=== PATIENT | male | born 1945 | race Caucasian/White ===

== ENCOUNTER 2018-06-22 16:07 | Emergency (ER) | payer OTHER, SELFPAY ==
[2018-06-22 16:12] VITALS: BP 155/91; PULSE 81; RESP 16; TEMP 36; O2SAT 98; BMI 39.5
--- NOTE | 2018-06-22 16:24 | DI.RAD.S_ITS ---
PROCEDURE: XR KUB INDICATIONS: possible kidney stone. TECHNIQUE: One view of the abdomen acquired. COMPARISON: None. FINDINGS: Surgical changes and devices: None. Bowel: Bowel gas pattern is normal. Soft tissues: No suspicious abdominal calcifications. Visualized solid organ contours appear normal in size. Bones: No suspicious bony lesions. IMPRESSION: No trauma found. Moderately severe degenerative changes along the lumbosacral spine. A suspected urinary tract stone is not seen. CT KUB likely is warranted in this clinical circumstance. Dictated by: Crow Bajwa M.D. on 06/22/2018 at 16:40 Approved by: Crow Bajwa M.D. on 06/22/2018 at 16:40
[2018-06-22 16:31] LABS: Add Manual Diff / Slide Review NO; Basophils Percent Auto 1.5 % (0-2); Eosinophils Percent Auto 2.5 % (2-4); Hematocrit 44.4 % (41-53); Hemoglobin 15.2 g/dL (13.5-17.5); Lymphocytes Percent Auto 17.7 % (25-40); Mean Corpuscular HGB Conc 34.1 % (30-36); Mean Corpuscular Hemoglobin 31.6 PG (26-34); Mean Corpuscular Volume 92.8 fL (80-100); Neutrophils Absolute Auto 7900 /uL (3000-5900); Neutrophils Percent Auto 70.3 % (50-75); Platelet Count 243 X10^3/uL (150-400); Red Blood Cell Count 4.79 X10^6/uL (4.5-5.9); Red Cell Distribution Width 13.2 % (11.6-14.8); White Blood Cell Count 11.2 X10^3/uL (4.5-11.0)
--- NOTE | 2018-06-22 16:38 | ED.BACK ---
HPI - Back Pain/Injury <Hilda Shelton PA-C - Last Filed: 06/22/18 21:38> General Chief Complaint: Back Pain/Injury Stated Complaint: STATES PASSING KIDNEY STONE Time Seen by Provider: 06/22/18 16:24 Source: patient Mode of arrival: ambulatory Limitations: no limitations History of Present Illness HPI Narrative: This 72-year-old gentleman comes in today due to right flank pain which he believes is secondary to a kidney stone. He had 1 last year and this pain is similar. He states that initially he felt a pressure like he needed to defecate, but did not resolve with this, then began having pain in the right flank that has worsened over the last few hours. He states that he took left over dose of Flomax, ketorolac, and also had all of while and lemon juice which have helped somewhat at home. He denies any nausea or vomiting. He denies any hematuria or dysuria. He has not had fever, chills, or sweats. He states that pain is localized in the flank and denies abdominal pain. He denies any chest pain, dyspnea, extremity pain or other new complaints on systems review. Pain does not seem to have exacerbating or alleviating features aside from the medications. Related Data Previous Rx's Medication Instructions Recorded hydrocodone-acetaminophen [[place]] 2 tab PO Q6H PRN #12 tab 06/22/18 tamsulosin [Flomax] 0.4 mg PO DAILY #5 cap 06/22/18 Allergies Allergy/AdvReac Type Severity Reaction Status Date / Time No Known Drug Allergies Allergy Verified 06/22/18 17:22 Review of Systems <Hilda Shelton PA-C - Last Filed: 06/22/18 21:38> Review of Systems All systems reviewed & are unremarkable except as noted in HPI and below Exam <Hilda Shelton PA-C - Last Filed: 06/22/18 21:38> Narrative Exam Narrative: GENERAL APPEARANCE: Patient sitting comfortably, in no distress. HEENT: PERRL, EOMI, no scleral icterus NECK: Supple LUNGS: Clear to auscultation bilaterally. HEART: Rate and rhythm regular, normal S1 and S2, no S3 or S4. ABDOMEN: Soft, nontender, nondistended, bowel sounds present x 4 quadrants, no masses palpable, no hepatosplenomegaly. Localized right CVAT EXTREMITIES: No edema, no cyanosis or calf tenderness DERMATOLOGIC: No jaundice or exanthem NEUROLOGIC: Alert and oriented with normal speech and coordination Initial Vital Signs Initial Vital Signs: Vital Signs Temperature 96.8 F L 06/22/18 16:12 Pulse Rate 81 06/22/18 16:12 Respiratory Rate 16 06/22/18 16:12 Blood Pressure 155/91 H 06/22/18 16:12 Pulse Oximetry 98 06/22/18 16:12 <Filippo Casarez DO - Last Filed: 06/23/18 07:15> Initial Vital Signs Initial Vital Signs: Vital Signs Temperature 96.8 F L 06/22/18 16:12 Pulse Rate 81 06/22/18 16:12 Respiratory Rate 16 06/22/18 16:12 Blood Pressure 155/91 H 06/22/18 16:12 Pulse Oximetry 98 06/22/18 16:12 Course <Hilda Shelton PA-C - Last Filed: 06/22/18 21:38> Additional Information: Patient felt significantly improved after pain medications and was ambulating comfortably prior to discharge. Orders Ordered: Discontinued Medications Hydromorphone HCl (Dilaudid) 1 mg IV NOW ONE Stop: 06/22/18 16:49 Last Admin: 06/22/18 16:56 Dose: 1 mg Ketorolac Tromethamine (Toradol) 15 mg IV NOW ONE Stop: 06/22/18 16:49 Last Admin: 06/22/18 16:56 Dose: 15 mg Vital Signs - 8 hr 06/22/18 16:12 06/22/18 18:26 Temperature 96.8 F L Pulse Rate 81 78 Respiratory Rate 16 15 Blood Pressure 155/91 H Blood Pressure [Left Arm] 127/74 H Pulse Oximetry 98 98 <DO Jason Her Last Filed: 06/23/18 07:15> Orders Ordered: Discontinued Medications Hydromorphone HCl (Dilaudid) 1 mg IV NOW ONE Stop: 06/22/18 16:49 Last Admin: 06/22/18 16:56 Dose: 1 mg Ketorolac Tromethamine (Toradol) 15 mg IV NOW ONE Stop: 06/22/18 16:49 Last Admin: 06/22/18 16:56 Dose: 15 mg Vital Signs - 8 hr 06/22/18 16:12 06/22/18 18:26 Temperature 96.8 F L Pulse Rate 81 78 Respiratory Rate 16 15 Blood Pressure 155/91 H Blood Pressure [Left Arm] 127/74 H Pulse Oximetry 98 98 MDM - Back Pain/Injury <Hilda Shelton PA-C - Last Filed: 06/22/18 21:38> Lab Data Result diagrams: 06/22/18 16:20 06/22/18 16:20 Lab Results 06/22/18 06/22/18 06/22/18 Range/Units 16:20 16:20 18:16 WBC 11.2 H (4.5-11.0) X10^3/uL RBC 4.79 (4.5-5.9) X10^6/uL Hgb 15.2 (13.5-17.5) g/dL Hct 44.4 (41-53) % MCV 92.8 (80-100) fL MCH 31.6 (26-34) PG MCHC 34.1 (30-36) % RDW 13.2 (11.6-14.8) % Plt Count 243 (150-400) X10^3/uL Neut % (Auto) 70.3 (50-75) % Lymph % (Auto) 17.7 L (25-40) % Rock % (Auto) 8.0 (3-14) % Eos % (Auto) 2.5 (2-4) % Baso % (Auto) 1.5 (0-2) % Neut # (Auto) 7900 H (4345-1969) /uL Sodium 138 (137-145) mmol/L Potassium 4.7 (3.4-5.1) mmol/L Chloride 97 L (98-107) mmol/L Carbon Dioxide 24 (22-32) mmol/L BUN 27 H (9-20) mg/dL Creatinine 1.50 H (0.66-1.25) mg/dL Estimated GFR 45.9 L (>60) mL/min BUN/Creatinine Ratio 18.0 (6-22) Glucose 233 H (80-110) mg/dL Calcium 10.4 H (8.4-10.2) mg/dL Urine RBC 5-10/hpf H (0-5/HPF) Urine WBC 5-10/hpf H (0-5/HPF) Urine Bacteria None seen (None) Ur Culture Indicated? Specimen cultured Micro UA Comment Not Reportable Imaging Data US - abdomen: Radiologist's impression: View Report History Print [facility] [address] [place] [id number] Scan Report Signed Patient: Boy Pisano MR#: [id number] : 1945 Acct:[id number] Age/Sex: 72 / M Date of Service: 06/22/18 Loc: ED Accession Number: [id number] Procedure: CT kidney ureter bladder (KUB) Ordering Provider: Hilda Shelton P.A-C PROCEDURE: CT KIDNEY URETER BLADDER (KUB) INDICATIONS: r. flank pain, h/o stone TECHNIQUE: Noncontrast 5 mm thick sections acquired from the diaphragms to the symphysis. 5 mm thick coronal and sagittal reformats were then performed. For radiation dose reduction, the following was used: automated exposure control, adjustment of mA and/or kV according to patient size. COMPARISON: [facility], CT, ABDOMEN/PELVIS WITH CONTRAST, 07/09/2017, 23:59. FINDINGS: Image quality: Excellent. Lung bases: Aortic root and coronary artery calcifications are noted. Sternotomy wires are present. There is a large hiatal hernia. There is mild bibasilar atelectasis. Urinary system: There is a 1.4 cm left renal cyst in the mid left kidney. No left hydronephrosis. There are punctate nonobstructing nephroliths within the right kidney. There is mild right perinephric fat stranding. There is mild right hydroureteronephrosis with a 3 mm calculus in the distal right ureter and a 2 mm calculus in the right ureterovesicular junction. Bladder is unremarkable. Other solid organs: There is diffuse hepatic attenuation consistent with steatosis with focal fatty sparing of the liver surrounding the gallbladder fossa. Gallbladder is unremarkable. No intrahepatic or extrahepatic biliary ductal dilatation. Pancreas, spleen, and bilateral adrenal glands are unremarkable. Peritoneum and bowel: There is colonic diverticulosis without evidence of acute diverticulitis. Nodes and vessels: There is severe calcification of the abdominal aorta and branch vessels. No retroperitoneal lymphadenopathy. Abdominal wall: No ventral hernias. Pelvis: No free pelvic fluid. No inguinal hernias or adenopathy. Bones: Bones are mildly diffusely demineralized. There is severe multilevel degenerative changes of the lumbar spine with straightening of the normal lumbar lordosis, and retrolisthesis of L2 on L3 resulting in moderate spinal canal stenosis at this level. IMPRESSION: #1. Mild right hydronephrosis and ureteral dilatation secondary to a 3 mm calculus in the distal right ureter and a 2 mm calculus at the right ureterovesicular junction. #2. Large hiatal hernia. #3. Severe multilevel degenerative changes of the lumbar spine with retrolisthesis of L2 on L3 resulting in moderate spinal canal stenosis at that level. #4. Diffuse hepatic steatosis. Dictated by: Darian Madera M.D. on 06/22/2018 at 17:29 Approved by: Darian Madera M.D. on 06/22/2018 at 17:42 <Filippo Casarez DO - Last Filed: 06/23/18 07:15> Lab Data Lab Results 06/22/18 06/22/18 06/22/18 Range/Units 16:20 16:20 18:16 WBC 11.2 H (4.5-11.0) X10^3/uL RBC 4.79 (4.5-5.9) X10^6/uL Hgb 15.2 (13.5-17.5) g/dL Hct 44.4 (41-53) % MCV 92.8 (80-100) fL MCH 31.6 (26-34) PG MCHC 34.1 (30-36) % RDW 13.2 (11.6-14.8) % Plt Count 243 (150-400) X10^3/uL Neut % (Auto) 70.3 (50-75) % Lymph % (Auto) 17.7 L (25-40) % Rock % (Auto) 8.0 (3-14) % Eos % (Auto) 2.5 (2-4) % Baso % (Auto) 1.5 (0-2) % Neut # (Auto) 7900 H (2845-6432) /uL Sodium 138 (137-145) mmol/L Potassium 4.7 (3.4-5.1) mmol/L Chloride 97 L (98-107) mmol/L Carbon Dioxide 24 (22-32) mmol/L BUN 27 H (9-20) mg/dL Creatinine 1.50 H (0.66-1.25) mg/dL Estimated GFR 45.9 L (>60) mL/min BUN/Creatinine Ratio 18.0 (6-22) Glucose 233 H (80-110) mg/dL Calcium 10.4 H (8.4-10.2) mg/dL Urine RBC 5-10/hpf H (0-5/HPF) Urine WBC 5-10/hpf H (0-5/HPF) Urine Bacteria None seen (None) Ur Culture Indicated? Specimen cultured Micro UA Comment Not Reportable Discharge Plan Departure Patient Disposition: Home Clinical Impression: Kidney stone on right side Discharge Date/Time: 06/22/18 19:27 Interventions: ED Discharge Assessment Last Done: 06/22/18 19:26 Instructions: DI for Kidney Stones Activity Restrictions/Additional Instructions: Return as we talked about if you have acutely worsening symptoms. Otherwise, please take your tamsulosin once daily, use the prescription pain medicine as needed and drink plenty of fluids. Do not drive while taking the hydrocodone/acetaminophen as it could make you sleepy. I suspect these stones will pass in the next day or so. You should follow up with your PCP in the next few days for recheck Prescriptions: New hydrocodone-acetaminophen [[place]] 5-325 mg tablet 2 tab PO Q6H PRN (Reason: kidney stone) Qty: 12 RF: 0 tamsulosin [Flomax] 0.4 mg capsule 0.4 mg PO DAILY Qty: 5 RF: 0 Referrals: Keke Grewal MD [Primary Care Provider] - <Filippo Casarez DO - Last Filed: 06/23/18 07:15> Cosign ED Attending Campos Attestation: I was available for consultation during this patient's emergency department encounter
[2018-06-22 16:44] LABS: Blood Urea Nitrogen 27 mg/dL (9-20); Calcium 10.4 mg/dL (8.4-10.2); Carbon Dioxide 24 mmol/L (22-32); Chloride 97 mmol/L (98-107); Estimated Glomerular Filt Rate 45.9 mL/min (>60); Glucose 233 mg/dL (80-110); HEMOLYSIS 17 (0-50); Potassium 4.7 mmol/L (3.4-5.1); Sodium 138 mmol/L (137-145)
--- NOTE | 2018-06-22 16:55 | DI.CT.S_ITS ---
PROCEDURE: CT KIDNEY URETER BLADDER (KUB) INDICATIONS: r. flank pain, h/o stone TECHNIQUE: Noncontrast 5 mm thick sections acquired from the diaphragms to the symphysis. 5 mm thick coronal and sagittal reformats were then performed. For radiation dose reduction, the following was used: automated exposure control, adjustment of mA and/or kV according to patient size. COMPARISON: [facility], CT, ABDOMEN/PELVIS WITH CONTRAST, 07/09/2017, 23:59. FINDINGS: Image quality: Excellent. Lung bases: Aortic root and coronary artery calcifications are noted. Sternotomy wires are present. There is a large hiatal hernia. There is mild bibasilar atelectasis. Urinary system: There is a 1.4 cm left renal cyst in the mid left kidney. No left hydronephrosis. There are punctate nonobstructing nephroliths within the right kidney. There is mild right perinephric fat stranding. There is mild right hydroureteronephrosis with a 3 mm calculus in the distal right ureter and a 2 mm calculus in the right ureterovesicular junction. Bladder is unremarkable. Other solid organs: There is diffuse hepatic attenuation consistent with steatosis with focal fatty sparing of the liver surrounding the gallbladder fossa. Gallbladder is unremarkable. No intrahepatic or extrahepatic biliary ductal dilatation. Pancreas, spleen, and bilateral adrenal glands are unremarkable. Peritoneum and bowel: There is colonic diverticulosis without evidence of acute diverticulitis. Nodes and vessels: There is severe calcification of the abdominal aorta and branch vessels. No retroperitoneal lymphadenopathy. Abdominal wall: No ventral hernias. Pelvis: No free pelvic fluid. No inguinal hernias or adenopathy. Bones: Bones are mildly diffusely demineralized. There is severe multilevel degenerative changes of the lumbar spine with straightening of the normal lumbar lordosis, and retrolisthesis of L2 on L3 resulting in moderate spinal canal stenosis at this level. IMPRESSION: #1. Mild right hydronephrosis and ureteral dilatation secondary to a 3 mm calculus in the distal right ureter and a 2 mm calculus at the right ureterovesicular junction. #2. Large hiatal hernia. #3. Severe multilevel degenerative changes of the lumbar spine with retrolisthesis of L2 on L3 resulting in moderate spinal canal stenosis at that level. #4. Diffuse hepatic steatosis. Dictated by: Darian Madera M.D. on 06/22/2018 at 17:29 Approved by: Darian Madera M.D. on 06/22/2018 at 17:42
[2018-06-22] MEDS: HYDROMORPHONE 1 MG INJ IV (16:56)
[2018-06-22] MEDS: KETOROLAC 60 MG/2 ML VIAL 15 MG IV (16:56)
--- NOTE | 2018-06-22 17:10 | ED_ITS ---
HPI - Back Pain/Injury <Hilda Shelton PA-C - Last Filed: 06/22/18 21:38> General Chief Complaint: Back Pain/Injury Stated Complaint: STATES PASSING KIDNEY STONE Time Seen by Provider: 06/22/18 16:24 Source: patient Mode of arrival: ambulatory Limitations: no limitations History of Present Illness HPI Narrative: This 72-year-old gentleman comes in today due to right flank pain which he believes is secondary to a kidney stone. He had 1 last year and this pain is similar. He states that initially he felt a pressure like he needed to defecate, but did not resolve with this, then began having pain in the right flank that has worsened over the last few hours. He states that he took left over dose of Flomax, ketorolac, and also had all of while and lemon juice which have helped somewhat at home. He denies any nausea or vomiting. He denies any hematuria or dysuria. He has not had fever, chills, or sweats. He states that pain is localized in the flank and denies abdominal pain. He denies any chest pain, dyspnea, extremity pain or other new complaints on systems review. Pain does not seem to have exacerbating or alleviating features aside from the medications. Related Data Previous Rx's Medication Instructions Recorded hydrocodone-acetaminophen [Dolliver] 2 tab PO Q6H PRN #12 tab 06/22/18 tamsulosin [Flomax] 0.4 mg PO DAILY #5 cap 06/22/18 Allergies Allergy/AdvReac Type Severity Reaction Status Date / Time No Known Drug Allergies Allergy Verified 06/22/18 17:22 Review of Systems <Hilda Shelton PA-C - Last Filed: 06/22/18 21:38> Review of Systems All systems reviewed & are unremarkable except as noted in HPI and below Exam <Hilda Shelton PA-C - Last Filed: 06/22/18 21:38> Narrative Exam Narrative: GENERAL APPEARANCE: Patient sitting comfortably, in no distress. HEENT: PERRL, EOMI, no scleral icterus NECK: Supple LUNGS: Clear to auscultation bilaterally. HEART: Rate and rhythm regular, normal S1 and S2, no S3 or S4. ABDOMEN: Soft, nontender, nondistended, bowel sounds present x 4 quadrants, no masses palpable, no hepatosplenomegaly. Localized right CVAT EXTREMITIES: No edema, no cyanosis or calf tenderness DERMATOLOGIC: No jaundice or exanthem NEUROLOGIC: Alert and oriented with normal speech and coordination Initial Vital Signs Initial Vital Signs: Vital Signs Temperature 96.8 F L 06/22/18 16:12 Pulse Rate 81 06/22/18 16:12 Respiratory Rate 16 06/22/18 16:12 Blood Pressure 155/91 H 06/22/18 16:12 Pulse Oximetry 98 06/22/18 16:12 <Filippo Casarez DO - Last Filed: 06/23/18 07:15> Initial Vital Signs Initial Vital Signs: Vital Signs Temperature 96.8 F L 06/22/18 16:12 Pulse Rate 81 06/22/18 16:12 Respiratory Rate 16 06/22/18 16:12 Blood Pressure 155/91 H 06/22/18 16:12 Pulse Oximetry 98 06/22/18 16:12 Course <Hilda Shelton PA-C - Last Filed: 06/22/18 21:38> Additional Information: Patient felt significantly improved after pain medications and was ambulating comfortably prior to discharge. Orders Ordered: Discontinued Medications Hydromorphone HCl (Dilaudid) 1 mg IV NOW ONE Stop: 06/22/18 16:49 Last Admin: 06/22/18 16:56 Dose: 1 mg Ketorolac Tromethamine (Toradol) 15 mg IV NOW ONE Stop: 06/22/18 16:49 Last Admin: 06/22/18 16:56 Dose: 15 mg Vital Signs - 8 hr 06/22/18 16:12 06/22/18 18:26 Temperature 96.8 F L Pulse Rate 81 78 Respiratory Rate 16 15 Blood Pressure 155/91 H Blood Pressure [Left Arm] 127/74 H Pulse Oximetry 98 98 <DO Jason Her Last Filed: 06/23/18 07:15> Orders Ordered: Discontinued Medications Hydromorphone HCl (Dilaudid) 1 mg IV NOW ONE Stop: 06/22/18 16:49 Last Admin: 06/22/18 16:56 Dose: 1 mg Ketorolac Tromethamine (Toradol) 15 mg IV NOW ONE Stop: 06/22/18 16:49 Last Admin: 06/22/18 16:56 Dose: 15 mg Vital Signs - 8 hr 06/22/18 16:12 06/22/18 18:26 Temperature 96.8 F L Pulse Rate 81 78 Respiratory Rate 16 15 Blood Pressure 155/91 H Blood Pressure [Left Arm] 127/74 H Pulse Oximetry 98 98 MDM - Back Pain/Injury <Hilda Shelton PA-C - Last Filed: 06/22/18 21:38> Lab Data Result diagrams: 06/22/18 16:20 06/22/18 16:20 Lab Results 06/22/18 06/22/18 06/22/18 Range/Units 16:20 16:20 18:16 WBC 11.2 H (4.5-11.0) X10^3/uL RBC 4.79 (4.5-5.9) X10^6/uL Hgb 15.2 (13.5-17.5) g/dL Hct 44.4 (41-53) % MCV 92.8 (80-100) fL MCH 31.6 (26-34) PG MCHC 34.1 (30-36) % RDW 13.2 (11.6-14.8) % Plt Count 243 (150-400) X10^3/uL Neut % (Auto) 70.3 (50-75) % Lymph % (Auto) 17.7 L (25-40) % [place] % (Auto) 8.0 (3-14) % Eos % (Auto) 2.5 (2-4) % Baso % (Auto) 1.5 (0-2) % Neut # (Auto) 7900 H (3251-7740) /uL Sodium 138 (137-145) mmol/L Potassium 4.7 (3.4-5.1) mmol/L Chloride 97 L (98-107) mmol/L Carbon Dioxide 24 (22-32) mmol/L BUN 27 H (9-20) mg/dL Creatinine 1.50 H (0.66-1.25) mg/dL Estimated GFR 45.9 L (>60) mL/min BUN/Creatinine Ratio 18.0 (6-22) Glucose 233 H (80-110) mg/dL Calcium 10.4 H (8.4-10.2) mg/dL Urine RBC 5-10/hpf H (0-5/HPF) Urine WBC 5-10/hpf H (0-5/HPF) Urine Bacteria None seen (None) Ur Culture Indicated? Specimen cultured Micro UA Comment Not Reportable Imaging Data US - abdomen: Radiologist's impression: View Report History Print [facility] [address] [place] [id number] Scan Report Signed Patient: Boy Pisano MR#: [id number] : 1945 Acct:[id number] Age/Sex: 72 / M Date of Service: 06/22/18 Loc: ED Accession Number: [id number] Procedure: CT kidney ureter bladder (KUB) Ordering Provider: Hilda Shelton P.A-C PROCEDURE: CT KIDNEY URETER BLADDER (KUB) INDICATIONS: r. flank pain, h/o stone TECHNIQUE: Noncontrast 5 mm thick sections acquired from the diaphragms to the symphysis. 5 mm thick coronal and sagittal reformats were then performed. For radiation dose reduction, the following was used: automated exposure control, adjustment of mA and/or kV according to patient size. COMPARISON: [facility], CT, ABDOMEN/PELVIS WITH CONTRAST, 07/09/2017, 23: 59. FINDINGS: Image quality: Excellent. Lung bases: Aortic root and coronary artery calcifications are noted. Sternotomy wires are present. There is a large hiatal hernia. There is mild bibasilar atelectasis. Urinary system: There is a 1.4 cm left renal cyst in the mid left kidney. No left hydronephrosis. There are punctate nonobstructing nephroliths within the right kidney. There is mild right perinephric fat stranding. There is mild right hydroureteronephrosis with a 3 mm calculus in the distal right ureter and a 2 mm calculus in the right ureterovesicular junction. Bladder is unremarkable. Other solid organs: There is diffuse hepatic attenuation consistent with steatosis with focal fatty sparing of the liver surrounding the gallbladder fossa. Gallbladder is unremarkable. No intrahepatic or extrahepatic biliary ductal dilatation. Pancreas, spleen, and bilateral adrenal glands are unremarkable. Peritoneum and bowel: There is colonic diverticulosis without evidence of acute diverticulitis. Nodes and vessels: There is severe calcification of the abdominal aorta and branch vessels. No retroperitoneal lymphadenopathy. Abdominal wall: No ventral hernias. Pelvis: No free pelvic fluid. No inguinal hernias or adenopathy. Bones: Bones are mildly diffusely demineralized. There is severe multilevel degenerative changes of the lumbar spine with straightening of the normal lumbar lordosis, and retrolisthesis of L2 on L3 resulting in moderate spinal canal stenosis at this level. IMPRESSION: #1. Mild right hydronephrosis and ureteral dilatation secondary to a 3 mm calculus in the distal right ureter and a 2 mm calculus at the right ureterovesicular junction. #2. Large hiatal hernia. #3. Severe multilevel degenerative changes of the lumbar spine with retrolisthesis of L2 on L3 resulting in moderate spinal canal stenosis at that level. #4. Diffuse hepatic steatosis. Dictated by: Darian Madera M.D. on 06/22/2018 at 17:29 Approved by: Darian Madera M.D. on 06/22/2018 at 17:42 <Filippo Casarez DO - Last Filed: 06/23/18 07:15> Lab Data Lab Results 06/22/18 06/22/18 06/22/18 Range/Units 16:20 16:20 18:16 WBC 11.2 H (4.5-11.0) X10^3/uL RBC 4.79 (4.5-5.9) X10^6/uL Hgb 15.2 (13.5-17.5) g/dL Hct 44.4 (41-53) % MCV 92.8 (80-100) fL MCH 31.6 (26-34) PG MCHC 34.1 (30-36) % RDW 13.2 (11.6-14.8) % Plt Count 243 (150-400) X10^3/uL Neut % (Auto) 70.3 (50-75) % Lymph % (Auto) 17.7 L (25-40) % [place] % (Auto) 8.0 (3-14) % Eos % (Auto) 2.5 (2-4) % Baso % (Auto) 1.5 (0-2) % Neut # (Auto) 7900 H (5196-9969) /uL Sodium 138 (137-145) mmol/L Potassium 4.7 (3.4-5.1) mmol/L Chloride 97 L (98-107) mmol/L Carbon Dioxide 24 (22-32) mmol/L BUN 27 H (9-20) mg/dL Creatinine 1.50 H (0.66-1.25) mg/dL Estimated GFR 45.9 L (>60) mL/min BUN/Creatinine Ratio 18.0 (6-22) Glucose 233 H (80-110) mg/dL Calcium 10.4 H (8.4-10.2) mg/dL Urine RBC 5-10/hpf H (0-5/HPF) Urine WBC 5-10/hpf H (0-5/HPF) Urine Bacteria None seen (None) Ur Culture Indicated? Specimen cultured Micro UA Comment Not Reportable Discharge Plan Departure Patient Disposition: Home Clinical Impression: Kidney stone on right side Discharge Date/Time: 06/22/18 19:27 Interventions: ED Discharge Assessment Last Done: 06/22/18 19:26 Instructions: DI for Kidney Stones Activity Restrictions/Additional Instructions: Return as we talked about if you have acutely worsening symptoms. Otherwise, please take your tamsulosin once daily, use the prescription pain medicine as needed and drink plenty of fluids. Do not drive while taking the hydrocodone/ acetaminophen as it could make you sleepy. I suspect these stones will pass in the next day or so. You should follow up with your PCP in the next few days for recheck Prescriptions: New hydrocodone-acetaminophen [Dolliver] 5-325 mg tablet 2 tab PO Q6H PRN (Reason: kidney stone) Qty: 12 RF: 0 tamsulosin [Flomax] 0.4 mg capsule 0.4 mg PO DAILY Qty: 5 RF: 0 Referrals: Keke Grewal MD [Primary Care Provider] - <Filippo Casarez DO - Last Filed: 06/23/18 07:15> Cosign ED Attending Campos Attestation: I was available for consultation during this patient's emergency department encounter
[2018-06-22 18:26] VITALS: BP 127/74; PULSE 78; RESP 15; O2SAT 98
[2018-06-22 18:48] LABS: Bacteria Urine None Seen; Culture Indicated Urine Specimen Cultured; RBC Urine 5-10/HPF (0-5/HPF); WBC Urine 5-10/HPF (0-5/HPF)
--- NOTE | 2018-06-26 14:57 | PC.NURSE ---
spoke with pt today and he reports feeling better, afebrile as of 06/25/18, cook removed today and a ureter stent was placed while at [facility]. reported the medication pt rec'd and dr eckert stated no further action required, also [facility] sup reports they too ran a urine culture with no growth.
== END 2018-06-22 19:27 | disposition home or self-care (01) ==
PROVIDERS: Emergency Provider Internal Medicine; Family Provider Family Medicine; PCP Family Medicine
DX: N20.0 Calculus of kidney (principal)
CPT/HCPCS: 36591; 74018; 74176; 80048; 81003; 81015; 85025; 87077; 87086; 96374; 96375; 99282; 99284; J1170; J1885

== ENCOUNTER 2018-11-17 10:18 | Day surgery (SDC) | payer OTHER, SELFPAY ==
[2018-11-17 10:34] VITALS: BP 139/88; PULSE 78; RESP 16; TEMP 36.3; O2SAT 95; BMI 38.2
[2018-11-17] MEDS: SODIUM CHLORIDE 0.9% 1,000 ML 42 ML IV (11:05)
--- NOTE | 2018-11-17 12:11 | PM.HP.1 ---
History of Present Illness Date Patient Seen: 11/17/18 Time Patient Seen: 12:11 Chief complaint: colonoscopy [id number] Narrative: History of adenomatous colon polyps Patient History Medical History Diabetes mellitus (Acute) Hypercholesterolemia (Acute) Hypertension (Acute) CAD (coronary artery disease) (Chronic) History of non-insulin dependent diabetes mellitus (Chronic) Coronary artery disease involving coronary bypass graft of [place] heart (Resolved) Family & Social History Social History: household members spouse Tobacco & Substance use: Smoking Status Never smoker alcohol intake frequency other Substance Use Type does not use Meds Home Medications Medication Instructions Recorded Confirmed Type metformin 500 mg PO TID 11/17/18 11/17/18 History metoprolol succinate 25 mg PO DAILY 11/17/18 11/17/18 History omeprazole 20 mg PO DAILY 11/17/18 11/17/18 History simvastatin 40 mg PO QPM 11/17/18 11/17/18 History tramadol 50 mg PO QID PRN 11/17/18 11/17/18 History travoprost 1 % EYE-BOTH DAILY 11/17/18 11/17/18 History Allergies Allergy/AdvReac Type Severity Reaction Status Date / Time No Known Drug Allergies Allergy Verified 11/17/18 10:52 Exam Vital Signs (past 8 hours): - 11/17/18 10:34 Temperature 97.4 F L Pulse Rate 78 Respiratory Rate 16 Blood Pressure 139/88 Pulse Oximetry 95 Oxygen Delivery Method Room Air Narrative Exam Narrative: Oropharynx free of lesions Chest clear to auscultation percussion Cardiac exam reveals no S3 or murmur Assessment & Plan Plan: Assessment/Plan Narrative: History of adenomatous colon polyps. Need for follow-up colonoscopy. Risks, benefits, alternatives have been explained.
--- NOTE | 2018-11-17 12:16 | P.HP_ITS ---
History of Present Illness Date Patient Seen: 11/17/18 Time Patient Seen: 12:11 Chief complaint: colonoscopy [id number] Narrative: History of adenomatous colon polyps Patient History Medical History Diabetes mellitus (Acute) Hypercholesterolemia (Acute) Hypertension (Acute) CAD (coronary artery disease) (Chronic) History of non-insulin dependent diabetes mellitus (Chronic) Coronary artery disease involving coronary bypass graft of [place] heart ( Resolved) Family & Social History Social History: household members spouse Tobacco & Substance use: Smoking Status Never smoker alcohol intake frequency other Substance Use Type does not use Meds Home Medications Medication Instructions Recorded Confirmed Type metformin 500 mg PO TID 11/17/18 11/17/18 History metoprolol succinate 25 mg PO DAILY 11/17/18 11/17/18 History omeprazole 20 mg PO DAILY 11/17/18 11/17/18 History simvastatin 40 mg PO QPM 11/17/18 11/17/18 History tramadol 50 mg PO QID PRN 11/17/18 11/17/18 History travoprost 1 % EYE-BOTH DAILY 11/17/18 11/17/18 History Allergies Allergy/AdvReac Type Severity Reaction Status Date / Time No Known Drug Allergies Allergy Verified 11/17/18 10:52 Exam Vital Signs (past 8 hours): - 11/17/18 10:34 Temperature 97.4 F L Pulse Rate 78 Respiratory Rate 16 Blood Pressure 139/88 Pulse Oximetry 95 Oxygen Delivery Method Room Air Narrative Exam Narrative: Oropharynx free of lesions Chest clear to auscultation percussion Cardiac exam reveals no S3 or murmur Assessment & Plan Plan: Assessment/Plan Narrative: History of adenomatous colon polyps. Need for follow-up colonoscopy. Risks, benefits, alternatives have been explained.
--- NOTE | 2018-11-17 12:16 | PM.OP.ENDO ---
Operative Date/Time/Diagnoses Date of procedure: 11/17/18 Time of procedure: 12:16 Pre-op diagnosis: See indication and findings Procedure & Clinicians Study performed: Colonoscopy Same procedure as scheduled: Yes Indications: History of adenomatous colon polyps Surgeon: More Chatterjee Procedure Notes Procedure in detail: After informed consent was obtained the patient was placed in left lateral decubitus position. The video colonoscope was introduced the rectum slowly advanced to the cecum. On slow withdrawal mucosa was carefully examined. The scope was removed. The patient tolerated the procedure well. Blood loss none Complications none Sedation Total sedation time 25 min Versed 6 mg fentanyl 100 mcg IV titration Findings 1. Significantly tortuous and floppy colon particularly through the sigmoid and left colon. 2. Rare diverticula seen 3. Otherwise negative colonoscopy to cecum Patient will need follow-up colonoscopy in 5 years Cc: Dr. Keke Grewal
[2018-11-17] MEDS: fentaNYL 250 MCG/5 ML INJ IV (12:37)
[2018-11-17] MEDS: MIDAZOLAM 5 MG/5 ML VIAL IV (12:37)
[2018-11-17 12:45] VITALS: BP 115/83; PULSE 83; RESP 19; TEMP 36.1; O2SAT 92
[2018-11-17 12:50] VITALS: BP 128/90; PULSE 80; RESP 22; O2SAT 93
[2018-11-17 12:55] VITALS: BP 130/78; PULSE 82; RESP 15; TEMP 36.4; O2SAT 94
[2018-11-17 13:02] VITALS: BP 127/81; PULSE 80; RESP 16; TEMP 36.3; O2SAT 92
== END 2018-11-17 13:14 | disposition home or self-care (01) ==
PROVIDERS: Family Provider Family Medicine; PCP Family Medicine; Visit Provider Internal Medicine Gastroenterology
PROC: 0DJD8ZZ Inspection of Lower Intestinal Tract, Via Natural or Artificial Opening Endoscopic (ICD-10-PCS; CPT 45378; principal; 2018-11-17 12:30)
DX: Z86.010 Personal history of colon polyps (principal); K57.30 Diverticulosis of large intestine without perforation or abscess without bleeding; E11.9 Type 2 diabetes mellitus without complications; E78.00 Pure hypercholesterolemia, unspecified; I10 Essential (primary) hypertension; I25.10 Atherosclerotic heart disease of native coronary artery without angina pectoris; Z95.1 Presence of aortocoronary bypass graft; Z79.84 Long term (current) use of oral hypoglycemic drugs
CPT/HCPCS: G0105; J2250; J3010

== ENCOUNTER → 2018-12-21 13:38 | Outpatient (CLI) | payer OTHER, SELFPAY ==
--- NOTE | 2018-12-21 14:55 | PM.TREADMILL ---
Cardiac Stress Test Report Referral & Results Date Patient Seen: 12/21/18 Requesting provider: Fidel Perez Indication: Chest pain/dyspnea/known coronary disease Rest ECG: Unremarkable Procedure Note: Today following both written and verbal informed consent the patient was exercised according to a standard Vance protocol patient went for a total of 4 min 6 sec achieving a maximum heart rate of 145 maximum systolic blood pressure of 190. This is approximately 7.0 METS. Exercise was terminated at this point because of dyspnea and patient unable to continue, as well as heart rate target was met. Patient was also given Cardiolite through a previously started Hep-Lock IV by the nuclear equipment test engineer approximately 1 minute prior to the cessation of exercise. No ST changes Rare PVC Functional aerobic impairment rated 30% on the sedentary scale Impression: No ECG evidence of ischemia Limited exercise capacity Perfusion imaging will be reported separately Please note: Actual ECG tracings can be found in the PACS system.
--- NOTE | 2018-12-22 16:45 | DI.NM.S_ITS ---
DATE OF SERVICE: 12/21/2018 PROCEDURE PERFORMED: Exercise treadmill stress and rest myocardial perfusion imaging with gating to assess ejection fraction and regional wall motion. REFERRING PROVIDER: Fidel Perez MD INDICATIONS: The patient is a 73-year-old obese male with exertional dyspnea and chest tightness with a history of CABG. EXERCISE TREADMILL TESTING: The patient was able to exercise for a total of 4 minutes 6 seconds on a standard Vance protocol suggesting moderate-severely reduced exercise capacity with an ARRON of +40%. He had a normal heart rate and blood pressure response to exercise achieving a maximum heart rate of 145 bpm (99% of predicted maximum). No chest discomfort was described. His resting ECG shows some mild nonspecific ST-segment abnormalities in the inferolateral leads which become accentuated with stress with 1-[address] depression predominantly in the inferior leads, concerning for ischemia but nonspecific given the baseline abnormality. There were no arrhythmias. At 3 minutes of exercise, at heart rate of 132 bpm, 25.4 mCi of technetium-99 Myoview was injected and the patient was imaged 20 minutes later using a gated SPECT acquisition protocol. The patient returned the following day and was reinjected with an additional 26.7 mCi of technetium-99 Myoview and was imaged 30 minutes later, again using a gated SPECT acquisition protocol. FINDINGS: 1. Raw Data: There is fair myocardial tracer uptake. There is obvious diaphragmatic attenuation noted. Right ventricular uptake appears to be more prominent than typical and could indicate a right ventricular stress condition. The lung/heart ratio is normal at 0.25 with a normal TID ratio of 0.82. 2. Quantitative Gated SPECT: Post stress ejection fraction is estimated at 69% without any focal wall motion abnormality and specifically, the mid anterior wall and the proximal inferior wall have normal contractility. The resting ejection fraction is estimated at 59%, although appears quite similar to the post stress images. Resting end-diastolic volume borderline elevated at 142 mL. 3. Myocardial Perfusion Imaging: Post stress supine images show a fairly normal perfusion pattern with the exception of mildly reduced tracer activity in the [id number] inferior wall in a pattern that would be consistent with diaphragmatic attenuation, supported by its near-complete resolution on the prone images. In addition, there is a very subtle decrease in tracer activity in the mid-anterior wall in a pattern that would be consistent with chest wall attenuation that improves although not completely resolved on the prone images. The resting images show a similar perfusion pattern to the post stress supine images without any areas of improvement. CONCLUSIONS: 1. Probable normal myocardial perfusion study. 2. Mild fixed proximal inferior wall perfusion defect that resolves on prone imaging, most likely due to diaphragmatic attenuation artifact. In addition, there is also a very subtle, fixed anterior wall defect that persists slightly on prone images but likely reflects chest wall attenuation, although a previous nontransmural infarction cannot be entirely excluded. There is no evidence for significant myocardial ischemia. 3. Normal left ventricular systolic function without any regional wall motion abnormalities. Right ventricular free wall tracer uptake is somewhat increased, which can be a sign of a right ventricular stress condition. Left ventricular volumes are mildly increased. 4. Moderate-severely reduced exercise capacity without angina. There are significant ST-segment abnormalities with stress, potentially concerning for ischemia, but with reduced specificity because of mild baseline abnormalities and likely false-positive given the relatively normal perfusion images but clinical correlation is recommended. Boy Pisano - LEATHA/asna/ab doc#: [id number]/job#: [id number] dd: 12/22/2018 13:04:00 dt: 12/22/2018 16:02:00 DICTATING MD/COPIES TO: Vic Hagen MD; Fidel Perez MD; Keke Grewal M.D. COPIES JUAN MANUEL: DANIEL SPENCER; SYLVIE
== END ==
PROVIDERS: Family Provider Family Medicine; PCP Family Medicine; Visit Provider Internal Medicine Cardiovascular Disease
DX: R06.09 Other forms of dyspnea (principal); R07.89 Other chest pain; I25.10 Atherosclerotic heart disease of native coronary artery without angina pectoris; Z95.1 Presence of aortocoronary bypass graft
CPT/HCPCS: 78452; 93016; 93017; 93018; A9502

== ENCOUNTER → 2018-12-22 09:27 | Outpatient (CLI) | payer OTHER, SELFPAY ==
--- NOTE | 2018-12-22 | DI.ECHO.S_ITS ---
[facility] +---------+ [facility] +---------+ : : [address] : : : [place], [place] : : : : [id number] : : : : Phone: [phone] Echocardiogram Report + + :Name: MIRNA LONG Study Date: 12/22/2018 Height: 68 in : :[facility] Weight: 266 lb : : Gender: Male BSA: 2.3 m2 : :: 1945 Age: 73 yrs BP: 150/90 mmHg: :Reason For Study: CAD, NAIK : : Performed By: Maria G Harry : :Referring: JEFFERY MONTILLA : + + Interpretation Summary The study quality was technically difficult and limited due to poor acoustic windows. The left ventricle is grossly normal size. The ejection fraction is estimated to be 60-65%. Pulmonary artery pressures cannot be estimated because of the lack of a measurable TR jet velocity. There is no prior echocardiogram noted for this patient. Procedure: A two-dimensional transthoracic echocardiogram with color flow and Doppler was performed. The study quality was technically difficult and limited due to poor acoustic windows. There is no prior echocardiogram noted for this patient. A contrast injection of Definity was performed to improve assessment of LV function. The heart rate ranged between 90-100 bpm during the study. Left Ventricle: The left ventricle is grossly normal size. There is no thrombus. The ejection fraction is estimated to be 60-65%. Regional wall motion abnormalities cannot be excluded due to limited visualization. Diastolic function could not be accurately assessed due to unobtainable data. Right Ventricle: The right ventricle is normal size. The right ventricular systolic function is normal. Atria: The left atrial size is normal. Right atrium is small. There is no Doppler evidence for an interatrial shunt. Mitral Valve: The mitral valve leaflets appear mildly thickened, but open well. There is trace mitral regurgitation. Aortic Valve: A small echodensity is noted on the ventricular side of the aortic valve which could be Lambl's excressences versus artifact. The aortic valve is mildly calcified. The aortic valve opens well. There is no aortic valve stenosis. There is trace aortic regurgitation. Tricuspid Valve: The tricuspid valve is normal in structure and function. There is a trace or physiologic amount of tricuspid regurgitation. Pulmonary artery pressures cannot be estimated because of the lack of a measurable TR jet velocity. Pulmonic Valve: The pulmonic valve is not well visualized. Great Vessels: The aortic root is borderline dilated. The ascending aorta is mildly enlarged. The aortic arch could not be visualized. The pulmonary is not well visualized. The inferior vena cava was not visualized. Pericardium/ Pleura There is no pericardial effusion. There is no pleural effusion. MMode/2D Measurements & Calculations LVOT diam: 2.7 cm LA A2 area: 25.5 cm2 Ao root diam: 4.1 cm LA A4 area: 23.4 cm2 asc Aorta Diam: 3.6 cm LA length (vol): 6.8 cm LA vol: 74.3 ml LA vol index: 32.2 ml/m2 RA long axis: 5.2 cm RVD1 (basal): 2.4 cm RA area: 11.5 cm2 RA vol: 21.8 ml RA : 9.4 ml/m2 Doppler Measurements & Calculations Ao V2 max: 103.8 cm/sec LVOT Max Kg: 83.8 cm/sec Ao V2 mean: 74.2 cm/sec LV V1 max P.8 mmHg Ao max P.3 mmHg LV V1 VTI: 15.0 cm Ao mean P.3 mmHg REG(I,D): 5.1 cm2 Ao V2 VTI: 16.7 cm REG(V,D): 4.6 cm2 sev ratio: 0.89 REG indexed to BSA (cm^2/m^2): 2.2 MV A max kg: 123.7 cm/sec MV P1/2t max kg: 124.4 cm/sec Med Peak E' Kg: 8.8 cm/sec MVA(P1/2t): 6.1 cm2 Lat Peak E' Kg: 8.0 cm/sec MV P1/2t: 35.9 msec SV(LVOT): 84.5 ml Electronically signed by: Tristan Dickey M.D. on Reading Physician:12/22/2018 06:49 PM
== END ==
PROVIDERS: PCP Family Medicine; Visit Provider Internal Medicine Cardiovascular Disease
DX: I25.10 Atherosclerotic heart disease of native coronary artery without angina pectoris (principal); R06.09 Other forms of dyspnea
CPT/HCPCS: C8929; Q9957

== ENCOUNTER → 2020-07-17 08:38 | Outpatient (CLI) | payer OTHER, SELFPAY ==
--- NOTE | 2020-07-17 | DI.CT.S_ITS ---
PROCEDURE: CT CHEST WO CON INDICATIONS: Solitary pulmonary nodule TECHNIQUE: Noncontrast 5 mm thick sections acquired from the pulmonary apices to the posterior costophrenic angles. 1 mm lung window, 5 mm thick coronal and sagittal and 7 mm axial MIP reformats were then acquired. For radiation dose reduction, the following was used: automated exposure control, adjustment of mA and/or kV according to patient size. COMPARISON: Outside Film, CT, CT KUB, 06/23/2018, 19:45. FINDINGS: Image quality: Excellent. Numerous bilateral subcentimeter calcified granulomas are seen. Nonspecific 4 mm pulmonary nodule seen in the left upper lobe on image 67/3. Additional 2-3 mm left upper lobe pulmonary nodule on image 73/3 No acute consolidation. Scattered scarring/atelectasis. No pleural effusions or pneumothorax. Central and peripheral airways are patent and normal in caliber. Mediastinum: Heart size is normal. Coronary artery calcifications are present. No pericardial effusion. No mediastinal adenopathy by size criteria. Thoracic aorta and central pulmonary arteries are normal in size. Esophagus is normal in caliber. No hiatal hernia. Bones and chest wall: No suspicious bony lesions. No vertebral body compression fractures. No axillary or supraclavicular adenopathy by size criteria. Thyroid gland negative . Moderate to large hiatal hernia. IMPRESSION: Few sub 5 mm pulmonary nodules (in the left upper lobe) which warrant continued follow-up with CT chest in 1 year. Background scattered calcified granulomas. Coronary artery disease Moderate to large hiatal hernia as before. Dictated by: Carlin Ellis M.D. on 07/17/2020 at 9:15 Approved by: Carlin Ellis M.D. on 07/17/2020 at 9:23
== END ==
PROVIDERS: PCP Family Medicine; Referring Provider Family Medicine; Visit Provider Internal Medicine
DX: R91.8 Other nonspecific abnormal finding of lung field (principal); I25.10 Atherosclerotic heart disease of native coronary artery without angina pectoris; K44.9 Diaphragmatic hernia without obstruction or gangrene
CPT/HCPCS: 71250

== ENCOUNTER 2020-07-18 08:36 | Emergency (ER) | payer OTHER, SELFPAY ==
[2020-07-18] VITALS (11 sets, daily range): BP systolic 129–168; BP diastolic 61–86; PULSE 68–94; RESP 11–22; TEMP 37; O2SAT 91–99; BMI 37.9
[2020-07-18 09:11] LABS: Add Manual Diff / Slide Review NO; Basophils Absolute Auto 100 /uL (0-100); Basophils Percent Auto 1.4 % (0-2); Eosinophils Absolute Auto 300 /uL (0-450); Eosinophils Percent Auto 3.7 % (2-4); Hematocrit 41.3 % (41-53); Hemoglobin 14.1 g/dL (13.5-17.5); Lymphocytes Absolute Auto 1800 /uL (1100-4500); Lymphocytes Percent Auto 25.2 % (25-40); Mean Corpuscular HGB Conc 34.2 % (30-36); Mean Corpuscular Hemoglobin 32.6 PG (26-34); Mean Corpuscular Volume 95.3 fL (80-100); Monocytes Absolute Auto 500 /uL (0-900); Monocytes Percent Auto 7.2 % (3-14); Neutrophils Absolute Auto 4600 /uL (1500-7000); Neutrophils Percent Auto 62.5 % (50-75); Platelet Count 218 X10^3/uL (150-400); Red Blood Cell Count 4.33 X10^6/uL (4.5-5.9); Red Cell Distribution Width 13.3 % (11.6-14.8); White Blood Cell Count 7.3 X10^3/uL (4.5-11.0)
[2020-07-18 09:12] LABS: INR 1.2 (0.9-1.3); Prothrombin Time 13.3 SECONDS (10.1-12.7)
[2020-07-18 09:15] LABS: PTT Partial Thromboplastin Tim 32 SECONDS (26.4-36.2)
[2020-07-18 09:17] LABS: Alanine Aminotransferase 40 IU/L (<50); Albumin 4.6 g/dL (3.5-5.0); Albumin Globulin Ratio 1.4 (1.0-2.8); Alkaline Phosphatase 79 U/L (38-126); Aspartate Aminotransferase 43 IU/L (17-59); BUN Creatinine Ratio 16.7 (6-22); Bilirubin Total 0.8 mg/dL (0.2-1.3); Blood Urea Nitrogen 18 mg/dL (9-20); Calcium 10.3 mg/dL (8.4-10.2); Carbon Dioxide 22 mmol/L (22-32); Chloride 103 mmol/L (98-107); Estimated Glomerular Filt Rate > 60.0 mL/min (>60); Globulin 3.3 g/dL (1.7-4.1); Glucose 180 mg/dL (80-110); HEMOLYSIS < 15 (0-50); Lipase 381 U/L (23-300); Potassium 4.5 mmol/L (3.4-5.1); Sodium 138 mmol/L (137-145); Total Protein 7.9 g/dL (6.3-8.2)
--- NOTE | 2020-07-18 09:21 | ED_ITS ---
HPI - Abdominal Pain General Chief Complaint: Abdominal Pain Stated Complaint: Kidney stone left side x3 days ago Time Seen by Provider: 07/18/20 09:12 Source: patient Mode of arrival: Family Vehicle Limitations: no limitations History of Present Illness HPI narrative: 74-year-old gentleman with a history of coronary artery disease post CABG, diabetes, hypertension, hyperlipidemia and prior episodes of nephrolithiasis presents with 3 days of left flank pain. Thought initially it was simply a pulled muscle but when he woke this morning it was increasingly painful in felt similar to prior kidney stones. Does not note gross hematuria, no fevers no other abdominal pain states that he has been voiding and stooling normally otherwise. Related Data Home Medications Medication Instructions Recorded Confirmed metformin 500 mg PO TID 11/17/18 11/17/18 metoprolol succinate 25 mg PO DAILY 11/17/18 11/17/18 omeprazole 20 mg PO DAILY 11/17/18 11/17/18 simvastatin 40 mg PO QPM 11/17/18 11/17/18 tramadol 50 mg PO QID PRN 11/17/18 11/17/18 travoprost 1 % EYE-BOTH DAILY 11/17/18 11/17/18 Allergies Allergy/AdvReac Type Severity Reaction Status Date / Time No Known Drug Allergies Allergy Verified 07/18/20 09:10 Review of Systems Review of Systems Narrative: Pertinent positive and negative findings as per HPI Remainder of review of systems is otherwise unremarkable for Constitutional: Fevers, chills, weakness ENT: No sore throat, neck pain, ear pain CV: Chest pain, palpitations, dyspnea on exertion Respiratory: Cough, wheeze, dyspnea GI: Nausea, vomiting, diarrhea, change in bowel habits, black or bloody stools : Dysuria, hematuria, flank pain MS: Muscle weakness, numbness, joint swelling or warmth Skin: Rashes, nonhealing lesions Neuro: Syncope, dizziness, tingling Patient History Medical History (Updated 07/18/20 @ 11:36 by Raya Smith MD) CAD (coronary artery disease) (Chronic) Coronary artery disease involving coronary bypass graft of [place] heart (Resolved) Diabetes mellitus (Acute) History of non-insulin dependent diabetes mellitus (Chronic) Hypercholesterolemia (Acute) Hypertension (Acute) Kidney stone (Acute) Social History household members: spouse Smoking Status: Never smoker Smoking Status: Never smoker alcohol intake frequency: 0-2 drinks per day Substance Use Type: does not use Exam Initial Vital Signs Initial Vital Signs: Vital Signs Pulse Rate 83 07/18/20 08:53 Pulse Oximetry 96 07/18/20 08:53 Course Orders Ordered: ED Orders 07/18/20 08:55 Complete Blood Count AUTO DIFF Stat Comprehensive Metabolic Panel Stat Lipase Stat Partial Thromboplastin Time Stat Prothrombin Time INR Stat 07/18/20 09:03 EKG-12 Lead Stat 07/18/20 10:35 CT kidney ureter bladder (KUB) Stat Discontinued Medications Sodium Chloride (Normal Saline 0.9%) 1,000 mls @ 1,000 mls/hr IV BOLUS ONE Stop: 07/18/20 10:29 Last Admin: 07/18/20 09:48 Dose: 1,000 mls/hr Documented by: SANDRA Ketorolac Tromethamine (Toradol) 15 mg IV NOW ONE Stop: 07/18/20 09:31 Last Admin: 07/18/20 09:47 Dose: 15 mg Documented by: SANDRA Vital Signs Vital signs: Vital Signs - 8 hr 07/18/20 08:53 07/18/20 09:00 07/18/20 09:04 Temperature 98.6 F Pulse Rate 83 85 68 Respiratory Rate 22 16 Blood Pressure 136/68 136/68 Pulse Oximetry 96 96 99 07/18/20 09:30 07/18/20 10:00 07/18/20 10:01 Temperature Pulse Rate 94 H 90 Respiratory Rate 22 14 Blood Pressure 129/66 168/72 H Pulse Oximetry 96 96 07/18/20 10:30 07/18/20 10:31 07/18/20 10:54 Temperature Pulse Rate 93 H 94 H 84 Respiratory Rate 12 13 Blood Pressure 133/61 146/86 H Pulse Oximetry 91 91 95 07/18/20 11:00 07/18/20 11:30 Temperature Pulse Rate 89 85 Respiratory Rate 12 11 L Blood Pressure 149/85 H 139/72 Pulse Oximetry 95 96 MDM - Abdominal Pain Medical Records Attestation: I reviewed the patient's medical records. Lab Data Attestation: I reviewed the patient's lab results. Result diagrams: 07/18/20 08:55 07/18/20 08:55 Labs: Lab Results 07/18/20 07/18/20 07/18/20 Range/Units 08:55 08:55 08:55 WBC 7.3 (4.5-11.0) X10^3/uL RBC 4.33 L (4.5-5.9) X10^6/uL Hgb 14.1 (13.5-17.5) g/dL Hct 41.3 (41-53) % MCV 95.3 (80-100) fL MCH 32.6 (26-34) PG MCHC 34.2 (30-36) % RDW 13.3 (11.6-14.8) % Plt Count 218 (150-400) X10^3/uL Neut % (Auto) 62.5 (50-75) % Lymph % (Auto) 25.2 (25-40) % [place] % (Auto) 7.2 (3-14) % Eos % (Auto) 3.7 (2-4) % Baso % (Auto) 1.4 (0-2) % Neut # (Auto) 4600 (3889-5652) /uL Lymph # (Auto) 1800 (1096-6942) /uL [place] # (Auto) 500 (0-900) /uL Eos # (Auto) 300 (0-450) /uL Baso # (Auto) 100 (0-100) /uL PT 13.3 H (10.1-12.7) SECONDS INR 1.2 (0.9-1.3) APTT 32 (26.4-36.2) SECONDS Sodium 138 (137-145) mmol/L Potassium 4.5 (3.4-5.1) mmol/L Chloride 103 (98-107) mmol/L Carbon Dioxide 22 (22-32) mmol/L BUN 18 (9-20) mg/dL Creatinine 1.08 (0.66-1.25) mg/dL Estimated GFR > 60.0 (>60) mL/min BUN/Creatinine Ratio 16.7 (6-22) Glucose 180 H (80-110) mg/dL Calcium 10.3 H (8.4-10.2) mg/dL Total Bilirubin 0.8 (0.2-1.3) mg/dL AST 43 (17-59) IU/L ALT 40 (<50) IU/L Alkaline Phosphatase 79 (38-126) U/L Total Protein 7.9 (6.3-8.2) g/dL Albumin 4.6 (3.5-5.0) g/dL Globulin 3.3 (1.7-4.1) g/dL Albumin/Globulin Ratio 1.4 (1.0-2.8) Lipase 381 H (23-300) U/L Imaging Data CT scan - abdomen/pelvis: Radiologist's Impression: IMPRESSION: 1. Negative for acute pulmonary emboli. 2. No acute cardiopulmonary abnormalities identified to explain patient's symptoms. 3. Incompletely imaged and characterized 3.9 cm partially exophytic right renal cyst with internal septations demonstrating scattered septal and peripheral calcificati ons. 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 Recommend further evaluation with outpatient contrast-enhanced CT or MRI (renal mass protocol). Dictated by: Sreedhar Morales M.D. on 07/18/2020 at 8:58 ECG Data Attestation: I personally reviewed and interpreted this ECG as follows: Interpretation: Sinus rhythm at a rate of 78 Normal interval, normal axis Occasional PAC No acute ischemic changes MDM Narrative Medical decision making narrative: Three days of increasing left back/flank pain with a prior history of kidney stones. CT KUB does indicate nonobstructing right kidney stones and no residual hydronephrosis to suggest a recently passed stone. Incidental finding on the CT scan with disc space disease at L2-3 level does lead to slight suspicion that his back pain is related to actual spinal disease rather than kidney stones. No evidence of diverticulitis, intra-abdominal masses or retroperitoneal findings. Patient is safe for home discharge at this time Discharge Plan Departure Patient Disposition: Home Clinical Impression: Musculoskeletal back pain Instructions: DI for Low Back Pain Activity Restrictions/Additional Instructions: Thank you for coming in today Your lab work does not suggest any acute infection. Your CT scan does not show any new kidney stones or recently passed kidney stones (you have some stones in the right kidney that are not causing any problems currently). There is no in dication for diverticulitis or other abdominal findings. The CT scan does suggest that the disc between the L2 and L3 vertebra is thinning and this may be contributing to the pain that you are having. Please treat this pain in your back as your typical back pain. Using 400 mg of ibuprofen (2 [id number] pills) and 1 Tylenol every 6 hours can be very helpful in controlling pain. Please follow-up with your primary care physician If you develop new or worsening symptoms please feel free to return and I am happy to re-evaluate Prescriptions: No Action travoprost 0.004 % Drops 1 % EYE-BOTH DAILY RF: 0 tramadol 50 mg Tablet 50 mg PO QID PRN (Reason: neuropathy) RF: 0 simvastatin 40 mg Tablet 40 mg PO QPM RF: 0 omeprazole 20 mg Capsule,Delayed Release(Dr/Ec) 20 mg PO DAILY RF: 0 metoprolol succinate 25 mg Tablet Extended Release 24 Hr 25 mg PO DAILY RF: 0 metformin 500 mg Tablet,Er Viky.Retention 24 Hr 500 mg PO TID RF: 0 Referrals: Keke Grewal MD [Primary Care Provider] -
[2020-07-18] MEDS: KETOROLAC 60 MG/2 ML VIAL 15 MG IV (09:47)
[2020-07-18] MEDS: SODIUM CHLORIDE 0.9% 1,000 ML 1000 ML IV (09:48)
--- NOTE | 2020-07-18 10:35 | DI.CT.S_ITS ---
PROCEDURE: CT KIDNEY URETER BLADDER (KUB) INDICATIONS: left flank pain, history of kidney stones TECHNIQUE: Noncontrast 5 mm thick sections acquired from the diaphragms to the symphysis. 5 mm thick coronal and sagittal reformats were then performed. For radiation dose reduction, the following was used: automated exposure control, adjustment of mA and/or kV according to patient size. COMPARISON: Outside Film, CT, CT KUB, 06/23/2018, 19:45. [facility], CT, CT CHEST WO CON, 07/17/2020, 8:49. [facility], CT, CT KIDNEY URETER BLADDER (KUB), 06/22/2018, 16:54. FINDINGS: Image quality: Excellent. Lung bases: Lung bases are clear. Heart size is normal. Sternotomy wires are seen. No large hiatal hernia is seen, which contains the majority of the patient's stomach. Urinary system: Both kidneys are normal in size. Nonobstructing right-sided kidney stones are seen, that measure up to 2 mm. No definite nonobstructing stones can be seen on the right side. No hydronephrosis or perinephric fat stranding. There is a water density cyst seen at the inferior pole of the left kidney laterally that measures 3.7 cm. Both ureters appear non-dilated throughout their expected courses. No ureteral stones are seen. Bladder wall thickness is normal; no calcified bladder stones. Other solid organs: Liver is normal in size. Diffuse fatty liver infiltration is noted. Gallbladder wall is not thickened. Pancreas is normal in contours. Spleen is normal in size. No adrenal nodules. Peritoneum and bowel: Unenhanced bowel loops demonstrate normal wall thickness and caliber. No free fluid or air. Colonic diverticulosis is seen, without findings of active diverticulitis. Apparent prior appendectomy changes are seen. Nodes and vessels: No retroperitoneal or mesenteric adenopathy by size criteria. Aorta and inferior vena cava are normal in caliber. Atherosclerotic calcification is noted. Abdominal wall: No ventral hernias. Pelvis: No free pelvic fluid. No inguinal hernias or adenopathy. Bones: No suspicious bony lesions. No vertebral body compression fractures. Degenerative changes are seen throughout. At the L2-L3 level, there is severe disc space narrowing, with mild retrolisthesis seen at this level. IMPRESSION: No ureteral stones or findings of obstructive uropathy can be seen. Nonobstructing right-sided kidney stones are seen. Incidental note is made of: Large hiatal hernia Sternotomy Fatty liver infiltration Diverticulosis, without active diverticulitis Apparent prior appendectomy Bony degenerative changes, worst at L2-L3 Dictated by: Nikhil Cr M.D. on 07/18/2020 at 10:06 Approved by: Nikhil Cr M.D. on 07/18/2020 at 10:11
== END 2020-07-18 11:56 | disposition home or self-care (01) ==
PROVIDERS: Emergency Provider Emergency Medicine; PCP Family Medicine
DX: M54.9 Dorsalgia, unspecified (principal); I25.10 Atherosclerotic heart disease of native coronary artery without angina pectoris; E11.9 Type 2 diabetes mellitus without complications; I10 Essential (primary) hypertension; E78.5 Hyperlipidemia, unspecified
CPT/HCPCS: 36415; 74176; 80053; 81003; 83690; 85025; 85610; 85730; 93005; 93010; 96361; 96374; 99284; J1885

== ENCOUNTER 2022-03-29 13:07 | Emergency (ER) | payer OTHER, SELFPAY ==
[2022-03-29 13:27] VITALS: BP 120/71; PULSE 98; RESP 18; TEMP 36; O2SAT 96; BMI 37.3
[2022-03-29 14:52] LABS: Add Manual Diff / Slide Review NO; Basophils Absolute Auto 100 /uL (0-100); Basophils Percent Auto 1.1 % (0-2); Eosinophils Absolute Auto 300 /uL (0-450); Eosinophils Percent Auto 4.3 % (2-4); Hematocrit 39.6 % (41-53); Hemoglobin 13.4 g/dL (13.5-17.5); Lymphocytes Absolute Auto 2100 /uL (1100-4500); Mean Corpuscular HGB Conc 33.8 % (30-36); Mean Corpuscular Hemoglobin 31.8 PG (26-34); Mean Corpuscular Volume 94.2 fL (80-100); Monocytes Absolute Auto 700 /uL (0-900); Neutrophils Absolute Auto 4100 /uL (1500-7000); Neutrophils Percent Auto 55.6 % (50-75); Platelet Count 213 X10^3/uL (150-400); Red Cell Distribution Width 13.9 % (11.6-14.8); White Blood Cell Count 7.4 X10^3/uL (4.5-11.0)
[2022-03-29 14:57] LABS: Alanine Aminotransferase 64 IU/L (<50); Albumin 4.3 g/dL (3.5-5.0); Albumin Globulin Ratio 1.2 (1.0-2.8); Alkaline Phosphatase 115 U/L (38-126); Aspartate Aminotransferase 77 IU/L (17-59); BUN Creatinine Ratio 23.6 (6-22); Bilirubin Total 0.3 mg/dL (0.2-1.3); Blood Urea Nitrogen 30 mg/dL (9-20); Calcium 9.7 mg/dL (8.4-10.2); Carbon Dioxide 22 mmol/L (22-32); Chloride 105 mmol/L (98-107); Estimated Glomerular Filt Rate 58 mL/min (>60); Globulin 3.5 g/dL (1.7-4.1); Glucose 209 mg/dL (80-110); HEMOLYSIS < 15 (0-50); Potassium 4.9 mmol/L (3.4-5.1); Sodium 138 mmol/L (137-145); Total Protein 7.8 g/dL (6.3-8.2)
[2022-03-29 15:50] LABS: Bacteria Urine Moderate (10-30); RBC Urine 0-1/HPF (0-5/HPF); WBC Urine 10-30/HPF (0-5/HPF)
[2022-03-29 15:51] LABS: Culture Indicated Urine Specimen Cultured
[2022-03-29 16:20] VITALS: BP 124/72; PULSE 89; RESP 20; TEMP 36.8; O2SAT 99
--- NOTE | 2022-03-29 17:33 | ED.SKABFB ---
HPI - Skin/Abscess/Foreign Bdy <Madie Mayorga PA-C - Last Filed: 03/29/22 17:48> General Chief complaint: Skin/Abscess/Foreign Body Stated complaint: Left Big Toe Infection, HX Diabetes Time Seen by Provider: 03/29/22 15:10 Source: patient Mode of arrival: Ambulatory Limitations: no limitations History of Present Illness HPI narrative: Patient is a 76-year-old male presenting with pain and redness on his left big toe for the last 3 days. He states he experiences pain when walking and describes it as a 3/10. He states that it has not impaired his ability to ambulate. He also reports that the redness has started to spread up his foot. He denies any recent trauma to his foot and has no previous history of foot infections. He has type 2 diabetes and peripheral neuropathy. He denies any fever, headache, dizziness, nausea or vomiting, burning with urination or hematuria. Related Data Home Medications Medication Instructions Recorded Confirmed metformin 500 mg 24 hr 500 mg PO TID 11/17/18 11/17/18 tablet,extended release metoprolol succinate 25 mg 25 mg PO DAILY 11/17/18 11/17/18 tablet,extended release 24 hr omeprazole 20 mg capsule,delayed 20 mg PO DAILY 11/17/18 11/17/18 release simvastatin 40 mg tablet 40 mg PO QPM 11/17/18 11/17/18 tramadol 50 mg tablet 50 mg PO QID PRN 11/17/18 11/17/18 travoprost 0.004 % eye drops 1 % EYE-BOTH DAILY 11/17/18 11/17/18 Previous Rx's Medication Instructions Recorded doxycycline hyclate 100 mg capsule 100 mg PO BID 10 Days #20 cap 03/29/22 Allergies Allergy/AdvReac Type Severity Reaction Status Date / Time No Known Drug Allergies Allergy Verified 07/18/20 09:10 Review of Systems <Madie Mayorga PA-C - Last Filed: 03/29/22 17:48> Review of Systems Narrative: GENERAL: Denies fatigue, fever, or chills HEENT: Denies ear pain, vision changes, sore throat, or difficulty swallowing RESPIRATORY: Denies shortness of breath, cough, or wheezing CARDIOVASCULAR: Denies chest pain, pressure, palpitations, or edema GASTROINTESTINAL: Denies, nausea, vomiting, changes in bowel movements, or abdominal pain : Denies dysuria, frequency, hematuria, or flank pain MUSCULOSKELETAL: Denies weakness, arthralgias, or myalgias SKIN: See HPI. NEUROLOGIC: Denies weakness, dizziness, headache, numbness, tingling or confusion PSYCHIATRIC: No concerning psychosocial issues. Patient History <Madie Mayorga PA-C - Last Filed: 03/29/22 17:48> Medical History CAD (coronary artery disease) Coronary artery disease involving coronary bypass graft of [place] heart Diabetes mellitus History of non-insulin dependent diabetes mellitus Hypercholesterolemia Hypertension Kidney stone Social History household members: spouse Smoking Status: Never smoker Smoking Status: Never smoker alcohol intake frequency: 0-2 drinks per day Substance Use Type: does not use Exam <Madie Mayorga PA-C - Last Filed: 03/29/22 17:48> Narrative Exam Narrative: GENERAL: 76 year old patient appears stated age. Well-developed patient, in mild distress. HEAD: Atraumatic. Normocephalic. EYES: Pupils equal round and reactive. Extraocular motions intact. No scleral icterus. No injection or drainage. ENT: Nose without bleeding, purulent drainage. Throat without erythema, tonsillar hypertrophy or exudate. Airway patent. NECK: Trachea midline. Non tender CARDIOVASCULAR: Regular rate and rhythm without murmurs, gallops, or rubs. RESPIRATORY: Clear to auscultation. Breath sounds equal bilaterally. No wheezes, rales, or rhonchi. GASTROINTESTINAL: Abdomen soft, non-tender, nondistended. EXTREMITIES: No edema or joint tenderness. BACK: Nontender without deformity or crepitance. No flank tenderness. NEURO: AOx3. SKIN: Left big toe is erythematous, good ROM, able to flex and extend, normal sensation intact, no swelling, obvious abrasions, or signs of abscess noted. Left big toe is not tender to palpation. Bilateral thickened toenails noted consistent with chronic fungal infection. Initial Vital Signs Initial Vital Signs: Vital Signs Temperature 96.8 F L 03/29/22 13:27 Pulse Rate 98 H 03/29/22 13:27 Respiratory Rate 18 03/29/22 13:27 Blood Pressure 120/71 03/29/22 13:27 Pulse Oximetry 96 03/29/22 13:27 <July White DO - Last Filed: 04/02/22 07:36> Initial Vital Signs Initial Vital Signs: Vital Signs Temperature 96.8 F L 03/29/22 13:27 Pulse Rate 98 H 03/29/22 13:27 Respiratory Rate 18 03/29/22 13:27 Blood Pressure 120/71 03/29/22 13:27 Pulse Oximetry 96 03/29/22 13:27 Course <Madie Mayorga PA-C - Last Filed: 03/29/22 17:48> Orders Ordered: ED Orders 03/29/22 14:26 Complete Blood Count AUTO DIFF Stat Comprehensive Metabolic Panel Stat 03/29/22 14:55 Urine Culture Stat Urine Microscopic Stat Vital Signs Vital signs: Vital Signs - 8 hr 03/29/22 13:27 03/29/22 16:20 Temperature 96.8 F L 98.2 F Pulse Rate 98 H 89 Respiratory Rate 18 20 Blood Pressure 120/71 124/72 Pulse Oximetry 96 99 <July White DO - Last Filed: 04/02/22 07:36> Orders Ordered: ED Orders 03/29/22 14:26 Complete Blood Count AUTO DIFF Stat Comprehensive Metabolic Panel Stat 03/29/22 14:55 Urine Culture Stat Urine Microscopic Stat Vital Signs Vital signs: Vital Signs - 8 hr 03/29/22 13:27 03/29/22 16:20 Temperature 96.8 F L 98.2 F Pulse Rate 98 H 89 Respiratory Rate 18 20 Blood Pressure 120/71 124/72 Pulse Oximetry 96 99 MDM - Skin/Abscess/Foreign Bdy <Madie Mayorga PA-C - Last Filed: 03/29/22 17:48> Lab Data Result diagrams: 03/29/22 14:26 03/29/22 14:26 Labs: Lab Results 03/29/22 03/29/22 03/29/22 Range/Units 14:26 14:26 14:55 WBC 7.4 (4.5-11.0) X10^3/uL RBC 4.20 L (4.5-5.9) X10^6/uL Hgb 13.4 L (13.5-17.5) g/dL Hct 39.6 L (41-53) % MCV 94.2 (80-100) fL MCH 31.8 (26-34) PG MCHC 33.8 (30-36) % RDW 13.9 (11.6-14.8) % Plt Count 213 (150-400) X10^3/uL Neut % (Auto) 55.6 (50-75) % Lymph % (Auto) 29.0 (25-40) % [place] % (Auto) 10.0 (3-14) % Eos % (Auto) 4.3 H (2-4) % Baso % (Auto) 1.1 (0-2) % Neut # (Auto) 4100 (2781-9366) /uL Lymph # (Auto) 2100 (6836-4467) /uL [place] # (Auto) 700 (0-900) /uL Eos # (Auto) 300 (0-450) /uL Baso # (Auto) 100 (0-100) /uL Sodium 138 (137-145) mmol/L Potassium 4.9 (3.4-5.1) mmol/L Chloride 105 (98-107) mmol/L Carbon Dioxide 22 (22-32) mmol/L BUN 30 H (9-20) mg/dL Creatinine 1.27 H (0.66-1.25) mg/dL Estimated GFR 58 L (>60) mL/min BUN/Creatinine Ratio 23.6 H (6-22) Glucose 209 H (80-110) mg/dL Calcium 9.7 (8.4-10.2) mg/dL Total Bilirubin 0.3 (0.2-1.3) mg/dL AST 77 H (17-59) IU/L ALT 64 H (<50) IU/L Alkaline Phosphatase 115 (38-126) U/L Total Protein 7.8 (6.3-8.2) g/dL Albumin 4.3 (3.5-5.0) g/dL Globulin 3.5 (1.7-4.1) g/dL Albumin/Globulin Ratio 1.2 (1.0-2.8) Urine RBC 0-1/hpf (0-5/HPF) Urine WBC 10-30/hpf H (0-5/HPF) Urine Bacteria Moderate (10-30) H (None) Ur Culture Indicated? Specimen cultured Urine Dip Bedside Urine Glucose 1000 mg/dl Bedside Urine Bilirubin - Negative Bedside Urine Ketone - Negative Urine Specific [place] 1.020 Bedside Urine Occult Blood - Negative Bedside Urine pH 6.0 Bedside Urine Protein - Negative Bedside Urine Urobilinogen - Negative Bedside Urine Nitrite + Positive Bedside Urine Leukocytes - Negative Esterase MDM Narrative Medical decision making narrative: Patient is a 76-year-old man presenting with left big toe redness for the past 3 days. He has a history of type 2 diabetes, peripheral neuropathy, as well as new onset kidney impairment which is being monitored by his PCP and she has been adjusting his medications accordingly. Upon physical exam, left great toe is erythematous. He has good range of motion, and is not tender to palpation. There are no obvious signs of abrasion or abscess noted. Based on the above, patient seems to be experiencing cellulitis and was given a prescription for doxycycline. He was instructed to follow up with his PCP for further management. I also instructed him to return to the ER if the cellulitis continues to spread, his pain increases, his ROM decreases, he develops a fever, or any other concerning symptoms. Findings and discharge diagnosis discussed with patient/family followed by verbalization of understanding Return precautions discussed with patient/family whom verbalize understanding. <July White, DO - Last Filed: 04/02/22 07:36> Lab Data Labs: Lab Results 03/29/22 03/29/22 03/29/22 Range/Units 14:26 14:26 14:55 WBC 7.4 (4.5-11.0) X10^3/uL RBC 4.20 L (4.5-5.9) X10^6/uL Hgb 13.4 L (13.5-17.5) g/dL Hct 39.6 L (41-53) % MCV 94.2 (80-100) fL MCH 31.8 (26-34) PG MCHC 33.8 (30-36) % RDW 13.9 (11.6-14.8) % Plt Count 213 (150-400) X10^3/uL Neut % (Auto) 55.6 (50-75) % Lymph % (Auto) 29.0 (25-40) % [place] % (Auto) 10.0 (3-14) % Eos % (Auto) 4.3 H (2-4) % Baso % (Auto) 1.1 (0-2) % Neut # (Auto) 4100 (1690-5127) /uL Lymph # (Auto) 2100 (8373-7315) /uL [place] # (Auto) 700 (0-900) /uL Eos # (Auto) 300 (0-450) /uL Baso # (Auto) 100 (0-100) /uL Sodium 138 (137-145) mmol/L Potassium 4.9 (3.4-5.1) mmol/L Chloride 105 (98-107) mmol/L Carbon Dioxide 22 (22-32) mmol/L BUN 30 H (9-20) mg/dL Creatinine 1.27 H (0.66-1.25) mg/dL Estimated GFR 58 L (>60) mL/min BUN/Creatinine Ratio 23.6 H (6-22) Glucose 209 H (80-110) mg/dL Calcium 9.7 (8.4-10.2) mg/dL Total Bilirubin 0.3 (0.2-1.3) mg/dL AST 77 H (17-59) IU/L ALT 64 H (<50) IU/L Alkaline Phosphatase 115 (38-126) U/L Total Protein 7.8 (6.3-8.2) g/dL Albumin 4.3 (3.5-5.0) g/dL Globulin 3.5 (1.7-4.1) g/dL Albumin/Globulin Ratio 1.2 (1.0-2.8) Urine RBC 0-1/hpf (0-5/HPF) Urine WBC 10-30/hpf H (0-5/HPF) Urine Bacteria Moderate (10-30) H (None) Ur Culture Indicated? Specimen cultured Urine Dip Bedside Urine Glucose 1000 mg/dl Bedside Urine Bilirubin - Negative Bedside Urine Ketone - Negative Urine Specific [place] 1.020 Bedside Urine Occult Blood - Negative Bedside Urine pH 6.0 Bedside Urine Protein - Negative Bedside Urine Urobilinogen - Negative Bedside Urine Nitrite + Positive Bedside Urine Leukocytes - Negative Esterase Discharge Plan Departure Patient Disposition: Home Clinical Impression: Cellulitis Qualifiers: Site of cellulitis of extremity: toe Laterality: left Instructions: DI for Cellulitis -- Adult Activity Restrictions/Additional Instructions: *You have been diagnosed with cellulitis of your left big toe. You were given an antibiotic prescription today, please take this as directed. Please follow-up with your primary care provider for further evaluation and management. If your pain continues to worsen, your skin redness continues to spread, you develop a fever, or any other concerning symptoms please return back to the ER. *What to do: *Please continue to take your regular medications as directed. [X] New medication prescriptions sent to your pharmacy: [[facility]] [ ] New medication written as a paper prescription [ ] No new medications given *Please follow up with your primary care provider in 2-3 days, call for an appointment. Let them know you were seen in the Emergency Department and that we ask that you be seen in follow up. We will electronically transmit a record of today's note if your PCP is in our system *If you do not have a primary care provider please contact the [facility] at [phone] and they can help get you set up with a doctor in the community. *Return to Emergency Department if you should have any new, worsening or concerning symptoms, such as [fever greater than 101 F, shaking chills, worsening pain, persistent vomiting or other bothersome symptoms] Prescriptions: New doxycycline hyclate 100 mg capsule 100 mg PO BID 10 Days Qty: 20 0RF No Action travoprost 0.004 % Drops 1 % EYE-BOTH DAILY 0RF tramadol 50 mg Tablet 50 mg PO QID PRN (Reason: neuropathy) 0RF simvastatin 40 mg Tablet 40 mg PO QPM 0RF omeprazole 20 mg Capsule,Delayed Release(Dr/Ec) 20 mg PO DAILY 0RF metoprolol succinate 25 mg Tablet Extended Release 24 Hr 25 mg PO DAILY 0RF metformin 500 mg Tablet,Er Viky.Retention 24 Hr 500 mg PO TID 0RF Referrals: Teodora Gordon PA-C [Primary Care Provider] - <July White DO - Last Filed: 04/02/22 07:36> Cosign ED Attending Atiyaature Attestation: I was immediately available in the department for consultation. Documentation has been reviewed.
== END 2022-03-29 16:20 | disposition home or self-care (01) ==
PROVIDERS: Emergency Medicine; Emergency Provider Physician Assistant; PCP Physician Assistant Medical
DX: L03.032 Cellulitis of left toe (principal)
CPT/HCPCS: 36415; 80053; 81003; 81015; 85025; 87077; 87086; 87186; 99283; 99284

== ENCOUNTER 2022-09-30 16:47 | Inpatient (IN) | payer OTHER, SELFPAY ==
[2022-09-30] VITALS (31 sets, daily range): BP systolic 95–125; BP diastolic 53–69; PULSE 92–113; RESP 15–40; TEMP 37.4–37.6; O2SAT 88–95; BMI 33.0
--- NOTE | 2022-09-30 17:29 | DI.RAD.S_ITS ---
PROCEDURE: XR CHEST 1V INDICATIONS: Short of breath TECHNIQUE: One view of the chest was acquired. COMPARISON: Outside Film, CT, CT CHEST WITHOUT CONTRAST, 08/05/2022, 11:40. FINDINGS: Surgical changes and devices: Post CABG changes are seen. Lungs and pleura: An incomplete inspiratory result is noted, causing a crowded appearance to the lung markings. No focal infiltrates are seen. No pneumothorax or significant pleural effusions are seen. Mild, streaky opacities are seen at the lung bases. Mediastinum: Mediastinal contours appear normal. Heart size is normal. A large hiatal hernia is seen. Atherosclerotic calcification of the aortic arch is noted. Bones and chest wall: No suspicious bony lesions. Age-appropriate bony degenerative changes are seen. Overlying soft tissues appear unremarkable. IMPRESSION: Low lung volumes, with likely atelectasis at the lung bases. Large hiatal hernia again seen. Postoperative and degenerative changes are seen. Dictated by: Nikhil Cr M.D. on 09/30/2022 at 17:23 Approved by: Nikhil Cr M.D. on 09/30/2022 at 17:24
[2022-09-30 17:40] LABS: Add Manual Diff / Slide Review NO; Basophils Absolute Auto 0 /uL (0-100); Basophils Percent Auto 0.5 % (0-2); Eosinophils Absolute Auto 0 /uL (0-450); Eosinophils Percent Auto 0.1 % (2-4); Hematocrit 43.9 % (41-53); Hemoglobin 15.1 g/dL (13.5-17.5); Lymphocytes Absolute Auto 600 /uL (1100-4500); Lymphocytes Percent Auto 9.6 % (25-40); Mean Corpuscular HGB Conc 34.3 % (30-36); Mean Corpuscular Hemoglobin 31.5 PG (26-34); Mean Corpuscular Volume 91.7 fL (80-100); Monocytes Absolute Auto 500 /uL (0-900); Monocytes Percent Auto 9.1 % (3-14); Neutrophils Absolute Auto 4800 /uL (1500-7000); Neutrophils Percent Auto 80.7 % (50-75); Platelet Count 238 X10^3/uL (150-400); Red Blood Cell Count 4.79 X10^6/uL (4.5-5.9); Red Cell Distribution Width 12.9 % (11.6-14.8); White Blood Cell Count 5.9 X10^3/uL (4.5-11.0)
[2022-09-30 17:41] LABS: Alanine Aminotransferase 49 IU/L (<50); Albumin 4.1 g/dL (3.5-5.0); Albumin Globulin Ratio 1.1 (1.0-2.8); Alkaline Phosphatase 108 U/L (38-126); Aspartate Aminotransferase 80 IU/L (17-59); BUN Creatinine Ratio 21.9 (6-22); Bilirubin Total 0.4 mg/dL (0.2-1.3); Blood Urea Nitrogen 28 mg/dL (9-20); Calcium 9.5 mg/dL (8.4-10.2); Carbon Dioxide 19 mmol/L (22-32); Chloride 98 mmol/L (98-107); Creatine Kinase 200 U/L (55-170); Estimated Glomerular Filt Rate 57 mL/min (>60); Globulin 3.6 g/dL (1.7-4.1); Glucose 119 mg/dL (80-110); HEMOLYSIS < 15 (0-50); Lipase 156 U/L (23-300); Magnesium 2.1 mg/dL (1.6-2.3); Potassium 4.8 mmol/L (3.4-5.1); Sodium 137 mmol/L (137-145); Total Protein 7.7 g/dL (6.3-8.2)
[2022-09-30 17:53] LABS: NT-proBNP (BNP-Adult 18+) 165 pg/mL (<450); Troponin I < 0.012 ng/mL (0.01-0.034)
[2022-09-30 17:56] LABS: CKMB % Relative Index 1.6 % (1.5-5.0); Creatine Kinase MB 3.26 ng/mL (<2.37)
[2022-09-30 17:58] LABS: Procalcitonin 0.24 ng/mL (<0.5)
--- NOTE | 2022-09-30 18:11 | ED.SOB ---
HPI - SOB/Dyspnea General Chief Complaint: Shortness of Breath/Dyspnea Stated Complaint: Hypoxic/Tachy Time Seen by Provider: 09/30/22 17:03 Source: patient Limitations: no limitations Related Data Home Medications Medication Instructions Recorded Confirmed metformin 500 mg 24 hr 500 mg PO TID 11/17/18 11/17/18 tablet,extended release metoprolol succinate 25 mg 25 mg PO DAILY 11/17/18 11/17/18 tablet,extended release 24 hr omeprazole 20 mg capsule,delayed 20 mg PO DAILY 11/17/18 11/17/18 release simvastatin 40 mg tablet 40 mg PO QPM 11/17/18 11/17/18 tramadol 50 mg tablet 50 mg PO QID PRN neuropathy 11/17/18 11/17/18 travoprost 0.004 % eye drops 1 % EYE-BOTH DAILY 11/17/18 11/17/18 Allergies Allergy/AdvReac Type Severity Reaction Status Date / Time No Known Drug Allergies Allergy Verified 07/18/20 09:10 Patient History Medical History CAD (coronary artery disease) Coronary artery disease involving coronary bypass graft of [place] heart Diabetes mellitus History of non-insulin dependent diabetes mellitus Hypercholesterolemia Hypertension Kidney stone Social History household members: spouse Smoking Status: Never smoker Smoking Status: Never smoker alcohol intake frequency: 0-2 drinks per day Substance Use Type: does not use Exam Initial Vital Signs Initial Vital Signs: Vital Signs Temperature 99.7 F H 09/30/22 16:50 Pulse Rate 104 H 09/30/22 16:50 Respiratory Rate 22 09/30/22 16:50 Blood Pressure 112/62 09/30/22 16:50 Pulse Oximetry 93 09/30/22 16:50 Oxygen Delivery Method 09/30/22 16:50 Course Orders Ordered: ED Orders 09/30/22 17:05 Complete Blood Count AUTO DIFF Stat Comprehensive Metabolic Panel Stat Lipase Stat Magnesium Stat NT-proBNP (BNP-Adult 18+) Stat Procalcitonin Stat Troponin & CK Cardiac Panel Stat 09/30/22 17:29 XR chest 1V Stat EKG-12 Lead Stat 09/30/22 18:08 D Dimer Stat Vital Signs Vital signs: Vital Signs - 8 hr 09/30/22 16:50 09/30/22 16:56 09/30/22 16:57 Temperature 99.7 F H Pulse Rate 104 H 109 H Respiratory Rate 22 20 Blood Pressure 112/62 113/62 Pulse Oximetry 93 93 Oxygen Delivery Method Room Air 09/30/22 16:57 09/30/22 17:00 09/30/22 17:00 Temperature Pulse Rate 105 H 104 H Respiratory Rate 20 19 Blood Pressure 112/62 Pulse Oximetry 94 93 Oxygen Delivery Method 09/30/22 17:25 09/30/22 17:25 Temperature Pulse Rate 103 H Respiratory Rate 23 Blood Pressure 115/63 Pulse Oximetry 92 Oxygen Delivery Method MDM - SOB/Dyspnea Lab Data Result diagrams: 09/30/22 17:05 09/30/22 17:05 Labs: Lab Results 09/30/22 09/30/22 09/30/22 Range/Units 17:05 17:05 17:05 WBC 5.9 (4.5-11.0) X10^3/uL RBC 4.79 (4.5-5.9) X10^6/uL Hgb 15.1 (13.5-17.5) g/dL Hct 43.9 (41-53) % MCV 91.7 (80-100) fL MCH 31.5 (26-34) PG MCHC 34.3 (30-36) % RDW 12.9 (11.6-14.8) % Plt Count 238 (150-400) X10^3/uL Neut % (Auto) 80.7 H (50-75) % Lymph % (Auto) 9.6 L (25-40) % [place] % (Auto) 9.1 (3-14) % Eos % (Auto) 0.1 L (2-4) % Baso % (Auto) 0.5 (0-2) % Neut # (Auto) 4800 (1286-9677) /uL Lymph # (Auto) 600 L (0504-3332) /uL [place] # (Auto) 500 (0-900) /uL Eos # (Auto) 0 (0-450) /uL Baso # (Auto) 0 (0-100) /uL Sodium 137 (137-145) mmol/L Potassium 4.8 (3.4-5.1) mmol/L Chloride 98 (98-107) mmol/L Carbon Dioxide 19 L (22-32) mmol/L BUN 28 H (9-20) mg/dL Creatinine 1.28 H (0.66-1.25) mg/dL Estimated GFR 57 L (>60) mL/min BUN/Creatinine Ratio 21.9 (6-22) Glucose 119 H (80-110) mg/dL Calcium 9.5 (8.4-10.2) mg/dL Magnesium 2.1 (1.6-2.3) mg/dL Total Bilirubin 0.4 (0.2-1.3) mg/dL AST 80 H (17-59) IU/L ALT 49 (<50) IU/L Alkaline Phosphatase 108 (38-126) U/L Total Creatine Kinase 200 H (55-170) U/L CK-MB (CK-2) 3.26 H (<2.37) ng/mL CK-MB (CK-2) Rel Index 1.6 (1.5-5.0) % Troponin I < 0.012 (0.01-0.034) ng/mL NT-Pro-B Natriuret Pep 165 (<450) pg/mL Total Protein 7.7 (6.3-8.2) g/dL Albumin 4.1 (3.5-5.0) g/dL Globulin 3.6 (1.7-4.1) g/dL Albumin/Globulin Ratio 1.1 (1.0-2.8) Lipase 156 (23-300) U/L Procalcitonin 0.24 (<0.5) ng/mL Discharge Plan Departure Prescriptions: No Action travoprost 0.004 % Drops 1 % EYE-BOTH DAILY tramadol 50 mg Tablet 50 mg PO QID PRN (Reason: neuropathy) simvastatin 40 mg Tablet 40 mg PO QPM omeprazole 20 mg Capsule,Delayed Release(Dr/Ec) 20 mg PO DAILY metoprolol succinate 25 mg Tablet Extended Release 24 Hr 25 mg PO DAILY metformin 500 mg Tablet,Er Viky.Retention 24 Hr 500 mg PO TID Referrals: Teodora Gordon PA-C [Primary Care Provider] -
--- NOTE | 2022-09-30 18:20 | ED_ITS ---
HPI - SOB/Dyspnea General Chief Complaint: Shortness of Breath/Dyspnea Stated Complaint: Hypoxic/Tachy Time Seen by Provider: 09/30/22 17:03 Source: patient Limitations: no limitations History of Present Illness HPI Narrative: 77-year-old male nonsmoker with history of diabetes, hypertension and hyperlipidemia presents by EMS for evaluation of shortness of breath and fatigue. He states he has been feeling under the weather for about 1 week and has become progressively ill. He is had a dry and hacking cough and has become significantly short of breath with minimal exertion. He is had a mild headache in the occasional sore throat. He is nauseated and has a poor appetite but denies any vomiting, abdominal pain or diarrhea. He has no urinary complaints such as dysuria, frequency or urgency. He had initially presented to an urgent care and was found to have oxygen saturation in the mid to upper 80s and a positive COVID swab. He was sent here by EMS for evaluation and stabilization of his condition. He denies recent travel, known cancer or history of blood clot Related Data Home Medications Medication Instructions Recorded Confirmed metformin 500 mg 24 hr 500 mg PO TID 11/17/18 11/17/18 tablet,extended release metoprolol succinate 25 mg 25 mg PO DAILY 11/17/18 11/17/18 tablet,extended release 24 hr omeprazole 20 mg capsule,delayed 20 mg PO DAILY 11/17/18 11/17/18 release simvastatin 40 mg tablet 40 mg PO QPM 11/17/18 11/17/18 tramadol 50 mg tablet 50 mg PO QID PRN neuropathy 11/17/18 11/17/18 travoprost 0.004 % eye drops 1 % EYE-BOTH DAILY 11/17/18 11/17/18 Allergies Allergy/AdvReac Type Severity Reaction Status Date / Time No Known Drug Allergies Allergy Verified 07/18/20 09:10 Review of Systems Review of Systems Narrative: GENERAL: See HPI HEENT: See HPI RESPIRATORY: See HPI CARDIOVASCULAR: Denies chest pain, palpitations, orthopnea, edema, GASTROINTESTINAL: See HPI : Denies dysuria, frequency, incontinence, hematuria, urinary retention. MUSCULOSKELETAL: denies weakness, joint pain, or bony pain SKIN: Denies rash, skin lesions, or other NEUROLOGIC: Denies weakness, headache, numbness, change in speech, confusion, seizures, incoordination. PSYCHIATRIC: No concerning psychosocial issues. 12 point review of systems is negative except for those stated above Patient History Medical History CAD (coronary artery disease) Coronary artery disease involving coronary bypass graft of [place] heart Diabetes mellitus History of non-insulin dependent diabetes mellitus Hypercholesterolemia Hypertension Kidney stone Social History household members: spouse Smoking Status: Never smoker Smoking Status: Never smoker alcohol intake frequency: 0-2 drinks per day Substance Use Type: does not use Exam Narrative Exam Narrative: GENERAL: [77] year old patient appears stated age. Well-developed patient, in mild distress. Ill-appearing, no significant work of breath, holding emesis bag HEAD: Atraumatic. Normocephalic. EYES: Pupils equal round and reactive. Extraocular motions intact. No scleral icterus. No injection or drainage. ENT: Dry mucous membranes Nose without bleeding, purulent drainage. Throat without erythema, tonsillar hypertrophy or exudate. Airway patent. NECK: Trachea midline. Non tender CARDIOVASCULAR: Regular rate and rhythm without murmurs, gallops, or rubs. RESPIRATORY: Faint crackles bilateral bases, no significant work of breathing, patient oxygen drops to the 80s on room air GASTROINTESTINAL: Abdomen soft, non-tender, nondistended. EXTREMITIES: No edema or joint tenderness. BACK: Nontender without deformity or crepitance. No flank tenderness. NEURO: AOx3. SKIN: Poor skin turgor No rash or erythema of visible areas Initial Vital Signs Initial Vital Signs: Vital Signs Temperature 99.7 F H 09/30/22 16:50 Pulse Rate 104 H 09/30/22 16:50 Respiratory Rate 22 09/30/22 16:50 Blood Pressure 112/62 09/30/22 16:50 Pulse Oximetry 93 09/30/22 16:50 Oxygen Delivery Method 09/30/22 16:50 Course Orders Ordered: ED Orders 09/30/22 17:05 Complete Blood Count AUTO DIFF Stat Comprehensive Metabolic Panel Stat D Dimer Stat Lipase Stat Magnesium Stat NT-proBNP (BNP-Adult 18+) Stat Procalcitonin Stat Troponin & CK Cardiac Panel Stat 09/30/22 17:29 XR chest 1V Stat EKG-12 Lead Stat 09/30/22 18:47 CT angio chest PE protocol Stat 09/30/22 19:01 Urinalysis and Microscopic Stat Urine Culture Stat 09/30/22 20:07 Blood Culture Stat Lactate (Lactic Acid) Stat 09/30/22 20:13 Respiratory Panel (Film Array) Stat Sodium Chloride (Normal Saline 0.9%) 1,000 mls @ 1,000 mls/hr IV BOLUS ONE Stop: 09/30/22 21:02 Sodium Chloride (Normal Saline 0.9%) 2,121 mls @ 707 mls/hr 30 ml/kg infuse over 3 hr (2121 ml) IV NOW ONE Stop: 09/30/22 23:02 Remdesivir 200 mg/ Sodium (Chloride) 250 mls @ 250 mls/hr IV NOW ONE Stop: 09/30/22 21:02 Discontinued Medications Dexamethasone (Dexamethasone 10 Mg/Ml Vial) 6 mg IV NOW ONE Stop: 09/30/22 20:04 Ceftriaxone Sodium 2,000 mg/ (Sodium Chloride) 100 mls @ 200 mls/hr IV NOW ONE Stop: 09/30/22 20:04 Azithromycin 500 mg/ Dextrose 250 mls @ 250 mls/hr IV NOW ONE Stop: 09/30/22 20:04 Vital Signs Vital signs: Vital Signs - 8 hr 09/30/22 16:50 09/30/22 16:56 09/30/22 16:57 Temperature 99.7 F H Pulse Rate 104 H 109 H Respiratory Rate 22 20 Blood Pressure 112/62 113/62 Pulse Oximetry 93 93 Oxygen Delivery Method Room Air Oxygen Flow Rate 09/30/22 16:57 09/30/22 17:00 09/30/22 17:00 Temperature Pulse Rate 105 H 104 H Respiratory Rate 20 19 Blood Pressure 112/62 Pulse Oximetry 94 93 Oxygen Delivery Method Oxygen Flow Rate 09/30/22 17:25 09/30/22 17:25 09/30/22 17:30 Temperature Pulse Rate 103 H Respiratory Rate 23 Blood Pressure 115/63 125/69 Pulse Oximetry 92 Oxygen Delivery Method Oxygen Flow Rate 09/30/22 17:30 09/30/22 17:45 09/30/22 18:00 Temperature Pulse Rate 98 H 98 H 100 H Respiratory Rate 20 18 31 H Blood Pressure Pulse Oximetry 88 L Oxygen Delivery Method Room Air Oxygen Flow Rate 09/30/22 18:01 09/30/22 18:01 09/30/22 18:15 Temperature Pulse Rate 105 H 98 H Respiratory Rate 30 H 19 Blood Pressure 108/65 Pulse Oximetry 91 90 L Oxygen Delivery Method Room Air Room Air Oxygen Flow Rate 09/30/22 18:28 09/30/22 18:28 09/30/22 18:30 Temperature Pulse Rate 104 H Respiratory Rate 25 H Blood Pressure 95/66 98/53 L Pulse Oximetry 92 Oxygen Delivery Method Nasal Cannula Oxygen Flow Rate 2 09/30/22 18:30 09/30/22 18:45 09/30/22 18:45 Temperature Pulse Rate 103 H 97 H Respiratory Rate 19 Blood Pressure 108/58 L Pulse Oximetry 94 92 Oxygen Delivery Method Nasal Cannula Nasal Cannula Oxygen Flow Rate 2 2 09/30/22 19:00 09/30/22 19:01 09/30/22 19:01 Temperature Pulse Rate 106 H 113 H Respiratory Rate Blood Pressure 101/66 Pulse Oximetry 94 92 Oxygen Delivery Method Nasal Cannula Nasal Cannula Oxygen Flow Rate 2 2 MDM - SOB/Dyspnea Lab Data Result diagrams: 09/30/22 17:05 09/30/22 17:05 Labs: Lab Results 09/30/22 09/30/22 09/30/22 Range/Units 17:05 17:05 17:05 WBC 5.9 (4.5-11.0) X10^3/uL RBC 4.79 (4.5-5.9) X10^6/uL Hgb 15.1 (13.5-17.5) g/dL Hct 43.9 (41-53) % MCV 91.7 (80-100) fL MCH 31.5 (26-34) PG MCHC 34.3 (30-36) % RDW 12.9 (11.6-14.8) % Plt Count 238 (150-400) X10^3/uL Neut % (Auto) 80.7 H (50-75) % Lymph % (Auto) 9.6 L (25-40) % [facility] % (Auto) 9.1 (3-14) % Eos % (Auto) 0.1 L (2-4) % Baso % (Auto) 0.5 (0-2) % Neut # (Auto) 4800 (1280-4981) /uL Lymph # (Auto) 600 L (1819-1857) /uL [facility] # (Auto) 500 (0-900) /uL Eos # (Auto) 0 (0-450) /uL Baso # (Auto) 0 (0-100) /uL D-Dimer (<500) ng/ml Sodium 137 (137-145) mmol/L Potassium 4.8 (3.4-5.1) mmol/L Chloride 98 (98-107) mmol/L Carbon Dioxide 19 L (22-32) mmol/L BUN 28 H (9-20) mg/dL Creatinine 1.28 H (0.66-1.25) mg/dL Estimated GFR 57 L (>60) mL/min BUN/Creatinine Ratio 21.9 (6-22) Glucose 119 H (80-110) mg/dL Calcium 9.5 (8.4-10.2) mg/dL Magnesium 2.1 (1.6-2.3) mg/dL Total Bilirubin 0.4 (0.2-1.3) mg/dL AST 80 H (17-59) IU/L ALT 49 (<50) IU/L Alkaline Phosphatase 108 (38-126) U/L Total Creatine Kinase 200 H (55-170) U/L CK-MB (CK-2) 3.26 H (<2.37) ng/mL CK-MB (CK-2) Rel Index 1.6 (1.5-5.0) % Troponin I < 0.012 (0.01-0.034) ng/mL NT-Pro-B Natriuret Pep 165 (<450) pg/mL Total Protein 7.7 (6.3-8.2) g/dL Albumin 4.1 (3.5-5.0) g/dL Globulin 3.6 (1.7-4.1) g/dL Albumin/Globulin Ratio 1.1 (1.0-2.8) Lipase 156 (23-300) U/L Procalcitonin 0.24 (<0.5) ng/mL Urine Color Urine Appearance Urine pH (4.5-8.0) Ur Specific Hanna (1.000-1.035) Urine Protein (Negative) Urine Glucose (UA) (Negative) g/dL Urine Ketones (NEGATIVE) Urine Occult Blood (Negative) Urine Nitrate (Negative) Urine Bilirubin (NEGATIVE) Urine Urobilinogen (0.2) E.U./dL Ur Leukocyte Esterase (NEGATIVE) Urine RBC (0-5/HPF) Urine WBC (0-5/HPF) Urine Bacteria (None) Ur Culture Indicated? 09/30/22 09/30/22 Range/Units 17:05 19:01 WBC (4.5-11.0) X10^3/uL RBC (4.5-5.9) X10^6/uL Hgb (13.5-17.5) g/dL Hct (41-53) % MCV (80-100) fL MCH (26-34) PG MCHC (30-36) % RDW (11.6-14.8) % Plt Count (150-400) X10^3/uL Neut % (Auto) (50-75) % Lymph % (Auto) (25-40) % [facility] % (Auto) (3-14) % Eos % (Auto) (2-4) % Baso % (Auto) (0-2) % Neut # (Auto) (3895-9963) /uL Lymph # (Auto) (1723-5981) /uL [facility] [place] # (Auto) (0-900) /uL Eos # (Auto) (0-450) /uL Baso # (Auto) (0-100) /uL D-Dimer 1398 H (<500) ng/ml Sodium (137-145) mmol/L Potassium (3.4-5.1) mmol/L Chloride (98-107) mmol/L Carbon Dioxide (22-32) mmol/L BUN (9-20) mg/dL Creatinine (0.66-1.25) mg/dL Estimated GFR (>60) mL/min BUN/Creatinine Ratio (6-22) Glucose (80-110) mg/dL Calcium (8.4-10.2) mg/dL Magnesium (1.6-2.3) mg/dL Total Bilirubin (0.2-1.3) mg/dL AST (17-59) IU/L ALT (<50) IU/L Alkaline Phosphatase (38-126) U/L Total Creatine Kinase (55-170) U/L CK-MB (CK-2) (<2.37) ng/mL CK-MB (CK-2) Rel Index (1.5-5.0) % Troponin I (0.01-0.034) ng/mL NT-Pro-B Natriuret Pep (<450) pg/mL Total Protein (6.3-8.2) g/dL Albumin (3.5-5.0) g/dL Globulin (1.7-4.1) g/dL Albumin/Globulin Ratio (1.0-2.8) Lipase (23-300) U/L Procalcitonin (<0.5) ng/mL Urine Color Yellow Urine Appearance Clear Urine pH 5.0 (4.5-8.0) Ur Specific [place] 1.020 (1.000-1.035) Urine Protein 1+ H (Negative) Urine Glucose (UA) 3+ H (Negative) g/dL Urine Ketones 1+ H (NEGATIVE) Urine Occult Blood 3+ H (Negative) Urine Nitrate Positive H (Negative) Urine Bilirubin Negative (NEGATIVE) Urine Urobilinogen 0.2 (0.2) E.U./dL Ur Leukocyte Esterase Negative (NEGATIVE) Urine RBC 30-100/hpf H (0-5/HPF) Urine WBC 5-10/hpf H (0-5/HPF) Urine Bacteria Moderate (10-30) H (None) Ur Culture Indicated? Specimen cultured Urine Dip Bedside Urine Glucose 1000 mg/dl Bedside Urine Bilirubin - Negative Bedside Urine Ketone ++ 40 Urine Specific Hanna 1.025 Bedside Urine Occult Blood +++ Bedside Urine pH 6.0 Bedside Urine Protein + 30 Bedside Urine Urobilinogen - Negative Bedside Urine Nitrite + Positive Bedside Urine Leukocytes - Negative Esterase Imaging Data Chest x-ray: Radiologist's Impression: Close Chest X-Ray (Signed) Nikhil Cr - 09/30/22 Launch?[place] [address] XRay Report Signed Patient: Boy Pisano MR#: [id number] : 1945 Acct:[id number] Age/Sex: 77 / M Date of Service: 09/30/22 Loc: ED Accession Number: [id number] ?? Procedure: XR chest 1V Ordering Provider: Filippo Casarez D.O. PROCEDURE:? XR CHEST 1V ? INDICATIONS:? Short of breath ? TECHNIQUE:? One view of the chest was acquired.? ? COMPARISON:? Outside Film, CT, CT CHEST WITHOUT CONTRAST, 08/05/2022, 11:40. ? FINDINGS:? ? Surgical changes and devices:? Post CABG changes are seen.? ? Lungs and pleura:? An incomplete inspiratory result is noted, causing a crowded appearance to the lung markings.? No focal infiltrates are seen.? No pneumothorax or significant pleural effusions are seen. ? Mild, streaky opacities are seen at the lung bases.? ? Mediastinum:? Mediastinal contours appear normal.? Heart size is normal.? A large hiatal hernia is seen. Atherosclerotic calcification of the aortic arch is noted.? ? Bones and chest wall:? No suspicious bony lesions.? Age-appropriate bony degenerative changes are seen.? Overlying soft tissues appear unremarkable.? ? ? IMPRESSION:? Low lung volumes, with likely atelectasis at the lung bases. ? Large hiatal hernia again seen. ? Postoperative and degenerative changes are seen.? ? ? Dictated by: Nikhil Cr M.D. on 09/30/2022 at 17:23 ? ? Approved by: Nikhil Cr M.D. on 09/30/2022 at 17:24 ? CT scan - chest: Radiologist's Impression: Close Chest CTA (Signed) Marleny Clinton - 09/30/22 Chest X-Ray (Signed) Nikhil Cr - 09/30/22 Launch?[place] [address] CT Scan Report Signed Patient: Boy Pisano MR#: [id number] : 1945 Acct:[id number] Age/Sex: 77 / M Date of Service: 09/30/22 Loc: ED Accession Number: [id number] ?? Procedure: CT angio chest PE protocol Ordering Provider: Manolo Dickey D.O. PROCEDURE:? CT ANGIO CHEST PE PROTOCOL ? INDICATIONS:? SOB, hemoptysis, tachycardia, critical Dimer ? TECHNIQUE:? After the administration of intravenous contrast, 2 mm thick sections acquired from the pulmonary apices to the posterior costophrenic angles.? 3-dimensional maximum intensity projection (MIP) coronal and sagittal reformats were then acquired through the thorax.? For radiation dose reduction, the following was used:? automated exposure control, adjustment of mA and/or kV according to patient size.? ? COMPARISON:? Outside Film, CT, CT CHEST WITHOUT CONTRAST, 08/05/2022, 11:40. ? FINDINGS:? Image quality:? Excellent.? ? Pulmonary arteries:? Pulmonary arteries are normal in size, and demonstrate no intraluminal filling defects to suggest central pulmonary embolism.? ? Lungs and pleura:? Bilateral patchy and confluent areas opacity, some appearing ground-glass have developed since prior exam. ? Mediastinum:? Heart size is normal, without pericardial effusion.? No mediastinal or hilar adenopathy.? Thoracic aorta is normal in caliber and enhancement.? Esophagus is normal in caliber, with large hiatal hernia.? ? Bones and chest wall:? No suspicious bony lesions.? Ribs and thoracic spine appear intact throughout.? Thyroid gland is unremarkable.? No axillary or supraclavicular adenopathy.? ? Abdomen:? Visualized upper abdominal solid organs appear normal in the early arterial phase of enhancement.? ? IMPRESSION:? ? No pulmonary embolism. ? Bilateral pulmonary opacities most suggestive of pneumonia.? Recommend interval follow-up to document resolution. ? Prominent hiatal hernia. ? ? Dictated by: Marleny Clinton M.D. on 09/30/2022 at 19:41 ? ? Approved by: Marleny Clinton M.D. on 09/30/2022 at 19:44 ? MDM Narrative Medical decision making narrative: 77-year-old male with history of diabetes, coronary artery disease presents with a week of increasing shortness of breath, fatigue and subjective fever. He presented initially to outside clinic and was found to be COVID positive and hypoxemic, he was placed on 2 L oxygen and sent here by EMS for evaluation. Differential diagnosis in addition to COVID includes flu a, bacterial pneumonia, CHF, pulmonary embolism. Much of the lab evaluation is reassuring, D-dimer is critically elevated and therefore CT angiogram ordered to rule out pulmonary embolism. Chest x-ray without significant findings, CT angiogram shows no PE but does suggest bibasilar infiltrate, fluids ordered at 30 cc/kilogram of ideal body weight given his BMI greater than 30, antibiotics including Rocephin and azithromycin to cover possible bacterial pneumonia, Decadron and remdesivir ordered to cover hypoxemic admitted COVID patient. Discussed with hospitalist who sure the opinion that patient is appropriate for hospitalization, will see patient at the bedside, request full respiratory panel and is in agreement with other therapies, no need for ABG currently Patient requires hospitalization for ongoing stabilization and treatment Discharge Plan Departure Patient Disposition: Admitted As Inpatient Prescriptions: No Action travoprost 0.004 % Drops 1 % EYE-BOTH DAILY tramadol 50 mg Tablet 50 mg PO QID PRN (Reason: neuropathy) simvastatin 40 mg Tablet 40 mg PO QPM omeprazole 20 mg Capsule,Delayed Release(Dr/Ec) 20 mg PO DAILY metoprolol succinate 25 mg Tablet Extended Release 24 Hr 25 mg PO DAILY metformin 500 mg Tablet,Er Viky.Retention 24 Hr 500 mg PO TID Referrals: Teodora Gordon PA-C [Primary Care Provider] - Admit Date/Time: 09/30/22 20:18
[2022-09-30 18:30] LABS: D Dimer 1398 ng/ml (<500)
--- NOTE | 2022-09-30 18:47 | DI.CT.S_ITS ---
PROCEDURE: CT ANGIO CHEST PE PROTOCOL INDICATIONS: SOB, hemoptysis, tachycardia, critical Dimer TECHNIQUE: After the administration of intravenous contrast, 2 mm thick sections acquired from the pulmonary apices to the posterior costophrenic angles. 3-dimensional maximum intensity projection (MIP) coronal and sagittal reformats were then acquired through the thorax. For radiation dose reduction, the following was used: automated exposure control, adjustment of mA and/or kV according to patient size. COMPARISON: Outside Film, CT, CT CHEST WITHOUT CONTRAST, 08/05/2022, 11:40. FINDINGS: Image quality: Excellent. Pulmonary arteries: Pulmonary arteries are normal in size, and demonstrate no intraluminal filling defects to suggest central pulmonary embolism. Lungs and pleura: Bilateral patchy and confluent areas opacity, some appearing ground-glass have developed since prior exam. Mediastinum: Heart size is normal, without pericardial effusion. No mediastinal or hilar adenopathy. Thoracic aorta is normal in caliber and enhancement. Esophagus is normal in caliber, with large hiatal hernia. Bones and chest wall: No suspicious bony lesions. Ribs and thoracic spine appear intact throughout. Thyroid gland is unremarkable. No axillary or supraclavicular adenopathy. Abdomen: Visualized upper abdominal solid organs appear normal in the early arterial phase of enhancement. IMPRESSION: No pulmonary embolism. Bilateral pulmonary opacities most suggestive of pneumonia. Recommend interval follow-up to document resolution. Prominent hiatal hernia. Dictated by: Marleny Clinton M.D. on 09/30/2022 at 19:41 Approved by: Marleny Clinton M.D. on 09/30/2022 at 19:44
[2022-09-30 19:20] LABS: Appearance Urine UA CLEAR; Bilirubin Urine UA NEGATIVE (NEGATIVE); Color Urine UA YELLOW; Glucose Urine UA 3+ g/dL (Negative); Ketones Urine UA 1+ (NEGATIVE); Leukocyte Esterase Urine UA NEGATIVE (NEGATIVE); Nitrite Urine UA POSITIVE (Negative); Occult Blood Urine UA 3+ (Negative); Protein Urine UA 1+ (Negative); Urobilinogen Urine UA 0.2 E.U./dL (0.2)
[2022-09-30 19:48] LABS: Bacteria Urine Moderate (10-30); Culture Indicated Urine Specimen Cultured; RBC Urine 30-100/HPF (0-5/HPF); WBC Urine 5-10/HPF (0-5/HPF)
[2022-09-30] MEDS: AZITHROMYCIN 500 MG in DEXTROSE 5% IN WATER 250 ML 250 MG IV (20:19)
[2022-09-30] MEDS: DEXAMETHASONE 10 MG/ML VIAL 6 MG IV (20:30)
[2022-09-30] MEDS: cefTRIAXone 2,000 MG in SODIUM CHLORIDE 0.9% 100 ML 200 MG IV (20:30)
[2022-09-30 20:33] LABS: Lactate (Lactic Acid) 1.3 mmol/L (0.7-2.1)
--- NOTE | 2022-09-30 21:38 | P.HP_ITS ---
History of Present Illness History of Present Illness Date Patient Seen: 09/30/22 Date of Onset of Symptoms: 09/18/22 Chief complaint: Hypoxic/Tachy Narrative: 77-year-old male nonsmoker with history of diabetes, hypertension and hyperlipidemia presents by EMS for evaluation of shortness of breath and fatigue.? He states he has been feeling under the weather for about 1 week and has become progressively ill.? He is had a dry and hacking cough and has become significantly short of breath with minimal exertion.? He is had a mild headache in the occasional sore throat.? He is nauseated and has a poor appetite but denies any vomiting, abdominal pain or diarrhea.? He has no urinary complaints such as dysuria, frequency or urgency.? He had initially presented to an urgent care and was found to have oxygen saturation in the mid to upper 80s and a positive COVID swab.? He was sent here by EMS for evaluation and stabilization of his condition.? He denies recent travel, known cancer or history of blood clot. In our ER he found to be hypoxic and tachypneic, COVID positive. His is also sick with COVID positive. He confirms that he is not vaccinated. He did not receive flu shot. Patient was getting short of breath with sentences and unable to complete his sentences. Using accessory muscles during our conversation. He is able to confirm most of the details mentioned. I called his and confirmed code status and updated her overall prognosis. Patient says that he might be having some fevers or chills but did not measure his temperature at home. Patient History Medical History CAD (coronary artery disease) Coronary artery disease involving coronary bypass graft of [place] heart Diabetes mellitus History of non-insulin dependent diabetes mellitus Hypercholesterolemia Hypertension Kidney stone Family & Social History Social History: household members spouse Safety & Behavioral: Feels Safe in Current Yes Environment Been Physically Hurt or No Threatened By a Person Tobacco & Substance use: Smoking Status Never smoker alcohol intake frequency 0-2 drinks per day Substance Use Type does not use Comment: Family history is noncontributory. Patient lives with his , she is the primary caregiver and primary photoresist contact printer. Meds Home Medications and Allergies Home Medications Medication Instructions Recorded Confirmed Type metformin 500 mg 24 hr 500 mg PO TID 11/17/18 11/17/18 History tablet,extended release metoprolol succinate 25 mg 25 mg PO DAILY 11/17/18 11/17/18 History tablet,extended release 24 hr omeprazole 20 mg capsule,delayed 20 mg PO DAILY 11/17/18 11/17/18 History release simvastatin 40 mg tablet 40 mg PO QPM 11/17/18 11/17/18 History tramadol 50 mg tablet 50 mg PO QID PRN neuropathy 11/17/18 11/17/18 History travoprost 0.004 % eye drops 1 % EYE-BOTH DAILY 11/17/18 11/17/18 History Allergies Allergy/AdvReac Type Severity Reaction Status Date / Time No Known Drug Allergies Allergy Verified 07/18/20 09:10 Review of Systems Review of Systems Narrative: All other systems reviewed, negative other than as mentioned above in history. Exam Vital Signs (past 8 hours): - 09/30/22 16:50 09/30/22 16:56 09/30/22 16:57 Temperature 99.7 F H Pulse Rate 104 H 109 H Respiratory Rate 22 20 Blood Pressure 112/62 113/62 Pulse Oximetry 93 93 Oxygen Delivery Method Room Air Oxygen Flow Rate 09/30/22 16:57 09/30/22 17:00 09/30/22 17:00 Temperature Pulse Rate 105 H 104 H Respiratory Rate 20 19 Blood Pressure 112/62 Pulse Oximetry 94 93 Oxygen Delivery Method Oxygen Flow Rate 09/30/22 17:25 09/30/22 17:25 09/30/22 17:30 Temperature Pulse Rate 103 H Respiratory Rate 23 Blood Pressure 115/63 125/69 Pulse Oximetry 92 Oxygen Delivery Method Oxygen Flow Rate 09/30/22 17:30 09/30/22 17:45 09/30/22 18:00 Temperature Pulse Rate 98 H 98 H 100 H Respiratory Rate 20 18 31 H Blood Pressure Pulse Oximetry 88 L Oxygen Delivery Method Room Air Oxygen Flow Rate 09/30/22 18:01 09/30/22 18:01 09/30/22 18:15 Temperature Pulse Rate 105 H 98 H Respiratory Rate 30 H 19 Blood Pressure 108/65 Pulse Oximetry 91 90 L Oxygen Delivery Method Room Air Room Air Oxygen Flow Rate 09/30/22 18:28 09/30/22 18:28 09/30/22 18:30 Temperature Pulse Rate 104 H Respiratory Rate 25 H Blood Pressure 95/66 98/53 L Pulse Oximetry 92 Oxygen Delivery Method Nasal Cannula Oxygen Flow Rate 2 09/30/22 18:30 09/30/22 18:45 09/30/22 18:45 Temperature Pulse Rate 103 H 97 H Respiratory Rate 19 Blood Pressure 108/58 L Pulse Oximetry 94 92 Oxygen Delivery Method Nasal Cannula Nasal Cannula Oxygen Flow Rate 2 2 09/30/22 19:00 09/30/22 19:01 09/30/22 19:01 Temperature Pulse Rate 106 H 113 H Respiratory Rate Blood Pressure 101/66 Pulse Oximetry 94 92 Oxygen Delivery Method Nasal Cannula Nasal Cannula Oxygen Flow Rate 2 2 Oxygen Delivery Method Nasal Cannula Oxygen Flow Rate 2 Const General: cooperative, acute distress, disheveled and ill appearing [facility] Head: normocephalic and atraumatic Nose: septum abnormal Eyes Other: WNL Neck Other: WNL Chest Other: Decreased air entry both bases, significant crackles at bases, rhonchi on both lung brunner left greater than right Resp Effort & Inspection: abnormal respiratory pattern, cough, respiratory distress and tachypneic Cardio Heart Sounds: S1 normal and S2 normal Other: Mild tachycardia noted. GI Other: Obese, within normal limits Skin Other: Decrease capillary refill, cold extremities Neuro Other: Nonfocal exam Extrem Other: Trace pedal edema positive. Psych Other: Mood normal, judgment normal. Objective Labs Result Diagrams: 09/30/22 17:05 09/30/22 17:05 Labs: Laboratory Results - last 24 hr 09/30/22 09/30/22 09/30/22 17:05 17:05 17:05 WBC 5.9 RBC 4.79 Hgb 15.1 Hct 43.9 MCV 91.7 MCH 31.5 MCHC 34.3 RDW 12.9 Plt Count 238 Neut % (Auto) 80.7 H Lymph % (Auto) 9.6 L [place] % (Auto) 9.1 Eos % (Auto) 0.1 L Baso % (Auto) 0.5 Neut # (Auto) 4800 Lymph # (Auto) 600 L [place] # (Auto) 500 Eos # (Auto) 0 Baso # (Auto) 0 D-Dimer Sodium 137 Potassium 4.8 Chloride 98 Carbon Dioxide 19 L BUN 28 H Creatinine 1.28 H Estimated GFR 57 L BUN/Creatinine Ratio 21.9 Glucose 119 H Lactate Calcium 9.5 Magnesium 2.1 Total Bilirubin 0.4 AST 80 H ALT 49 Alkaline Phosphatase 108 Total Creatine Kinase 200 H CK-MB (CK-2) 3.26 H CK-MB (CK-2) Rel Index 1.6 Troponin I < 0.012 NT-Pro-B Natriuret Pep 165 Total Protein 7.7 Albumin 4.1 Globulin 3.6 Albumin/Globulin Ratio 1.1 Lipase 156 Procalcitonin 0.24 Urine Color Urine Appearance Urine pH Ur Specific [place] Urine Protein Urine Glucose (UA) Urine Ketones Urine Occult Blood Urine Nitrate Urine Bilirubin Urine Urobilinogen Ur Leukocyte Esterase Urine RBC Urine WBC Urine Bacteria Ur Culture Indicated? 09/30/22 09/30/22 09/30/22 17:05 17:05 19:01 WBC RBC Hgb Hct MCV MCH MCHC RDW Plt Count Neut % (Auto) Lymph % (Auto) [place] % (Auto) Eos % (Auto) Baso % (Auto) Neut # (Auto) Lymph # (Auto) [place] # (Auto) Eos # (Auto) Baso # (Auto) D-Dimer 1398 H Sodium Potassium Chloride Carbon Dioxide BUN Creatinine Estimated GFR BUN/Creatinine Ratio Glucose Lactate 1.3 Calcium Magnesium Total Bilirubin AST ALT Alkaline Phosphatase Total Creatine Kinase CK-MB (CK-2) CK-MB (CK-2) Rel Index Troponin I NT-Pro-B Natriuret Pep Total Protein Albumin Globulin Albumin/Globulin Ratio Lipase Procalcitonin Urine Color Yellow Urine Appearance Clear Urine pH 5.0 Ur Specific [place] 1.020 Urine Protein 1+ H Urine Glucose (UA) 3+ H Urine Ketones 1+ H Urine Occult Blood 3+ H Urine Nitrate Positive H Urine Bilirubin Negative Urine Urobilinogen 0.2 Ur Leukocyte Esterase Negative Urine RBC 30-100/hpf H Urine WBC 5-10/hpf H Urine Bacteria Moderate (10-30) H Ur Culture Indicated? Specimen cultured Assessment & Plan Assessment and plan (1) Acute and chronic respiratory failure with hypoxia: Status: Acute (2) Pneumonia due to COVID-19 virus: Status: Acute Assessment & Plan narrative: Acute hypoxic respiratory failure secondary to COVID pneumonia and superimposed by bacterial pneumonia -remdesivir, high-flow nasal cannula, dexamethasone, Rocephin, Zithromax, treated as a combination of COVID and bacterial pneumonia. CPAP at night as he uses at home. ABG if patient breathing status is not improving. High-risk of deterioration. Severe Sepsis (TOBI) secondary to bilateral bacterial pneumonia at the time of presentation -IV fluids, continue renal function monitoring -acute kidney injury secondary to sepsis, continue monitor I's and O's History of coronary artery disease, history of CABG -appropriate control of blood pressures, close monitoring [id number] type 2 diabetes mellitus -ADA diet, sliding scale insulin DVT and GI prophylaxis reviewed. Overall prognosis is poor. High chance of deterioration. Care plan extensively discussed with the patient and on phone. Answered all questions. Time Spent With Patient Critical Care time: I spent a total of [] minutes of critical care time on this patient's care today; this time is exclusive of procedural time.
[2022-10-01] VITALS (17 sets, daily range): BP systolic 98–132; BP diastolic 58–76; PULSE 78–92; RESP 17–42; TEMP 36.1–36.8; O2SAT 90–95
[2022-10-01] MEDS: SODIUM CHLORIDE 0.9% 1,000 ML 125 ML IV (00:12)
--- NOTE | 2022-10-01 00:13 | PC.NURSE ---
Addendum entered by Anne-Marie Cisneros R.N. 10/01/22 06:15: Patient sleeping off and on, O2 sat stable on cpap with o2 bled in. dry cough at present time Original Note: Received patient from ED on stretcher in mild distress. Patient able to stand with assistance and pivot to ICU bed. RT at bedside to place patient on CPAP. Patient normally sleeps on CPAP with full mask. 2 IV's in placed but capped. No complaints at present time. Orders clarified with physician and 3 liter fluid bolus discontinued. Loading dose of remdesivir started.
[2022-10-01] MEDS: REMDESIVIR 200 MG in SODIUM CHLORIDE 0.9% 210 ML 250 MG IV (00:30)
[2022-10-01 04:56] LABS: Add Manual Diff / Slide Review NO; Basophils Absolute Auto 0 /uL (0-100); Basophils Percent Auto 0.4 % (0-2); Eosinophils Absolute Auto 0 /uL (0-450); Hematocrit 38.8 % (41-53); Hemoglobin 13.3 g/dL (13.5-17.5); Lymphocytes Absolute Auto 500 /uL (1100-4500); Lymphocytes Percent Auto 11.1 % (25-40); Mean Corpuscular HGB Conc 34.1 % (30-36); Mean Corpuscular Hemoglobin 31.1 PG (26-34); Mean Corpuscular Volume 91.1 fL (80-100); Monocytes Absolute Auto 300 /uL (0-900); Monocytes Percent Auto 5.9 % (3-14); Neutrophils Absolute Auto 3900 /uL (1500-7000); Neutrophils Percent Auto 82.6 % (50-75); Platelet Count 218 X10^3/uL (150-400); Red Blood Cell Count 4.26 X10^6/uL (4.5-5.9); White Blood Cell Count 4.7 X10^3/uL (4.5-11.0)
[2022-10-01 05:02] LABS: Alanine Aminotransferase 43 IU/L (<50); Albumin 3.5 g/dL (3.5-5.0); Alkaline Phosphatase 87 U/L (38-126); Aspartate Aminotransferase 68 IU/L (17-59); BUN Creatinine Ratio 20.9 (6-22); Bilirubin Total 0.3 mg/dL (0.2-1.3); Blood Urea Nitrogen 23 mg/dL (9-20); Calcium 8.5 mg/dL (8.4-10.2); Carbon Dioxide 17 mmol/L (22-32); Chloride 103 mmol/L (98-107); Estimated Glomerular Filt Rate > 60 mL/min (>60); Globulin 3.5 g/dL (1.7-4.1); Glucose 156 mg/dL (80-110); HEMOLYSIS < 15 (0-50); Potassium 4.2 mmol/L (3.4-5.1); Sodium 136 mmol/L (137-145)
[2022-10-01] MEDS: PANTOPRAZOLE DR 20 MG TABLET PO (06:03)
[2022-10-01] MEDS: ENOXAPARIN 40 MG/0.4 ML SYRINGE SUBCUT (08:17)
[2022-10-01] MEDS: ACETAMINOPHEN 325 MG TABLET 650 MG PO (08:17)
[2022-10-01] MEDS: DEXAMETHASONE 10 MG/ML VIAL 6 MG IV (08:17)
--- NOTE | 2022-10-01 09:46 | PT.IIE ---
Current Diagnoses Pneumonia due to coronavirus disease 2019 (09/30/22) Acute and chronic respiratory failure with hypoxia (09/30/22) COVID-19 (09/30/22) Medical History (Last Reviewed 09/30/22 @ 21:41 by Shawn Morrison MD) CAD (coronary artery disease) Coronary artery disease involving coronary bypass graft of [place] heart Diabetes mellitus History of non-insulin dependent diabetes mellitus Hypercholesterolemia Hypertension Kidney stone Physical Therapy Inpatient Evaluation/Re-Eval M1 PT/OT-IP Prior Functional Status Start: 10/01/22 11:21 Freq: NEEDED Status: Active Protocol: Document 10/01/22 09:46 AB (Rec: 10/01/22 11:39 AB [id number]) Medical Review Prior Functional Status Medical History Reviewed Yes Communication able to make needs known Mobility and Gait pt stated that he is independent with all mobiltiies and ambulation without AD Social History Household Members spouse Living Arrangements House Number of Floors (Floors) One Floor Number of Stairs To Enter/Railing? 5 steps toe tner with R rail ascending Home Environment High Toilet,Walk in Shower, Built-In Shower Seat Home Equipment Straight Cane M2 PT-IP Current Condition Start: 10/01/22 11:21 Freq: NEEDED Status: Active Protocol: Document 10/01/22 09:46 AB (Rec: 10/01/22 11:39 AB [id number]) Physical Therapy Current Condition Current Condition Evaluation Date 10/01/22 Treatment Diagnosis Covid; difficulty in walking Onset Date 09/30/22 M3 PT-IP Subjective Start: 10/01/22 11:21 Freq: NEEDED Status: Active Protocol: Document 10/01/22 09:46 AB (Rec: 10/01/22 11:39 AB [id number]) Subjective Physical Therapy Visit Type Type Initial Evaluation Visit Start Time 09:46 Visit Stop Time 10:27 Total Visit Minutes 41 Number of BAKER HELPER Visits 0 Physical Therapy Visit Comments Patient Comments agreeable to do PT M4 PT-IP Mobility and Gait Start: 10/01/22 11:21 Freq: NEEDED Status: Active Protocol: Document 10/01/22 09:46 AB (Rec: 10/01/22 11:39 AB [id number]) PT-Bed Mobility Assessment Supine to Sit Supine to Sit Standby Assistance PT-Transfer Assessment Sit to and From Stand Sit to and from Stand Contact Guard Assistance,1 Person Assistance,Use of Upper Extremities Equipment Transfer Assistive Device Gait Belt,Front Wheeled Walker Orthotic/Prosthetic Devices or Brace: No Transfers Transfer Destination Chair Transfer Technique ambulated Transfer Ability Level of Assist Contact Guard Assistance,1 Person Assistance,Use of Upper Extremities Comments Mobility Comments O2 sat with O2 on 95%. completed supine to sit SBA. able to sit on EOB SBA. (+) SOB but O2 sat: 97%. completed sit to stand CGA and ambulated in room ~ 20 ft using FWW. Assessed ambulation without AD CGA ~ 15 ft but with increase unsteadiness ataxic gait. pt agreed to use FWW at this time . pt requested to rest and agreed to stay seated on chair . positioned on the chair. call light and table placed within reach. Gait Assessment Gait Gait Assistance Required: Contact Guard Assist Distance (Feet) 20 Able to Maintain Weight Bearing Status Yes During Gait Assistive Devices Assistive Device None,Gait Belt,Front Wheeled Walker Orthotic/Prosthetic Devices or Brace: No Gait Deviations General Gait Pattern Decreased Stride Length, Decreased Feet Clearance,Step- to Gait Factors Limiting Gait Function Factors Limiting Gait Function Decreased Activity Tolerance, Decreased Strength,Poor Balance,Poor Safety Awareness, Respiratory Distress PT-Balance Assessment Sitting Balance and Reactions Static Sitting Balance Ability Good Dynamic Sitting Balance Ability Good Standing Balance and Reactions Static Standing Balance Ability Fair Dynamic Standing Balance Ability Fair Device Used FWW M5 PT-IP Objective Assessments Start: 10/01/22 11:21 Freq: NEEDED Status: Active Protocol: Document 10/01/22 09:46 AB (Rec: 10/01/22 11:39 AB [id number]) Orientation Orientation/Cognition Level of Alertness Alert Orientation Name Safety Awareness Decreased Safety Awareness Memory Description No Deficits Noted Gross Range of Motion Lower Extremity ROM Assessment Within Functional Limits Strength Lower Extremity Strength Hip 4-/5 Knee 4-/5 Sensation Assessment Sensation Gross Sensation WNL Muscle Tone Muscle Tone WNL Yes M6 PT-IP Treatment Start: 10/01/22 11:21 Freq: NEEDED Status: Active Protocol: Document 10/01/22 09:46 AB (Rec: 10/01/22 11:39 AB [email or web address]) Physical Therapy Treatment Education Education Provided Safety M7 PT-IP Assessment and Plan Start: 10/01/22 11:21 Freq: NEEDED Status: Active Protocol: Document 10/01/22 09:46 AB (Rec: 10/01/22 11:39 AB [email or web address]) PT Summary Assessment and Plan Potential Rehabilitation Potential Good Status of Condition at Evaluation Evolving Summary Impairments Pain,ROM,Strength,Balance, Coordination,Sensation,Tone, Cognition,Bed Mobility, Transfers,Gait,Activity Tolerance Assessment Summary Pt requiring CGA with mobiity using FWW and presents with decrease activity tolerance with (+) SOB during mobility. pt plans to go home and spouse will be able to assist pt. will continue to assess progress. Goals Bed Mobility Goal Independent Transfer Goal Independent,Front Wheeled Walker Gait Goal Independent,Front Wheel Walker Gait Distance 200 Other Goals improve ambulation without AD/ SPC 250 ft SBA up/down 5 steps R rail ascending SBA Days to Meet Goals 10 Frequency of Treatment Frequency Of Treatment Once a Day Treatment Plan Physical Therapy Treatment Plan Bed Mobility Training,Transfer Training,Gait Training, Therapeutic Exercise,Balance Retraining,Discharge Planning, Hot or Cold Pack,Neuromuscular Re-ed,Coordination Retraining Precautions Other Precautions Covid Recommendations To Nursing Amount of Assist Needed 1 Person Assist Discharge Recommendations PT Discharge Recommendations Home with Assistance Equipment Needed for Home Before FWW if not safe with SPC/ Discharge without AD Transportation Needs at Discharge Private Vehicle
[2022-10-01] MEDS: INSULIN LISPRO 100 UNIT/ML 3ML VIAL SUBCUT ×3 (12:21→21:21)
--- NOTE | 2022-10-01 12:55 | CM.DANOTE ---
DCP: Case received, EMR reviewed. Was unable to meet with patient in his room secondary to his having COVID. Attempted to call patient with no answer. Was able to complete DCP assessment based upon P.T. notes, and information in EMR. Patient is a 77year old male who admitted yesterday evening to the care of the hospitalist team. PCP: Dr. Teodora Gordon. Payer: confirmed: [facility] Ad[facility]. Patient came to the hospital via ambulance secondary to having shortness of breath and fatigue. Notes indicate that patient had been to an outside clinic, and was found to be COVID positive and hypoxemic, and was placed on 2 liters of oxygen. Patient was sent by EMS secondary to hypoxia. Patient holds diagnosis of bilateral COVID pneumonia. Was unable to meet with patient, and attempted to call room with no answer. It is noted that patient resides in [place] with spouse, Divine. Patient has worked with P.T. Notes indicate that patient has SPC for home use, but is now recommended a FWW. Recommendations are home with assist, FWW if needed. P: DCP to continue to follow. Patient should be able to go home when deemed medically stable. Valery Torres RN/Manager Research Development Discharge Planning/Care Management CM Discharge Assessment Start: 10/01/22 12:53 Freq: Status: Active Protocol: Document 10/01/22 12:53 (Rec: 10/01/22 12:54 [id number]) Discharge Planning Assessment Assigned Councilman Valery Torres RN/Manager Research Development Advance Directives? No History Provided By Patient,Medical Record Prior Living Arrangements House Household Members spouse Type of transporation used prior to Drives own vehicle admit Independent with ADL's Yes Is patient alert and oriented? Yes Caregiver for Another No Barriers to Discharge No Discharge Plan Home Transportation Arrangement Spouse Referrals Initiated None needed Whiteboard Updated in Patient Room with No name and ext. # of Councilman Comment Patient has COVID, did not enter room. Review Status In Process Next Review Type Continued Stay Review
--- NOTE | 2022-10-01 15:38 | PM.PN.1 ---
Subjective Subjective Date Patient Seen: 10/01/22 Time Patient Seen: 08:00 Interval history: Today he still does not feel very good. He continues with a cough and feels short of breath. He feels very fatigued. Exam Vital Signs (past 8 hours): - 10/01/22 08:00 10/01/22 10:05 10/01/22 12:00 Temperature 98.3 F Pulse Rate 91 H Respiratory Rate 20 Blood Pressure 132/68 Pulse Oximetry 94 95 Oxygen Delivery Method Nasal Cannula Nasal Cannula Oxygen Flow Rate 2 2 10/01/22 14:00 Temperature Pulse Rate Respiratory Rate Blood Pressure Pulse Oximetry 92 Oxygen Delivery Method Nasal Cannula Oxygen Flow Rate 2 Fraction of Inspired Oxygen 94 Oxygen Delivery Method Nasal Cannula Oxygen Flow Rate 2 Narrative Exam Narrative: GEN: ill appearing, fatigued CV: regular rate and rhythm, no murmurs PULM: coarse breath sounds bilaterally ABD: soft, nontender, nondistended, no organomegaly EXT: warm and well perfused, no edema Objective Labs Result Diagrams: 10/01/22 04:27 10/01/22 04:27 Labs: Laboratory Results - last 24 hr 09/30/22 09/30/22 09/30/22 17:05 17:05 17:05 WBC 5.9 RBC 4.79 Hgb 15.1 Hct 43.9 MCV 91.7 MCH 31.5 MCHC 34.3 RDW 12.9 Plt Count 238 Neut % (Auto) 80.7 H Lymph % (Auto) 9.6 L [place] % (Auto) 9.1 Eos % (Auto) 0.1 L Baso % (Auto) 0.5 Neut # (Auto) 4800 Lymph # (Auto) 600 L [place] # (Auto) 500 Eos # (Auto) 0 Baso # (Auto) 0 D-Dimer Sodium 137 Potassium 4.8 Chloride 98 Carbon Dioxide 19 L BUN 28 H Creatinine 1.28 H Estimated GFR 57 L BUN/Creatinine Ratio 21.9 Glucose 119 H Lactate Calcium 9.5 Magnesium 2.1 Total Bilirubin 0.4 AST 80 H ALT 49 Alkaline Phosphatase 108 Total Creatine Kinase 200 H CK-MB (CK-2) 3.26 H CK-MB (CK-2) Rel Index 1.6 Troponin I < 0.012 NT-Pro-B Natriuret Pep 165 Total Protein 7.7 Albumin 4.1 Globulin 3.6 Albumin/Globulin Ratio 1.1 Lipase 156 Procalcitonin 0.24 Urine Color Urine Appearance Urine pH Ur Specific [place] Urine Protein Urine Glucose (UA) Urine Ketones Urine Occult Blood Urine Nitrate Urine Bilirubin Urine Urobilinogen Ur Leukocyte Esterase Urine RBC Urine WBC Urine Bacteria Ur Culture Indicated? 09/30/22 09/30/22 09/30/22 17:05 17:05 19:01 WBC RBC Hgb Hct MCV MCH MCHC RDW Plt Count Neut % (Auto) Lymph % (Auto) [place] % (Auto) Eos % (Auto) Baso % (Auto) Neut # (Auto) Lymph # (Auto) [place] # (Auto) Eos # (Auto) Baso # (Auto) D-Dimer 1398 H Sodium Potassium Chloride Carbon Dioxide BUN Creatinine Estimated GFR BUN/Creatinine Ratio Glucose Lactate 1.3 Calcium Magnesium Total Bilirubin AST ALT Alkaline Phosphatase Total Creatine Kinase CK-MB (CK-2) CK-MB (CK-2) Rel Index Troponin I NT-Pro-B Natriuret Pep Total Protein Albumin Globulin Albumin/Globulin Ratio Lipase Procalcitonin Urine Color Yellow Urine Appearance Clear Urine pH 5.0 Ur Specific [place] 1.020 Urine Protein 1+ H Urine Glucose (UA) 3+ H Urine Ketones 1+ H Urine Occult Blood 3+ H Urine Nitrate Positive H Urine Bilirubin Negative Urine Urobilinogen 0.2 Ur Leukocyte Esterase Negative Urine RBC 30-100/hpf H Urine WBC 5-10/hpf H Urine Bacteria Moderate (10-30) H Ur Culture Indicated? Specimen cultured 10/01/22 10/01/22 04:27 04:27 WBC 4.7 RBC 4.26 L Hgb 13.3 L Hct 38.8 L MCV 91.1 MCH 31.1 MCHC 34.1 RDW 13.0 Plt Count 218 Neut % (Auto) 82.6 H Lymph % (Auto) 11.1 L [place] % (Auto) 5.9 Eos % (Auto) 0.0 L Baso % (Auto) 0.4 Neut # (Auto) 3900 Lymph # (Auto) 500 L [place] # (Auto) 300 Eos # (Auto) 0 Baso # (Auto) 0 D-Dimer Sodium 136 L Potassium 4.2 Chloride 103 Carbon Dioxide 17 L BUN 23 H Creatinine 1.10 Estimated GFR > 60 BUN/Creatinine Ratio 20.9 Glucose 156 H Lactate Calcium 8.5 Magnesium Total Bilirubin 0.3 AST 68 H ALT 43 Alkaline Phosphatase 87 Total Creatine Kinase CK-MB (CK-2) CK-MB (CK-2) Rel Index Troponin I NT-Pro-B Natriuret Pep Total Protein 7.0 Albumin 3.5 Globulin 3.5 Albumin/Globulin Ratio 1.0 Lipase Procalcitonin Urine Color Urine Appearance Urine pH Ur Specific [place] Urine Protein Urine Glucose (UA) Urine Ketones Urine Occult Blood Urine Nitrate Urine Bilirubin Urine Urobilinogen Ur Leukocyte Esterase Urine RBC Urine WBC Urine Bacteria Ur Culture Indicated? [facility] Medical History CAD (coronary artery disease) Coronary artery disease involving coronary bypass graft of [place] heart Diabetes mellitus History of non-insulin dependent diabetes mellitus Hypercholesterolemia Hypertension Kidney stone Social History household members: spouse Smoking Status: Never smoker Assessment & Plan Assessment & Plan narrative: 1. Acute hypoxemic respiratory failure seconary to COVID pneumonia and likely bacterial pneumonia -patient requiring oxygen on admission, wean a sable -COVID positive on admission -chest imaging notable for opacifications more concerning for superimposed bacterial pneumonia -continue remdesivir, dexamethasone -continue ceftriaxone and azithromycin -follow up cultures -sepsis ruled out 2. UTI -UA positive -urine culture with gram negative rods -continue ceftriaxone as above -follow up final cultures 3. Type 2 Diabetes -hold oral medications -insulin sliding scale 4. CAD s/p CABG -continue home aspirin, statin, blood pressure medications Time Spent With Patient Critical Care time: I spent a total of [] minutes of critical care time on this patient's care today; this time is exclusive of procedural time.
[2022-10-01] MEDS: guaiFENesin ER 600 MG TAB PO (16:53)
[2022-10-01] MEDS: cefTRIAXone 2,000 MG in SODIUM CHLORIDE 0.9% 100 ML 200 MG IV (17:55)
[2022-10-01] MEDS: AZITHROMYCIN 500 MG in DEXTROSE 5% IN WATER 250 ML 250 MG IV (18:38)
[2022-10-01] MEDS: REMDESIVIR 100 MG in SODIUM CHLORIDE 0.9% 230 ML 250 MG IV (20:58)
[2022-10-01] MEDS: ATORVASTATIN 20 MG TABLET PO (20:59)
[2022-10-02] VITALS (12 sets, daily range): BP systolic 90–122; BP diastolic 57–81; PULSE 80–97; RESP 18–19; TEMP 36.2–36.8; O2SAT 90–94
--- NOTE | 2022-10-02 03:16 | PC.NURSE ---
0300- Patient requests to have CPap taken off as he is finding it difficult to sleep with it on. Patient placed on 3L nasal cannula. Will monitor.
[2022-10-02 04:46] LABS: Hematocrit 41.4 % (41-53); Mean Corpuscular HGB Conc 33.8 % (30-36); Mean Corpuscular Hemoglobin 30.8 PG (26-34); Mean Corpuscular Volume 91.2 fL (80-100); Platelet Count 258 X10^3/uL (150-400); Red Blood Cell Count 4.54 X10^6/uL (4.5-5.9); Red Cell Distribution Width 12.9 % (11.6-14.8); White Blood Cell Count 6.1 X10^3/uL (4.5-11.0)
[2022-10-02 05:00] LABS: Blood Urea Nitrogen 30 mg/dL (9-20); Calcium 9.2 mg/dL (8.4-10.2); Carbon Dioxide 22 mmol/L (22-32); Chloride 107 mmol/L (98-107); Estimated Glomerular Filt Rate > 60 mL/min (>60); Glucose 157 mg/dL (80-110); HEMOLYSIS < 15 (0-50); Potassium 4.5 mmol/L (3.4-5.1); Sodium 141 mmol/L (137-145)
[2022-10-02] MEDS: PANTOPRAZOLE DR 20 MG TABLET PO (06:17)
[2022-10-02] MEDS: ASPIRIN 325 MG TABLET PO (08:11)
[2022-10-02] MEDS: DEXAMETHASONE 10 MG/ML VIAL 6 MG IV (08:13)
[2022-10-02] MEDS: INSULIN LISPRO 100 UNIT/ML 3ML VIAL SUBCUT ×4 (08:22→21:31)
[2022-10-02] MEDS: lisinopriL 10 MG TABLET PO (08:35)
[2022-10-02] MEDS: METOPROLOL ER 25 MG TABLET PO (08:35)
--- NOTE | 2022-10-02 11:30 | PT.IPTN ---
Current Diagnoses Pneumonia due to coronavirus disease 2019 (09/30/22) Acute and chronic respiratory failure with hypoxia (09/30/22) COVID-19 (09/30/22) Physical Therapy Treatment Note M2 PT-IP Current Condition Start: 10/01/22 11:21 Freq: NEEDED Status: Active Protocol: Document 10/01/22 09:46 AB (Rec: 10/01/22 11:39 AB [id number]) Physical Therapy Current Condition Current Condition Evaluation Date 10/01/22 Treatment Diagnosis Covid; difficulty in walking Onset Date 09/30/22 M3 PT-IP Subjective Start: 10/01/22 11:21 Freq: NEEDED Status: Active Protocol: Document 10/02/22 11:30 AB (Rec: 10/02/22 13:24 AB [email or web address]) Subjective Physical Therapy Visit Type Type Treatment Note Visit Start Time 11:30 Visit Stop Time 12:05 Total Visit Minutes 35 Number of LUBE ATTENDANT Visits 0 Physical Therapy Visit Comments Patient Comments agreeable to do PT M4 PT-IP Mobility and Gait Start: 10/01/22 11:21 Freq: NEEDED Status: Active Protocol: Document 10/02/22 11:30 AB (Rec: 10/02/22 13:24 AB [email or web address]) PT-Bed Mobility Assessment Supine to Sit Supine to Sit Moderate Assistance,1 Person Assistance,Head of Bed Elevated PT-Transfer Assessment Sit to and From Stand Sit to and from Stand Contact Guard Assistance,1 Person Assistance,Use of Upper Extremities Equipment Transfer Assistive Device None,Gait Belt,Straight Cane Orthotic/Prosthetic Devices or Brace: No Transfers Transfer Destination Chair Transfer Technique ambulated Transfer Ability Level of Assist Contact Guard Assistance,1 Person Assistance,Use of Upper Extremities Comments Mobility Comments O2 sat with O2 on 94%. pt completed supine to sit mod A and cues with HOB elevated. pt sat on EOB SBA and O2 sat 94%. Assessed O2 sat without O2 on. O2 sat at RA 94%. pt without c/o SOB. completed sit to stand CGA and ambulated in room without AD CGA ~ 10 ft. continues to have an unsteady gait without AD. O2 sat: 87% but increases to 92% in <5 sec. educated pt on use of SPC. completed ambulation in room using SPC ~ 100 ft. O2 sat checked:90%. cued pt for deep breathing in between activities. pt ambulated again using SPC CGA ~ 50 ft with increase usteadiness towards end of ambulation with c/o feeling tired. instructed to sit back on the chair. O2 sat: 90-92% at RA. positioned pt on the chair. O2 sat inconsistent: 89-94%. O2 put back on. call light and table placed within reach. Gait Assessment Gait Gait Assistance Required: Standby Assistance,1 Person Assist Distance (Feet) 100 Able to Maintain Weight Bearing Status Yes During Gait Assistive Devices Assistive Device Gait Belt,Straight Cane Orthotic/Prosthetic Devices or Brace: No Gait Deviations General Gait Pattern Decreased Stride Length, Decreased Feet Clearance Factors Limiting Gait Function Factors Limiting Gait Function Decreased Activity Tolerance, Decreased Strength,Limited Range of Motion,Poor Balance, Respiratory Distress M5 PT-IP Objective Assessments Start: 10/01/22 11:21 Freq: NEEDED Status: Active Protocol: Document 10/01/22 09:46 AB (Rec: 10/01/22 [email or web address] Orientation Orientation/Cognition Level of Alertness Alert Orientation Name Safety Awareness Decreased Safety Awareness Memory Description No Deficits Noted Gross Range of Motion Lower Extremity ROM Assessment Within Functional Limits Strength Lower Extremity Strength Hip 4-/5 Knee 4-/5 Sensation Assessment Sensation Gross Sensation WNL Muscle Tone Muscle Tone WNL Yes M6 PT-IP Treatment Start: 10/01/22 11:21 Freq: NEEDED Status: Active Protocol: Document 10/02/22 11:30 AB (Rec: 10/02/22 13:24 AB [email or web address]) Physical Therapy Treatment Education Education Provided Safety M7 PT-IP Assessment and Plan Start: 10/01/22 11:21 Freq: NEEDED Status: Active Protocol: Document 10/02/22 11:30 AB (Rec: 10/02/22 13:[email or web address] PT Summary Assessment and Plan Potential Rehabilitation Potential Fair Summary Impairments ROM,Strength,Balance, Coordination,Sensation,Bed Mobility,Transfers,Gait, Activity Tolerance Progress Towards Goals Slow Progress due to Medical Issues,Slow Progress due to Activity Tolerance Assessment Summary Pt improving slowly with mobility but continues to have decrease activity tolerance affecting mobility level and requiring CGA with ambulation using SPC. will continue to assess progress. pt needs to complete stair climbing training prior to d/c. Goals Bed Mobility Goal Independent Transfer Goal Independent,Front Wheeled Walker Gait Goal Independent,Front Wheel Walker Gait Distance 200 Other Goals improve ambulation without AD/ SPC 250 ft SBA up/down 5 steps R rail ascending SBA Days to Meet Goals 10 Frequency of Treatment Frequency Of Treatment Once a Day Treatment Plan Physical Therapy Treatment Plan Bed Mobility Training,Transfer Training,Gait Training, Therapeutic Exercise,Balance Retraining,Discharge Planning, Hot or Cold Pack,Neuromuscular Re-ed,Coordination Retraining Precautions Other Precautions Covid Recommendations To Nursing Amount of Assist Needed 1 Person Assist Discharge Recommendations PT Discharge Recommendations Home with Assistance Transportation Needs at Discharge Private Vehicle
--- NOTE | 2022-10-02 11:34 | DIET.CONS ---
Dietary Consultation Note Admission Date: 09/30/2022 20:18 Assessment: 77y M admitted with acute respiratory failure secondary to covid pna and bacterial pna referred to nutrition for reported weight loss secondary to not eating. Pt reports poor appetite secondary to SOB for the past week. Pt was too lethargic to prepare himself anything and was in bed. Since admission, pt with 75-100% PO intake of all meal trays. Pt states easier to eat because he doesn't have to prepare or clean up after meals. Pt doing well with regular carb consistent meal trays, no need for nutrition interventions at this time. Ht: 175.26 cm Wt: 102.5 kg BMI: 33.0 UBW: 115kg Last BM: () MNA: 11 Steven Score: 20 Diet: 09/30/22 Breakfast Carbohydrate Consistent Diet Diet Modifications: Carbohydrate level: Large (4 CHO) Bedtime snack: Yes Nutrition Percent Meal Consumed 100% 10/02/22 10:17 Percent Meal Consumed 75% 10/01/22 18:00 Percent Meal Consumed 100% 10/01/22 10:14 Labs: RBC 4.54 X10^6/uL (4.5-5.9) 10/02/22 04:20 Hgb 14.0 g/dL (13.5-17.5) 10/02/22 04:20 Hct 41.4 % (41-53) 10/02/22 04:20 Creatinine 1.00 mg/dL (0.66-1.25) 10/02/22 04:20 Lactate 1.3 mmol/L (0.7-2.1) 09/30/22 17:05 NT-Pro-B Natriuret Pep 165 pg/mL (<450) 09/30/22 17:05 Electronically Signed by: Denia Carvalho 10/02/22 11:34 Clinical Dietitian [place] [address] [place] [address]
--- NOTE | 2022-10-02 14:44 | PM.PN.1 ---
Subjective Subjective Date Patient Seen: 10/02/22 Interval history: Today he is beginning to feel a bit better and stronger, remains on supplemental oxygen. Exam Vital Signs (past 8 hours): - 10/02/22 08:35 10/02/22 08:35 10/02/22 07:00 Temperature Pulse Rate 91 H 91 H Respiratory Rate Blood Pressure 122/81 122/81 Pulse Oximetry Oxygen Delivery Method Nasal Cannula Oxygen Flow Rate 10/02/22 09:05 10/02/22 09:00 10/02/22 13:00 Temperature Pulse Rate 96 H Respiratory Rate Blood Pressure 120/75 Pulse Oximetry 92 91 Oxygen Delivery Method Nasal Cannula Room Air Oxygen Flow Rate 3 10/02/22 12:00 Temperature 97.5 F L Pulse Rate 83 Respiratory Rate 19 Blood Pressure 110/69 Pulse Oximetry 93 Oxygen Delivery Method Oxygen Flow Rate 3 Fraction of Inspired Oxygen 94 Oxygen Delivery Method Room Air Oxygen Flow Rate 3 Narrative Exam Narrative: GEN: ill appearing, fatigued CV: regular rate and rhythm, no murmurs PULM: coarse breath sounds bilaterally ABD: soft, nontender, nondistended, no organomegaly EXT: warm and well perfused, no edema Objective Labs Result Diagrams: 10/02/22 04:20 10/02/22 04:20 Labs: Laboratory Results - last 24 hr 10/02/22 10/02/22 04:20 04:20 WBC 6.1 RBC 4.54 Hgb 14.0 Hct 41.4 MCV 91.2 MCH 30.8 MCHC 33.8 RDW 12.9 Plt Count 258 Sodium 141 Potassium 4.5 Chloride 107 Carbon Dioxide 22 BUN 30 H Creatinine 1.00 Estimated GFR > 60 BUN/Creatinine Ratio 30.0 H Glucose 157 H Calcium 9.2 PFSH Medical History CAD (coronary artery disease) Coronary artery disease involving coronary bypass graft of [place] heart Diabetes mellitus History of non-insulin dependent diabetes mellitus Hypercholesterolemia Hypertension Kidney stone Social History household members: spouse Smoking Status: Never smoker Assessment & Plan Assessment & Plan narrative: 1. Acute hypoxemic respiratory failure seconary to COVID pneumonia and likely bacterial pneumonia -patient requiring oxygen on admission, wean a sable -COVID positive on admission -chest imaging notable for opacifications more concerning for superimposed bacterial pneumonia -continue remdesivir, dexamethasone -continue ceftriaxone and azithromycin -follow up cultures -sepsis ruled out 2. UTI -UA positive -urine culture with gram negative rods -continue ceftriaxone as above -follow up final cultures 3. Type 2 Diabetes -hold oral medications -insulin sliding scale 4. CAD s/p CABG -continue home aspirin, statin, blood pressure medications Time Spent With Patient Critical Care time: I spent a total of [] minutes of critical care time on this patient's care today; this time is exclusive of procedural time.
[2022-10-02] MEDS: cefTRIAXone 2,000 MG in SODIUM CHLORIDE 0.9% 100 ML 200 MG IV (17:18)
[2022-10-02] MEDS: AZITHROMYCIN 500 MG in DEXTROSE 5% IN WATER 250 ML 250 MG IV (18:21)
[2022-10-02] MEDS: REMDESIVIR 100 MG in SODIUM CHLORIDE 0.9% 230 ML 250 MG IV (21:28)
[2022-10-02] MEDS: ACETAMINOPHEN 325 MG TABLET 650 MG PO (21:29)
[2022-10-02] MEDS: ATORVASTATIN 20 MG TABLET PO (21:30)
[2022-10-02] MEDS: TRAMADOL 50 MG TABLET PO (21:30)
[2022-10-02] MEDS: MELATONIN 3 MG TABLET 9 MG PO (21:30)
[2022-10-03] VITALS (19 sets, daily range): BP systolic 84–125; BP diastolic 40–72; PULSE 75–106; RESP 18–20; TEMP 36–37.1; O2SAT 89–94
[2022-10-03] MEDS: PANTOPRAZOLE DR 20 MG TABLET PO (05:10)
[2022-10-03] MEDS: guaiFENesin ER 600 MG TAB PO ×2 (05:10→17:25)
--- NOTE | 2022-10-03 08:12 | PT.IPTN ---
Current Diagnoses Pneumonia due to coronavirus disease 2019 (09/30/22) Acute and chronic respiratory failure with hypoxia (09/30/22) COVID-19 (09/30/22) Physical Therapy Treatment Note M2 PT-IP Current Condition Start: 10/01/22 11:21 Freq: NEEDED Status: Active Protocol: Document 10/03/22 07:40 SP (Rec: 10/03/22 09:49 SP [id number]) Physical Therapy Current Condition Current Condition Evaluation Date 10/01/22 Treatment Diagnosis Covid; difficulty in walking Onset Date 09/30/22 M3 PT-IP Subjective Start: 10/01/22 11:21 Freq: NEEDED Status: Active Protocol: Document 10/03/22 07:40 SP (Rec: 10/03/22 09:49 SP [id number]) Subjective Physical Therapy Visit Type Type Treatment Note Visit Start Time 07:40 Visit Stop Time 08:12 Total Visit Minutes 32 Notes CLINTON Dougherty assisted with CG- 5%A during gait/step mgt for stability support for safetys while under direct supervision and guidence to FILLER WIPER Dorothy throughout tx. SaO2 RA with mobility 87-91%, seated rest 79-90% RA, improved 92% on 2L. Notified nursing continue to monitor, verbalized confirmation. Number of FILLER WIPER Visits 1 Physical Therapy Visit Comments Patient Comments Pt agreeable and coordinated with nursing to participate with PT at 740. Patient Goals return home with to assist him, agreeable to HHPT for improve stability back to PLOF no AD/SPC. Therapy Pain Assessment Pain Present Pain Present Denied Pain M4 PT-IP Mobility and Gait Start: 10/01/22 11:21 Freq: NEEDED Status: Active Protocol: Document 10/03/22 07:40 SP (Rec: 10/03/22 09:49 SP [id number]) PT-Bed Mobility Assessment Supine to Sit Supine to Sit Standby Assistance Sit to Supine Sit to Supine Independent Scooting Scooting to Edge of Bed Independent PT-Transfer Assessment Sit to and From Stand Sit to and from Stand Standby Assistance,Contact Guard Assistance,Use of Upper Extremities Equipment Transfer Assistive Device None,Gait Belt,Straight Cane Orthotic/Prosthetic Devices or Brace: No Transfers Transfer Destination Bed,Chair Transfer Technique ambulated Transfer Ability Level of Assist Contact Guard Assistance,1 Person Assistance,Use of Upper Extremities Comments Mobility Comments Pt O2 stats RA 87-90% on RA with mobility, noted 79-91% on RA seated resting in chair end tx, 92% 1-2L at times seated resting, cues for proper breath with mobility. Pt was up with nursing walking with SPC RUE when arrived, noted pt contacting wall for extra support LUE, SPTA provided gait belt for safety support. Pt stable no support standing wash hands sink CGA no sway/LOB, gait SPC in room little trunk sways but no LOB, states not used to using SPC for gait across room back 30 ft and feels wobbly, cues as needed for breath and SaO2 safety support. Pt completed 5 step mgt at sink R rail/ SPC on L CGA (step forward, back down) stable, unable to ascend /descend without BUE support. Pt completed bed mobility HOB flat sit>supine I, sup>sit cued no use rails not have at home) sBA for safety trunk near EOB, able do self. FILLER WIPER/ SPTA discussed recommending use of FWW for safety support, energy conservation/proper breath cues/seated rest for recovery with verbalized inagreement and thinks can get [facility] and will make call to see if can acquire, agreeable to HHPT for safety progress strength/mobility back to PLOF no AD. can assist SBA/CGA needs at this time. Will check back later and see if need dispensed FWW or can borrow, notified nursing/care mgt as well for support. Gait Assessment Gait Gait Assistance Required: Standby Assistance,Contact Guard Assist Distance (Feet) 40 Able to Maintain Weight Bearing Status Yes During Gait Assistive Devices Assistive Device Gait Belt,Straight Cane Orthotic/Prosthetic Devices or Brace: No Gait Deviations General Gait Pattern Antalgic,Decreased Stride Length,Decreased Feet Clearance Factors Limiting Gait Function Factors Limiting Gait Function Decreased Activity Tolerance, Decreased Strength,Limited Range of Motion,Poor Balance, Respiratory Distress Comments Gait Comments I feel wobbly walking around . Stair Climbing Assessment Evaluation Level of Assist On Stairs Contact Guard Assistance Devices Stair Climbing Assistive Devices Straight Cane,Right Railing Technique/Endurance Stair Climbing Direction Ascend and Descend Stair Climbing Technique Step to Step Number of Steps Climbed 5 Stair Climbing Set # Repetitions (reps) 1 Comments Stair Climbing Comments Complete ascend/descend 5 steps in room using rail on R at sink and provided SPC on L due to pt unable to ascend without LUE support/wanted use sink initially due to unstable, improved CGA w/ SPC R HR to assimulate enter home, more stable. PT-Balance Assessment Sitting Balance and Reactions Static Sitting Balance Ability Normal Dynamic Sitting Balance Ability Good Standing Balance and Reactions Static Standing Balance Ability Fair Dynamic Standing Balance Ability Fair Device Used SPC, Good FWW M5 PT-IP Objective Assessments Start: 10/01/22 11:21 Freq: NEEDED Status: Active Protocol: Document 10/01/22 09:46 AB (Rec: 10/01/22 11:39 AB [id number]) Orientation Orientation/Cognition Level of Alertness Alert Orientation Name Safety Awareness Decreased Safety Awareness Memory Description No Deficits Noted Gross Range of Motion Lower Extremity ROM Assessment Within Functional Limits Strength Lower Extremity Strength Hip 4-/5 Knee 4-/5 Sensation Assessment Sensation Gross Sensation WNL Muscle Tone Muscle Tone WNL Yes M6 PT-IP Treatment Start: 10/01/22 11:21 Freq: NEEDED Status: Active Protocol: Document 10/03/22 07:40 SP (Rec: 10/03/22 09:49 SP [id number]) Physical Therapy Treatment Education Education Provided Safety Other Treatments Other Treatment Performed Education proper breath for 90s SaO2. M7 PT-IP Assessment and Plan Start: 10/01/22 11:21 Freq: NEEDED Status: Active Protocol: Document 10/03/22 07:40 SP (Rec: 10/03/22 09:49 SP [id number]) PT Summary Assessment and Plan Potential Rehabilitation Potential Good Status of Condition at Evaluation Evolving Summary Impairments ROM,Strength,Balance,Bed Mobility,Transfers,Gait, Activity Tolerance Progress Towards Goals Progressing Toward Goals,Slow Progress due to Activity Tolerance Assessment Summary Pt cGA during mobility with SPC and demonstrates contact wall support for safe stability, decrease activity tolerance, rerspiratory distress on RA with cues breath, use BUE support affecting mobility level sways but no LOB and requiring CGA with ambulation using SPC I feel wobbly with SPC not used to using, recommending use of FWW for self energy conservation, pt in agreement, REcommending HHPT and able to return home with assist w/ use FWW borrowed vs dispense pre DC. Goals Bed Mobility Goal Independent Transfer Goal Independent,Front Wheeled Walker Gait Goal Independent,Front Wheel Walker Gait Distance 200 Other Goals improve ambulation without AD/ SPC 250 ft SBA up/down 5 steps R rail ascending SBA Days to Meet Goals 10 Frequency of Treatment Frequency Of Treatment Once a Day Treatment Plan Physical Therapy Treatment Plan Bed Mobility Training,Transfer Training,Gait Training, Therapeutic Exercise,Balance Retraining,Discharge Planning, Hot or Cold Pack,Neuromuscular Re-ed,Coordination Retraining Other Recommendations and Next Treatment Check SaO2 rest/mobility, bed Focus mob sup>sit, transfers/gait LRAD. gait longer distance, balance activities Precautions Other Precautions Covid Recommendations To Nursing Amount of Assist Needed Standby Assistance,1 Person Assist Discharge Recommendations PT Discharge Recommendations Home with Assistance,Home with 24/7 Assist Available,Home Health Equipment Needed for Home Before FWW if unable to borrow from Discharge neighbor/friend, will call and ask if can borrow, if not agreeable to dispense. Transportation Needs at Discharge Private Vehicle
[2022-10-03] MEDS: INSULIN LISPRO 100 UNIT/ML 3ML VIAL SUBCUT ×4 (08:21→21:33)
[2022-10-03] MEDS: DEXAMETHASONE 10 MG/ML VIAL 6 MG IV (08:59)
[2022-10-03] MEDS: ENOXAPARIN 40 MG/0.4 ML SYRINGE SUBCUT (08:59)
[2022-10-03] MEDS: ASPIRIN 325 MG TABLET PO (08:59)
[2022-10-03] MEDS: cefTRIAXone 2,000 MG in SODIUM CHLORIDE 0.9% 100 ML 200 MG IV (17:23)
--- NOTE | 2022-10-03 18:03 | P.PN_ITS ---
Subjective Subjective Date Patient Seen: 10/03/22 Interval history: Today he is beginning to feel a bit better and stronger, remains on supplemental oxygen occasionally and gets dyspnic with exertion. He did desaturate to mid 80s on room air today again with ambulation. Exam Vital Signs (past 8 hours): - 10/03/22 13:00 10/03/22 12:00 10/03/22 17:00 Temperature 98.3 F Pulse Rate 90 Respiratory Rate 20 Blood Pressure 89/52 L Pulse Oximetry 92 92 93 Oxygen Delivery Method Room Air Nasal Cannula Oxygen Flow Rate 2 2 2 10/03/22 16:30 Temperature 98.0 F Pulse Rate 77 Respiratory Rate 20 Blood Pressure 115/72 Pulse Oximetry 93 Oxygen Delivery Method Oxygen Flow Rate 2 Fraction of Inspired Oxygen 94 Oxygen Delivery Method Nasal Cannula Oxygen Flow Rate 2 Narrative Exam Narrative: GEN: ill appearing, fatigued CV: regular rate and rhythm, no murmurs PULM: coarse breath sounds bilaterally ABD: soft, nontender, nondistended, no organomegaly EXT: warm and well perfused, no edema Objective Labs Result Diagrams: 10/02/22 04:20 10/02/22 04:20 [facility] Medical History CAD (coronary artery disease) Coronary artery disease involving coronary bypass graft of [place] heart Diabetes mellitus History of non-insulin dependent diabetes mellitus Hypercholesterolemia Hypertension Kidney stone Social History household members: spouse Smoking Status: Never smoker Assessment & Plan Assessment & Plan narrative: 1. Acute hypoxemic respiratory failure seconary to COVID pneumonia and likely bacterial pneumonia -patient requiring oxygen on admission, wean as able now down to O2 with exertion only primarily. -COVID positive on admission -chest imaging notable for opacifications more concerning for superimposed bacterial pneumonia -continue remdesivir, dexamethasone -continue ceftriaxone and azithromycin for presumed bacterial pneumonia, azithro to stop after 3 days and ceftriaxone to continue for 7 days total given UTI as well. -follow up cultures -sepsis ruled out 2. UTI -UA positive -urine culture with E coli sensative to ceftriaxone. -continue ceftriaxone as above but for 7 days total given complicated UTI. -follow up final cultures 3. Type 2 Diabetes -hold oral medications -insulin sliding scale 4. CAD s/p CABG -continue home aspirin, statin, blood pressure medications Code: Full Dispo: anticipate discharge home in the next 1-2 days once off supplemental oxygen. COVID-19 COVID-19 status: Positive Time Spent With Patient Critical Care time: I spent a total of [] minutes of critical care time on this patient's care today; this time is exclusive of procedural time.
[2022-10-03] MEDS: REMDESIVIR 100 MG in SODIUM CHLORIDE 0.9% 230 ML 250 MG IV (21:27)
[2022-10-03] MEDS: MELATONIN 3 MG TABLET 9 MG PO (21:27)
[2022-10-03] MEDS: ATORVASTATIN 20 MG TABLET PO (21:27)
[2022-10-03] MEDS: TRAMADOL 50 MG TABLET PO (21:40)
[2022-10-04] VITALS (9 sets, daily range): BP systolic 95–188; BP diastolic 56–87; PULSE 69–91; RESP 17–18; TEMP 36.4–36.6; O2SAT 89–95
--- NOTE | 2022-10-04 03:13 | PC.NURSE ---
Patient refusing to wear cpap from hospital. Wearing O2 nasal cannula instead. O2 sats stable at present time.
[2022-10-04] MEDS: PANTOPRAZOLE DR 20 MG TABLET PO (05:31)
[2022-10-04] MEDS: INSULIN LISPRO 100 UNIT/ML 3ML VIAL SUBCUT ×2 (08:13→12:12)
[2022-10-04] MEDS: METOPROLOL ER 25 MG TABLET PO (08:17)
[2022-10-04] MEDS: ASPIRIN 325 MG TABLET PO (08:18)
[2022-10-04] MEDS: lisinopriL 10 MG TABLET PO (08:18)
[2022-10-04] MEDS: ENOXAPARIN 40 MG/0.4 ML SYRINGE SUBCUT (08:18)
[2022-10-04] MEDS: DEXAMETHASONE 10 MG/ML VIAL 6 MG IV (08:18)
--- NOTE | 2022-10-04 09:06 | P.DS_ITS ---
History of Present Illness History of Present Illness Date Patient Seen: 10/04/22 Time Patient Seen: 09:07 Chief complaint: Hypoxic/Tachy Narrative: Per admitting provider, 77-year-old male nonsmoker with history of diabetes, hypertension and hyperl ipidemia presents by EMS for evaluation of shortness of breath and fatigue.? He states he has been feeling under the weather for about 1 week and has become progressively ill.? He is had a dry and hacking cough and has become significantly short of breath with minimal exertion.? He is had a mild headache in the occasional sore throat.? He is nauseated and has a poor appetite but denies any vomiting, abdominal pain or diarrhea.? He has no urinary complaints such as dysuria, frequency or urgency.? He had initially presented to an urgent care and was found to have oxygen saturation in the mid to upper 80s and a positive COVID swab.? He was sent here by EMS for evaluation and stabilization of his condition.? He denies recent travel, known cancer or history of blood clot. In our ER he found to be hypoxic and tachypneic, COVID positive. His is also sick with COVID positive. He confirms that he is not vaccinated. He did not receive flu shot. Patient was getting short of breath with sentences and unable to complete his sentences. Using accessory muscles during our conversation. He is able to confirm most of the details mentioned. I called his and confirmed code status and updated her overall prognosis. Patient says that he might be having some fevers or chills but did not measure his temperature at home. Discharge Providers Provider Date of admission: 09/30/22 20:18 Discharge Date: 10/04/22 Primary care physician: Teodora Gordon PA-C Consults: 10/01/22 07:52 Consult to Physical Therapy Evaluate & Treat Comment: Physician Instructions: Evaluate and Treat 10/01/22 09:00 Consult to Dietitian, Adult Routine Comment: Reason For Exam: weight loss, due to not eating Discharge provider: Garrick Bedoya DO Summary Hospital Course Discharge Diagnosis: 1. Acute hypoxemic respiratory failure seconary to COVID pneumonia and likely bacterial pneumonia 2. acute cystitis without hematuria 3. Type 2 Diabetes 4. CAD s/p CABG Hospital Course: This is a 77 year old with PMH of DM2 and CAD admitted with acute hypoxic respiratory failure secondary to COVID and presumed superimposed bacterial pneumonia. He was started on ceftriaxone and azithromycin in addition to remdesevir and dexamethasone. He was also found to have a UTI on admission. Urine cultures grew E. coli sensative to cephalosporins but resistant to other antibiotic therapies. He completed course for pneumonia while in the hospital but will continue home cefdinir for a few days at home to complete therapy for his complicated UTI. He was discharged home once he was no longer requiring supplemental oxygen after a couple of days of therapy. No changes are recommended to his usual home medications at the time of discharge. Time Spent with Patient Time spent: Greater than 30 minutes Exam Vital Signs (past 8 hours): - 10/04/22 05:00 10/04/22 06:00 10/04/22 07:00 Temperature 97.8 F Pulse Rate 69 Respiratory Rate 18 Blood Pressure 110/64 Pulse Oximetry 89 L 90 L Oxygen Delivery Method Nasal Cannula Nasal Cannula Oxygen Flow Rate 2 2 10/04/22 08:07 10/04/22 08:10 10/04/22 08:17 Temperature 97.6 F Pulse Rate 86 91 H Respiratory Rate 18 Blood Pressure 116/71 115/76 Pulse Oximetry 95 95 Oxygen Delivery Method Nasal Cannula Oxygen Flow Rate 2 2 10/04/22 08:18 Temperature Pulse Rate 91 H Respiratory Rate Blood Pressure 115/76 Pulse Oximetry Oxygen Delivery Method Oxygen Flow Rate Fraction of Inspired Oxygen 28 SaO2/FiO2 Ratio 332 Oxygen Delivery Method Nasal Cannula Oxygen Flow Rate 2 Narrative Exam Narrative: GEN: WDWN no acute distress. CV: regular rate and rhythm, no murmurs PULM: CTA b/l no wheezing rhonchi or rales. ABD: soft, nontender, nondistended, no organomegaly EXT: warm and well perfused, no edema Objective Labs Result Diagrams: 10/02/22 04:20 10/02/22 04:20 [facility] Medical History CAD (coronary artery disease) Coronary artery disease involving coronary bypass graft of morongo heart Diabetes mellitus History of non-insulin dependent diabetes mellitus Hypercholesterolemia Hypertension Kidney stone Social History household members: spouse Smoking Status: Never smoker Discharge Plan Discharge Plan Patient Disposition: Home Provider Discharge Comment: You were admitted to the hospital with COVID 19 and respiratory failure. You improved with treatments and no longer require supplemental oxygen. Please follow up with your primary care provider in the next few weeks to review hospitalization. For a UTI that was found, please complete antibiotic therapy at home with prescribed antibiotic. Discharge orders & Medications Prescriptions: New cefdinir 300 mg capsule 300 mg PO BID 3 Days Qty: 6 0RF Continued travoprost 0.004 % Drops 1 drp EYE-BOTH DAILY tramadol 50 mg Tablet 50 mg PO QID PRN (Reason: neuropathy) simvastatin 40 mg Tablet 40 mg PO QPM omeprazole 20 mg Capsule,Delayed Release(Dr/Ec) 20 mg PO DAILY metoprolol succinate 25 mg Tablet Extended Release 24 Hr 25 mg PO DAILY acetaminophen 325 mg Tablet 650 mg PO BEDTIME bisacodyl 5 mg Tablet,Delayed Release (Dr/Ec) 5 mg PO Q OTHER DAY magnesium 200 mg Tablet 200 mg PO DAILY Lactobacillus acidophilus 100 mg (1 billion cell) Capsule 100 mg PO DAILY exenatide microspheres 2 mg/0.65 mL Pen Injector 2 mg SUBCUT QWEEK multivitamin Tablet 1 tab PO DAILY ascorbic acid (vitamin C) [Vitamin C] 1,000 mg Tablet 1,000 mg PO DAILY cetirizine 10 mg Tablet 10 mg PO DAILY aspirin 325 mg Tablet 325 mg PO DAILY lisinopril 10 mg Tablet 10 mg PO DAILY vitamin B complex [B Complex-Vitamin B12] Tablet 1 tab PO DAILY allopurinol 300 mg Tablet 150 mg PO DAILY testosterone cypionate 200 mg/mL Oil 150 mg IM Q4W ibuprofen 600 mg Tablet 600 mg PO TID [id number] C-Mn 500-400 mg Capsule 1 cap PO DAILY coenzyme Q10 300 mg Capsule 300 mg PO DAILY tadalafil 5 mg Tablet 5 mg PO DAILY omega-3 fatty acids-fish oil 340-1,000 mg Capsule 1 cap PO DAILY alpha lipoic acid 100 mg Capsule 100 mg PO DAILY cholecalciferol (vitamin D3) [Vitamin D3] 125 mcg (5,000 unit) Tablet 500 mcg PO QWEEK flaxseed oil-omega 3,6,9 1,300 mg-845 mg -117 mg-117 mg Capsule 1 cap PO DAILY Jardiance 25 mg Tablet 25 mg PO DAILY Ozempic 1 mg/dose (4 mg/3 mL) Pen Injector 1 mg SUBCUT QWEEK Follow up/Referrals: Young,Teodora, PA-C [Primary Care Provider] - Diet/Activity/Treatments Diet: Diet as Tolerated Activity: As tolerated Discharge Data Primary Care Provider: Teodora Gordon
--- NOTE | 2022-10-04 12:24 | CM.DPC ---
DCP Cont: Per , pt is medically stable for discharge today. DCP was approached by RN and it was verbalized that pt cannot find a ride and requesting an ambulance transport. DCP contacted pt and asked if there were any other family members who could pick him up and she states, No. he has tried to call all morning for a ride. DCP verbalized the expense of an ambulance transport and pt states, That is fine we have no other choice. DCP contacted ambulance and transport set up for 1500 today. RN aware. aware. Pt aware. Doreen Marie RN/KANDY
[2022-10-04 13:28] LABS: COVID19 -Nasal RAPID POSITIVE (Negative)
--- NOTE | 2022-10-04 16:14 | PT-IP ANOTE ---
Pt DC before PT able to see him.
== END 2022-10-04 16:00 | disposition home or self-care (01) | DRG 177 ==
LOC: ED 18:07 → AC 20:21 → ICU 22:03
PROVIDERS: Emergency Medicine; Internal Medicine; Admitting Provider Family Medicine; Emergency Provider Emergency Medicine; PCP Physician Assistant Medical; Referring Provider Emergency Medicine; Visit Provider Family Medicine
DX: U07.1 COVID-19 (principal); J12.82 Pneumonia due to coronavirus disease 2019; J15.9 Unspecified bacterial pneumonia; J96.01 Acute respiratory failure with hypoxia; N30.00 Acute cystitis without hematuria; I25.10 Atherosclerotic heart disease of native coronary artery without angina pectoris; B96.20 Unspecified Escherichia coli [E. coli] as the cause of diseases classified elsewhere; E11.40 Type 2 diabetes mellitus with diabetic neuropathy, unspecified; E78.00 Pure hypercholesterolemia, unspecified; I10 Essential (primary) hypertension; Z79.85 Long-term (current) use of injectable non-insulin antidiabetic drugs; Z95.1 Presence of aortocoronary bypass graft; Z79.84 Long term (current) use of oral hypoglycemic drugs
CPT/HCPCS: 36415; 71045; 71275; 80048; 80053; 81001; 81003; 82550; 82553; 82962; 83605; 83690; 83735; 83880; 84145; 84484; 85025; 85027; 85379; 87040; 87077; 87086; 87186; 87635; 94760; 96365; 96366; 96368; 96375; 97116; 97162; 97530; 99284; C9803; J0696; J1100; J1650; J1815; Q9967

== ENCOUNTER 2022-10-12 20:42 | Inpatient (IN) | payer OTHER, SELFPAY ==
[2022-09-30 20:36] VITALS: BMI 33.0
[2022-10-12] VITALS (7 sets, daily range): BP systolic 129; BP diastolic 72; PULSE 83–100; RESP 24–38; TEMP 36.1; O2SAT 90–93; BMI 30.4
--- NOTE | 2022-10-12 20:47 | DI.RAD.S_ITS ---
PROCEDURE: XR CHEST 1V INDICATIONS: Shortness of breath, known COVID TECHNIQUE: One view of the chest was acquired. COMPARISON: [facility], CR, XR CHEST 1V, 09/30/2022, 18:00. FINDINGS: Surgical changes and devices: Median sternotomy changes. Lungs and pleura: Lungs are clear. No pleural effusions or pneumothorax. Mediastinum: Mediastinal contours appear normal. Heart size is normal. Bones and chest wall: No suspicious bony lesions. Overlying soft tissues appear unremarkable. IMPRESSION: Patchy interstitial and airspace opacities are nonspecific of but are consistent with the provided history COVID-19 pneumonia. Dictated by: Karlo Simon M.D. on 10/12/2022 at 21:35 Approved by: Karlo Simon M.D. on 10/12/2022 at 21:36
[2022-10-12 21:17] LABS: Add Manual Diff / Slide Review NO; Basophils Absolute Auto 200 /uL (0-100); Basophils Percent Auto 2.1 % (0-2); Eosinophils Absolute Auto 100 /uL (0-450); Eosinophils Percent Auto 0.9 % (2-4); Hematocrit 42.3 % (41-53); Hemoglobin 14.2 g/dL (13.5-17.5); Lymphocytes Absolute Auto 1500 /uL (1100-4500); Lymphocytes Percent Auto 15.6 % (25-40); Mean Corpuscular HGB Conc 33.6 % (30-36); Mean Corpuscular Hemoglobin 30.8 PG (26-34); Mean Corpuscular Volume 91.6 fL (80-100); Monocytes Absolute Auto 1000 /uL (0-900); Monocytes Percent Auto 10.7 % (3-14); Neutrophils Absolute Auto 6800 /uL (1500-7000); Neutrophils Percent Auto 70.7 % (50-75); Platelet Count 298 X10^3/uL (150-400); Red Blood Cell Count 4.62 X10^6/uL (4.5-5.9); Red Cell Distribution Width 12.9 % (11.6-14.8); White Blood Cell Count 9.7 X10^3/uL (4.5-11.0)
[2022-10-12 21:21] LABS: INR 1.3 (0.9-1.3); Prothrombin Time 14.7 SECONDS (10.1-12.7)
[2022-10-12 21:24] LABS: PTT Partial Thromboplastin Tim 30 SECONDS (26-36)
[2022-10-12 21:28] LABS: D Dimer 13782 ng/ml (<500); Lactate (Lactic Acid) 1.7 mmol/L (0.7-2.1)
[2022-10-12 21:32] LABS: Alanine Aminotransferase 138 IU/L (<50); Albumin 3.4 g/dL (3.5-5.0); Albumin Globulin Ratio 0.7 (1.0-2.8); Alkaline Phosphatase 338 U/L (38-126); Aspartate Aminotransferase 142 IU/L (17-59); Bilirubin Total 0.5 mg/dL (0.2-1.3); Blood Urea Nitrogen 31 mg/dL (9-20); C-Reactive Protein Quant 8.6 mg/dL (<1.0); Calcium 9.6 mg/dL (8.4-10.2); Carbon Dioxide 24 mmol/L (22-32); Chloride 103 mmol/L (98-107); Creatine Kinase 39 U/L (55-170); Estimated Glomerular Filt Rate 60 mL/min (>60); Globulin 4.7 g/dL (1.7-4.1); Glucose 236 mg/dL (80-110); HEMOLYSIS < 15 (0-50); Magnesium 1.8 mg/dL (1.6-2.3); Potassium 3.9 mmol/L (3.4-5.1); Sodium 138 mmol/L (137-145); Total Protein 8.1 g/dL (6.3-8.2)
[2022-10-12 21:41] LABS: NT-proBNP (BNP-Adult 18+) 295 pg/mL (<450); Troponin I < 0.012 ng/mL (0.01-0.034)
[2022-10-12 21:47] LABS: Procalcitonin 0.15 ng/mL (<0.5)
--- NOTE | 2022-10-12 21:57 | DI.CT.S_ITS ---
PROCEDURE: CT ANGIO CHEST PE PROTOCOL INDICATIONS: SOB TECHNIQUE: After the administration of intravenous contrast, 2 mm thick sections acquired from the pulmonary apices to the posterior costophrenic angles. 3-dimensional maximum intensity projection (MIP) coronal and sagittal reformats were then acquired through the thorax. For radiation dose reduction, the following was used: automated exposure control, adjustment of mA and/or kV according to patient size. COMPARISON: [facility], CT, CT ANGIO CHEST PE PROTOCOL, 09/30/2022, 19:06. FINDINGS: Image quality: There is streak artifact from patient's injected contrast limiting evaluation. Pulmonary arteries: Pulmonary arteries demonstrate filling defects within segmental and subsegmental pulmonary arteries within the right lower and middle lobes consistent with pulmonary embolism. No pulmonary arterial enlargement or definite leftward deviation of the interventricular septum to suggest right heart strain. Lower Neck: No lymphadenopathy by size criteria. Thyroid: Visualized thyroid demonstrates no discrete nodules. Axillae: No lymphadenopathy by size criteria. Chest Wall: Unremarkable. Bones: Visualized osseous structures demonstrate no suspicious lesions. Lungs and Airways: There are confluent peripheral areas of consolidation bilaterally in all lobes which appear increased in distribution and density compared to the prior study. There is associated mild bronchiectasis peripherally. A small amount of a hearing mucus is demonstrated within the right mainstem bronchus. Pleura: No pneumothorax or pleural effusions. Heart: Heart size is normal. No pericardial effusion. There are postsurgical changes consistent with prior CABG. Thoracic Vessels: The thoracic aorta is normal in size. Mediastinum and Mattie: No lymphadenopathy by size criteria. Esophagus: No wall thickening. There is a large hiatal hernia. Abdomen: Visualized upper abdominal solid organs appear normal in the early arterial phase of enhancement. IMPRESSION: 1. Pulmonary embolism demonstrated within the right lower and middle lobe as described. No definite evidence of right heart strain. A message was left for Dr. Dickey in the emergency room on 10/12/2022 at 11:22 p.m.. 2. Peripheral areas of consolidation demonstrated within all lobes with associated mild bronchiectasis. The findings appear increased compared to the prior study and again likely represent pneumonia. Dictated by: Darien Young M.D. on 10/12/2022 at 23:20 Approved by: Darien Young M.D. on 10/12/2022 at 23:28
--- NOTE | 2022-10-12 21:57 | ED.SOB ---
HPI - SOB/Dyspnea General Chief Complaint: Shortness of Breath/Dyspnea Stated Complaint: SOB Time Seen by Provider: 10/12/22 20:45 Source: patient and EMS Mode of arrival: EMS Limitations: no limitations History of Present Illness HPI Narrative: 77-year-old male nonsmoker with recent hospitalization for COVID presents by EMS with a chief complaint of increasing shortness of breath over the course of the day. He has been home for a few days and never really felt all that great. He has become increasingly weak and states he just can not catch his breath. It is unclear if he becomes more short of breath with exertion because he has not done much of anything since he has been home. He denies any fever or chills. Denies runny nose or sore throat. He denies chest pain and has had no nausea or vomiting. He denies any obvious swelling in his lower extremities. EMS arrived to find his pulse ox in the mid 80s with labored breathing, he was placed on 4 L by nasal cannula and improved to the mid 90s but still had increased work of breathing Related Data Home Medications Medication Instructions Recorded Confirmed metoprolol succinate 25 mg 25 mg PO DAILY 11/17/18 10/13/22 tablet,extended release 24 hr omeprazole 20 mg capsule,delayed 20 mg PO DAILY 11/17/18 10/13/22 release simvastatin 40 mg tablet 40 mg PO QPM 11/17/18 10/13/22 tramadol 50 mg tablet 50 mg PO QID PRN neuropathy 11/17/18 10/13/22 travoprost 0.004 % eye drops 1 drp EYE-BOTH DAILY 11/17/18 10/13/22 Lactobacillus acidophilus 100 mg 100 mg PO DAILY 10/01/22 10/13/22 (1 billion cell) capsule acetaminophen 325 mg tablet 650 mg PO BEDTIME 10/01/22 10/13/22 alpha lipoic acid 100 mg capsule 100 mg PO DAILY 10/01/22 10/13/22 ascorbic acid (vitamin C) 1,000 mg 1,000 mg PO DAILY 10/01/22 10/13/22 tablet (Vitamin C) aspirin 325 mg tablet 325 mg PO DAILY 10/01/22 10/13/22 bisacodyl 5 mg tablet,delayed 5 mg PO Q OTHER DAY 10/01/22 10/13/22 release cetirizine 10 mg tablet 10 mg PO DAILY 10/01/22 10/13/22 cholecalciferol (vitamin D3) 125 500 mcg PO QWEEK 10/01/22 10/13/22 mcg (5,000 unit) tablet (Vitamin D3) coenzyme Q10 300 mg capsule 300 mg PO DAILY 10/01/22 10/13/22 empagliflozin 25 mg tablet 25 mg PO DAILY 10/01/22 10/13/22 (Jardiance) exenatide microspheres 2 mg/0.65 2 mg SUBCUT QWEEK 10/01/22 10/13/22 mL subcutaneous pen injector flaxseed oil 1,300 mg-omega 3,6,9 1 cap PO DAILY 10/01/22 10/13/22 845 mg-117 mg-117 mg capsule qnvbwtglhtx-wgpkkxgyi-bcl C-Mn 500 1 cap PO DAILY 10/01/22 10/13/22 mg-400 mg capsule ibuprofen 600 mg tablet 600 mg PO TID 10/01/22 10/13/22 lisinopril 10 mg tablet 10 mg PO DAILY 10/01/22 10/13/22 magnesium 200 mg tablet 200 mg PO DAILY 10/01/22 10/13/22 multivitamin 1 tab PO DAILY 10/01/22 10/13/22 omega-3 fatty acids-fish oil 340 1 cap PO DAILY 10/01/22 10/13/22 mg-1,000 mg capsule semaglutide 1 mg/dose (4 mg/3 mL) 1 mg SUBCUT QWEEK 10/01/22 10/13/22 subcutaneous pen injector (Ozempic) tadalafil 5 mg tablet 5 mg PO DAILY 10/01/22 10/13/22 testosterone cypionate 200 mg/mL 150 mg IM Q4W 10/01/22 10/13/22 intramuscular oil vitamin B complex (B 1 tab PO DAILY 10/01/22 10/13/22 Complex-Vitamin B12 tablet) Allergies Allergy/AdvReac Type Severity Reaction Status Date / Time No Known Drug Allergies Allergy Verified 07/18/20 09:10 Review of Systems Review of Systems Narrative: GENERAL: See HPI HEENT: Denies sinus pain, ear pain, sore throat, difficulty swallowing, dizziness. RESPIRATORY: See HPI CARDIOVASCULAR: See HPI GASTROINTESTINAL: Denies nausea, vomiting, abdominal pain, diarrhea, constipation, melena. : Denies dysuria, frequency, incontinence, hematuria, urinary retention. MUSCULOSKELETAL: denies weakness, joint pain, or bony pain SKIN: Denies rash, skin lesions, or other NEUROLOGIC: Denies weakness, headache, numbness, change in speech, confusion, seizures, incoordination. PSYCHIATRIC: No concerning psychosocial issues. 12 point review of systems is negative except for those stated above Patient History Medical History CAD (coronary artery disease) Coronary artery disease involving coronary bypass graft of [place] heart Diabetes mellitus History of non-insulin dependent diabetes mellitus Hypercholesterolemia Hypertension Kidney stone Social History household members: spouse Smoking Status: Never smoker Smoking Status: Never smoker alcohol intake frequency: 0-2 drinks per day Substance Use Type: does not use Exam Narrative Exam Narrative: GENERAL: [77] year old patient appears stated age. Well-developed patient, frail elderly patient in guarded condition with increased work of breathing, nasal cannula in place HEAD: Atraumatic. Normocephalic. EYES: Pupils equal round and reactive. Extraocular motions intact. No scleral icterus. No injection or drainage. ENT: Nose without bleeding, purulent drainage. Throat without erythema, tonsillar hypertrophy or exudate. Airway patent. NECK: Trachea midline. Non tender CARDIOVASCULAR: Regular rate and rhythm without murmurs, gallops, or rubs. RESPIRATORY: Increased work of breathing, accessory muscles, conversational dyspnea, no obvious rales or rhonchi GASTROINTESTINAL: Abdomen soft, non-tender, nondistended. EXTREMITIES: No edema or joint tenderness. BACK: Nontender without deformity or crepitance. No flank tenderness. NEURO: AOx3. SKIN: No rash or erythema of visible areas Initial Vital Signs Initial Vital Signs: Vital Signs Pulse Rate 100 H 10/12/22 21:01 Respiratory Rate 24 10/12/22 21:01 Pulse Oximetry 93 10/12/22 21:01 Course Orders Ordered: ED Orders 10/13/22 00:36 EC echo doppler complete Urgent 10/13/22 00:48 Covid-19 + FLU A/B + RSV - PCR Stat 10/14/22 05:00 Basic Metabolic Panel Routine Complete Blood Count AUTO DIFF Routine Acetaminophen (Acetaminophen 325 Mg Tablet) 650 mg PO Q6H PRN PRN Reason: Fever/Mild Pain (1-3) Apixaban (Apixaban 5 Mg Tablet) 10 mg PO BID [facility] Stop: 10/20/22 08:59 Dextrose (Dextrose 50 % In Water 25 Gm/50 Ml Syringe) 25 gm IV PRN PRN PRN Reason: Hypoglycemia Levofloxacin (Levaquin) 750 mg in 150 mls @ 100 mls/hr IV Q24H [facility] Last Infusion: 10/13/22 04:03 Dose: 0 mls/hr Documented By: Admin: 10/13/22 02:20 Dose: 100 mls/hr Documented By: AARON Insulin Human Lispro (Insulin Lispro 100 Unit/Ml 3ml Vial) 0 unit SUBCUT ACHS [facility]; Protocol Metoprolol Succinate (Metoprolol Er 25 Mg Tablet) 25 mg PO DAILY [facility] Ondansetron HCl (Ondansetron 4 Mg/2 Ml Inj) 4 mg IV Q8HR PRN PRN Reason: Nausea And Vomiting Tramadol HCl (Tramadol 50 Mg Tablet) 50 mg PO QID PRN PRN Reason: Pain, Moderate (4-6) Discontinued Medications Aspirin (Aspirin 325 Mg Tablet) 325 mg PO DAILY [facility] Enoxaparin Sodium (Enoxaparin 40 Mg/0.4 Ml Syringe) 95 mg 1 mg/kg (95 mg) SUBCUT NOW ONE Stop: 10/12/22 23:29 Last Admin: 10/13/22 00:41 Dose: 95 mg Documented By: MICHELLE Enoxaparin Sodium (Enoxaparin 100 Mg/Ml Syringe) 95 mg SUBCUT BID [facility] Vital Signs Vital signs: Vital Signs - 8 hr 10/12/22 23:30 10/13/22 00:00 10/13/22 00:30 Pulse Rate 90 91 H 100 H Respiratory Rate 26 H 37 H 30 H Pulse Oximetry 92 90 L 92 MDM - SOB/Dyspnea Lab Data Result diagrams: 10/12/22 21:00 10/12/22 21:00 Labs: Lab Results 10/12/22 10/12/22 10/12/22 Range/Units 21:00 21:00 21:00 WBC 9.7 (4.5-11.0) X10^3/uL RBC 4.62 (4.5-5.9) X10^6/uL Hgb 14.2 (13.5-17.5) g/dL Hct 42.3 (41-53) % MCV 91.6 (80-100) fL MCH 30.8 (26-34) PG MCHC 33.6 (30-36) % RDW 12.9 (11.6-14.8) % Plt Count 298 (150-400) X10^3/uL Neut % (Auto) 70.7 (50-75) % Lymph % (Auto) 15.6 L (25-40) % [place] % (Auto) 10.7 (3-14) % Eos % (Auto) 0.9 L (2-4) % Baso % (Auto) 2.1 H (0-2) % Neut # (Auto) 6800 (8483-7211) /uL Lymph # (Auto) 1500 (1147-0245) /uL [place] # (Auto) 1000 H (0-900) /uL Eos # (Auto) 100 (0-450) /uL Baso # (Auto) 200 H (0-100) /uL PT 14.7 H (10.1-12.7) SECONDS INR 1.3 (0.9-1.3) APTT 30 (26-36) SECONDS D-Dimer 72418 H (<500) ng/ml VBG pH (7.33-7.43) VBG pCO2 (45-50) mmHg VBG pO2 (35-45) mmHg VBG HCO3 (23-28) mmol/L VBG Total CO2 (24-29) mmol/L VBG O2 Saturation (70-75) % VBG Base Excess (0-4) mmol/L Sodium (137-145) mmol/L Potassium (3.4-5.1) mmol/L Chloride (98-107) mmol/L Carbon Dioxide (22-32) mmol/L BUN (9-20) mg/dL Creatinine (0.66-1.25) mg/dL Estimated GFR (>60) mL/min BUN/Creatinine Ratio (6-22) Glucose (80-110) mg/dL Lactate (0.7-2.1) mmol/L Calcium (8.4-10.2) mg/dL Magnesium (1.6-2.3) mg/dL Total Bilirubin (0.2-1.3) mg/dL AST (17-59) IU/L ALT (<50) IU/L Alkaline Phosphatase (38-126) U/L Total Creatine Kinase (55-170) U/L CK-MB (CK-2) CK-MB (CK-2) Rel Index Troponin I (0.01-0.034) ng/mL C-Reactive Protein (<1.0) mg/dL NT-Pro-B Natriuret Pep (<450) pg/mL Total Protein (6.3-8.2) g/dL Albumin (3.5-5.0) g/dL Globulin (1.7-4.1) g/dL Albumin/Globulin Ratio (1.0-2.8) Procalcitonin 0.15 (<0.5) ng/mL 10/12/22 10/12/22 10/12/22 Range/Units 21:00 21:00 23:24 WBC (4.5-11.0) X10^3/uL RBC (4.5-5.9) X10^6/uL Hgb (13.5-17.5) g/dL Hct (41-53) % MCV (80-100) fL MCH (26-34) PG MCHC (30-36) % RDW (11.6-14.8) % Plt Count (150-400) X10^3/uL Neut % (Auto) (50-75) % Lymph % (Auto) (25-40) % [place] % (Auto) (3-14) % Eos % (Auto) (2-4) % Baso % (Auto) (0-2) % Neut # (Auto) (2199-0159) /uL Lymph # (Auto) (9111-0726) /uL [place] # (Auto) (0-900) /uL Eos # (Auto) (0-450) /uL Baso # (Auto) (0-100) /uL PT (10.1-12.7) SECONDS INR (0.9-1.3) APTT (26-36) SECONDS D-Dimer (<500) ng/ml VBG pH 7.45 H (7.33-7.43) VBG pCO2 33.3 L (45-50) mmHg VBG pO2 32 L (35-45) mmHg VBG HCO3 23 (23-28) mmol/L VBG Total CO2 24 (24-29) mmol/L VBG O2 Saturation 65 L (70-75) % VBG Base Excess -1.0 L (0-4) mmol/L Sodium 138 (137-145) mmol/L Potassium 3.9 (3.4-5.1) mmol/L Chloride 103 (98-107) mmol/L Carbon Dioxide 24 (22-32) mmol/L BUN 31 H (9-20) mg/dL Creatinine 1.24 (0.66-1.25) mg/dL Estimated GFR 60 (>60) mL/min BUN/Creatinine Ratio 25.0 H (6-22) Glucose 236 H (80-110) mg/dL Lactate 1.7 (0.7-2.1) mmol/L Calcium 9.6 (8.4-10.2) mg/dL Magnesium 1.8 (1.6-2.3) mg/dL Total Bilirubin 0.5 (0.2-1.3) mg/dL AST 142 H (17-59) IU/L ALT 138 H (<50) IU/L Alkaline Phosphatase 338 H (38-126) U/L Total Creatine Kinase 39 L (55-170) U/L CK-MB (CK-2) TNP CK-MB (CK-2) Rel Index TNP Troponin I < 0.012 (0.01-0.034) ng/mL C-Reactive Protein 8.6 H (<1.0) mg/dL NT-Pro-B Natriuret Pep 295 (<450) pg/mL Total Protein 8.1 (6.3-8.2) g/dL Albumin 3.4 L (3.5-5.0) g/dL Globulin 4.7 H (1.7-4.1) g/dL Albumin/Globulin Ratio 0.7 L (1.0-2.8) Procalcitonin (<0.5) ng/mL Imaging Data CT scan - chest: Radiologist's Impression: Boy Pisano??77??M??1945 ? Allergy/Adv: No Known Drug Allergies Close Chest CTA (Signed) Darien Young - 10/12/22 Chest X-Ray (Signed) Karlo Simon - 10/12/22 Telemetry Strips 09/30/22 Chest CTA (Signed) Marleny Clinton - 09/30/22 Chest X-Ray (Signed) Doris Cre - 09/30/22 Abdomen/Pelvis CT (Signed) BrooklynNikhil - 07/18/[address] (Signed) Carlin Ellis - 07/17/20 Radiology Report (Cancelled) Vic Hagen - 12/22/18 Echocardiogram Ultrasound (Cancelled) 12/22/18 Myocardial Perfusion Scan Nuc Med (Signed) Vic Hagen - 12/21/18 Myocardial Perfusion Scan Nuc Med (Cancelled) 12/21/18 Telemetry Strips 11/17/18 Abdomen/Pelvis CT (Signed) SantyDarian - 06/22/18 KUB X-Ray (Signed) GarettCrow - 06/22/18 Launch?[place] [address] CT Scan Report Signed Patient: Boy Pisano MR#: [id number] : 1945 Acct:[id number] Age/Sex: 77 / M Date of Service: 10/12/22 Loc: Accession Number: [id number] ?? Procedure: CT angio chest PE protocol Ordering Provider: Manolo Dickey D.O. PROCEDURE:? CT ANGIO CHEST PE PROTOCOL ? INDICATIONS:? SOB ? TECHNIQUE:? After the administration of intravenous contrast, 2 mm thick sections acquired from the pulmonary apices to the posterior costophrenic angles.? 3-dimensional maximum intensity projection (MIP) coronal and sagittal reformats were then acquired through the thorax.? For radiation dose reduction, the following was used:? automated exposure control, adjustment of mA and/or kV according to patient size.? ? COMPARISON:? [facility], CT, CT ANGIO CHEST PE PROTOCOL, 09/30/2022, 19:06. ? FINDINGS:? Image quality:? There is streak artifact from patient's injected contrast limiting evaluation.? ? Pulmonary arteries:? Pulmonary arteries demonstrate filling defects within segmental and subsegmental pulmonary arteries within the right lower and middle lobes consistent with pulmonary embolism.? No pulmonary arterial enlargement or definite leftward deviation of the interventricular septum to suggest right heart strain. ? Lower Neck: No lymphadenopathy by size criteria. Thyroid:? Visualized thyroid demonstrates no discrete nodules. Axillae: No lymphadenopathy by size criteria. Chest Wall:? Unremarkable.? Bones: Visualized osseous structures demonstrate no suspicious lesions. ? Lungs and Airways:? There are confluent peripheral areas of consolidation bilaterally in all lobes which appear increased in distribution and density compared to the prior study. ?There is associated mild bronchiectasis peripherally.? A small amount of a hearing mucus is demonstrated within the right mainstem bronchus. Pleura: No pneumothorax or pleural effusions.? ? Heart: Heart size is normal.? No pericardial effusion.? There are postsurgical changes consistent with prior CABG. Thoracic Vessels: The thoracic aorta is normal in size.? Mediastinum and Mattie: No lymphadenopathy by size criteria. Esophagus: No wall thickening.? There is a large hiatal hernia. ? Abdomen:? Visualized upper abdominal solid organs appear normal in the early arterial phase of enhancement.? ? ? IMPRESSION:? ? 1. Pulmonary embolism demonstrated within the right lower and middle lobe as described.? No definite evidence of right heart strain.? A message was left for Dr. Dickey in the emergency room on 10/12/2022 at 11:22 p.m.. ? 2. Peripheral areas of consolidation demonstrated within all lobes with associated mild bronchiectasis.? The findings appear increased compared to the prior study and again likely represent pneumonia.? ? ? Dictated by: Darien Young M.D. on 10/12/2022 at 23:20 ? ? Approved by: Darien Young M.D. on 10/12/2022 at 23:28 ? Discharge Plan Departure Patient Disposition: Admitted As Inpatient Clinical Impression: Acute and chronic respiratory failure with hypoxia, Pulmonary embolism, COVID-19 Admit Date/Time: 10/13/22 00:44 Admit Provider: Mitchell Manley
[2022-10-13] VITALS (14 sets, daily range): BP systolic 91–119; BP diastolic 57–91; PULSE 68–101; RESP 17–101; TEMP 35.9–36.4; O2SAT 18–94; BMI 30.4
[2022-10-13] MEDS: ENOXAPARIN 40 MG/0.4 ML SYRINGE 95 MG SUBCUT (00:41)
[2022-10-13 00:53] LABS: pH VBG 7.45 (7.33-7.43)
[2022-10-13 00:54] LABS: HCO3 VBG 23 mmol/L (23-28); PCO2 VBG 33.3 mmHg (45-50); PO2 VBG 32 mmHg (35-45); Total CO2 VBG 24 mmol/L (24-29)
[2022-10-13 00:55] LABS: Oxygen Saturation VBG 65 % (70-75)
--- NOTE | 2022-10-13 01:20 | P.HP_ITS ---
History of Present Illness History of Present Illness Date Patient Seen: 10/13/22 Time Patient Seen: 00:15 Chief complaint: SOB Patient History Medical History CAD (coronary artery disease) Coronary artery disease involving coronary bypass graft of [place] heart Diabetes mellitus History of non-insulin dependent diabetes mellitus Hypercholesterolemia Hypertension Kidney stone Comment: Mr. Pisano is a 77M with PMH DM,HTN, HL, CAD who presents to the hospital with shortness of breath. He was recently admitted to the hospital with shortness of breath and respiratory failure and found to have COVID pneumonia, UTI, and possible superimposed bacterial pneumonia. He was treated initially with IV antibiotics and then switched to cefdinir on discharge. He was also no remdesivir and dexamethasone which were stopped on discharge. He had a CTA at that time negative for PE. He stated he was feeling better at the time of discharge but ultimately quickly started feeling short of breath. He was not having chest pain. He was not particularly having much of a cough. No fevers/chills. EMS noted patient was satting in the 80s on room air In the ED workup was done, he was noted to be tachycardic, tachypneic, and sats in the low 90s on supplemental oxygen. Labs notable for WBC 9.7, creatinine 1.24. D-dimer 61472. Procal 0.15. Lactate 1.7. /ALT 142./138, alk phos 338. Trop negative, RESEARCH PHLEBOTOMIST 295. Chest xray showed patchy interstitial airspace opacities. CTA showed a PE in the right lower and middle lobe with no evidence of right heart strain. Lungs showed mild bronchiectasis. Family history: denies any blood clots in family Family & Social History Social History: household members spouse Safety & Behavioral: Feels Safe in Current Yes Environment Been Physically Hurt or No Threatened By a Person Tobacco & Substance use: Smoking Status Never smoker alcohol intake frequency 0-2 drinks per day Substance Use Type does not use Meds Home Medications and Allergies Home Medications Medication Instructions Recorded Confirmed Type metoprolol succinate 25 mg 25 mg PO DAILY 11/17/18 10/01/22 History tablet,extended release 24 hr omeprazole 20 mg capsule,delayed 20 mg PO DAILY 11/17/18 10/01/22 History release simvastatin 40 mg tablet 40 mg PO QPM 11/17/18 10/01/22 History tramadol 50 mg tablet 50 mg PO QID PRN neuropathy 11/17/18 10/01/22 History travoprost 0.004 % eye drops 1 drp EYE-BOTH DAILY 11/17/18 10/01/22 History Lactobacillus acidophilus 100 mg 100 mg PO DAILY 10/01/22 10/01/22 History (1 billion cell) capsule acetaminophen 325 mg tablet 650 mg PO BEDTIME 10/01/22 10/01/22 History allopurinol 300 mg tablet 150 mg PO DAILY 10/01/22 10/01/22 History alpha lipoic acid 100 mg capsule 100 mg PO DAILY 10/01/22 10/01/22 History ascorbic acid (vitamin C) 1,000 mg 1,000 mg PO DAILY 10/01/22 10/01/22 History tablet (Vitamin C) aspirin 325 mg tablet 325 mg PO DAILY 10/01/22 10/01/22 History bisacodyl 5 mg tablet,delayed 5 mg PO Q OTHER DAY 10/01/22 10/01/22 History release cetirizine 10 mg tablet 10 mg PO DAILY 10/01/22 10/01/22 History cholecalciferol (vitamin D3) 125 500 mcg PO QWEEK 10/01/22 10/01/22 History mcg (5,000 unit) tablet (Vitamin D3) coenzyme Q10 300 mg capsule 300 mg PO DAILY 10/01/22 10/01/22 History empagliflozin 25 mg tablet 25 mg PO DAILY 10/01/22 10/01/22 History (Jardiance) exenatide microspheres 2 mg/0.65 2 mg SUBCUT QWEEK 10/01/22 10/01/22 History mL subcutaneous pen injector flaxseed oil 1,300 mg-omega 3,6,9 1 cap PO DAILY 10/01/22 10/01/22 History 845 mg-117 mg-117 mg capsule morokqgdbva-idaiblkwe-mjx C-Mn 500 1 cap PO DAILY 10/01/22 10/01/22 History mg-400 mg capsule ibuprofen 600 mg tablet 600 mg PO TID 10/01/22 10/01/22 History lisinopril 10 mg tablet 10 mg PO DAILY 10/01/22 10/01/22 History magnesium 200 mg tablet 200 mg PO DAILY 10/01/22 10/01/22 History multivitamin 1 tab PO DAILY 10/01/22 10/01/22 History omega-3 fatty acids-fish oil 340 1 cap PO DAILY 10/01/22 10/01/22 History mg-1,000 mg capsule semaglutide 1 mg/dose (4 mg/3 mL) 1 mg SUBCUT QWEEK 10/01/22 10/01/22 History subcutaneous pen injector (Ozempic) tadalafil 5 mg tablet 5 mg PO DAILY 10/01/22 10/01/22 History testosterone cypionate 200 mg/mL 150 mg IM Q4W 10/01/22 10/01/22 History intramuscular oil vitamin B complex (B 1 tab PO DAILY 10/01/22 10/01/22 History Complex-Vitamin B12 tablet) Allergies Allergy/AdvReac Type Severity Reaction Status Date / Time No Known Drug Allergies Allergy Verified 07/18/20 09:10 Review of Systems Review of Systems Narrative: 14 systems reviewed and negative aside from what is noted in HPI Exam Vital Signs (past 8 hours): - 10/12/22 21:05 Temperature 97 F L Pulse Rate 100 H Respiratory Rate 28 H Blood Pressure 129/72 Pulse Oximetry 91 Oxygen Delivery Method Room Air Oxygen Delivery Method Room Air Narrative Exam Narrative: GEN: chronically ill appearing, in respiratory distress HEENT: moist mucous membranes, PERRL NECK: trachea midline, no JVD PULM: decreased breath sounds bilaterally CV: tachycardic, no murmurs ABD: soft, nontender, nondistended, no organomegaly EXT: warm and well perfused with no edema NEURO: awake, alert, oriented, no focal deficits Objective Labs Result Diagrams: 10/12/22 21:00 10/12/22 21:00 Labs: Laboratory Results - last 24 hr 10/12/22 10/12/22 10/12/22 21:00 21:00 21:00 WBC 9.7 RBC 4.62 Hgb 14.2 Hct 42.3 MCV 91.6 MCH 30.8 MCHC 33.6 RDW 12.9 Plt Count 298 Neut % (Auto) 70.7 Lymph % (Auto) 15.6 L [place] % (Auto) 10.7 Eos % (Auto) 0.9 L Baso % (Auto) 2.1 H Neut # (Auto) 6800 Lymph # (Auto) 1500 [place] # (Auto) 1000 H Eos # (Auto) 100 Baso # (Auto) 200 H PT 14.7 H INR 1.3 APTT 30 D-Dimer 60040 H VBG pH VBG pCO2 VBG pO2 VBG HCO3 VBG Total CO2 VBG O2 Saturation VBG Base Excess Sodium Potassium Chloride Carbon Dioxide BUN Creatinine Estimated GFR BUN/Creatinine Ratio Glucose Lactate Calcium Magnesium Total Bilirubin AST ALT Alkaline Phosphatase Total Creatine Kinase CK-MB (CK-2) CK-MB (CK-2) Rel Index Troponin I C-Reactive Protein NT-Pro-B Natriuret Pep Total Protein Albumin Globulin Albumin/Globulin Ratio Procalcitonin 0.15 10/12/22 10/12/22 10/12/22 21:00 21:00 23:24 WBC RBC Hgb Hct MCV MCH MCHC RDW Plt Count Neut % (Auto) Lymph % (Auto) [place] % (Auto) Eos % (Auto) Baso % (Auto) Neut # (Auto) Lymph # (Auto) [place] # (Auto) Eos # (Auto) Baso # (Auto) PT INR APTT D-Dimer VBG pH 7.45 H VBG pCO2 33.3 L VBG pO2 32 L VBG HCO3 23 VBG Total CO2 24 VBG O2 Saturation 65 L VBG Base Excess -1.0 L Sodium 138 Potassium 3.9 Chloride 103 Carbon Dioxide 24 BUN 31 H Creatinine 1.24 Estimated GFR 60 BUN/Creatinine Ratio 25.0 H Glucose 236 H Lactate 1.7 Calcium 9.6 Magnesium 1.8 Total Bilirubin 0.5 AST 142 H ALT 138 H Alkaline Phosphatase 338 H Total Creatine Kinase 39 L CK-MB (CK-2) TNP CK-MB (CK-2) Rel Index TNP Troponin I < 0.012 C-Reactive Protein 8.6 H NT-Pro-B Natriuret Pep 295 Total Protein 8.1 Albumin 3.4 L Globulin 4.7 H Albumin/Globulin Ratio 0.7 L Procalcitonin Assessment & Plan Assessment & Plan narrative: 1. Acute hypoxemic respiraoty failure secondary to PEs -patient noted to have hypoxemia on presentation -CTA noted to have pulmonary embolism, possible etiology from COVID -trop negative, BNP normal, no evidence of heart strain on CTA, and normal blood pressure -ordered for lovenox 1mg/kg BID -he was recently here and treated for COVID and bacterial pneumonia -on admit CT also noted bronchiectasis -because of this will continue with levaquin -check pcr for flu, rsv, and covid 2. Type 2 Diabetes -hold oral medications -insulin sliding scale 3. CAD s/p CABG -continue home aspirin, statin, blood pressure medications 4. Transaminitis -suspect etiology is from respiratory disease -trend LFTs daily and if worsening will order imaging and hepatitis serologies CODE: Full Proxy: Divine Pisano, I have utilized all available resources to reconcile the patient's home medications. Time Spent With Patient Critical Care time: I spent a total of [] minutes of critical care time on this patient's care today; this time is exclusive of procedural time.
[2022-10-13 01:30] LABS: PCO2 ABG 25.6 mmHg (35-45); pH ABG 7.54 (7.35-7.45)
[2022-10-13 01:31] LABS: HCO3 ABG 22 mmol/L (22-26); Oxygen Saturation ABG 97 % (95-100); PO2 ABG 81 mmHg (80-100); TCO2 ABG 22 mmol/L (21-31)
[2022-10-13 01:32] LABS: Fractionated Inspired Oxygen 4
[2022-10-13 01:36] LABS: Influenza A - CEPHEID Flu A NEGATIVE (NEGATIVE); Influenza B - CEPHEID Flu B NEGATIVE (NEGATIVE); Respiratory Syncytial Virus Negative (Negative)
[2022-10-13 01:38] LABS: COVID-19 CEPHEID 4-PLEX PCR POSITIVE (Negative)
[2022-10-13] MEDS: levoFLOXacin 750 MG/150 ML PIGGYBACK 100 MG IV (02:20)
--- NOTE | 2022-10-13 03:50 | PC.NURSE ---
Pt. arrived to the floor at 0140, admitted for PE's. Pt. is a&o x4, no c/o pain, is fatigued and short of breath. Sats on 4L NC in the low 90's with crackles on bilateral mid down to the bases. Oriented to rm, call light use, bed control and instructed to never get OOB without any assistance to avoid fall. Pt. agreed and understood. Bed alarm activated as well.
[2022-10-13 06:08] LABS: Alanine Aminotransferase 130 IU/L (<50); Albumin 3.4 g/dL (3.5-5.0); Albumin Globulin Ratio 0.8 (1.0-2.8); Alkaline Phosphatase 296 U/L (38-126); Aspartate Aminotransferase 95 IU/L (17-59); Bilirubin Total 0.7 mg/dL (0.2-1.3); Bilirubin Unconjugated 0.5 mg/dL (0.0-1.1); Globulin 4.2 g/dL (1.7-4.1); HEMOLYSIS 21 (0-50); Total Protein 7.6 g/dL (6.3-8.2)
--- NOTE | 2022-10-13 06:33 | DI.ECHO.S_ITS ---
Interpretation Summary Technically difficult study. Grossly normal left ventricle size.with ejection fraction 65-70%. The right ventricle grossly appears normal in size with probable normal systolic function. The aortic valve is mildly calcified. Mild mitral annular calcification. The mitral valve mean gradient is 4.0 mmHg. Pulmonary artery pressures cannot be estimated because of the lack of a measurable TR jet velocity. Procedure: A two-dimensional transthoracic echocardiogram with color flow and Doppler was performed. The study quality was technically difficult. Comparison is made with the echocardiogram of 12/22/2018. A contrast injection of Definity was performed to improve assessment of LV function. The heart rate ranged between 88-105 bpm during the study. Left Ventricle: The left ventricle is grossly normal size. The ejection fraction is estimated to be 65-70%. There are no obvious focal wall motion abnormalities noted but poor endocardial definition reduces the sensitivity for the detection of such. Right Ventricle: The right ventricle grossly appears normal in size with probable normal systolic function. Atria: The left atrial size is normal. Right atrial size is normal. There is no Doppler evidence for an interatrial shunt. Mitral Valve: The mitral valve leaflets are mildly calcified. There is mild mitral annular calcification. The mitral valve mean gradient is 4.0 mmHg. There is trace mitral regurgitation. Aortic Valve: The aortic valve is trileaflet. The aortic valve is mildly calcified. There is no aortic valve stenosis. No aortic regurgitation is present. Tricuspid Valve: The tricuspid valve is normal in structure and function. No tricuspid regurgitation. Pulmonary artery pressures cannot be estimated because of the lack of a measurable TR jet velocity. Pulmonic Valve: The pulmonic valve is not well visualized. Great Vessels: The aortic root is borderline dilated. The ascending aorta could not be visualized. The IVC is of normal diameter and collapses greater than 50% with a sniff. This suggests a low right atrial pressure of 3 mm Hg. Pericardium/ Pleura There is no pericardial effusion. There is no pleural effusion. MMode/2D Measurements & Calculations LVOT diam: 2.3 cm LA A2 area: 24.5 cm2 Ao root diam: 4.0 cm LA A4 area: 12.9 cm2 Ao Arch Diam (Prox Trans): 2.7 cm LA length (vol): 5.0 cm LA vol: 53.7 ml LA vol index: 25.7 ml/m2 RA long axis: 5.4 cm RVD1 (basal): 2.6 cm RA area: 10.8 cm2 TAPSE: 1.4 cm RA vol: 18.1 ml RA : 8.6 ml/m2 IVC diam: 1.2 cm Doppler Measurements & Calculations Ao V2 max: 125.4 cm/sec LVOT Max Kg: 90.3 cm/sec Ao V2 mean: 91.5 cm/sec LV V1 max P.3 mmHg Ao max P.3 mmHg LV V1 VTI: 15.4 cm Ao mean P.6 mmHg REG(I,D): 3.1 cm2 Ao V2 VTI: 21.1 cm REG(V,D): 3.1 cm2 sev ratio: 0.73 REG indexed to BSA (cm^2/m^2): 1.5 MV E max kg: 93.0 cm/sec MV V2 mean: 92.3 cm/sec MV A max kg: 149.0 cm/sec MV mean P.0 mmHg MV E/A: 0.62 MV V2 VTI: 35.8 cm Med Peak E' Kg: 3.8 cm/sec E/E' med: 24.6 Lat Peak E' Kg: 7.0 cm/sec E/E' lat: 13.3 E/e' average: 19.0 MV dec time: 0.20 sec MVA(VTI): 1.8 cm2 SV(LVOT): 65.6 ml Electronically signed by: Leighton Martinez on Reading Physician:10/13/2022 11:01 AM
[2022-10-13] MEDS: INSULIN LISPRO 100 UNIT/ML 3ML VIAL SUBCUT ×4 (08:19→21:39)
[2022-10-13] MEDS: APIXABAN 5 MG TABLET 10 MG PO ×2 (08:19→21:39)
--- NOTE | 2022-10-13 08:35 | PC.NURSE ---
Assess- Patient is alert and oriented x4, his blood sugar is 224. 2u of insulin given and patient tolerated this well. He wears a cpap at night with oxygen of 2L. Lung sounds with course and fine crackles to his lower lobes. Patient has some congestion, he is able to help with repositioning. He is eating his breakfast now.
--- NOTE | 2022-10-13 12:53 | CM.DANOTE ---
DCP: Case received, EMR reviewed. Did not meet with patient, since he is COVID positive, and attempted to call room, but no answer. Was able to complete DCP assessment based upon EMR information, as well as information from nurse, Ling. Patient is a 77 year old male who admitted early this morning to the care of the hospitalist team. PCP: Dr. Kaushik Gordon. Payer: confirmed: [facility] Advantage. Patient came to the hospital via ambulance secondary to patient having increased shortness of breath over the course of the day. Notes indicate that patient was recently hospitalized with COVID. Patient had become increasingly weak, and could not catch his breath. Patient was diagnosed with acute hypoxemic respiratory failure secondary to pulmonary embolism. Was not able to meet with patient secondary to isolation, and attempted to contact by phone with no answer. Nurse, Ling, indicates that patient is alert and oriented, has been mobile at baseline, currently one assist. He resides in [place] with spouse, Divine. P: DCP to continue to follow closely for any needs. Patient should be able to go home when deemed medically stable. Valery Torres RN/Supervisor Travel Trailer Discharge Planning/Care Management CM Discharge Assessment Start: 10/13/22 12:51 Freq: Status: Active Protocol: Document 10/13/22 12:51 (Rec: 10/13/22 12:52 [id number]) Discharge Planning Assessment Assigned Peeler Operator Valery Torres RN/Supervisor Travel Trailer Advance Directives? No Advance Directives on File No History Provided By Patient,Medical Record Prior Living Arrangements House Household Members spouse Type of transporation used prior to Drives own vehicle admit Independent with ADL's Yes Is patient alert and oriented? Yes Caregiver for Another No Barriers to Discharge No Discharge Plan Home Transportation Arrangement Spouse Referrals Initiated None needed Whiteboard Updated in Patient Room with No name and ext. # of Peeler Operator Comment Patient is COVID positive, did not enter room. Review Status In Process Next Review Type Continued Stay Review
[2022-10-13] MEDS: TRAMADOL 50 MG TABLET PO (21:39)
[2022-10-13] MEDS: ACETAMINOPHEN 325 MG TABLET 650 MG PO (21:39)
[2022-10-14] MEDS: levoFLOXacin 750 MG/150 ML PIGGYBACK 100 MG IV (02:44)
[2022-10-14 03:35] VITALS: BP 98/60; PULSE 89; RESP 18; TEMP 36.6; O2SAT 93
[2022-10-14 06:06] LABS: Add Manual Diff / Slide Review NO; Basophils Absolute Auto 0 /uL (0-100); Basophils Percent Auto 0.3 % (0-2); Eosinophils Absolute Auto 100 /uL (0-450); Eosinophils Percent Auto 1.7 % (2-4); Hematocrit 38.9 % (41-53); Hemoglobin 13.7 g/dL (13.5-17.5); Lymphocytes Absolute Auto 1100 /uL (1100-4500); Lymphocytes Percent Auto 14.1 % (25-40); Mean Corpuscular HGB Conc 35.2 % (30-36); Mean Corpuscular Hemoglobin 31.3 PG (26-34); Monocytes Absolute Auto 800 /uL (0-900); Monocytes Percent Auto 10.2 % (3-14); Neutrophils Absolute Auto 5600 /uL (1500-7000); Neutrophils Percent Auto 73.7 % (50-75); Platelet Count 266 X10^3/uL (150-400); Red Blood Cell Count 4.38 X10^6/uL (4.5-5.9); Red Cell Distribution Width 13.2 % (11.6-14.8); White Blood Cell Count 7.7 X10^3/uL (4.5-11.0)
[2022-10-14 06:20] LABS: BUN Creatinine Ratio 18.1 (6-22); Blood Urea Nitrogen 19 mg/dL (9-20); Calcium 9.3 mg/dL (8.4-10.2); Carbon Dioxide 21 mmol/L (22-32); Chloride 103 mmol/L (98-107); Estimated Glomerular Filt Rate > 60 mL/min (>60); Glucose 214 mg/dL (80-110); HEMOLYSIS < 15 (0-50); Potassium 3.7 mmol/L (3.4-5.1); Sodium 134 mmol/L (137-145)
[2022-10-14 08:00] VITALS: BP 106/78; PULSE 86; RESP 18; TEMP 36.8; O2SAT 91
[2022-10-14] MEDS: APIXABAN 5 MG TABLET 10 MG PO ×2 (08:00→21:37)
[2022-10-14] MEDS: INSULIN LISPRO 100 UNIT/ML 3ML VIAL SUBCUT ×4 (08:03→21:48)
--- NOTE | 2022-10-14 08:59 | P.PN_ITS ---
Subjective Subjective Date Patient Seen: 10/14/22 Interval history: Patient still very winded and fatigued. Remains on 3L NC. Will likely be a slow recovery given recent COVID and now PE's. Exam Vital Signs (past 8 hours): - 10/14/22 03:35 10/14/22 08:00 Temperature 97.9 F 98.2 F Pulse Rate 89 86 Respiratory Rate 18 18 Blood Pressure 98/60 106/78 Pulse Oximetry 93 91 Oxygen Flow Rate 4 3 Fraction of Inspired Oxygen 21 SaO2/FiO2 Ratio 438 Oxygen Delivery Method Nasal Cannula Oxygen Flow Rate 3 Narrative Exam Narrative: GEN: chronically ill appearing, appears fatigued with labored breaths HEENT: moist mucous membranes, PERRL NECK: trachea midline, no JVD PULM: decreased breath sounds bilaterally, bibasilar rales present CV: normal rate and rhythm, no murmurs ABD: soft, nontender, nondistended, no organomegaly EXT: warm and well perfused with no edema NEURO: awake, alert, oriented, no focal deficits Objective Labs Result Diagrams: 10/14/22 05:37 10/14/22 05:37 Labs: Laboratory Results - last 24 hr 10/14/22 10/14/22 05:37 05:37 WBC 7.7 RBC 4.38 L Hgb 13.7 Hct 38.9 L MCV 89.0 MCH 31.3 MCHC 35.2 RDW 13.2 Plt Count 266 Neut % (Auto) 73.7 Lymph % (Auto) 14.1 L [place] % (Auto) 10.2 Eos % (Auto) 1.7 L Baso % (Auto) 0.3 Neut # (Auto) 5600 Lymph # (Auto) 1100 [place] # (Auto) 800 Eos # (Auto) 100 Baso # (Auto) 0 Sodium 134 L Potassium 3.7 Chloride 103 Carbon Dioxide 21 L BUN 19 Creatinine 1.05 Estimated GFR > 60 BUN/Creatinine Ratio 18.1 Glucose 214 H Calcium 9.3 PFSH Medical History CAD (coronary artery disease) Coronary artery disease involving coronary bypass graft of [place] heart Diabetes mellitus History of non-insulin dependent diabetes mellitus Hypercholesterolemia Hypertension Kidney stone Social History household members: spouse Smoking Status: Never smoker Assessment & Plan Assessment & Plan narrative: 1. Acute hypoxemic respiraoty failure secondary to PEs and recent COVID pneumonia -patient noted to have hypoxemia on presentation, up on 3L NC -CTA noted to have pulmonary embolism, possible etiology from COVID -trop negative, BNP normal, no evidence of heart strain on CTA, and normal blood pressure -ordered for lovenox 1mg/kg BID -he was recently here and treated for COVID and bacterial pneumonia -on admit CT also noted bronchiectasis -because of this will continue with levaquin x5 days -given dose IV lasix 20 for crackles on lung exam 2. Type 2 Diabetes -hold oral medications -insulin sliding scale -start lantus 15u nightly for persistently elevated BG -A1c 8.5%, paper goods machine set up operator consulted 3. CAD s/p CABG -continue home aspirin, statin, blood pressure medications 4. Transaminitis -suspect etiology is from respiratory disease -trend LFTs daily and if worsening will order imaging and hepatitis serologies CODE: Full Proxy: Divine Pisano, I have utilized all available resources to reconcile the patient's home medications. Dispo: 2-3 more days to wean O2 and improve labored breathing. Time Spent With Patient Critical Care time: I spent a total of [] minutes of critical care time on this patient's care today; this time is exclusive of procedural time. Quality VTE Deep Vein Thrombosis/Pulmonary Embolism Present on Admission: Yes
[2022-10-14 09:54] VITALS: O2SAT 92
[2022-10-14 11:58] LABS: Hemoglobin A1C% w Est Avg Glu 8.5 % (4.0-6.0)
[2022-10-14 12:00] VITALS: BP 108/86; PULSE 86; RESP 16; TEMP 35.9; O2SAT 92
[2022-10-14] MEDS: FUROSEMIDE 20 MG/2 ML VIAL IV (12:44)
[2022-10-14] MEDS: SENNOSIDES 8.6 MG TABLET PO ×2 (12:45→21:37)
[2022-10-14] MEDS: PANTOPRAZOLE DR 40 MG TABLET PO (12:45)
[2022-10-14] MEDS: polyethylene glycoL 3350 17 GM POWD.PACK PO (12:45)
--- NOTE | 2022-10-14 15:10 | PT.IIE ---
Current Diagnoses Other pulmonary embolism without acute cor pulmonale (10/13/22) Medical History (Last Reviewed 10/13/22 @ 06:42 by Manolo Dickey DO) CAD (coronary artery disease) Coronary artery disease involving coronary bypass graft of [place] heart Diabetes mellitus History of non-insulin dependent diabetes mellitus Hypercholesterolemia Hypertension Kidney stone Physical Therapy Inpatient Evaluation/Re-Eval M1 PT/OT-IP Prior Functional Status Start: 10/14/22 17:04 Freq: NEEDED Status: Active Protocol: Document 10/14/22 15:10 AB (Rec: 10/14/22 17: AB [email or web address]) Medical Review Prior Functional Status Mobility and Gait pt was just hospitalized 09/30 to 10/04 for Covid and d/c home. prior to first admission, pt stated that he is independent with all mobilities and ambulation without AD; when he went home 10/04, he has been using a SPC Social History Household Members spouse Living Arrangements House Number of Floors (Floors) One Floor Number of Stairs To Enter/Railing? 5 steps R rail ascending Home Environment High Toilet,Walk in Shower, Built-In Shower Seat Home Equipment Straight Cane M2 PT-IP Current Condition Start: 10/14/22 17:04 Freq: NEEDED Status: Active Protocol: Document 10/14/22 15:10 AB (Rec: 10/14/22 17: AB [email or web address]) Physical Therapy Current Condition Current Condition Evaluation Date 10/14/22 Treatment Diagnosis PE; Covid; generalized weakness Onset Date 10/13/22 M3 PT-IP Subjective Start: 10/14/22 17:04 Freq: NEEDED Status: Active Protocol: Document 10/14/22 15:10 AB (Rec: 10/14/22 17: AB [email or web address]) Subjective Physical Therapy Visit Type Type Initial Evaluation Visit Start Time 15:10 Visit Stop Time 15:47 Total Visit Minutes 37 Number of CAR DISTRIBUTOR Visits 0 Physical Therapy Visit Comments Patient Comments agreeable to do PT M4 PT-IP Mobility and Gait Start: 10/14/22 17:04 Freq: NEEDED Status: Active Protocol: Document 10/14/22 15:10 AB (Rec: 10/14/22 17: AB [email or web address]) PT-Bed Mobility Assessment Supine to Sit Supine to Sit Maximum Assistance,Head of Bed Elevated Sit to Supine Sit to Supine Standby Assistance PT-Transfer Assessment Sit to and From Stand Sit to and from Stand Minimal Assistance,1 Person Assistance,Use of Upper Extremities Equipment Transfer Assistive Device Gait Belt,Front Wheeled Walker Orthotic/Prosthetic Devices or Brace: No Comments Mobility Comments completed supine to sit max A and cues. able to sit on EOB CGA. (+) SOB but unable to obtain O2 sat. completed sit to stand min A and ambulated in room using FWW ~35ft CGA to min A. slow paced gait with decrease LE elevation. pt requested to go back to bed. completed sit to supine SBA. positioned in bed. call light and table placed within reach. O2 sat at end of tx session: 91% with 2L/min O2 Gait Assessment Gait Gait Assistance Required: Contact Guard Assist,Minimum Assistance Distance (Feet) 35 Able to Maintain Weight Bearing Status Yes During Gait Assistive Devices Assistive Device Gait Belt,Front Wheeled Walker Orthotic/Prosthetic Devices or Brace: No Gait Deviations General Gait Pattern Decreased Stride Length, Decreased Feet Clearance,Step- to Gait Factors Limiting Gait Function Factors Limiting Gait Function Decreased Activity Tolerance, Decreased Strength,Poor Balance,Poor Safety Awareness, Respiratory Distress PT-Balance Assessment Sitting Balance and Reactions Static Sitting Balance Ability Good Dynamic Sitting Balance Ability Fair Standing Balance and Reactions Static Standing Balance Ability Fair Dynamic Standing Balance Ability Fair Device Used FWW M5 PT-IP Objective Assessments Start: 10/14/22 17:04 Freq: NEEDED Status: Active Protocol: Document 10/14/22 15:10 AB (Rec: 10/14/22 17:22 AB [id number]) Orientation Orientation/Cognition Level of Alertness Alert Orientation Name Safety Awareness Decreased Safety Awareness Gross Range of Motion Lower Extremity ROM Assessment Within Functional Limits Strength Lower Extremity Strength Hip 3+/5 Knee 3+/5 Muscle Tone Muscle Tone WNL Yes M6 PT-IP Treatment Start: 10/14/22 17:04 Freq: NEEDED Status: Active Protocol: Document 10/14/22 15:10 AB (Rec: 10/14/22 17:22 AB [email or web address]) Physical Therapy Treatment Education Education Provided Safety M7 PT-IP Assessment and Plan Start: 10/14/22 17:04 Freq: NEEDED Status: Active Protocol: Document 10/14/22 15:10 AB (Rec: 10/14/22 17:22 AB [email or web address]) PT Summary Assessment and Plan Potential Rehabilitation Potential Fair Status of Condition at Evaluation Evolving Summary Impairments Pain,ROM,Strength,Balance, Coordination,Sensation,Tone, Cognition,Bed Mobility, Transfers,Gait,Activity Tolerance Assessment Summary Pt with recent hospitalization last 09/30 thru 10/04 for Covid and now admitted again to the hospital with PE and Covid. pt requiring max A for supine to sit and min A with mobility using FWW and presents with decrease activity tolerance with (+) SOB. pt stated that spouse is also fighting against Covid and will not be able to assist him. Pt needs to be more independent than current level and will require SNF at this time. will continue to assess progress. Goals Bed Mobility Goal Independent Transfer Goal Independent,Front Wheeled Walker Gait Goal Independent,Front Wheel Walker Gait Distance 100 Other Goals improve transfers and ambulation using SPC/without AD ~ 150 ft up/down 5 steps R rail mod I Days to Meet Goals 10 Frequency of Treatment Frequency Of Treatment Once a Day Treatment Plan Physical Therapy Treatment Plan Bed Mobility Training,Transfer Training,Gait Training, Therapeutic Exercise,Balance Retraining,Discharge Planning, Neuromuscular Re-ed, Coordination Retraining Precautions Other Precautions Covid precautions Recommendations To Nursing Amount of Assist Needed 1 Person Assist Discharge Recommendations PT Discharge Recommendations SNF Rehab Equipment Needed for Home Before FWW Discharge Transportation Needs at Discharge Wheelchair/Cabulance
[2022-10-14 17:00] VITALS: BP 118/76; PULSE 104; RESP 20; TEMP 35.9; O2SAT 92
[2022-10-14 20:00] VITALS: BP 101/66; PULSE 101; RESP 18; TEMP 36.3; O2SAT 93
[2022-10-14] MEDS: MELATONIN 3 MG TABLET 6 MG PO (21:37)
[2022-10-14] MEDS: TRAMADOL 50 MG TABLET PO (21:37)
[2022-10-14] MEDS: INSULIN GLARGINE 100 UNIT/ML 3ML PEN 15 UNIT SUBCUT (21:42)
[2022-10-15] VITALS (8 sets, daily range): BP systolic 90–105; BP diastolic 60–67; PULSE 82–94; RESP 16–20; TEMP 36–36.8; O2SAT 92–95
[2022-10-15] MEDS: PANTOPRAZOLE DR 40 MG TABLET PO (06:25)
--- NOTE | 2022-10-15 09:22 | P.PN_ITS ---
Subjective Subjective Date Patient Seen: 10/15/22 Interval history: Feeling better today. Sletp alot better with the tramadol and melatonin last night. Still on 2-3L NC. Exam Vital Signs (past 8 hours): - 10/15/22 02:00 10/15/22 04:00 10/15/22 08:00 Temperature 97.0 F L 96.8 F L Pulse Rate 82 86 Respiratory Rate 16 19 Blood Pressure 101/67 96/60 Pulse Oximetry 93 92 94 Oxygen Delivery Method Nasal Cannula Oxygen Flow Rate 2 2 4 Fraction of Inspired Oxygen 21 SaO2/FiO2 Ratio 438 Oxygen Delivery Method Nasal Cannula Oxygen Flow Rate 4 Narrative Exam Narrative: GEN: chronically ill appearing but looks better today HEENT: moist mucous membranes, PERRL NECK: trachea midline, no JVD PULM: decreased breath sounds bilaterally, bibasilar rales improved CV: normal rate and rhythm, no murmurs ABD: soft, nontender, nondistended, no organomegaly EXT: warm and well perfused with no edema NEURO: awake, alert, oriented, no focal deficits Objective Labs Result Diagrams: 10/15/22 09:40 10/15/22 09:40 Labs: Laboratory Results - last 24 hr 10/14/22 05:37 Hemoglobin A1c 8.5 H PFS Medical History CAD (coronary artery disease) Coronary artery disease involving coronary bypass graft of [place] heart Diabetes mellitus History of non-insulin dependent diabetes mellitus Hypercholesterolemia Hypertension Kidney stone Social History household members: spouse Smoking Status: Never smoker Assessment & Plan Assessment & Plan narrative: 1. Acute hypoxemic respiraoty failure secondary to PEs and recent COVID p [place] -patient noted to have hypoxemia on presentation, up on 3L NC -CTA noted to have pulmonary embolism, possible etiology from COVID -trop negative, BNP normal, no evidence of heart strain on CTA, and normal blood pressure -ordered for lovenox 1mg/kg BID -he was recently here and treated for COVID and bacterial pneumonia -on admit CT also noted bronchiectasis -because of this will continue with levaquin x5 days -given dose of IV lasix 20 for crackles on lung exam -wean O2 as able 2. Type 2 Diabetes -hold oral medications -insulin sliding scale -start lantus 15u nightly for persistently elevated BG -A1c 8.5%, director of philanthropy consulted 3. CAD s/p CABG -continue home aspirin, statin, blood pressure medications 4. Transaminitis -suspect etiology is from respiratory disease -trend LFTs daily and if worsening will order imaging and hepatitis serologies CODE: Full Proxy: Divine Pisano, I have utilized all available resources to reconcile the patient's home medications. Dispo: 1-2 more days to wean O2 requirement. May need home oxygen. Time Spent With Patient Critical Care time: I spent a total of [] minutes of critical care time on this patient's care today; this time is exclusive of procedural time. Quality VTE Deep Vein Thrombosis/Pulmonary Embolism Present on Admission: Yes
[2022-10-15 09:58] LABS: Add Manual Diff / Slide Review NO; Basophils Absolute Auto 100 /uL (0-100); Basophils Percent Auto 1.1 % (0-2); Eosinophils Absolute Auto 100 /uL (0-450); Eosinophils Percent Auto 1.1 % (2-4); Hemoglobin 15.1 g/dL (13.5-17.5); Lymphocytes Absolute Auto 1500 /uL (1100-4500); Lymphocytes Percent Auto 16.5 % (25-40); Mean Corpuscular HGB Conc 35.1 % (30-36); Mean Corpuscular Hemoglobin 31.7 PG (26-34); Mean Corpuscular Volume 90.4 fL (80-100); Monocytes Absolute Auto 800 /uL (0-900); Monocytes Percent Auto 8.9 % (3-14); Neutrophils Absolute Auto 6800 /uL (1500-7000); Neutrophils Percent Auto 72.4 % (50-75); Platelet Count 337 X10^3/uL (150-400); Red Blood Cell Count 4.76 X10^6/uL (4.5-5.9); Red Cell Distribution Width 12.8 % (11.6-14.8); White Blood Cell Count 9.4 X10^3/uL (4.5-11.0)
[2022-10-15 10:07] LABS: Alanine Aminotransferase 81 IU/L (<50); Albumin 3.8 g/dL (3.5-5.0); Albumin Globulin Ratio 0.8 (1.0-2.8); Alkaline Phosphatase 268 U/L (38-126); Aspartate Aminotransferase 44 IU/L (17-59); BUN Creatinine Ratio 14.7 (6-22); Bilirubin Total 0.8 mg/dL (0.2-1.3); Blood Urea Nitrogen 19 mg/dL (9-20); Carbon Dioxide 24 mmol/L (22-32); Chloride 98 mmol/L (98-107); Estimated Glomerular Filt Rate 57 mL/min (>60); Glucose 221 mg/dL (80-110); HEMOLYSIS < 15 (0-50); Sodium 136 mmol/L (137-145); Total Protein 8.8 g/dL (6.3-8.2)
[2022-10-15] MEDS: ACETAMINOPHEN 325 MG TABLET 650 MG PO ×2 (10:40→20:59)
[2022-10-15] MEDS: APIXABAN 5 MG TABLET 10 MG PO ×2 (10:40→21:00)
[2022-10-15] MEDS: levoFLOXacin 250 MG TABLET 750 MG PO (10:40)
[2022-10-15] MEDS: SENNOSIDES 8.6 MG TABLET PO ×2 (10:41→20:59)
[2022-10-15] MEDS: SODIUM CHLORIDE 0.9% 1,000 ML 100 ML IV (10:52)
[2022-10-15] MEDS: INSULIN LISPRO 100 UNIT/ML 3ML VIAL SUBCUT ×4 (10:57→21:01)
--- NOTE | 2022-10-15 16:23 | PT.IPTN ---
Current Diagnoses Other pulmonary embolism without acute cor pulmonale (10/13/22) Physical Therapy Treatment Note M2 PT-IP Current Condition Start: 10/14/22 17:04 Freq: NEEDED Status: Active Protocol: Document 10/14/22 15:10 AB (Rec: 10/14/22 17:22 AB [id number]) Physical Therapy Current Condition Current Condition Evaluation Date 10/14/22 Treatment Diagnosis PE; Covid; generalized weakness Onset Date 10/13/22 M3 PT-IP Subjective Start: 10/14/22 17:04 Freq: NEEDED Status: Active Protocol: Document 10/15/22 16:08 LJ (Rec: 10/15/22 16:23 LJ [id number]) Subjective Physical Therapy Visit Type Type Treatment Note Visit Start Time 15:48 Visit Stop Time 16:03 Total Visit Minutes 15 Number of ICING COATER Visits 1 Physical Therapy Visit Comments Patient Comments agreeable to do PT M4 PT-IP Mobility and Gait Start: 10/14/22 17:04 Freq: NEEDED Status: Active Protocol: Document 10/15/22 16:08 LJ (Rec: 10/15/22 16:23 [id number]) PT-Bed Mobility Assessment Supine to Sit Supine to Sit Minimal Assistance,1 Person Assistance,Head of Bed Elevated Sit to Supine Sit to Supine Standby Assistance PT-Transfer Assessment Sit to and From Stand Sit to and from Stand Standby Assistance,1 Person Assistance,Use of Upper Extremities Equipment Transfer Assistive Device Gait Belt,Front Wheeled Walker Orthotic/Prosthetic Devices or Brace: No Transfers Transfer Destination Bed Transfer Ability Level of Assist Standby Assistance,1 Person Assistance,Use of Upper Extremities Comments Mobility Comments Pt completed supine>sit U[place]. Steady when sitting on side of bed using UEs for lateral support. Sit>stand SBA. Pt ambulated in room around bed x2 with assist for O2 and IV. Pt returned to bed stand>sit reaching back and lowering himself slowly. Able to get his LEs into bed and do a bridge movement to shift left to center himself in the bed properly. Pt did not experience any SOB dring mobility. Able to carry on conversation while ambulating. Gait Assessment Gait Gait Assistance Required: Standby Assistance,Minimum Assistance,1 Person Assist Distance (Feet) 50 Able to Maintain Weight Bearing Status Yes During Gait Assistive Devices Assistive Device Gait Belt,Front Wheeled Walker Orthotic/Prosthetic Devices or Brace: No Gait Deviations General Gait Pattern Decreased Stride Length, Decreased Feet Clearance,Step- to Gait Factors Limiting Gait Function Factors Limiting Gait Function Decreased Activity Tolerance, Decreased Strength,Poor Balance,Poor Safety Awareness Comments Gait Comments Pt able to ambulate in room around the bed x2 no LOB or SOB. Assistance needed for IV pole and O2 line. He moves slowly but able to safely navigate around room. M5 PT-IP Objective Assessments Start: 10/14/22 17:04 Freq: NEEDED Status: Active Protocol: Document 10/14/22 15:10 AB (Rec: 10/14/22 17:22 AB [id number]) Orientation Orientation/Cognition Level of Alertness Alert Orientation Name Safety Awareness Decreased Safety Awareness Gross Range of Motion Lower Extremity ROM Assessment Within Functional Limits Strength Lower Extremity Strength Hip 3+/5 Knee 3+/5 Muscle Tone Muscle Tone WNL Yes M6 PT-IP Treatment Start: 10/14/22 17:04 Freq: NEEDED Status: Active Protocol: Document 10/15/22 16:08 (Rec: 10/15/22 16:23 [id number]) Physical Therapy Treatment Exercises Exercises Ankle Pumps,Gluteal Sets,Heel Slides Education Education Provided Safety M7 PT-IP Assessment and Plan Start: 10/14/22 17:04 Freq: NEEDED Status: Active Protocol: Document 10/15/22 16:08 (Rec: 10/15/22 16:23 [id number]) PT Summary Assessment and Plan Potential Rehabilitation Potential Fair Status of Condition at Evaluation Evolving Summary Impairments Pain,ROM,Strength,Balance, Coordination,Sensation,Tone, Cognition,Bed Mobility, Transfers,Gait,Activity Tolerance Assessment Summary Pt improving with mobility and gait tolerance. Much less assist needed but still challenged with activity tolerance. He will require SNF to improve strength and endurance to be able to return home safely with . Goals Bed Mobility Goal Independent Transfer Goal Independent,Front Wheeled Walker Gait Goal Independent,Front Wheel Walker Gait Distance 100 Other Goals improve transfers and ambulation using SPC/without AD ~ 150 ft up/down 5 steps R rail mod I Days to Meet Goals 10 Frequency of Treatment Frequency Of Treatment Once a Day Treatment Plan Physical Therapy Treatment Plan Bed Mobility Training,Transfer Training,Gait Training, Therapeutic Exercise,Balance Retraining,Discharge Planning, Neuromuscular Re-ed, Coordination Retraining Other Recommendations and Next Treatment Check SaO2 rest/mobility, bed Focus mob sup>sit, transfers/gait LRAD. gait longer distance, balance activities Precautions Other Precautions Covid precautions Recommendations To Nursing Amount of Assist Needed 1 Person Assist Discharge Recommendations PT Discharge Recommendations SNF Rehab Equipment Needed for Home Before FWW Discharge Transportation Needs at Discharge Wheelchair/Cabulance [id number]
[2022-10-15] MEDS: TRAMADOL 50 MG TABLET PO (20:59)
[2022-10-15] MEDS: MELATONIN 3 MG TABLET 6 MG PO (21:00)
[2022-10-16] VITALS (11 sets, daily range): BP systolic 92–150; BP diastolic 49–130; PULSE 86–105; RESP 16–20; TEMP 36.2–37.1; O2SAT 92–97
[2022-10-16] MEDS: PANTOPRAZOLE DR 40 MG TABLET PO (07:05)
[2022-10-16] MEDS: INSULIN LISPRO 100 UNIT/ML 3ML VIAL SUBCUT ×4 (09:59→20:46)
[2022-10-16] MEDS: ACETAMINOPHEN 325 MG TABLET 650 MG PO ×2 (10:02→18:02)
[2022-10-16] MEDS: APIXABAN 5 MG TABLET 10 MG PO ×2 (10:03→20:35)
[2022-10-16] MEDS: levoFLOXacin 250 MG TABLET 750 MG PO (10:03)
[2022-10-16 11:03] LABS: BUN Creatinine Ratio 12.8 (6-22); Blood Urea Nitrogen 16 mg/dL (9-20); Calcium 9.1 mg/dL (8.4-10.2); Carbon Dioxide 20 mmol/L (22-32); Chloride 100 mmol/L (98-107); Estimated Glomerular Filt Rate 59 mL/min (>60); Glucose 265 mg/dL (80-110); HEMOLYSIS < 15 (0-50); Potassium 3.7 mmol/L (3.4-5.1); Sodium 136 mmol/L (137-145)
--- NOTE | 2022-10-16 11:50 | PT.IPTN ---
Current Diagnoses Other pulmonary embolism without acute cor pulmonale (10/13/22) Physical Therapy Treatment Note M2 PT-IP Current Condition Start: 10/14/22 17:04 Freq: NEEDED Status: Active Protocol: Document 10/16/22 11:20 SP (Rec: 10/16/22 15:19 SP [id number]) Physical Therapy Current Condition Current Condition Evaluation Date 10/14/22 Treatment Diagnosis PE; Covid; generalized weakness Onset Date 10/13/22 M3 PT-IP Subjective Start: 10/14/22 17:04 Freq: NEEDED Status: Active Protocol: Document 10/16/22 11:20 SP (Rec: 10/16/22 15:19 SP [id number]) Subjective Physical Therapy Visit Type Type Treatment Note Visit Start Time 11:20 Visit Stop Time 11:50 Total Visit Minutes 30 Notes Vitals takend during tx: supine: BP 89/62 HR 71 SaO2 81 % on RA, noted nasal canula off edge bed caught under side rail and pt unable to access. supine: 92% on 2L. Seated EOB: BP 103/67 SaO2 93% on 2L Number of LINUX ADMIN ENGINEER Visits 2 Physical Therapy Visit Comments Patient Comments Pt agreeable to working with therapy but stated having L foot pain and doesn't feel can stand. Pt stated concerned and he notified nursing/ hospitalist are aware, awaiting further assessment. Pt stated also concerned is at home with their pet also COVID but is getting around better than he is. Patient Goals Return home if able. Therapy Pain Assessment Location Left Ankle Intensity 0 Scale Used alot, not able give pain scale rating Description Acute,With Movement Pain Behaviors Facial Grimacing,Guarding, Moaning,Restlessness,Wincing Pain Management Techniques Distraction,Elevation, Modification of Treatment,Re- positioning M4 PT-IP Mobility and Gait Start: 10/14/22 17:04 Freq: NEEDED Status: Active Protocol: Document 10/16/22 11:20 SP (Rec: 10/16/22 15:19 SP [id number]) PT-Bed Mobility Assessment Supine to Sit Supine to Sit Moderate Assistance,Maximum Assistance,1 Person Assistance ,Head of Bed Elevated,Bedrails Sit to Supine Sit to Supine Contact Guard Assistance, Bedrails Scooting Scooting to Edge of Bed Contact Guard Assistance PT-Transfer Assessment Sit to and From Stand Sit to and from Stand Maximum Assistance,1 Person Assistance,Use of Upper Extremities Equipment Transfer Assistive Device Gait Belt,Front Wheeled Walker Orthotic/Prosthetic Devices or Brace: No Transfers Transfer Destination Bed Transfer Technique Lateral Scoot Transfer Ability Level of Assist Maximum Assistance,1 Person Assistance,Use of Upper Extremities Comments Mobility Comments Pt noted decreased SaO2 on RA when arrived, just complete blowing nose and NC fell under bed tangled with bed rail, assist pt with accessing NC on 2L improved O2 81%>92% on 2L. Elevated supine>sit EOB Max A x1, CGA scoot to EOB. Sit> stand Max A w/ FWW demonstrates TTWB on LLE unable due to pain WB onto L ankle, able lateral scoot and little hop on RLE w/ FWW self mgt FWW with therapist contact FWW for safety up side of R EOB Mod/Max Ax1, stand>sit Min A with cues reaching back. Sit>supine CGA and cues for centering in bed RLE and BUE on bed rails. Provided requested pillow support under LLE for comfort L ankle pain. LINUX ADMIN ENGINEER noted swelling in med/ lateral L ankle. Pt had call light and all needs in reach and bed alarmed before left. LINUX ADMIN ENGINEER discussed pt response to standing and L ankle pain with Dr Shaffer when went in to assess. Gait Assessment Gait Gait Assistance Required: Maximum Assistance,1 Person Assist Distance (Feet) 3 Able to Maintain Weight Bearing Status Yes During Gait Assistive Devices Assistive Device Gait Belt,Front Wheeled Walker Orthotic/Prosthetic Devices or Brace: No Gait Deviations General Gait Pattern Antalgic,Decreased Stride Length,Decreased Feet Clearance,Step-to Gait Factors Limiting Gait Function Factors Limiting Gait Function Decreased Activity Tolerance, Decreased Strength,Pain,Poor Balance,Respiratory Distress Comments Gait Comments Unable to increase WB LLE due to L ankle pain, increased physical support required. PT-Balance Assessment Sitting Balance and Reactions Static Sitting Balance Ability Good Dynamic Sitting Balance Ability Fair Standing Balance and Reactions Static Standing Balance Ability Poor Dynamic Standing Balance Ability Poor Device Used FWW M5 PT-IP Objective Assessments Start: 10/14/22 17:04 Freq: NEEDED Status: Active Protocol: Document 10/14/22 15:10 AB (Rec: 10/14/22 17:22 AB [id number]) Orientation Orientation/Cognition Level of Alertness Alert Orientation Name Safety Awareness Decreased Safety Awareness Gross Range of Motion Lower Extremity ROM Assessment Within Functional Limits Strength Lower Extremity Strength Hip 3+/5 Knee 3+/5 Muscle Tone Muscle Tone WNL Yes M6 PT-IP Treatment Start: 10/14/22 17:04 Freq: NEEDED Status: Active Protocol: Document 10/16/22 11:20 SP (Rec: 10/16/22 15:19 SP [id number]) Physical Therapy Treatment Education Education Provided Safety M7 PT-IP Assessment and Plan Start: 10/14/22 17:04 Freq: NEEDED Status: Active Protocol: Document 10/16/22 11:20 SP (Rec: 10/16/22 15:19 SP [id number]) PT Summary Assessment and Plan Potential Rehabilitation Potential Fair Status of Condition at Evaluation Evolving Summary Impairments Pain,ROM,Strength,Balance, Coordination,Sensation,Tone, Cognition,Bed Mobility, Transfers,Gait,Activity Tolerance Progress Towards Goals Slow Progress due to Pain,Slow Progress due to Medical Issues,Slow Progress due to Activity Tolerance Assessment Summary Pt required increase assist due to L ankle pain and inabilitiy to WB, Mod/Max A x1 for bed and Max A x1 into standing w/ FWW. Will continue to assessprogress. Recommending SNF to improved strength/mobility. Goals Bed Mobility Goal Independent Transfer Goal Independent,Front Wheeled Walker Gait Goal Independent,Front Wheel Walker Gait Distance 100 Other Goals improve transfers and ambulation using SPC/without AD ~ 150 ft up/down 5 steps R rail mod I Days to Meet Goals 10 Frequency of Treatment Frequency Of Treatment Once a Day Treatment Plan Physical Therapy Treatment Plan Bed Mobility Training,Transfer Training,Gait Training, Therapeutic Exercise,Balance Retraining,Discharge Planning, Neuromuscular Re-ed, Coordination Retraining Other Recommendations and Next Treatment check O2, bed mob, transfers, Focus gait if able WB on L ankle w/ FWW, chair follow. 5 stair mgt if able. Precautions Other Precautions Covid precautions Recommendations To Nursing Amount of Assist Needed 1 Person Assist Discharge Recommendations PT Discharge Recommendations SNF Rehab Equipment Needed for Home Before FWW Discharge Transportation Needs at Discharge Private Vehicle,Wheelchair/ Cabulance
[2022-10-16] MEDS: COLCHICINE 0.6 MG TABLET 1.2 MG PO (12:37)
--- NOTE | 2022-10-16 13:05 | CM.DPC ---
Addendum entered by Doreen Marie R.N. 10/16/22 15:34: Per Amber @ [facility], pt can be accepted to the facility if the following med changes can be agreed upon. Pt on Ozempic and exenatide and Amber requesting if pt to d/c with these that bring those to the facility. Pt on tadalafil and this would need to be d/c'ed upon discharge as they cannot supply this medication. DCP spoke to pt , Divine, and she confirms she would be able to bring the SUBQ pens to [facility]. Pt also states that the tadalafil is a non issue and if it needs to be d/c'ed at this time in order to get to [facility] that is fine. DCP spoke with hospitalist and pt could be ready for discharge tomorrow. DCP spoke with Amber and updated on all above information. Amber and this DCP to discuss in the AM for further coordination. Doreen Marie RN/KANDY Original Note: DCP Cont: Per PT, pt needing SNF. DC contacted [facility] and was provided with insurance auth. Auth#[id number]. [facility] contacted and April looking into case. April to provide DCP with update. DARCY Logan/KANDY
--- NOTE | 2022-10-16 13:16 | DIET.CONS2 ---
Dietary Inpatient Consultation Note Admission Date: 10/13/2022 00:44 RD attempted phone consult with patient, pt not answering phone. RD attempted to call pts PCP LAURO Gordon, unable to leave message. Pt with two admissions over 1mo for covid PNA requiring steroid use leading to hyperglycemia. Pt with evidence of hyperglycemia and elevated A1c (8.5) prior to current health condition indicating necessity for medication management beyond current metformin. Pt would benefit from referral to diabetes education. If pt has not d/c'd by Thursday, DM Educator will contact pt for more thorough consultation. Continue consistent carb diet and insulin therapy to maintain BG range of 140-180. Diet: 10/13/22 Breakfast Carbohydrate Consistent Diet Diet Modifications: Carbohydrate level: Medium (3 CHO) Heart Healthy Diet Diet Modifications: Nutrition Percent Meal Consumed 75% 10/16/22 10:00 Percent Meal Consumed 100% 10/15/22 18:00 Percent Meal Consumed 100% 10/15/22 14:00 Percent Meal Consumed 100% 10/15/22 10:00 Percent Meal Consumed 50% 10/14/22 18:38 Electronically Signed by: Denia Carvalho 10/16/22 13:16 Clinical Dietitian [address] [address]
[2022-10-16] MEDS: COLCHICINE 0.6 MG TABLET PO (13:23)
--- NOTE | 2022-10-16 14:55 | PM.PN.1 ---
Subjective Subjective Date Patient Seen: 10/16/22 Interval history: Having new left ankle pain. Feels so painful the sheets cannot touch it. He notes he has a history of gout and hasn't had a flare in several years. Exam Vital Signs (past 8 hours): - 10/16/22 08:00 10/16/22 11:00 10/16/22 10:20 Temperature 97.9 F Pulse Rate 86 Respiratory Rate 19 Blood Pressure 150/130 H 92/55 L Pulse Oximetry 96 95 Oxygen Delivery Method Nasal Cannula Oxygen Flow Rate 2 2 10/16/22 10:20 10/16/22 14:00 Temperature Pulse Rate 88 Respiratory Rate 20 Blood Pressure 103/64 Pulse Oximetry 97 Oxygen Delivery Method Nasal Cannula Oxygen Flow Rate 2 Fraction of Inspired Oxygen 21 SaO2/FiO2 Ratio 438 Oxygen Delivery Method Nasal Cannula Oxygen Flow Rate 2 Narrative Exam Narrative: GEN: in mild distress from ankle pain HEENT: moist mucous membranes, PERRL NECK: trachea midline, no JVD PULM: decreased breath sounds bilaterally, bibasilar rales improved CV: normal rate and rhythm, no murmurs ABD: soft, nontender, nondistended, no organomegaly EXT: left ankle swollen, no erythema, severe pain with movement of ankle or palpation of heel NEURO: awake, alert, oriented, no focal deficits Objective Labs Result Diagrams: 10/15/22 09:40 10/16/22 10:15 Labs: Laboratory Results - last 24 hr 10/16/22 10:15 Sodium 136 L Potassium 3.7 Chloride 100 Carbon Dioxide 20 L BUN 16 Creatinine 1.25 Estimated GFR 59 L BUN/Creatinine Ratio 12.8 Glucose 265 H Calcium 9.1 PFSH Medical History CAD (coronary artery disease) Coronary artery disease involving coronary bypass graft of [place] heart Diabetes mellitus History of non-insulin dependent diabetes mellitus Hypercholesterolemia Hypertension Kidney stone Social History household members: spouse Smoking Status: Never smoker Assessment & Plan Assessment & Plan narrative: 1. Acute hypoxemic respiraoty failure secondary to PEs and recent COVID pneumonia -patient noted to have hypoxemia on presentation, up on 3L NC -CTA noted to have pulmonary embolism, possible etiology from COVID -trop negative, BNP normal, no evidence of heart strain on CTA, and normal blood pressure -eliquis 10mg BID x7 days then 5mg BID daily -he was recently here and treated for COVID and bacterial pneumonia -on admit CT also noted bronchiectasis -because of this will continue with levaquin x5 days -given dose of IV lasix 20 for crackles on lung exam -wean O2 as able, currently 2-3L 2. Type 2 Diabetes -hold oral medications -insulin sliding scale -start lantus 15u nightly for persistently elevated BG -A1c 8.5%, director internal control consulted 3. CAD s/p CABG -continue home aspirin, statin, blood pressure medications 4. Transaminitis -suspect etiology is from respiratory disease -trend LFTs daily and if worsening will order imaging and hepatitis serologies 5. Acute gouty attack of left ankle -patient with acute onset ankle pain, no trauma -most likely gout given swelling and pain with pt history of gout -start colchicine given prednisone would raise BG and cannot use NSAIDs with eliquis CODE: Full Proxy: Divine Pisano, I have utilized all available resources to reconcile the patient's home medications. Dispo: SNF on 10/17. Time Spent With Patient Critical Care time: I spent a total of [] minutes of critical care time on this patient's care today; this time is exclusive of procedural time. Quality VTE Deep Vein Thrombosis/Pulmonary Embolism Present on Admission: Yes
[2022-10-16] MEDS: ATORVASTATIN 20 MG TABLET PO (20:35)
[2022-10-16] MEDS: MELATONIN 3 MG TABLET 6 MG PO (20:35)
[2022-10-16] MEDS: TRAMADOL 50 MG TABLET PO (20:36)
[2022-10-16] MEDS: INSULIN GLARGINE 100 UNIT/ML 3ML PEN 15 UNIT SUBCUT (20:43)
[2022-10-17] VITALS (11 sets, daily range): BP systolic 86–98; BP diastolic 54–63; PULSE 59–100; RESP 14–21; TEMP 36.2–36.9; O2SAT 93–98
[2022-10-17 08:03] LABS: Blood Urea Nitrogen 13 mg/dL (9-20); Calcium 8.4 mg/dL (8.4-10.2); Carbon Dioxide 21 mmol/L (22-32); Chloride 104 mmol/L (98-107); Estimated Glomerular Filt Rate > 60 mL/min (>60); Glucose 176 mg/dL (80-110); HEMOLYSIS < 15 (0-50); Potassium 3.4 mmol/L (3.4-5.1); Sodium 134 mmol/L (137-145)
--- NOTE | 2022-10-17 08:12 | PT.IPTN ---
Current Diagnoses Other pulmonary embolism without acute cor pulmonale (10/13/22) Physical Therapy Treatment Note M2 PT-IP Current Condition Start: 10/14/22 17:04 Freq: NEEDED Status: Active Protocol: Document 10/17/22 07:47 SP (Rec: 10/17/22 14:30 SP [id number]) Physical Therapy Current Condition Current Condition Evaluation Date 10/14/22 Treatment Diagnosis PE; Covid; generalized weakness Onset Date 10/13/22 M3 PT-IP Subjective Start: 10/14/22 17:04 Freq: NEEDED Status: Active Protocol: Document 10/17/22 07:47 SP (Rec: 10/17/22 14:30 SP [id number]) Subjective Physical Therapy Visit Type Type Treatment Note Visit Start Time 07:47 Visit Stop Time 08:12 Total Visit Minutes 25 Notes Vitals taken during tx: supine: BP 89/55 HR 65 SaO2 91 % on RA seated EOB: 84/57 HR 101 SaO2 90% on RA post mobility seated in chair: 88/58 HR 100 SaO2 84% on RA, cue breath 30 sec 88% on RA, provided 1L supplimental O2 improved to 93%. Ed pt leaving him on 1L for safety, verbalized understanding. Number of SILVER RECOVERY OPERATOR Visits 3 Physical Therapy Visit Comments Patient Comments Pt was agreeable to working with therapy, planned evening before for early am awareness. Patient Goals Agreeable to SNF to improved strength and mobility enough to return home with spouse for SBA/I, due to spouse also having COVID but mobiltiy and no AD, can help slightly. Knows needs be strong enough to manage 5 stairs 5 HR, SBA. Therapy Pain Assessment Location Left Ankle Intensity 3 Scale Used L ankle and R elbow WB today Description Aching,Throbbing Pain Behaviors Facial Grimacing Pain Management Techniques Distraction,Modification of Treatment,Re-positioning M4 PT-IP Mobility and Gait Start: 10/14/22 17:04 Freq: NEEDED Status: Active Protocol: Document 10/17/22 07:47 SP (Rec: 10/17/22 14:30 SP [id number]) PT-Bed Mobility Assessment Supine to Sit Supine to Sit Standby Assistance,Bedrails Scooting Scooting to Edge of Bed Standby Assistance PT-Transfer Assessment Sit to and From Stand Sit to and from Stand Contact Guard Assistance, Minimal Assistance,1 Person Assistance,Use of Upper Extremities Equipment Transfer Assistive Device Gait Belt,Front Wheeled Walker Orthotic/Prosthetic Devices or Brace: No Transfers Transfer Destination Chair Transfer Technique pt ambulated with FWW Transfer Ability Level of Assist Contact Guard Assistance, Minimal Assistance,1 Person Assistance,Use of Upper Extremities Comments Mobility Comments SILVER RECOVERY OPERATOR instructed BLE ankle pumps , heel slides pre mob warm up awareness L ankle pain 3 reps. Elevated supine> sit, scoot to EOB sBA with heavy UE support on bed. Sit>stand CG/ Min A little trunk sway improved L ankle WB/Moderat BUE WB on FWW, pt reported little unsteady band R elbow starting to hurt some thinks maybe gout in R elbow now as well. Pt able to progress gait w/ FWW forward to room bench then across room to closet and back to chair approx 35 ft, states not feeling strong little trunk sways but no LOB CG/ MIn A. Safety cues for fully back step w/ FWW and reach back slow descent BUE > 1 UE, tends hand onto FWW and tips little backward. Pt had call light and all needs in reach tray front before left, on supplimental O2 1L safe 93% recovery from 84% on RA gait in room. Pts' BP improving 80s /50-60s closer to his baseline BP states is 90s/60s. Nonsymptomatic throughout tx during mobility. Gait Assessment Gait Gait Assistance Required: Contact Guard Assist,Minimum Assistance,1 Person Assist Distance (Feet) 35 Able to Maintain Weight Bearing Status Yes During Gait Assistive Devices Assistive Device Gait Belt,Front Wheeled Walker Orthotic/Prosthetic Devices or Brace: No Gait Deviations General Gait Pattern Antalgic,Decreased Stride Length,Decreased Feet Clearance,Lateral Trunk Lean Factors Limiting Gait Function Factors Limiting Gait Function Decreased Activity Tolerance, Decreased Strength,Pain,Poor Balance,Poor Safety Awareness, Respiratory Distress Comments Gait Comments improved L ankle WB, reports R elbow pain now (thinks maybe gout as well) wB UE onto FWW. Cues breath and foot clearance during gait for safety O2 saturation. Stair Climbing Assessment Comments Stair Climbing Comments Has 5 stairs R HR to complete when able for safe DC home, unable at this time. PT-Balance Assessment Sitting Balance and Reactions Static Sitting Balance Ability Good Dynamic Sitting Balance Ability Good Standing Balance and Reactions Static Standing Balance Ability Fair Dynamic Standing Balance Ability Fair Device Used FWW M5 PT-IP Objective Assessments Start: 10/14/22 17:04 Freq: NEEDED Status: Active Protocol: Document 10/14/22 15:10 AB (Rec: 10/14/22 17:22 AB [id number]) Orientation Orientation/Cognition Level of Alertness Alert Orientation Name Safety Awareness Decreased Safety Awareness Gross Range of Motion Lower Extremity ROM Assessment Within Functional Limits Strength Lower Extremity Strength Hip 3+/5 Knee 3+/5 Muscle Tone Muscle Tone WNL Yes M6 PT-IP Treatment Start: 10/14/22 17:04 Freq: NEEDED Status: Active Protocol: Document 10/17/22 07:47 SP (Rec: 10/17/22 14:30 SP [id number]) Physical Therapy Treatment Exercises Exercises Ankle Pumps,Heel Slides Education Education Provided Safety Other Treatments Other Treatment Performed Instruction breath for improvement in SaO2 saturation , provided supplimental O2 1L end tx post mobiltiy due to breath not enough to recover, 84>88%, improved 93% on 1L. M7 PT-IP Assessment and Plan Start: 10/14/22 17:04 Freq: NEEDED Status: Active Protocol: Document 10/17/22 07:47 SP (Rec: 10/17/22 14:30 SP [id number]) PT Summary Assessment and Plan Potential Rehabilitation Potential Fair Status of Condition at Evaluation Evolving Summary Impairments Pain,ROM,Strength,Balance, Coordination,Sensation,Tone, Cognition,Bed Mobility, Transfers,Gait,Activity Tolerance Progress Towards Goals Progressing Toward Goals,Slow Progress due to Pain,Slow Progress due to Medical Issues ,Slow Progress due to Activity Tolerance Assessment Summary Pt improved bed mobility SBA, able increase WB onto L ankle w/ FWW transfers/gait in room CG/ Min A x1. Reports thinks getting gout in R elbow as well due to starting to feel pain during WB on fWW gait but doable to move around. Pt will require SNF for strength due to also has COVID and not able to juan pt. Goals Bed Mobility Goal Independent Transfer Goal Independent,Front Wheeled Walker Gait Goal Independent,Front Wheel Walker Gait Distance 100 Other Goals improve transfers and ambulation using SPC/without AD ~ 150 ft up/down 5 steps R rail mod I Days to Meet Goals 10 Frequency of Treatment Frequency Of Treatment Once a Day Treatment Plan Physical Therapy Treatment Plan Bed Mobility Training,Transfer Training,Gait Training, Therapeutic Exercise,Balance Retraining,Discharge Planning, Neuromuscular Re-ed, Coordination Retraining Other Recommendations and Next Treatment Assess how gout pain doing. Focus Check O2 with mobility w/ FWW further distance, cues breath, STS. 5 stair R HR when able. Precautions Other Precautions Covid precautions Recommendations To Nursing Amount of Assist Needed 1 Person Assist Discharge Recommendations PT Discharge Recommendations SNF Rehab Equipment Needed for Home Before FWW Discharge Transportation Needs at Discharge Private Vehicle,Wheelchair/ Cabulance
[2022-10-17] MEDS: polyethylene glycoL 3350 17 GM POWD.PACK PO (09:31)
[2022-10-17] MEDS: SENNOSIDES 8.6 MG TABLET PO (09:32)
[2022-10-17] MEDS: APIXABAN 5 MG TABLET 10 MG PO ×2 (09:32→21:14)
[2022-10-17] MEDS: PANTOPRAZOLE DR 40 MG TABLET PO (09:32)
[2022-10-17] MEDS: levoFLOXacin 250 MG TABLET 750 MG PO (09:33)
[2022-10-17] MEDS: COLCHICINE 0.6 MG TABLET PO ×2 (09:34→21:14)
[2022-10-17] MEDS: INSULIN LISPRO 100 UNIT/ML 3ML VIAL SUBCUT ×4 (10:05→21:17)
[2022-10-17] MEDS: SODIUM CHLORIDE 0.9% 500 ML 1000 ML IV (10:14)
--- NOTE | 2022-10-17 10:54 | CM.DPC ---
DCP Cont: Pt was discussed in rounds and it was determined that the patient will not discharge today due to pt hypotension. This DCP left April @ [facility] a message relaying this information. DCP to continue to follow. Doreen Marie RN/DCP
[2022-10-17] MEDS: POTASSIUM CHLORIDE 20 MEQ TAB 40 MEQ PO (12:46)
--- NOTE | 2022-10-17 16:44 | P.PN_ITS ---
Subjective Subjective Interval history: 69-year-old gentleman with coronary artery disease status post CABG, diabetes mellitus type 2, hyperlipidemia, hypertension who was admitted with acute hypoxic respiratory failure secondary to pulmonary emboli in the setting of recent COVID infection and superimposed bacterial infection. Patient was previously admitted September 30 through October 04 with COVID 19 infection and bacterial pneumonia. He discharged on oral antibiotics. Patient reports each day he feels a bit stronger. He has been having difficulty with hypotension today. Blood pressures were down in the 80s earlier today. He did receive a IV fluid bolus with improvement with his blood pressures up to the mid 90s. He states over the last month he has been having some low blood pressures. Exam Vital Signs (past 8 hours): - 10/17/22 09:45 10/17/22 09:48 10/17/22 10:11 Temperature 97.4 F L Pulse Rate 98 H 90 Respiratory Rate Blood Pressure 86/54 L 86/54 L Pulse Oximetry 93 94 Oxygen Delivery Method Nasal Cannula Oxygen Flow Rate 2 2 10/17/22 10:30 10/17/22 11:33 10/17/22 09:30 Temperature 98.4 F 97.2 F L Pulse Rate 95 H 87 Respiratory Rate 20 18 Blood Pressure 95/63 90/56 L Pulse Oximetry 95 95 Oxygen Delivery Method Nasal Cannula Oxygen Flow Rate 2 2 10/17/22 10:00 Temperature Pulse Rate Respiratory Rate Blood Pressure Pulse Oximetry 98 Oxygen Delivery Method Nasal Cannula Oxygen Flow Rate 2 Fraction of Inspired Oxygen 94 SaO2/FiO2 Ratio 438 Oxygen Delivery Method Nasal Cannula Oxygen Flow Rate 2 Narrative Exam Narrative: GEN: Very pleasant elderly male, Alert and oriented x 3, NAD HEENT:NC, Face symmetric CHEST: Respiratory excursions symmetric, bibasilar crackles, otherwise CTAB CV: RRR, no M/R/G ABD: Soft, obese, NT/ND, BT present in all 4 quadrants, body habitus limits exam EXTR: warm, well perfused, no C/C/E SKIN: warm and dry, no rash NEURO: Alert and oriented x 3, nonfocal Objective Labs Result Diagrams: 10/15/22 09:40 10/17/22 06:06 Labs: Laboratory Results - last 24 hr 10/17/22 06:06 Sodium 134 L Potassium 3.4 Chloride 104 Carbon Dioxide 21 L BUN 13 Creatinine 1.08 Estimated GFR > 60 BUN/Creatinine Ratio 12.0 Glucose 176 H Calcium 8.4 COUNT INCLUDES THE [facility] Medical History CAD (coronary artery disease) Coronary artery disease involving coronary bypass graft of [place] heart Diabetes mellitus History of non-insulin dependent diabetes mellitus Hypercholesterolemia Hypertension Kidney stone Social History household members: spouse Smoking Status: Never smoker Assessment & Plan Assessment & Plan narrative: 1. Acute hypoxic respiratory failure Etiology as recent COVID infection, pneumonia, and now pulmonary emboli. He is stable on 2 liters/minute. 2. Right lower lobe and right middle lobe pulmonary emboli Continue apixaban 10 mg b.i.d. for a total of 7 days followed by 5 mg b.i.d.. 3. Hypotension Will decrease his metoprolol from 25 mg daily to 12.5 mg daily. He did show improvement after fluid bolus. His oral intake has been somewhat decreased. I have also encouraged him to increase his oral intake. 4. Diabetes mellitus type 2 Uncontrolled with hyperglycemia. Will increase Lantus from 15 units to 20 units daily. Remains on sliding scale. Remains on a controlled carb diet. 5. Coronary artery disease status post CABG Continue usual outpatient medications. No anginal symptoms. 6. Transaminitis Likely secondary to respiratory viral infection. On most recent labs AST was normalized from a peak of 142 down to 44. ALT was down to 81 from a peak of 1 38. Alk-phos was down to 268 from 338. No further lab testing planned at this time. 7. Acute gout, left ankle Improved today. He does have some tenderness on exam but no erythema. There is ongoing swelling noted. Continues on colchicine. He does have some right elbow pain today but no evidence of swelling or effusion. Code status Full Prophylaxis On apixaban Disposition He was due to transfer to retirement today. However given his hypotension, this was deferred. It is hoped taken discharge tomorrow. Time Spent With Patient Critical Care time: I spent a total of [] minutes of critical care time on this patient's care today; this time is exclusive of procedural time. Quality VTE Deep Vein Thrombosis/Pulmonary Embolism Present on Admission: Yes
--- NOTE | 2022-10-17 17:58 | PC.NURSE ---
Per nurse office workforce planner, pt does not need a COVID swab. Canceling order for COVID swab.
--- NOTE | 2022-10-17 19:30 | DIET.CONS ---
Dietary Consultation Note Admission Date: 10/13/2022 00:44 Assessment: 77 y/o M admitted with acute respiratory failure secondary to pulmonary emoboli in setting of covid+. Recent HgA1c of 8.5%. States he has been trying to manage his BG the last 6-7 weeks with a low carb diet and diabetes supplements from a [place] doctor. Seems this program is very expensive but he feels working. Reports home SMBG for FBG was 115-145mg/dl and HS readings <150mg/dl. Discussed increasing glargine while admitted with hospitalist in rounds this morning given consistent hyperglycemia since admission. Endorses 30# loss over the last month, 15# of which he feels is unintentional. Endorses weight of 230# 1 month ago, which is pretty consistent with EMR weights. Recent weight of 205.5# indicating 10.6% loss over one month (severe). If half of this weight loss was intentional, this is a 5.4% loss over one month (severe). Reports one meal per day for the last 15-18 days (2 turkey sausages and vegetables-carrots, celery, broccoli). When admitted PO seems improved at 75-100%. Given adequate PO over admissions since 10/01, may qualify for moderate malnutrition. Boy has h/o diabetes education at [facility] and would like to receive DM ed there. Will coordinate with his PCP (Teodora RESTREPO) and [facility] DSME program for referral. Ht: 175.26 cm Wt: 93.44 kg BMI: 30.4 Last BM: 10/19/22 (10/17/22 14:50) MNA: 10 Steven Score: 19 Diet: 10/13/22 Breakfast Carbohydrate Consistent Diet Diet Modifications: Carbohydrate level: Medium (3 CHO) Heart Healthy Diet Diet Modifications: Nutrition Percent Meal Consumed 75% 10/17/22 18:00 Percent Meal Consumed 100% 10/17/22 14:09 Percent Meal Consumed 100% 10/16/22 13:30 Percent Meal Consumed 75% 10/16/22 10:00 Labs: RBC 4.76 X10^6/uL (4.5-5.9) 10/15/22 09:40 Hgb 15.1 g/dL (13.5-17.5) 10/15/22 09:40 Hct 43.0 % (41-53) 10/15/22 09:40 Creatinine 1.08 mg/dL (0.66-1.25) 10/17/22 06:06 Hemoglobin A1c 8.5 % (4.0-6.0) H 10/14/22 05:37 Lactate 1.7 mmol/L (0.7-2.1) 10/12/22 21:00 NT-Pro-B Natriuret Pep 295 pg/mL (<450) 10/12/22 21:00 Nutrition Diagnosis: Acute moderate protein calorie malnutrition r/t recent illness impacting PO aeb severe weight loss of >5% in one month and reported PO <50% REE Interventions: ONS daily EER: 2100-2300kcal per day per BMI Monitoring/Evaluations: PO, ONS tolerance, Rec DSME OP Electronically Signed by: Keyana Salguero 10/17/22 19:30 Clinical Dietitian [address] [id number]
[2022-10-17] MEDS: TRAMADOL 50 MG TABLET PO (21:13)
[2022-10-17] MEDS: ATORVASTATIN 20 MG TABLET PO (21:14)
[2022-10-17] MEDS: MELATONIN 3 MG TABLET 6 MG PO (21:14)
[2022-10-17] MEDS: INSULIN GLARGINE 100 UNIT/ML 3ML PEN 20 UNIT SUBCUT (21:16)
[2022-10-18] VITALS: BP 95/59; PULSE 103; RESP 19; TEMP 37.1; O2SAT 92
[2022-10-18 04:00] VITALS: O2SAT 94
[2022-10-18 05:53] LABS: Add Manual Diff / Slide Review NO; Basophils Absolute Auto 100 /uL (0-100); Basophils Percent Auto 1.2 % (0-2); Eosinophils Absolute Auto 200 /uL (0-450); Eosinophils Percent Auto 3.9 % (2-4); Hemoglobin 12.1 g/dL (13.5-17.5); Lymphocytes Absolute Auto 1300 /uL (1100-4500); Lymphocytes Percent Auto 25.5 % (25-40); Mean Corpuscular HGB Conc 34.7 % (30-36); Mean Corpuscular Hemoglobin 31.2 PG (26-34); Monocytes Absolute Auto 600 /uL (0-900); Monocytes Percent Auto 11.7 % (3-14); Neutrophils Absolute Auto 3000 /uL (1500-7000); Neutrophils Percent Auto 57.7 % (50-75); Platelet Count 257 X10^3/uL (150-400); Red Blood Cell Count 3.89 X10^6/uL (4.5-5.9); Red Cell Distribution Width 13.5 % (11.6-14.8); White Blood Cell Count 5.3 X10^3/uL (4.5-11.0)
[2022-10-18 05:59] LABS: BUN Creatinine Ratio 11.5 (6-22); Blood Urea Nitrogen 12 mg/dL (9-20); Calcium 8.4 mg/dL (8.4-10.2); Carbon Dioxide 20 mmol/L (22-32); Chloride 105 mmol/L (98-107); Estimated Glomerular Filt Rate > 60 mL/min (>60); Glucose 193 mg/dL (80-110); HEMOLYSIS < 15 (0-50); Potassium 3.7 mmol/L (3.4-5.1); Sodium 134 mmol/L (137-145)
[2022-10-18] MEDS: PANTOPRAZOLE DR 40 MG TABLET PO (06:12)
--- NOTE | 2022-10-18 08:06 | P.DS_ITS ---
History of Present Illness History of Present Illness Date Patient Seen: 10/18/22 Chief complaint: SOB Narrative: 77-year-old male nonsmoker with history of diabetes, hypertension and hyper lipidemia presents by EMS for evaluation of shortness of breath and fatigue.? He states he has been feeling under the weather for about 1 week and has become progressively ill.? He is had a dry and hacking cough and has become significantly short of breath with minimal exertion.? He is had a mild headache in the occasional sore throat.? He is nauseated and has a poor appetite but denies any vomiting, abdominal pain or diarrhea.? He has no urinary complaints such as dysuria, frequency or urgency.? He had initially presented to an urgent care and was found to have oxygen saturation in the mid to upper 80s and a positive COVID swab.? He was sent here by EMS for evaluation and stabilization of his condition.? He denies recent travel, known cancer or history of blood clot.? In our ER he found to be hypoxic and tachypneic, COVID positive.? His is also sick with COVID positive.? He confirms that he is not vaccinated.? He did not receive flu shot.? Patient was getting short of breath with? sentences and unable to complete his sentences.? Using accessory muscles during our conversation.? He is able to confirm most of the details mentioned.? I called his and confirmed code status and updated her overall prognosis.? Patient says that he might be having some fevers or chills but did not measure his temperature at home. Discharge Providers Provider Date of admission: 10/13/22 00:44 Discharge Date: 10/18/22 Primary care physician: Teodora Gordon PA-C Consults: 10/14/22 11:30 Consult to Physical Therapy Evaluate & Treat Comment: Physician Instructions: Evaluate and Treat 10/14/22 12:15 Consult to Dietitian, Adult Routine Comment: Reason For Exam: A1c 8.5% Discharge provider: Teddy Zamora MD Summary Hospital Course Hospital Course: 1. Acute hypoxic respiratory failure Etiology is the recent COVID infection, pneumonia, and now pulmonary emboli.? He is stable on NC 2 liters/minute. 2. Right lower lobe and right middle lobe pulmonary emboli Continue apixaban 10 mg b.i.d. for a total of 10 days followed by 5 mg b.i.d.. 3. Hypotension Decreased metoprolol from 25 mg daily to 12.5 mg daily.? He did show improvement after fluid bolus.? 4. Diabetes mellitus type 2 Uncontrolled with hyperglycemia.? Resume home Diabetes medicine doses at discharge. 5. Coronary artery disease status post CABG Continue usual outpatient medications.? No anginal symptoms. 6. Transaminitis Likely secondary to respiratory viral infection.? On most recent labs AST was normalized from a peak of 142 down to 44.? ALT was down to 81 from a peak of 138.? Alk-phos was down to 268 from 338.? 7. Acute gout, left ankle Resolved with Colchicine Code status Full Prophylaxis On apixaban Disposition He will transfer to residential today.? Status at Discharge Cognitive/behavioral status at discharge: oriented Functional status at discharge: uses cane/walker Overall status at discharge: patient is progressing back to baseline Time Spent with Patient Time spent: Greater than 30 minutes Exam Vital Signs (past 8 hours): - 10/18/22 04:00 Pulse Oximetry 94 Oxygen Delivery Method CPAP Oxygen Flow Rate 4 Fraction of Inspired Oxygen 28 SaO2/FiO2 Ratio 335 Oxygen Delivery Method CPAP Oxygen Flow Rate 4 Narrative Exam Narrative: Alert and oriented x3. No apparent distress. His voice is weak and he appears weak He is quite talkative solicitous/friendly Bilateral basilar fine crackles are present. Heart is regular rate and rhythm without murmur Extremities have no ankle edema Objective Labs Result Diagrams: 10/18/22 04:49 10/18/22 04:49 Labs: Laboratory Results - last 24 hr 10/17/22 10/18/22 10/18/22 06:06 04:49 04:49 WBC 5.3 RBC 3.89 L Hgb 12.1 L Hct 35.0 L MCV 90.0 MCH 31.2 MCHC 34.7 RDW 13.5 Plt Count 257 Neut % (Auto) 57.7 Lymph % (Auto) 25.5 Dickenson % (Auto) 11.7 Eos % (Auto) 3.9 Baso % (Auto) 1.2 Neut # (Auto) 3000 Lymph # (Auto) 1300 Dickenson # (Auto) 600 Eos # (Auto) 200 Baso # (Auto) 100 Sodium 134 L 134 L Potassium 3.4 3.7 Chloride 104 105 Carbon Dioxide 21 L 20 L BUN 13 12 Creatinine 1.08 1.04 Estimated GFR > 60 > 60 BUN/Creatinine Ratio 12.0 11.5 Glucose 176 H 193 H Calcium 8.4 8.4 PFSH Medical History CAD (coronary artery disease) Coronary artery disease involving coronary bypass graft of [place] heart Diabetes mellitus History of non-insulin dependent diabetes mellitus Hypercholesterolemia Hypertension Kidney stone Social History household members: spouse Smoking Status: Never smoker Discharge Plan Discharge Plan Patient Disposition: SNF Transfer to: [facility] Under care of provider: 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 Discharge orders & Medications Prescriptions: New Eliquis 5 mg Tablet 10 mg PO BID Qty: 60 0RF tramadol 50 mg Tablet 50 mg PO QID PRN (Reason: Pain, Moderate (4-6)) Qty: 60 0RF Continued travoprost 0.004 % Drops 1 drp EYE-BOTH DAILY simvastatin 40 mg Tablet 40 mg PO QPM omeprazole 20 mg Capsule,Delayed Release(Dr/Ec) 20 mg PO DAILY metoprolol succinate 25 mg Tablet Extended Release 24 Hr 25 mg PO DAILY acetaminophen 325 mg Tablet 650 mg PO BEDTIME bisacodyl 5 mg Tablet,Delayed Release (Dr/Ec) 5 mg PO Q OTHER DAY magnesium 200 mg Tablet 200 mg PO DAILY Lactobacillus acidophilus 100 mg (1 billion cell) Capsule 100 mg PO DAILY Label Comments: Has not taken in a while, does not remember the last time he took it exenatide microspheres 2 mg/0.65 mL Pen Injector 2 mg SUBCUT QWEEK multivitamin Tablet 1 tab PO DAILY ascorbic acid (vitamin C) [Vitamin C] 1,000 mg Tablet 1,000 mg PO DAILY cetirizine 10 mg Tablet 10 mg PO DAILY aspirin 325 mg Tablet 325 mg PO DAILY lisinopril 10 mg Tablet 10 mg PO DAILY vitamin B complex [B Complex-Vitamin B12] Tablet 1 tab PO DAILY ibuprofen 600 mg Tablet 600 mg PO TID [id number] C-Mn 500-400 mg Capsule 1 cap PO DAILY coenzyme Q10 300 mg Capsule 300 mg PO DAILY tadalafil 5 mg Tablet 5 mg PO DAILY omega-3 fatty acids-fish oil 340-1,000 mg Capsule 1 cap PO DAILY alpha lipoic acid 100 mg Capsule 100 mg PO DAILY Label Comments: Has not taken in a while, does not remember the last time he took it cholecalciferol (vitamin D3) [Vitamin D3] 125 mcg (5,000 unit) Tablet 500 mcg PO QWEEK flaxseed oil-omega 3,6,9 1,300 mg-845 mg -117 mg-117 mg Capsule 1 cap PO DAILY Jardiance 25 mg Tablet 25 mg PO DAILY Ozempic 1 mg/dose (4 mg/3 mL) Pen Injector 1 mg SUBCUT QWEEK Discontinued tramadol 50 mg Tablet 50 mg PO QID PRN (Reason: neuropathy) testosterone cypionate 200 mg/mL Oil 150 mg IM Q4W Follow up/Referrals: Teodora Gordon PA-C [Primary Care Provider] - Diet/Activity/Treatments Diet: Carb-consistent/Diabetic Liquid consistency: Normal/Thin Food texture: Regular [facility] Rehab type: Physical therapy, Occupational therapy and Speech therapy Discharge Data Primary Care Provider: Teodora Gordon VTE Deep Vein Thrombosis/Pulmonary Embolism Present on Admission: Yes
[2022-10-18] MEDS: SENNOSIDES 8.6 MG TABLET PO (08:34)
[2022-10-18] MEDS: METOPROLOL ER 25 MG TABLET 12.5 MG PO (08:34)
[2022-10-18] MEDS: APIXABAN 5 MG TABLET 10 MG PO (08:34)
[2022-10-18] MEDS: INSULIN LISPRO 100 UNIT/ML 3ML VIAL SUBCUT ×2 (08:36→12:13)
[2022-10-18] MEDS: COLCHICINE 0.6 MG TABLET PO (08:38)
[2022-10-18 09:01] VITALS: BP 98/61; PULSE 98; RESP 17; TEMP 36.8; O2SAT 95
--- NOTE | 2022-10-18 09:02 | CM.DPC ---
Addendum entered by Valery Torres R.N. 10/18/22 12:25: Patient has discharge orders for [facility]. Confirmed pick out hand time of 1515. Faxed over signed med sheets, prescriptions, DC Summary, and PASSR. Gave nurse, Brady, report number, and white board was updated at main nurses station. Confirmed that patient has not been vaccinated for COVID, gave update to April. Copy of IMM will be sent with patient. Original Note: DCP Cont: Patient could discharge today. Called [facility], did speak to Sandi Hernández. Confirmed that auth is still good, as is for 48 hours. If patient did not go today, would need updated P.T. notes. Spoke to Amber at [facility], confirmed acceptance for today. head up operator after 1500, called her back to confirm. Completed PASSR, patient will need to go with his medication pens. P: Patient can go to [facility] today, will confirm times, do not yet have discharge order. Valery Torres RN/Process Controls Technician
[2022-10-18 09:04] VITALS: BP 98/61; PULSE 98
[2022-10-18 10:00] VITALS: O2SAT 95
== END 2022-10-18 15:30 | DRG 175 ==
LOC: ED 22:02 → AC 10-13 00:45
PROVIDERS: Family Medicine; Student in an Organized Health Care Education/Training Program; Admitting Provider Internal Medicine; Emergency Provider Emergency Medicine; PCP Physician Assistant Medical; Referring Provider Emergency Medicine; Visit Provider Internal Medicine
DX: I26.99 Other pulmonary embolism without acute cor pulmonale (principal); J96.01 Acute respiratory failure with hypoxia; U07.1 COVID-19; I25.10 Atherosclerotic heart disease of native coronary artery without angina pectoris; M10.072 Idiopathic gout, left ankle and foot; U09.9 Post COVID-19 condition, unspecified; I95.9 Hypotension, unspecified; E11.65 Type 2 diabetes mellitus with hyperglycemia; E78.5 Hyperlipidemia, unspecified; I10 Essential (primary) hypertension; Z79.85 Long-term (current) use of injectable non-insulin antidiabetic drugs; Z79.84 Long term (current) use of oral hypoglycemic drugs; Z95.1 Presence of aortocoronary bypass graft
CPT/HCPCS: 0241U; 36415; 36600; 71045; 71275; 80048; 80053; 80076; 82550; 82805; 82962; 83036; 83605; 83735; 83880; 84145; 84484; 85025; 85379; 85610; 85730; 86140; 87040; 93005; 94760; 94762; 96372; 97116; 97163; 97530; 99284; 99285; C8929; J1650; J1815; J1940; J1956; Q9957; Q9967

== ENCOUNTER 2023-01-07 14:21 | Emergency (ER) | payer OTHER, SELFPAY ==
[2022-10-13 01:48] VITALS: BMI 30.4
[2023-01-07 14:42] VITALS: BP 146/100; PULSE 98; RESP 15; TEMP 35.7; O2SAT 96; BMI 33.2
[2023-01-07 15:03] LABS: Add Manual Diff / Slide Review NO; Basophils Absolute Auto 0 /uL (0-100); Basophils Percent Auto 0.3 % (0-2); Eosinophils Absolute Auto 200 /uL (0-450); Eosinophils Percent Auto 2.9 % (2-4); Hematocrit 37.9 % (41-53); Hemoglobin 12.9 g/dL (13.5-17.5); Lymphocytes Absolute Auto 2000 /uL (1100-4500); Lymphocytes Percent Auto 24.8 % (25-40); Mean Corpuscular HGB Conc 34.1 % (30-36); Mean Corpuscular Hemoglobin 30.5 PG (26-34); Mean Corpuscular Volume 89.2 fL (80-100); Monocytes Absolute Auto 700 /uL (0-900); Monocytes Percent Auto 8.7 % (3-14); Neutrophils Absolute Auto 5100 /uL (1500-7000); Neutrophils Percent Auto 63.3 % (50-75); Platelet Count 243 X10^3/uL (150-400); Red Blood Cell Count 4.25 X10^6/uL (4.5-5.9); Red Cell Distribution Width 13.4 % (11.6-14.8); White Blood Cell Count 8.1 X10^3/uL (4.5-11.0)
[2023-01-07 15:10] LABS: HEMOLYSIS < 15 (0-50)
[2023-01-07 15:15] LABS: Alanine Aminotransferase 22 IU/L (<50); Albumin 4.2 g/dL (3.5-5.0); Albumin Globulin Ratio 1.1 (1.0-2.8); Alkaline Phosphatase 114 U/L (38-126); Aspartate Aminotransferase 24 IU/L (17-59); BUN Creatinine Ratio 28.6 (6-22); Bilirubin Total 0.3 mg/dL (0.2-1.3); Blood Urea Nitrogen 22 mg/dL (9-20); Calcium 9.3 mg/dL (8.4-10.2); Carbon Dioxide 25 mmol/L (22-32); Chloride 99 mmol/L (98-107); Estimated Glomerular Filt Rate > 60 mL/min (>60); Globulin 3.8 g/dL (1.7-4.1); Glucose 343 mg/dL (80-110); Sodium 134 mmol/L (137-145)
[2023-01-07 15:44] LABS: Ketones (Beta-Hydroxybutyrate) 0.49 mmol/L (<0.27)
[2023-01-07 15:51] VITALS: BP 113/63; RESP 17; O2SAT 94
--- NOTE | 2023-01-07 15:51 | ED.GENADULT ---
HPI - General Adult General Chief complaint: Diabetic Problem Stated complaint: sent by high blood sugars Time Seen by Provider: 01/07/23 15:51 Source: patient Mode of arrival: Ambulatory Limitations: no limitations History of Present Illness HPI narrative: This is a 77-year-old male with history of blood clots following COVID on Pradaxa, BPH, bfa-vtmpwnl-szvykqtaw diabetes. Patient states that since he was discharged in October with COVID he has had elevated blood sugars typically 300 range occasionally 400s he had 1 500 in the last week he was in the 450s this morning. 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 He has been on this for about 6-8 months. He is on Pradaxa and Flomax as his only other medications he has not been on insulin. Patient denies any other new symptoms no headaches, no fevers or chills, no chest pain or new shortness of breath, no nausea no vomiting, he was having urinary issues which improved after 2 weeks of antibiotics for prostatitis, has been continuing Flomax see Neurology and having improvement in his urination. He denies rash or skin changes. No diarrhea, constipation or other issues. No new swelling in extremities. Patient was supposed to meet with the diabetic coordinator today to do education but they told him to come here was his sugars have been high. Patient does note his diet has not been good since his discharge in October, he had been on a strict diet and had an A1c in the 6.7 range with glucoses typically in the 150 range. Patient is reluctant to be on Lantus or insulin his prior was on it and had difficulties with her diabetes. He follows with LAURO gordon as his primary care. He denies tobacco, occasional alcohol, no illicit. Related Data Home Medications Medication Instructions Recorded Confirmed metoprolol succinate 25 mg 25 mg PO DAILY 11/17/18 10/13/22 tablet,extended release 24 hr omeprazole 20 mg capsule,delayed 20 mg PO DAILY 11/17/18 10/13/22 release simvastatin 40 mg tablet 40 mg PO QPM 11/17/18 10/13/22 travoprost 0.004 % eye drops 1 drp EYE-BOTH DAILY 11/17/18 10/13/22 Lactobacillus acidophilus 100 mg 100 mg PO DAILY 10/01/22 10/13/22 (1 billion cell) capsule acetaminophen 325 mg tablet 650 mg PO BEDTIME 10/01/22 10/13/22 alpha lipoic acid 100 mg capsule 100 mg PO DAILY 10/01/22 10/13/22 ascorbic acid (vitamin C) 1,000 mg 1,000 mg PO DAILY 10/01/22 10/13/22 tablet (Vitamin C) aspirin 325 mg tablet 325 mg PO DAILY 10/01/22 10/13/22 bisacodyl 5 mg tablet,delayed 5 mg PO Q OTHER DAY 10/01/22 10/13/22 release cetirizine 10 mg tablet 10 mg PO DAILY 10/01/22 10/13/22 cholecalciferol (vitamin D3) 125 500 mcg PO QWEEK 10/01/22 10/13/22 mcg (5,000 unit) tablet (Vitamin D3) coenzyme Q10 300 mg capsule 300 mg PO DAILY 10/01/22 10/13/22 empagliflozin 25 mg tablet 25 mg PO DAILY 10/01/22 10/13/22 (Jardiance) exenatide microspheres 2 mg/0.65 2 mg SUBCUT QWEEK 10/01/22 10/13/22 mL subcutaneous pen injector flaxseed oil 1,300 mg-omega 3,6,9 1 cap PO DAILY 10/01/22 10/13/22 845 mg-117 mg-117 mg capsule pvwdhuirfid-oyoyiphky-cmr C-Mn 500 1 cap PO DAILY 10/01/22 10/13/22 mg-400 mg capsule ibuprofen 600 mg tablet 600 mg PO TID 10/01/22 10/13/22 lisinopril 10 mg tablet 10 mg PO DAILY 10/01/22 10/13/22 magnesium 200 mg tablet 200 mg PO DAILY 10/01/22 10/13/22 multivitamin 1 tab PO DAILY 10/01/22 10/13/22 omega-3 fatty acids-fish oil 340 1 cap PO DAILY 10/01/22 10/13/22 mg-1,000 mg capsule semaglutide 1 mg/dose (4 mg/3 mL) 1 mg SUBCUT QWEEK 10/01/22 10/13/22 subcutaneous pen injector (Ozempic) tadalafil 5 mg tablet 5 mg PO DAILY 10/01/22 10/13/22 vitamin B complex (B 1 tab PO DAILY 10/01/22 10/13/22 Complex-Vitamin B12 tablet) Previous Rx's Medication Instructions Recorded apixaban 5 mg tablet (Eliquis) 10 mg PO BID #60 tabs 10/18/22 tramadol 50 mg tablet 50 mg PO QID PRN Pain, Moderate 10/18/22 (4-6) #60 tabs Allergies Allergy/AdvReac Type Severity Reaction Status Date / Time No Known Drug Allergies Allergy Verified 01/07/23 14:42 Review of Systems Review of Systems ROS Unobtainable: All systems reviewed & are unremarkable except as noted in HPI and below Patient History Medical History CAD (coronary artery disease) Coronary artery disease involving coronary bypass graft of [place] heart Diabetes mellitus History of non-insulin dependent diabetes mellitus Hypercholesterolemia Hypertension Kidney stone Social History household members: spouse Smoking Status: Never smoker Smoking Status: Never smoker alcohol intake frequency: holidays/special occasions only Substance Use Type: does not use Exam Narrative Exam Narrative: GENERAL: Alert and oriented x three, obese male in mild distress. HEENT: Head normocephalic, atraumatic, EOMI, pupils reactive, face symmetric, moist mucous membranes NECK: Supple, full range of motion CARDIOVASCULAR: Regular rate and rhythm without murmurs, rubs or gallops. RESPIRATORY: Breath sounds equal bilaterally, no wheezes rales or rhonchi. ABDOMEN: Soft, nontender. Normoactive bowel sounds all 4 quadrants. No guarding or rebound, rigidity, no mass : No CVA tenderness EXTREMITIES: Normal range of motion, no clubbing or edema. Neurovascularly intact NEUROLOGICAL: Cranial nerves II through XII grossly intact. Moving all extremities SKIN: Warm, dry, no petechiae, no rashes or lesions. Initial Vital Signs Initial Vital Signs: Vital Signs Temperature 96.3 F L 01/07/23 14:42 Pulse Rate 98 H 01/07/23 14:42 Respiratory Rate 15 01/07/23 14:42 Blood Pressure 146/100 H 01/07/23 14:42 Pulse Oximetry 96 01/07/23 14:42 Oxygen Delivery Method Room Air 01/07/23 14:42 Course Orders Ordered: ED Orders 01/07/23 14:54 Complete Blood Count AUTO DIFF Stat Comprehensive Metabolic Panel Stat Ketones (Beta-Hydroxybutyrate) Stat 01/07/23 14:55 Venous Blood Gas Stat 01/07/23 15:58 Urine Culture Stat Urine Microscopic Stat Discontinued Medications Sodium Chloride (Normal Saline 0.9%) 1,000 mls @ 1,000 mls/hr IV BOLUS ONE Stop: 01/07/23 16:53 Last Infusion: 01/07/23 17:00 Dose: 0 mls/hr Documented By: Infusion: 01/07/23 17:00 Dose: 0 mls/hr Documented By: Admin: 01/07/23 16:28 Dose: 1,000 mls/hr Documented By: MARIANELA Vital Signs Vital signs: Vital Signs - 8 hr 01/07/23 14:42 01/07/23 15:51 01/07/23 16:58 Temperature 96.3 F L Pulse Rate 98 H 86 Respiratory Rate 15 17 16 Blood Pressure 146/100 H 113/63 136/69 Pulse Oximetry 96 94 98 Oxygen Delivery Method Room Air Room Air Room Air Medical Decision Making Lab Data 01/07/23 14:54 01/07/23 14:54 Labs: Lab Results 01/07/23 01/07/23 01/07/23 Range/Units 14:54 14:54 14:55 WBC 8.1 (4.5-11.0) X10^3/uL RBC 4.25 L (4.5-5.9) X10^6/uL Hgb 12.9 L (13.5-17.5) g/dL Hct 37.9 L (41-53) % MCV 89.2 (80-100) fL MCH 30.5 (26-34) PG MCHC 34.1 (30-36) % RDW 13.4 (11.6-14.8) % Plt Count 243 (150-400) X10^3/uL Neut % (Auto) 63.3 (50-75) % Lymph % (Auto) 24.8 L (25-40) % [place] % (Auto) 8.7 (3-14) % Eos % (Auto) 2.9 (2-4) % Baso % (Auto) 0.3 (0-2) % Neut # (Auto) 5100 (7583-1859) /uL Lymph # (Auto) 2000 (3137-9133) /uL [place] # (Auto) 700 (0-900) /uL Eos # (Auto) 200 (0-450) /uL Baso # (Auto) 0 (0-100) /uL VBG pH 7.43 (7.33-7.43) VBG pCO2 34.7 L (45-50) mmHg VBG pO2 60 H (35-45) mmHg VBG HCO3 23 L (24-28) mmol/L VBG Total CO2 24 (24-29) mmol/L VBG O2 Saturation 92 H (70-75) % VBG Base Excess -1.0 L (0-4) mmol/L FiO2 21 Sodium 134 L (137-145) mmol/L Potassium 4.0 (3.4-5.1) mmol/L Chloride 99 (98-107) mmol/L Carbon Dioxide 25 (22-32) mmol/L BUN 22 H (9-20) mg/dL Creatinine 0.77 (0.66-1.25) mg/dL Estimated GFR > 60 (>60) mL/min BUN/Creatinine Ratio 28.6 H (6-22) Glucose 343 H (80-110) mg/dL Calcium 9.3 (8.4-10.2) mg/dL Total Bilirubin 0.3 (0.2-1.3) mg/dL AST 24 (17-59) IU/L ALT 22 (<50) IU/L Alkaline Phosphatase 114 (38-126) U/L Total Protein 8.0 (6.3-8.2) g/dL Albumin 4.2 (3.5-5.0) g/dL Globulin 3.8 (1.7-4.1) g/dL Albumin/Globulin Ratio 1.1 (1.0-2.8) Urine RBC (0-5/HPF) Urine WBC (0-5/HPF) Ur Squamous Epith Cells (0-5/HPF) Urine Bacteria (None) Ur Culture Indicated? Ketones 0.49 H (<0.27) mmol/L 01/07/23 Range/Units 15:58 WBC (4.5-11.0) X10^3/uL RBC (4.5-5.9) X10^6/uL Hgb (13.5-17.5) g/dL Hct (41-53) % MCV (80-100) fL MCH (26-34) PG MCHC (30-36) % RDW (11.6-14.8) % Plt Count (150-400) X10^3/uL Neut % (Auto) (50-75) % Lymph % (Auto) (25-40) % [place] % (Auto) (3-14) % Eos % (Auto) (2-4) % Baso % (Auto) (0-2) % Neut # (Auto) (2599-4593) /uL Lymph # (Auto) (3437-3192) /uL [place] # (Auto) (0-900) /uL Eos # (Auto) (0-450) /uL Baso # (Auto) (0-100) /uL VBG pH (7.33-7.43) VBG pCO2 (45-50) mmHg VBG pO2 (35-45) mmHg VBG HCO3 (24-28) mmol/L VBG Total CO2 (24-29) mmol/L VBG O2 Saturation (70-75) % VBG Base Excess (0-4) mmol/L FiO2 Sodium (137-145) mmol/L Potassium (3.4-5.1) mmol/L Chloride (98-107) mmol/L Carbon Dioxide (22-32) mmol/L BUN (9-20) mg/dL Creatinine (0.66-1.25) mg/dL Estimated GFR (>60) mL/min BUN/Creatinine Ratio (6-22) Glucose (80-110) mg/dL Calcium (8.4-10.2) mg/dL Total Bilirubin (0.2-1.3) mg/dL AST (17-59) IU/L ALT (<50) IU/L Alkaline Phosphatase (38-126) U/L Total Protein (6.3-8.2) g/dL Albumin (3.5-5.0) g/dL Globulin (1.7-4.1) g/dL Albumin/Globulin Ratio (1.0-2.8) Urine RBC None seen (0-5/HPF) Urine WBC 5-10/hpf H (0-5/HPF) Ur Squamous Epith Cells None seen (0-5/HPF) Urine Bacteria None seen (None) Ur Culture Indicated? Specimen cultured Ketones (<0.27) mmol/L Point of Care Testing Glucose POC 303 Urine Dip Bedside Urine Glucose 1000 mg/dl Bedside Urine Bilirubin - Negative Bedside Urine Ketone +/- 5 Urine Specific [place] 1.015 Bedside Urine Occult Blood - Negative Bedside Urine pH 6.0 Bedside Urine Protein - Negative Bedside Urine Urobilinogen - Negative Bedside Urine Nitrite - Negative Bedside Urine Leukocytes - Negative Esterase Point of care testing: Point of Care Testing Glucose POC 303 Urine Dip Bedside Urine Glucose 1000 mg/dl Bedside Urine Bilirubin - Negative Bedside Urine Ketone +/- 5 Urine Specific [place] 1.015 Bedside Urine Occult Blood - Negative Bedside Urine pH 6.0 Bedside Urine Protein - Negative Bedside Urine Urobilinogen - Negative Bedside Urine Nitrite - Negative Bedside Urine Leukocytes - Negative Esterase MDM Narrative Medical decision making narrative: This is a 77-year-old male with known diabetes who has been off his metformin for 4 months, off his Jardiance for a week he is still taking his Ozempic and has had persistent hyperglycemia for 4 months since he was discharged from the hospital. Patient states that he has not been following his usual diet that does tend to alter his glucose he has been elevated in the 3-400 range for about 4 months and came today because he was told to come because his sugar made it to 500 once last week and is in the 400 range home today. Patient notes that he was just not feeling well after he had COVID was having difficulty following his diet, and then had his recent changes to his medications. He is otherwise asymptomatic discussed with patient he has hyperglycemia some ketosis but anion gap is 10 blood glucose is 343 here at 3:39 a.m. with point of care check, VBG does not show any acidosis. Does not have any electrolyte abnormalities. He does not have any changes making me suspicious that he has not infection or other cause of his hyperglycemia. He discussed that he would like to get back to his diet he was better controlled with an A1c of 6 range at that time but was on his Ozempic, Jardiance and metformin. Patient and I discussed can potentially restart his metformin this is renal functions improved, hold off on restarting his Jardiance with follow up with his primary care to see if this is improving his numbers. We discussed starting insulin but he is reluctant. I did reach out to his primary care provider LAURO Gordon to discuss next step and plan of care. Patient is felt stable for discharge she has chronic diabetes that needs better control but does not require hospitalization today. I spoke with patient's PA Evan is happy to see the patient agrees with current plan she has not appointment set up in 2 weeks they will reach out to adjust medications by phone and then follow-up. Discharge Plan Departure Patient Disposition: Home Clinical Impression: Hyperglycemia Activity Restrictions/Additional Instructions: Follow-up with your physician to have your A1c rechecked, review your glucose levels over the next week to offer restarting your medication and your prior diet. They will likely need to recheck your creatinine if you are restarting your metformin. You may need additional medication changes and/or insulin as you used to be on 2 oral medications pleasure Ozempic in the past. Restart your metformin. Please return for new or worsening changes, lightheadedness or passing out, new chest pain or shortness of breath, nausea, vomiting, new swelling in her extremities, difficulty with urination, urinating large amounts regularly. Prescriptions: No Action travoprost 0.004 % Drops 1 drp EYE-BOTH DAILY simvastatin 40 mg Tablet 40 mg PO QPM omeprazole 20 mg Capsule,Delayed Release(Dr/Ec) 20 mg PO DAILY metoprolol succinate 25 mg Tablet Extended Release 24 Hr 25 mg PO DAILY acetaminophen 325 mg Tablet 650 mg PO BEDTIME bisacodyl 5 mg Tablet,Delayed Release (Dr/Ec) 5 mg PO Q OTHER DAY magnesium 200 mg Tablet 200 mg PO DAILY Lactobacillus acidophilus 100 mg (1 billion cell) Capsule 100 mg PO DAILY Patient Comments: Has not taken in a while, does not remember the last time he took it exenatide microspheres 2 mg/0.65 mL Pen Injector 2 mg SUBCUT QWEEK multivitamin Tablet 1 tab PO DAILY ascorbic acid (vitamin C) [Vitamin C] 1,000 mg Tablet 1,000 mg PO DAILY cetirizine 10 mg Tablet 10 mg PO DAILY aspirin 325 mg Tablet 325 mg PO DAILY lisinopril 10 mg Tablet 10 mg PO DAILY vitamin B complex [B Complex-Vitamin B12] Tablet 1 tab PO DAILY ibuprofen 600 mg Tablet 600 mg PO TID kbhkenigwvw-tcjhbqwry-zes C-Mn 500-400 mg Capsule 1 cap PO DAILY coenzyme Q10 300 mg Capsule 300 mg PO DAILY tadalafil 5 mg Tablet 5 mg PO DAILY omega-3 fatty acids-fish oil 340-1,000 mg Capsule 1 cap PO DAILY alpha lipoic acid 100 mg Capsule 100 mg PO DAILY Patient Comments: Has not taken in a while, does not remember the last time he took it cholecalciferol (vitamin D3) [Vitamin D3] 125 mcg (5,000 unit) Tablet 500 mcg PO QWEEK flaxseed oil-omega 3,6,9 1,300 mg-845 mg -117 mg-117 mg Capsule 1 cap PO DAILY Jardiance 25 mg Tablet 25 mg PO DAILY Ozempic 1 mg/dose (4 mg/3 mL) Pen Injector 1 mg SUBCUT QWEEK Eliquis 5 mg Tablet 10 mg PO BID Qty: 60 0RF tramadol 50 mg Tablet 50 mg PO QID PRN (Reason: Pain, Moderate (4-6)) Qty: 60 0RF Referrals: Teodora Gordon PA-C [Primary Care Provider] - Stand Alone Forms: Patient Portal/API
[2023-01-07 16:16] LABS: RBC Urine None Seen (0-5/HPF)
[2023-01-07 16:17] LABS: Bacteria Urine None Seen; Culture Indicated Urine Specimen Cultured; Squamous Epithelial Cell Urine None Seen (0-5/HPF); WBC Urine 5-10/HPF (0-5/HPF)
[2023-01-07] MEDS: SODIUM CHLORIDE 0.9% 1,000 ML 1000 ML IV (16:28)
[2023-01-07 16:57] LABS: PCO2 VBG 34.7 mmHg (45-50); PO2 VBG 60 mmHg (35-45); pH VBG 7.43 (7.33-7.43)
[2023-01-07 16:58] VITALS: BP 136/69; PULSE 86; RESP 16; O2SAT 98
[2023-01-07 16:58] LABS: Fractionated Inspired Oxygen 21; HCO3 VBG 23 mmol/L (24-28); Oxygen Saturation VBG 92 % (70-75); Total CO2 VBG 24 mmol/L (24-29)
== END 2023-01-07 17:26 | disposition home or self-care (01) ==
PROVIDERS: Emergency Provider Emergency Medicine; Family Provider Physician Assistant Medical; PCP Physician Assistant Medical
DX: E11.65 Type 2 diabetes mellitus with hyperglycemia (principal); Z79.899 Other long term (current) drug therapy
CPT/HCPCS: 36415; 80053; 81003; 81015; 82009; 82805; 82962; 85025; 87077; 87086; 87147; 87186; 99284

== ENCOUNTER 2023-01-12 12:26 | Emergency (ER) | payer OTHER, SELFPAY ==
[2022-10-13 01:48] VITALS: BMI 30.4
[2023-01-12] VITALS (10 sets, daily range): BP systolic 107–149; BP diastolic 65–77; PULSE 92–106; RESP 10–26; TEMP 36.9; O2SAT 90–96; BMI 33.2
--- NOTE | 2023-01-12 12:40 | DI.RAD.S_ITS ---
PROCEDURE: XR CHEST 1V INDICATIONS: Shortness of breath TECHNIQUE: One view of the chest was acquired. COMPARISON: [facility], CR, XR CHEST 1V, 10/12/2022, 20:45. [facility], CR, XR CHEST 1V, 09/30/2022, 18:00. FINDINGS: Surgical changes and devices: Sternotomy. Lungs and pleura: Patchy, right middle lung zone opacity. Mediastinum: Large hiatal hernia. Calcified hilar nodes. Bones and chest wall: No suspicious bony lesions. Overlying soft tissues appear unremarkable. IMPRESSION: Trace, patchy right middle lung zone opacity could represent atelectasis, focal scar or infection. Dictated by: Boy Rock M.D. on 01/12/2023 at 13:01 Approved by: Boy Rock M.D. on 01/12/2023 at 13:02
[2023-01-12 13:01] LABS: Add Manual Diff / Slide Review NO; Basophils Absolute Auto 100 /uL (0-100); Eosinophils Absolute Auto 100 /uL (0-450); Eosinophils Percent Auto 1.3 % (2-4); Hemoglobin 13.1 g/dL (13.5-17.5); Lymphocytes Absolute Auto 2000 /uL (1100-4500); Lymphocytes Percent Auto 20.2 % (25-40); Mean Corpuscular HGB Conc 34.6 % (30-36); Mean Corpuscular Hemoglobin 30.5 PG (26-34); Mean Corpuscular Volume 88.3 fL (80-100); Monocytes Absolute Auto 1000 /uL (0-900); Monocytes Percent Auto 9.4 % (3-14); Neutrophils Absolute Auto 6900 /uL (1500-7000); Neutrophils Percent Auto 68.1 % (50-75); Platelet Count 287 X10^3/uL (150-400); Red Cell Distribution Width 13.4 % (11.6-14.8); White Blood Cell Count 10.1 X10^3/uL (4.5-11.0)
[2023-01-12 13:20] LABS: COVID19 -Nasal RAPID Negative (Negative)
[2023-01-12 13:22] LABS: INR 1.4 (0.9-1.3); Prothrombin Time 16.6 SECONDS (10.1-12.7)
[2023-01-12 13:39] LABS: Alanine Aminotransferase 18 IU/L (<50); Albumin 4.2 g/dL (3.5-5.0); Albumin Globulin Ratio 1.1 (1.0-2.8); Alkaline Phosphatase 106 U/L (38-126); Aspartate Aminotransferase 23 IU/L (17-59); Bilirubin Total 0.6 mg/dL (0.2-1.3); Blood Urea Nitrogen 25 mg/dL (9-20); Calcium 9.9 mg/dL (8.4-10.2); Carbon Dioxide 19 mmol/L (22-32); Chloride 100 mmol/L (98-107); Estimated Glomerular Filt Rate > 60 mL/min (>60); Glucose 229 mg/dL (80-110); HEMOLYSIS < 15 (0-50); Sodium 135 mmol/L (137-145); Total Protein 8.2 g/dL (6.3-8.2)
--- NOTE | 2023-01-12 13:39 | DI.CT.S_ITS ---
PROCEDURE: CT ANGIO CHEST PE PROTOCOL INDICATIONS: known PE with worsening SOB TECHNIQUE: After the administration of intravenous contrast, 2 mm thick sections acquired from the pulmonary apices to the posterior costophrenic angles. 3-dimensional maximum intensity projection (MIP) coronal and sagittal reformats were then acquired through the thorax. For radiation dose reduction, the following was used: automated exposure control, adjustment of mA and/or kV according to patient size. COMPARISON: [facility], CT, CT CHEST WITHOUT CONTRAST, 08/05/2022, 11:40. [facility], CR, XR CHEST 1V, 01/12/2023, 12:37. [facility], CR, XR CHEST 1V, 10/12/2022, 20:45. [facility], CT, CT ANGIO CHEST PE PROTOCOL, 09/30/2022, 19:06. [facility], CT, CT ANGIO CHEST PE PROTOCOL, 10/12/2022, 22:03. FINDINGS: Image quality: Excellent. Pulmonary arteries: Pulmonary arteries are normal in size, and demonstrate no intraluminal filling defects to suggest central pulmonary embolism. Intraluminal filling defects in the right main, right lower lobe and right middle lobe pulmonary arteries seen on the last pulmonary angiogram are not longer present. Lungs and pleura: There is a triangular shaped subpleural density in the post right upper compatible with pulmonary infarct. There are patchy airspace opacity in the left upper lobe and both lower lobes. Subpleural septal thickening. Bronchiectasis are present in lower lobes bilaterally. 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 No pleural effusions or pneumothorax. Central and peripheral airways are patent. Mediastinum: Heart size is normal, without pericardial effusion. CABG. Prominent coronary artery calcification consistent with atherosclerosis. There are borderline sized mediastinal or hilar lymph nodes measuring up to 1.3 cm in short axis. Thoracic aorta is normal in caliber and enhancement. Esophagus is normal in caliber. There is a large hiatal hernia. Bones and chest wall: Sternotomy. No suspicious bony lesions. Ribs and thoracic spine appear intact throughout. Thyroid gland is unremarkable. No axillary or supraclavicular adenopathy. Abdomen: Visualized upper abdominal solid organs appear normal in the early arterial phase of enhancement. IMPRESSION: 1. No acute pulmonary embolism. Previously seen acute PE involving right lower lobe and right middle lobe are no longer visualized. 2. There is a triangular shaped hypodensity in the posterior right upper lobe, suspicious for pulmonary infarct. 3. Abnormal appearance of lungs bilaterally with patchy airspace opacities superimposed on bilateral septal thickening andbBronchiectasis in both lower lobes, most likely infectious or inflammatory etiology. Recommend clinical correlation and imaging follow-up. 4. Mild enlarged mediastinal and hilar lymph nodes, most likely reactive. 5. Sternotomy and CABG. 6. Large hiatal hernia. Dictated by: Franklin Gold M.D. on 01/12/2023 at 14:16 Approved by: Franklin Gold M.D. on 01/12/2023 at 14:31
--- NOTE | 2023-01-12 13:39 | ED.GENADULT ---
HPI - General Adult General Chief complaint: Shortness of Breath/Dyspnea Stated complaint: SOB Time Seen by Provider: 01/12/23 12:50 Source: patient and EMS Mode of arrival: EMS Limitations: no limitations History of Present Illness HPI narrative: Patient is a 77-year-old male who the end of last year was diagnosed with a pulmonary embolism. Is on anticoagulation. He is being followed by pulmonology. He is here for the emergency department with sinus congestion, discharge from both of his eyes, problems breathing. He does use oxygen at night with his CPAP but otherwise no oxygen requirement. He denies any chest pain. No abdominal pain. He is not tried anything for his symptoms. He has been taking all his medications as directed. Related Data Home Medications Medication Instructions Recorded Confirmed metoprolol succinate 25 mg 25 mg PO DAILY 11/17/18 10/13/22 tablet,extended release 24 hr omeprazole 20 mg capsule,delayed 20 mg PO DAILY 11/17/18 10/13/22 release simvastatin 40 mg tablet 40 mg PO QPM 11/17/18 10/13/22 travoprost 0.004 % eye drops 1 drp EYE-BOTH DAILY 11/17/18 10/13/22 Lactobacillus acidophilus 100 mg 100 mg PO DAILY 10/01/22 10/13/22 (1 billion cell) capsule acetaminophen 325 mg tablet 650 mg PO BEDTIME 10/01/22 10/13/22 alpha lipoic acid 100 mg capsule 100 mg PO DAILY 10/01/22 10/13/22 ascorbic acid (vitamin C) 1,000 mg 1,000 mg PO DAILY 10/01/22 10/13/22 tablet (Vitamin C) aspirin 325 mg tablet 325 mg PO DAILY 10/01/22 10/13/22 bisacodyl 5 mg tablet,delayed 5 mg PO Q OTHER DAY 10/01/22 10/13/22 release cetirizine 10 mg tablet 10 mg PO DAILY 10/01/22 10/13/22 cholecalciferol (vitamin D3) 125 500 mcg PO QWEEK 10/01/22 10/13/22 mcg (5,000 unit) tablet (Vitamin D3) coenzyme Q10 300 mg capsule 300 mg PO DAILY 10/01/22 10/13/22 empagliflozin 25 mg tablet 25 mg PO DAILY 10/01/22 10/13/22 (Jardiance) exenatide microspheres 2 mg/0.65 2 mg SUBCUT QWEEK 10/01/22 10/13/22 mL subcutaneous pen injector flaxseed oil 1,300 mg-omega 3,6,9 1 cap PO DAILY 10/01/22 10/13/22 845 mg-117 mg-117 mg capsule [id number] C-Mn 500 1 cap PO DAILY 10/01/22 10/13/22 mg-400 mg capsule ibuprofen 600 mg tablet 600 mg PO TID 10/01/22 10/13/22 lisinopril 10 mg tablet 10 mg PO DAILY 10/01/22 10/13/22 magnesium 200 mg tablet 200 mg PO DAILY 10/01/22 10/13/22 multivitamin 1 tab PO DAILY 10/01/22 10/13/22 omega-3 fatty acids-fish oil 340 1 cap PO DAILY 10/01/22 10/13/22 mg-1,000 mg capsule semaglutide 1 mg/dose (4 mg/3 mL) 1 mg SUBCUT QWEEK 10/01/22 10/13/22 subcutaneous pen injector (Ozempic) tadalafil 5 mg tablet 5 mg PO DAILY 10/01/22 10/13/22 vitamin B complex (B 1 tab PO DAILY 10/01/22 10/13/22 Complex-Vitamin B12 tablet) Previous Rx's Medication Instructions Recorded apixaban 5 mg tablet (Eliquis) 10 mg PO BID #60 tabs 10/18/22 tramadol 50 mg tablet 50 mg PO QID PRN Pain, Moderate 10/18/22 (4-6) #60 tabs erythromycin 5 mg/gram (0.5 %) eye 0.5 inch EYE-BOTH TID #3.5 grams 01/12/23 ointment Allergies Allergy/AdvReac Type Severity Reaction Status Date / Time No Known Drug Allergies Allergy Verified 01/07/23 14:42 Review of Systems Constitutional Constitutional: Reports system reviewed and no additional complaints, except as documented Eyes Eyes: Reports system reviewed and no additional complaints, except as documented ENT Ears, Nose, Mouth, and Throat: Reports system reviewed and no additional complaints, except as documented Respiratory Respiratory: Reports system reviewed and no additional complaints, except as documented Integumentary/Breasts Skin/Breast: Reports system reviewed and no additional complaints, except as documented Hematologic/Lymphatic On Anticoagulants: Yes Patient History Medical History CAD (coronary artery disease) Coronary artery disease involving coronary bypass graft of alutiiq heart Diabetes mellitus History of non-insulin dependent diabetes mellitus Hypercholesterolemia Hypertension Kidney stone Social History household members: spouse Smoking Status: Never smoker Smoking Status: Never smoker alcohol intake frequency: holidays/special occasions only Substance Use Type: does not use Exam Initial Vital Signs Initial Vital Signs: Vital Signs Temperature 98.4 F 01/12/23 12:34 Pulse Rate 106 H 01/12/23 12:34 Respiratory Rate 18 01/12/23 12:34 Blood Pressure 125/77 01/12/23 12:34 Pulse Oximetry 95 01/12/23 12:34 Oxygen Delivery Method Room Air 01/12/23 12:34 Const General: cooperative and comfortable HENMT Head: normal to inspection and normocephalic Eyes Other: Patient with white discharge from bilateral eyes with redness of the conjunctiva. Resp Effort & Inspection: normal respiratory effort Auscultation: clear to auscultation bilaterally Cardio Rate: regular rate Rhythm: regular rhythm Skin General: no rashes or lesions noted Neuro General: patient alert, patient awake, patient oriented x3 and moves all extremities Extrem General: No edema Course Orders Ordered: ED Orders 01/12/23 12:40 XR chest 1V Stat Complete Blood Count AUTO DIFF Stat Comprehensive Metabolic Panel Stat Lactate (Lactic Acid) Stat NT-proBNP (BNP-Adult 18+) Stat Prothrombin Time INR Stat Troponin I Stat EKG-12 Lead Stat Measure peak expiratory flow ONCE RT Consult Eval and Treat NOW 01/12/23 12:43 COVID19 -Nasal RAPID Stat 01/12/23 13:39 CT angio chest PE protocol Stat 01/12/23 14:04 Respiratory Panel (Film Array) Stat Vital Signs Vital signs: Vital Signs - 8 hr 01/12/23 12:34 01/12/23 12:46 01/12/23 13:00 Temperature 98.4 F Pulse Rate 106 H 104 H Respiratory Rate 18 Blood Pressure 125/77 107/67 Pulse Oximetry 95 95 Oxygen Delivery Method Room Air 01/12/23 13:00 01/12/23 13:30 01/12/23 13:30 Temperature Pulse Rate 101 H 101 H Respiratory Rate 14 25 H Blood Pressure 113/72 Pulse Oximetry 90 L 93 Oxygen Delivery Method 01/12/23 14:00 01/12/23 14:22 01/12/23 14:22 Temperature Pulse Rate 104 H 97 H Respiratory Rate 26 H 10 L Blood Pressure 149/76 H Pulse Oximetry 96 96 Oxygen Delivery Method 01/12/23 14:30 01/12/23 14:31 01/12/23 14:31 Temperature Pulse Rate 92 H 93 H Respiratory Rate 21 17 Blood Pressure 124/65 Pulse Oximetry Oxygen Delivery Method 01/12/23 15:00 01/12/23 15:00 01/12/23 15:30 Temperature Pulse Rate 95 H Respiratory Rate 15 Blood Pressure 136/69 123/69 Pulse Oximetry 95 Oxygen Delivery Method 01/12/23 15:30 Temperature Pulse Rate 97 H Respiratory Rate 13 Blood Pressure Pulse Oximetry 95 Oxygen Delivery Method Room Air Medical Decision Making Medical Records Medical records reviewed: Yes I reviewed the patient's medical records. Lab Data Lab results reviewed: Yes I reviewed the patient's lab results. 01/12/23 12:40 01/12/23 12:40 Labs: Lab Results 01/12/23 01/12/23 01/12/23 Range/Units 12:40 12:40 12:40 WBC 10.1 (4.5-11.0) X10^3/uL RBC 4.30 L (4.5-5.9) X10^6/uL Hgb 13.1 L (13.5-17.5) g/dL Hct 38.0 L (41-53) % MCV 88.3 (80-100) fL MCH 30.5 (26-34) PG MCHC 34.6 (30-36) % RDW 13.4 (11.6-14.8) % Plt Count 287 (150-400) X10^3/uL Neut % (Auto) 68.1 (50-75) % Lymph % (Auto) 20.2 L (25-40) % Clark % (Auto) 9.4 (3-14) % Eos % (Auto) 1.3 L (2-4) % Baso % (Auto) 1.0 (0-2) % Neut # (Auto) 6900 (9787-8073) /uL Lymph # (Auto) 2000 (8727-6509) /uL Clark # (Auto) 1000 H (0-900) /uL Eos # (Auto) 100 (0-450) /uL Baso # (Auto) 100 (0-100) /uL PT 16.6 H (10.1-12.7) SECONDS INR 1.4 H (0.9-1.3) Sodium 135 L (137-145) mmol/L Potassium 4.0 (3.4-5.1) mmol/L Chloride 100 (98-107) mmol/L Carbon Dioxide 19 L (22-32) mmol/L BUN 25 H (9-20) mg/dL Creatinine 1.00 (0.66-1.25) mg/dL Estimated GFR > 60 (>60) mL/min BUN/Creatinine Ratio 25.0 H (6-22) Glucose 229 H D (80-110) mg/dL Lactate (0.7-2.1) mmol/L Calcium 9.9 (8.4-10.2) mg/dL Total Bilirubin 0.6 (0.2-1.3) mg/dL AST 23 (17-59) IU/L ALT 18 (<50) IU/L Alkaline Phosphatase 106 (38-126) U/L Troponin I < 0.012 (0.01-0.034) ng/mL NT-Pro-B Natriuret Pep 133 (<450) pg/mL Total Protein 8.2 (6.3-8.2) g/dL Albumin 4.2 (3.5-5.0) g/dL Globulin 4.0 (1.7-4.1) g/dL Albumin/Globulin Ratio 1.1 (1.0-2.8) Chlamy pneumoniae PCR (Not Detect) Adenovirus (PCR) (Not Detect) B. pertussis DNA (PCR) (Not Detecte) B.parapertussis DNA PCR (Not Detecte) Coronavirus OC43 (PCR) (Not Detect) Coronavirus HKU1 (PCR) (Not Detect) Coronavirus 229E (PCR) (Not Detect) SARS-CoV-2 (PCR) (Negative) Coronavirus NL63 (PCR) (Not Detect) Human Metapneumovir PCR (Not Detect) Influenza Type A (PCR) (Not Detect) Influenza Type B (PCR) (Not Detect) M. pneumoniae (PCR) (Not Detect) Parainfluenza 1 (PCR) (Not Detect) Parainfluenza 2 (PCR) (Not Detect) Parainfluenza 3 (PCR) (Not Detect) Parainfluenza 4 (PCR) (Not Detect) RSV (PCR) (Not Detect) Entero/Rhino (PCR) (Not Detect) 01/12/23 01/12/23 01/12/23 Range/Units 12:40 12:43 14:04 WBC (4.5-11.0) X10^3/uL RBC (4.5-5.9) X10^6/uL Hgb (13.5-17.5) g/dL Hct (41-53) % MCV (80-100) fL MCH (26-34) PG MCHC (30-36) % RDW (11.6-14.8) % Plt Count (150-400) X10^3/uL Neut % (Auto) (50-75) % Lymph % (Auto) (25-40) % Clark % (Auto) (3-14) % Eos % (Auto) (2-4) % Baso % (Auto) (0-2) % Neut # (Auto) (6993-4442) /uL Lymph # (Auto) (7118-6012) /uL Clark # (Auto) (0-900) /uL Eos # (Auto) (0-450) /uL Baso # (Auto) (0-100) /uL PT (10.1-12.7) SECONDS INR (0.9-1.3) Sodium (137-145) mmol/L Potassium (3.4-5.1) mmol/L Chloride (98-107) mmol/L Carbon Dioxide (22-32) mmol/L BUN (9-20) mg/dL Creatinine (0.66-1.25) mg/dL Estimated GFR (>60) mL/min BUN/Creatinine Ratio (6-22) Glucose (80-110) mg/dL Lactate 1.3 (0.7-2.1) mmol/L Calcium (8.4-10.2) mg/dL Total Bilirubin (0.2-1.3) mg/dL AST (17-59) IU/L ALT (<50) IU/L Alkaline Phosphatase (38-126) U/L Troponin I (0.01-0.034) ng/mL NT-Pro-B Natriuret Pep (<450) pg/mL Total Protein (6.3-8.2) g/dL Albumin (3.5-5.0) g/dL Globulin (1.7-4.1) g/dL Albumin/Globulin Ratio (1.0-2.8) Chlamy pneumoniae PCR Not detected (Not Detect) Adenovirus (PCR) Not detected (Not Detect) B. pertussis DNA (PCR) Not detected (Not Detecte) B.parapertussis DNA PCR Not detected (Not Detecte) Coronavirus OC43 (PCR) Not detected (Not Detect) Coronavirus HKU1 (PCR) Not detected (Not Detect) Coronavirus 229E (PCR) Not detected (Not Detect) SARS-CoV-2 (PCR) Negative Not detected (Negative) Coronavirus NL63 (PCR) Not detected (Not Detect) Human Metapneumovir PCR Not detected (Not Detect) Influenza Type A (PCR) Not detected (Not Detect) Influenza Type B (PCR) Not detected (Not Detect) M. pneumoniae (PCR) Not detected (Not Detect) Parainfluenza 1 (PCR) Not detected (Not Detect) Parainfluenza 2 (PCR) Not detected (Not Detect) Parainfluenza 3 (PCR) Not detected (Not Detect) Parainfluenza 4 (PCR) Not detected (Not Detect) RSV (PCR) Detected H (Not Detect) Entero/Rhino (PCR) Detected H (Not Detect) Urine Dip Bedside Urine Glucose 1000 mg/dl Bedside Urine Bilirubin - Negative Bedside Urine Ketone ++ 40 Urine Specific [place] 1.010 Bedside Urine Occult Blood - Negative Bedside Urine pH 6.0 Bedside Urine Protein - Negative Bedside Urine Urobilinogen - Negative Bedside Urine Nitrite - Negative Bedside Urine Leukocytes - Negative Esterase Point of care testing: Urine Dip Bedside Urine Glucose 1000 mg/dl Bedside Urine Bilirubin - Negative Bedside Urine Ketone ++ 40 Urine Specific [place] 1.010 Bedside Urine Occult Blood - Negative Bedside Urine pH 6.0 Bedside Urine Protein - Negative Bedside Urine Urobilinogen - Negative Bedside Urine Nitrite - Negative Bedside Urine Leukocytes - Negative Esterase Imaging Data Chest x-ray: Radiologist's Impression: PROCEDURE:? XR CHEST 1V ? INDICATIONS:? Shortness of breath ? TECHNIQUE:? One view of the chest was acquired.? ? COMPARISON:? [facility], CR, XR CHEST 1V, 10/12/2022, 20:45.? [facility], CR, XR CHEST 1V, 09/30/2022, 18:00. ? FINDINGS:? ? Surgical changes and devices:? Sternotomy.? ? Lungs and pleura:? Patchy, right middle lung zone opacity. ? Mediastinum:? Large hiatal hernia.? Calcified hilar nodes. ? Bones and chest wall:? No suspicious bony lesions.? Overlying soft tissues appear unremarkable.? ? IMPRESSION:? Trace, patchy right middle lung zone opacity could represent atelectasis, focal scar or infection.? CT scan - chest: Radiologist's Impression: PROCEDURE:? CT ANGIO CHEST PE PROTOCOL ? INDICATIONS:? known PE with worsening SOB ? TECHNIQUE:? After the administration of intravenous contrast, 2 mm thick sections acquired from the pulmonary apices to the posterior costophrenic angles.? 3-dimensional maximum intensity projection (MIP) coronal and sagittal reformats were then acquired through the thorax.? For radiation dose reduction, the following was used:? automated exposure control, adjustment of mA and/or kV according to patient size.? ? COMPARISON:? [facility], CT, CT CHEST WITHOUT CONTRAST, 08/05/2022, 11:40.? [facility], CR, XR CHEST 1V, 01/12/2023, 12:37.? [facility], CR, XR CHEST 1V, 10/12/2022, 20:45.? [facility], CT, CT ANGIO CHEST PE PROTOCOL, 09/30/2022, 19:06.? [facility], CT, CT ANGIO CHEST PE PROTOCOL, 10/12/2022, 22:03. ? FINDINGS:? Image quality:? Excellent.? ? Pulmonary arteries:? Pulmonary arteries are normal in size, and demonstrate no intraluminal filling defects to suggest central pulmonary embolism.? Intraluminal filling defects in the right main, right lower lobe and right middle lobe pulmonary arteries seen on the last pulmonary angiogram are not longer present. ? Lungs and pleura:? There is a triangular shaped subpleural density in the post right upper compatible with pulmonary infarct.? ? There are patchy airspace opacity in the left upper lobe and both lower lobes.? Subpleural septal thickening.? Bronchiectasis are present in lower lobes bilaterally.? ? 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 ? ? No pleural effusions or pneumothorax.? Central and peripheral airways are patent.? ? Mediastinum:? Heart size is normal, without pericardial effusion.? CABG.? Prominent coronary artery calcification consistent with atherosclerosis.? There are borderline sized mediastinal or hilar lymph nodes measuring up to 1.3 cm in short axis.? Thoracic aorta is normal in caliber and enhancement.? Esophagus is normal in caliber.? There is a large hiatal hernia.? ? Bones and chest wall:? Sternotomy.? No suspicious bony lesions.? Ribs and thoracic spine appear intact throughout.? Thyroid gland is unremarkable.? No axillary or supraclavicular adenopathy.? ? Abdomen:? Visualized upper abdominal solid organs appear normal in the early arterial phase of enhancement.? ? IMPRESSION:? ? 1. No acute pulmonary embolism.? Previously seen acute PE involving right lower lobe and right middle lobe are no longer visualized. 2. There is a triangular shaped hypodensity in the posterior right upper lobe, suspicious for pulmonary infarct. 3. Abnormal appearance of lungs bilaterally with patchy airspace opacities superimposed on bilateral septal thickening andbBronchiectasis in both lower lobes, most likely infectious or inflammatory etiology.? Recommend clinical correlation and imaging follow-up. 4. Mild enlarged mediastinal and hilar lymph nodes, most likely reactive. 5. Sternotomy and CABG. 6. Large hiatal hernia.? ? ECG Data Attestation: I personally reviewed and interpreted this ECG as follows: Interpretation: Sinus tachycardia Ventricular rate 107 Normal QRS Normal QTC Nonspecific ST T wave changes MDM Narrative Medical decision making narrative: Patient is nontoxic. Is positive for multiple respiratory viruses. CT scan of the chest shows no acute pulmonary emboli. His prior pulmonary emboli are gone. It does appear to be an area of infarction related to this. I did discuss this with the patient. We did discuss that he does not require any antibiotics however he is having bilateral purulent eye drainage with red conjunctiva. Was sent home with a prescription for erythromycin ointment more for the soothing nature of it. Patient ambulated here in the emergency department maintain his oxygen saturations greater than 95%. 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 He expressed understanding and agreement with plan. Discharge Plan Departure Patient Disposition: Home Clinical Impression: Viral respiratory infection, Conjunctivitis Instructions: DI for Viral Upper Respiratory Infection -- Adult Activity Restrictions/Additional Instructions: Continue to take all of your medications as directed. You can consider taking antihistamine such as Claritin or Zyrtec. You can purchase these [id number]. You can also try Flonase or Nasonex which are nasal sprays which may help with some of the sinus congestion. Use the antibiotic ointment as directed as well. Contact your primary doctor for follow-up. Return to the emergency department for any new or worsening symptoms. Prescriptions: New erythromycin 5 mg/gram (0.5 %) ointment 0.5 inch EYE-BOTH TID Qty: 3.5 2RF No Action travoprost 0.004 % Drops 1 drp EYE-BOTH DAILY simvastatin 40 mg Tablet 40 mg PO QPM omeprazole 20 mg Capsule,Delayed Release(Dr/Ec) 20 mg PO DAILY metoprolol succinate 25 mg Tablet Extended Release 24 Hr 25 mg PO DAILY acetaminophen 325 mg Tablet 650 mg PO BEDTIME bisacodyl 5 mg Tablet,Delayed Release (Dr/Ec) 5 mg PO Q OTHER DAY magnesium 200 mg Tablet 200 mg PO DAILY Lactobacillus acidophilus 100 mg (1 billion cell) Capsule 100 mg PO DAILY Patient Comments: Has not taken in a while, does not remember the last time he took it exenatide microspheres 2 mg/0.65 mL Pen Injector 2 mg SUBCUT QWEEK multivitamin Tablet 1 tab PO DAILY ascorbic acid (vitamin C) [Vitamin C] 1,000 mg Tablet 1,000 mg PO DAILY cetirizine 10 mg Tablet 10 mg PO DAILY aspirin 325 mg Tablet 325 mg PO DAILY lisinopril 10 mg Tablet 10 mg PO DAILY vitamin B complex [B Complex-Vitamin B12] Tablet 1 tab PO DAILY ibuprofen 600 mg Tablet 600 mg PO TID [id number] C-Mn 500-400 mg Capsule 1 cap PO DAILY coenzyme Q10 300 mg Capsule 300 mg PO DAILY tadalafil 5 mg Tablet 5 mg PO DAILY omega-3 fatty acids-fish oil 340-1,000 mg Capsule 1 cap PO DAILY alpha lipoic acid 100 mg Capsule 100 mg PO DAILY Patient Comments: Has not taken in a while, does not remember the last time he took it cholecalciferol (vitamin D3) [Vitamin D3] 125 mcg (5,000 unit) Tablet 500 mcg PO QWEEK flaxseed oil-omega 3,6,9 1,300 mg-845 mg -117 mg-117 mg Capsule 1 cap PO DAILY Jardiance 25 mg Tablet 25 mg PO DAILY Ozempic 1 mg/dose (4 mg/3 mL) Pen Injector 1 mg SUBCUT QWEEK Eliquis 5 mg Tablet 10 mg PO BID Qty: 60 0RF tramadol 50 mg Tablet 50 mg PO QID PRN (Reason: Pain, Moderate (4-6)) Qty: 60 0RF Referrals: Teodora Gordon PA-C [Primary Care Provider] - Stand Alone Forms: Patient Portal/API
[2023-01-12 13:41] LABS: Lactate (Lactic Acid) 1.3 mmol/L (0.7-2.1)
[2023-01-12 13:51] LABS: NT-proBNP (BNP-Adult 18+) 133 pg/mL (<450); Troponin I < 0.012 ng/mL (0.01-0.034)
[2023-01-12 15:35] LABS: Adenovirus Not Detected (Not Detect); B. parapertussis Not Detected (Not Detecte); Bordetella pertussis Not Detected (Not Detecte); Chlamydophila pneumoniae Not Detected (Not Detect); Coronavirus 229E Not Detected (Not Detect); Coronavirus HKU1 Not Detected (Not Detect); Coronavirus NL 63 Not Detected (Not Detect); Coronavirus OC43 Not Detected (Not Detect); Human Metapneumovirus Not Detected (Not Detect); Human Rhinovirus/Enterovirus Detected (Not Detect); Influenza A Not Detected (Not Detect); Influenza B Not Detected (Not Detect); Mycoplasma pneumoniae Not Detected (Not Detect); Parainfluenza Virus 1 Not Detected (Not Detect); Parainfluenza Virus 2 Not Detected (Not Detect); Parainfluenza Virus 3 Not Detected (Not Detect); Parainfluenza Virus 4 Not Detected (Not Detect); Respiratory Syncytial Virus Detected (Not Detect); SARS- CoV-2 Not Detected (Not Detecte)
--- NOTE | 2023-01-12 16:43 | PC.NURSE ---
Encouraged patient to use cane at home to prevent falls. Patient and spouse acknowledged teaching.
== END 2023-01-12 16:45 | disposition home or self-care (01) ==
PROVIDERS: Emergency Provider Emergency Medicine; Family Provider Physician Assistant Medical; PCP Physician Assistant Medical
DX: J06.9 Acute upper respiratory infection, unspecified (principal); B97.4 Respiratory syncytial virus as the cause of diseases classified elsewhere; H10.9 Unspecified conjunctivitis; Z20.822 Contact with and (suspected) exposure to COVID-19; Z79.01 Long term (current) use of anticoagulants; Z86.711 Personal history of pulmonary embolism
CPT/HCPCS: 36415; 71045; 71275; 80053; 81003; 83605; 83880; 84484; 85025; 85610; 87633; 87635; 93005; 93010; 99284; C9803; Q9967

== ENCOUNTER → 2023-04-09 15:27 | Outpatient (CLI) | payer OTHER, SELFPAY ==
[2022-10-13 01:48] VITALS: BMI 30.4
--- NOTE | 2023-04-09 | DI.CT.S_ITS ---
PROCEDURE: CT CHEST WO CON INDICATIONS: Interstitial pulmonary disease TECHNIQUE: Noncontrast 5 mm thick sections acquired from the pulmonary apices to the posterior costophrenic angles. 1 mm lung window, 5 mm thick coronal and sagittal and 7 mm axial MIP reformats were then acquired. For radiation dose reduction, the following was used: automated exposure control, adjustment of mA and/or kV according to patient size. COMPARISON: [facility], CT, CT CHEST WO CON, 07/17/2020, 8:49. FINDINGS: Image quality: Excellent. Lungs and pleura: A few small pulmonary nodules measuring 0.4 cm or less. No new or enlarging pulmonary nodules. A few small calcified granulomas. Mild subpleural opacity. Right major fissure pulmonary nodule measuring 2 cm, (3/197), previously 2.3 cm in 2020. There is scant rim calcification. No consolidation. Central airways are clear. Mild lower lobe bronchiectasis. No pleural effusions or pneumothorax. Mediastinum: Heart size is normal. Three-vessel coronary artery calcifications. No pericardial effusion. Precarinal node measuring 1 cm, (2/23), remotely 1 cm in 2020. A few small calcified mediastinal lymph nodes. Thoracic aorta and central pulmonary arteries are normal in size. Esophagus is normal in caliber. Large hiatal hernia. Bones and chest wall: Post median sternotomy. No suspicious bony lesions. No vertebral body compression fractures. No axillary or supraclavicular adenopathy by size criteria. Thyroid gland is unremarkable. Abdomen: Visualized upper abdominal solid organs and bowel loops appear normal in the absence of contrast. IMPRESSION: 1. Mild subpleural reticular thickening. Mild lower lobe predominant bronchiectasis. These findings are suggestive of interstitial lung disease and appears similar to December 2022. 2. Resolved airspace opacities compared to 01/12/2023. Minimal opacity in the left upper lobe, similar. 3. No pleural effusion. Stable precarinal and right fissural nodes. Stable calcified mediastinal nodes. 4. Large hiatal hernia. Dictated by: Justin Molina M.D. on 04/09/2023 at 16:31 Approved by: Justin Molina M.D. on 04/09/2023 at 16:44
== END ==
PROVIDERS: Family Provider Physician Assistant Medical; PCP Physician Assistant Medical; Referring Provider Internal Medicine Pulmonary Disease; Visit Provider Internal Medicine Pulmonary Disease
DX: J84.9 Interstitial pulmonary disease, unspecified (principal); R91.8 Other nonspecific abnormal finding of lung field; K44.9 Diaphragmatic hernia without obstruction or gangrene
CPT/HCPCS: 71250

== ENCOUNTER → 2023-04-20 15:33 | Outpatient (CLI) | payer OTHER, SELFPAY ==
[2022-10-13 01:48] VITALS: BMI 30.4
--- NOTE | 2023-04-20 | DI.CT.S_ITS ---
PROCEDURE: CT SINUS SCREEN WO CON INDICATIONS: chronic pansinusitis TECHNIQUE: Noncontrast 3.0 mm axial images acquired from the frontal sinuses to the mid-sella, with coronal and sagittal reformats. For radiation dose reduction, the following was used: automated exposure control, adjustment of mA and/or kV according to patient size. COMPARISON: None. FINDINGS: Image quality: Excellent. Maxillary Sinuses: No bony remodeling or destruction. Sinuses are clear. Ethmoid Air Cells: No bony remodeling or destruction. Sinuses are clear. Sphenoid Sinuses: No bony remodeling or destruction. Sinuses are clear. Frontal Sinuses: No bony remodeling or destruction. Sinuses are clear. Ostiomeatal Complexes: Ostiomeatal complexes are patent. No Morro cells. Miscellaneous: Visualized intra-orbital contents are normal. No terrance bullosa or paradoxical turbinate curvature. Slight rightward septal deviation. Keros type 2. No [place] cells. IMPRESSION: No evidence of acute or chronic sinusitis. Dictated by: Boy Rock M.D. on 04/20/2023 at 16:13 Approved by: Boy Rock M.D. on 04/20/2023 at 16:17
== END ==
PROVIDERS: Family Provider Physician Assistant Medical; PCP Physician Assistant Medical; Referring Provider Physician Assistant; Visit Provider Physician Assistant
DX: J32.4 Chronic pansinusitis (principal)
CPT/HCPCS: 70486

== ENCOUNTER 2023-05-16 12:31 | Inpatient (IN) | payer OTHER, SELFPAY ==
[2022-10-13 01:48] VITALS: BMI 30.4
[2023-05-16] VITALS (32 sets, daily range): BP systolic 122–188; BP diastolic 56–87; PULSE 95–117; RESP 13–41; TEMP 36.1–37.3; O2SAT 92–98; BMI 35.1
--- NOTE | 2023-05-16 12:37 | DI.RAD.S_ITS ---
PROCEDURE: XR CHEST 1V INDICATIONS: suspected sepsis TECHNIQUE: One view of the chest was acquired. COMPARISON: [facility], CR, XR CHEST 1V, 01/12/2023, 12:37. FINDINGS: Surgical changes and devices: Median sternotomy wires are present and appear intact. Postsurgical changes of prior CABG Lungs and pleura: Lungs are clear. No pleural effusions or pneumothorax. Minimal streaky bibasilar opacities favored to represent atelectasis. Large hiatal hernia. Mediastinum: Mediastinal contours appear normal. Heart size is normal. Bones and chest wall: No suspicious bony lesions. Overlying soft tissues appear unremarkable. IMPRESSION: Streaky bibasilar opacities favored to represent atelectasis. Otherwise, no acute cardiopulmonary abnormality seen. No focal consolidation. Dictated by: Sreedhar Morales M.D. on 05/16/2023 at 12:24 Approved by: Sreedhar Morales M.D. on 05/16/2023 at 12:25
[2023-05-16 13:16] LABS: Add Manual Diff / Slide Review NO; Basophils Absolute Auto 100 /uL (0-100); Basophils Percent Auto 0.8 % (0-2); Eosinophils Absolute Auto 0 /uL (0-450); Eosinophils Percent Auto 0.1 % (2-4); Hematocrit 37.4 % (41-53); Hemoglobin 12.9 g/dL (13.5-17.5); Lymphocytes Absolute Auto 900 /uL (1100-4500); Lymphocytes Percent Auto 10.4 % (25-40); Mean Corpuscular HGB Conc 34.5 % (30-36); Mean Corpuscular Hemoglobin 29.5 PG (26-34); Mean Corpuscular Volume 85.4 fL (80-100); Monocytes Absolute Auto 600 /uL (0-900); Monocytes Percent Auto 7.3 % (3-14); Neutrophils Absolute Auto 7000 /uL (1500-7000); Neutrophils Percent Auto 81.4 % (50-75); Platelet Count 200 X10^3/uL (150-400); Red Blood Cell Count 4.38 X10^6/uL (4.5-5.9); Red Cell Distribution Width 15.3 % (11.6-14.8); White Blood Cell Count 8.6 X10^3/uL (4.5-11.0)
[2023-05-16] MEDS: ALBUTEROL/IPRATROPIUM 3 ML AMPUL INH (13:17)
[2023-05-16] MEDS: methylPREDNISolone 125 MG/2 ML VIAL IV (13:18)
[2023-05-16] MEDS: PIPERACILLIN/TAZO 4.5 GM in SODIUM CHLORIDE 0.9% 100 ML IV (13:19)
[2023-05-16 13:23] LABS: INR 1.3 (0.9-1.3); Prothrombin Time 15.5 SECONDS (10.1-12.7)
[2023-05-16 13:26] LABS: PTT Partial Thromboplastin Tim 28 SECONDS (26-36)
[2023-05-16 13:29] LABS: Lactate (Lactic Acid) 2.7 mmol/L (0.7-2.1)
[2023-05-16 13:31] LABS: Alanine Aminotransferase 31 IU/L (<50); Albumin 4.1 g/dL (3.5-5.0); Albumin Globulin Ratio 1.2 (1.0-2.8); Alkaline Phosphatase 77 U/L (38-126); Aspartate Aminotransferase 34 IU/L (17-59); BUN Creatinine Ratio 17.8 (6-22); Bilirubin Total 0.8 mg/dL (0.2-1.3); Blood Urea Nitrogen 16 mg/dL (9-20); Calcium 9.2 mg/dL (8.4-10.2); Carbon Dioxide 20 mmol/L (22-32); Chloride 101 mmol/L (98-107); Creatine Kinase 239 U/L (55-170); Estimated Glomerular Filt Rate > 60 mL/min (>60); Globulin 3.3 g/dL (1.7-4.1); Glucose 258 mg/dL (80-110); HEMOLYSIS 23 (0-50); Lipase 105 U/L (23-300); Potassium 3.9 mmol/L (3.4-5.1); Sodium 133 mmol/L (137-145); Total Protein 7.4 g/dL (6.3-8.2)
--- NOTE | 2023-05-16 13:40 | PC.NURSE ---
Pt called c/o severe prickling sensation on chest and groin. MD White informed immediately and Benadryl given. Pt developed rash and erythema of face and head, which subsided in approx 10 minutes. 15 minutes later, pt reports feeling normal.
[2023-05-16 13:41] LABS: NT-proBNP (BNP-Adult 18+) 343 pg/mL (<450); Troponin I < 0.012 ng/mL (0.01-0.034)
[2023-05-16] MEDS: diphenhydrAMINE 50 MG/ML VIAL (13:42)
--- NOTE | 2023-05-16 13:43 | DI.CT.S_ITS ---
PROCEDURE: CT ANGIO CHEST PE PROTOCOL INDICATIONS: sob, hx PE after covid last year TECHNIQUE: After the administration of intravenous contrast, 2 mm thick sections acquired from the pulmonary apices to the posterior costophrenic angles. 3-dimensional maximum intensity projection (MIP) coronal and sagittal reformats were then acquired through the thorax. For radiation dose reduction, the following was used: automated exposure control, adjustment of mA and/or kV according to patient size. COMPARISON: [facility], CT, CT ANGIO CHEST PE PROTOCOL, 01/12/2023, 14:09. [facility], CT, CT ANGIO CHEST PE PROTOCOL, 10/12/2022, 22:03. FINDINGS: Image quality: Diagnostic Pulmonary arteries: Pulmonary arteries are normal in size, and demonstrate no intraluminal filling defects to suggest central pulmonary embolism. Lungs and pleura: Previously described patchy areas of scattered ground-glass airspace opacities have mostly resolved. Minimal residual peripheral opacity of the lingula. Persistent mild bronchiectasis of the bilateral lower lobes. Bibasilar atelectasis. No pleural effusions or pneumothorax. Central and peripheral airways are patent. No new focal consolidations. Stable appearance of 1.5 x 1.7 cm low-attenuation nodule in the anterior aspect of the right lower lobe with suggestion of peripheral coarse calcifications. 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 Mediastinum: Heart size is normal, without pericardial effusion. Redemonstration of prominent hilar and mediastinal lymph nodes likely reactive in etiology. Thoracic aorta is normal in caliber and enhancement. Esophagus is unremarkable in appearance. Large hiatal hernia redemonstrated. Dense atherosclerotic calcifications of the coronary arteries. Bones and chest wall: No suspicious bony lesions. Ribs and thoracic spine appear intact throughout. Thyroid gland is unremarkable. No axillary or supraclavicular adenopathy. Abdomen: Visualized upper abdominal solid organs appear normal in the early arterial phase of enhancement. IMPRESSION: 1. CT angiogram of the chest without acute pulmonary emboli identified. No evidence for acute right-sided heart strain. 2. Previously described scattered patchy airspace opacities have predominantly resolved. Small residual area of possible scarring noted over the subpleural region of the lingula. No new focal airspace disease/consolidation identified on today's exam. 3. Atherosclerosis. 4. Large hiatal hernia. 5. Stable appearance of moderate bilateral lower lobe bronchiectasis. Findings may represent sequela of chronic infectious or inflammatory process such as chronic aspiration. Other chronic findings as above Dictated by: Sreedhar Morales M.D. on 05/16/2023 at 14:21 Approved by: Sreedhar Morales M.D. on 05/16/2023 at 14:33
[2023-05-16 13:46] LABS: Procalcitonin 4.96 ng/mL (<0.5)
--- NOTE | 2023-05-16 13:47 | ED_ITS ---
HPI - SOB/Dyspnea General Chief Complaint: Shortness of Breath/Dyspnea Stated Complaint: oral abcess / fever/ on abx Time Seen by Provider: 05/16/23 12:43 Source: EMS, RN notes reviewed and old records reviewed Mode of arrival: EMS Limitations: no limitations History of Present Illness HPI Narrative: 77-year-old male with history of blood clots falling COVID on Pradaxa, BPH, rbf-axzxvsa-mlnnvhoud diabetes with history of hypertension, dyslipidemia, prior were vessel CABG in 2012, gout who uses CPAP at night with 2 L nasal cannula. Patient describes increasing shortness of breath for the past 4 days worsening each day, no chest pain or pressure, no swelling. He is had productive cough but states it seems coming from upper nasal congestion. He states he is had nasal congestion for 7 months. He states he had fevers at home today. Patient states he does not have any diaphoresis. He does appreciate some orthopnea that he did not note at home but feels better here when set up. No nausea or vomiting, no diarrhea constipation, he is had history of prostate infections in the past states he gets intermittent urgency and frequency issues that come and go. He states he did have a dental infection he has been on antibiotics he is supposed to go in on Thursday to have the tooth removed there has been some slight swelling at that location but he does not appreciate any swelling under his lip he notices glands are little bigger in his neck but does not appreciate any swelling or difficulty breathing of his throat. Patient states he does take his Pradaxa regularly has not had any missed doses. His only medication changes have been amoxicillin and [place] for pain. He has been taking this regularly. States his primary care stopped his lisinopril, he is on metoprolol for elevated heart rate but states it was not atrial fibrillation. Simvastatin, tramadol and a gout medication PRN. He denies any allergies to medications. No tobacco, alcohol or illicit. His primary care is LAURO kelly. His cardiology care is Dr. Perez and Clifford in [place]. Related Data Home Medications Medication Instructions Recorded Confirmed metoprolol succinate 25 mg 25 mg PO DAILY 11/17/18 05/16/23 tablet,extended release 24 hr omeprazole 20 mg capsule,delayed 20 mg PO Q OTHER DAY 11/17/18 05/16/23 release simvastatin 40 mg tablet 40 mg PO QPM 11/17/18 05/16/23 travoprost 0.004 % eye drops 1 drp EYE-BOTH DAILY 11/17/18 05/16/23 Lactobacillus acidophilus 100 mg 100 mg PO DAILY 10/01/22 05/16/23 (1 billion cell) capsule acetaminophen 325 mg tablet 650 mg PO BEDTIME 10/01/22 05/16/23 ascorbic acid (vitamin C) 1,000 mg 1,000 mg PO DAILY 10/01/22 05/16/23 tablet (Vitamin C) aspirin 325 mg tablet 325 mg PO DAILY 10/01/22 05/16/23 cetirizine 10 mg tablet 10 mg PO DAILY 10/01/22 05/16/23 cholecalciferol (vitamin D3) 125 500 mcg PO QWEEK 10/01/22 05/16/23 mcg (5,000 unit) tablet (Vitamin D3) coenzyme Q10 300 mg capsule 300 mg PO DAILY 10/01/22 05/16/23 flaxseed oil 1,300 mg-omega 3,6,9 1 cap PO DAILY 10/01/22 05/16/23 845 mg-117 mg-117 mg capsule fshtvptgezj-eggkjowda-mzy C-Mn 500 1 cap PO DAILY 10/01/22 05/16/23 mg-400 mg capsule ibuprofen 600 mg tablet 600 mg PO TID PRN Pain (Scale 10/01/22 05/16/23 Score 1-3) magnesium 200 mg tablet 200 mg PO DAILY 10/01/22 05/16/23 multivitamin 1 tab PO DAILY 10/01/22 05/16/23 omega-3 fatty acids-fish oil 340 1 cap PO DAILY 10/01/22 05/16/23 mg-1,000 mg capsule semaglutide 1 mg/dose (4 mg/3 mL) 1 mg SUBCUT QWEEK 10/01/22 05/16/23 subcutaneous pen injector (Ozempic) tadalafil 5 mg tablet 5 mg PO DAILY 10/01/22 05/16/23 vitamin B complex (B 1 tab PO DAILY 10/01/22 05/16/23 Complex-Vitamin B12 tablet) amoxicillin 500 mg tablet 500 mg PO 3XD 05/16/23 05/16/23 dabigatran etexilate 150 mg 150 mg PO BID 05/16/23 05/16/23 capsule (Pradaxa) hydrocodone 5 mg-acetaminophen 325 1 tab PO Q4-6H PRN pain 05/16/23 05/16/23 mg tablet Previous Rx's Medication Instructions Recorded tramadol 50 mg tablet 50 mg PO QID PRN Pain, Moderate 10/18/22 (4-6) #60 tabs erythromycin 5 mg/gram (0.5 %) eye 0.5 inch EYE-BOTH TID #3.5 grams 01/12/23 ointment Allergies Allergy/AdvReac Type Severity Reaction Status Date / Time piperacillin [From Zosyn] Allergy Intermediate Rash Verified 05/16/23 13:51 tazobactam [From Zosyn] Allergy Intermediate Rash Verified 05/16/23 13:51 Review of Systems Review of Systems ROS Unobtainable: All systems reviewed & are unremarkable except as noted in HPI and below Patient History Medical History CAD (coronary artery disease) Coronary artery disease involving coronary bypass graft of [place] heart Diabetes mellitus History of non-insulin dependent diabetes mellitus Hypercholesterolemia Hypertension Kidney stone Social History household members: spouse Smoking Status: Never smoker alcohol intake: current Smoking Status: Never smoker alcohol intake frequency: holidays/special occasions only Substance Use Type: does not use Exam Narrative Exam Narrative: GEN: Obese male, alert and oriented x 3, patient appears to be in moderate distress. HEENT: Atraumatic, pupils are equal round reactive to light, extraocular movements are intact, nares are clear, TMs are clear with no fluid, there is no conjunctival pallor. Throat is clear without any exudates, erythema, tonsillar enlargement or uvular deviation, patient has a slight swelling in the front tooth on the left number 22. He has some mild erythema swelling of that lower lip but do not appreciate any extension into the face or neck. Normal speech, no difficulty with swallowing secretions. HEART: Tachycardia Regular rate and rhythm without murmur, clicks, rubs. No carotid bruits, no stridor. Pulses are equal in upper and lower extremities. No swelling bilateral lower extremities. LUNGS:Lungs clear to auscultation, no wheezes, rales, crackles, chest moves symmetrically, positive for tachypnea and increased work of breathing. Patient has some accessory muscle use. ABD:bowel sounds normal, soft, non-tender, no guarding, rebound, rigidity, no masses noted, no hepatosplenomegaly :No CVA tenderness MSCL: Non-tender, no muscle atrophy, muscles strength 5/5 upper and lower extremities, full range of motion, normal gait NEURO:CN 2-12 intact, sensation normal. Initial Vital Signs Initial Vital Signs: Vital Signs Temperature 99.2 F 05/16/23 12:31 Pulse Rate 113 H 05/16/23 12:31 Respiratory Rate 30 H 05/16/23 12:31 Blood Pressure 122/78 05/16/23 12:31 Pulse Oximetry 98 05/16/23 12:31 Oxygen Delivery Method Nasal Cannula 05/16/23 12:31 Oxygen Flow Rate 2 05/16/23 12:31 Course Orders Ordered: ED Orders 05/16/23 12:37 XR chest 1V Stat EKG-12 Lead Stat RT Consult Eval and Treat NOW 05/16/23 12:41 Respiratory Panel (Film Array) Stat 05/16/23 12:50 BNP [NT-proBNP (BNP-Adult 18+)] Stat Complete Blood Count AUTO DIFF Stat Comprehensive Metabolic Panel Stat Lactate (Lactic Acid) Stat Lipase Stat PTT Partial Thromboplastin Melchor Stat Procalcitonin Stat Prothrombin Time INR Stat Troponin & CK Cardiac Panel Stat 05/16/23 12:55 Blood Culture Stat 05/16/23 12:57 ABG [Arterial Blood Gas] Stat 05/16/23 13:43 CT angio chest PE protocol Stat 05/16/23 13:45 ABG [Arterial Blood Gas] Stat 05/16/23 14:52 Trop I [Troponin I] Stat 05/16/23 14:55 EKG-12 Lead Routine Acetaminophen (Acetaminophen 325 Mg Tablet) 650 mg PO Q4H PRN PRN Reason: Fever/Mild Pain (1-3) Apixaban (Apixaban 5 Mg Tablet) 10 mg PO BID SHIRLEY Stop: 05/23/23 09:01 Hydromorphone HCl (Hydromorphone 0.5 Mg Inj) 0.5 mg IV Q4H PRN PRN Reason: Pain, Moderate (4-6) Levofloxacin (Levaquin) 750 mg in 150 mls @ 100 mls/hr IV Q24H SHIRLEY Stop: 05/24/23 15:59 Ondansetron HCl (Ondansetron 4 Mg/2 Ml Inj) 4 mg IV NOW PRN PRN Reason: Nausea And Vomiting Ondansetron HCl (Ondansetron 4 Mg Odt) 4 mg SL NOW PRN PRN Reason: Nausea And Vomiting Tramadol HCl (Tramadol 50 Mg Tablet) 50 mg PO QID PRN PRN Reason: Pain, Moderate (4-6) Discontinued Medications Albuterol/Ipratropium (Albuterol/Ipratropium 3 Ml Ampul) 3 ml INH NOW ONE Stop: 05/16/23 12:58 Last Admin: 05/16/23 13:17 Dose: 3 ml Documented By: MARIANELA Piperacillin Sod/Tazobactam (Sod 4.5 gm/ Sodium Chloride) 100 mls @ 200 mls/hr IV NOW ONE Stop: 05/16/23 12:59 Last Infusion: 05/16/23 13:35 Dose: 0 mls/hr Documented By: Admin: 05/16/23 13:19 Dose: 200 mls/hr Documented By: Sodium Chloride (Normal Saline 0.9%) 1,000 mls @ 1,000 mls/hr IV BOLUS ONE Stop: 05/16/23 16:17 Last Admin: 05/16/23 15:33 Dose: 1,000 mls/hr Documented By: Levofloxacin (Levaquin) 750 mg in 150 mls @ 100 mls/hr IV NOW ONE Stop: 05/16/23 17:17 Last Infusion: 05/16/23 17:56 Dose: 100 mls/hr Documented By: Admin: 05/16/23 16:02 Dose: 100 mls/hr Documented By: Lorazepam (Lorazepam 2 Mg/Ml Inj) 0.5 mg IV NOW ONE Stop: 05/16/23 13:52 Last Admin: 05/16/23 13:59 Dose: 0.5 mg Documented By: ANUP Methylprednisolone (Methylprednisolone 125 Mg/2 Ml Vial) 125 mg IV NOW ONE Stop: 05/16/23 12:58 Last Admin: 05/16/23 13:18 Dose: 125 mg Documented By: ST Morphine Sulfate (Morphine 4 Mg/Ml Inj) 4 mg IV NOW ONE Stop: 05/16/23 16:31 Last Admin: 05/16/23 16:37 Dose: Not Given Documented By: ST Vital Signs Vital signs: Vital Signs - 8 hr 05/16/23 12:31 05/16/23 13:17 05/16/23 13:13 Temperature 99.2 F Pulse Rate 113 H 97 H 95 H Respiratory Rate 30 H 28 H 30 H Blood Pressure 122/78 Pulse Oximetry 98 97 97 Oxygen Delivery Method Nasal Cannula Room Air Room Air Oxygen Flow Rate 2 0 Fraction of Inspired Oxygen 21 05/16/23 13:20 05/16/23 13:30 05/16/23 13:30 Temperature Pulse Rate 97 H 101 H Respiratory Rate 13 36 H Blood Pressure 129/56 L Pulse Oximetry 97 97 Oxygen Delivery Method Room Air Oxygen Flow Rate Fraction of Inspired Oxygen 05/16/23 13:40 05/16/23 13:49 05/16/23 13:49 Temperature Pulse Rate 117 H 102 H Respiratory Rate 40 H 41 H Blood Pressure 134/84 Pulse Oximetry 94 93 Oxygen Delivery Method Nasal Cannula Nasal Cannula Oxygen Flow Rate 2 2 Fraction of Inspired Oxygen 05/16/23 13:50 05/16/23 14:00 05/16/23 14:00 Temperature Pulse Rate 100 H 101 H Respiratory Rate 38 H 37 H Blood Pressure 129/70 Pulse Oximetry 94 96 Oxygen Delivery Method Nasal Cannula Nasal Cannula Oxygen Flow Rate 2 2 Fraction of Inspired Oxygen 05/16/23 14:10 05/16/23 14:20 05/16/23 14:30 Temperature Pulse Rate 102 H 104 H Respiratory Rate 30 H 24 Blood Pressure 136/73 Pulse Oximetry 92 Oxygen Delivery Method Oxygen Flow Rate Fraction of Inspired Oxygen 05/16/23 14:30 05/16/23 14:44 05/16/23 14:50 Temperature Pulse Rate 107 H 104 H 105 H Respiratory Rate 32 H 28 H 26 H Blood Pressure Pulse Oximetry 92 95 Oxygen Delivery Method Nasal Cannula Nasal Cannula Oxygen Flow Rate 2 2 Fraction of Inspired Oxygen 05/16/23 15:00 05/16/23 15:10 05/16/23 15:20 Temperature Pulse Rate 102 H 103 H 105 H Respiratory Rate 29 H 34 H 34 H Blood Pressure Pulse Oximetry 93 93 95 Oxygen Delivery Method Oxygen Flow Rate Fraction of Inspired Oxygen 05/16/23 15:30 05/16/23 15:40 05/16/23 15:50 Temperature Pulse Rate 104 H 104 H 103 H Respiratory Rate 33 H 31 H 29 H Blood Pressure Pulse Oximetry 94 93 94 Oxygen Delivery Method Oxygen Flow Rate Fraction of Inspired Oxygen 05/16/23 16:00 Temperature Pulse Rate 101 H Respiratory Rate 31 H Blood Pressure Pulse Oximetry 96 Oxygen Delivery Method Oxygen Flow Rate Fraction of Inspired Oxygen MDM - SOB/Dyspnea Lab Data 05/16/23 12:50 05/16/23 12:50 Labs: Lab Results 05/16/23 05/16/23 05/16/23 Range/Units 12:41 12:50 12:50 WBC 8.6 (4.5-11.0) X10^3/uL RBC 4.38 L (4.5-5.9) X10^6/uL Hgb 12.9 L (13.5-17.5) g/dL Hct 37.4 L (41-53) % MCV 85.4 (80-100) fL MCH 29.5 (26-34) PG MCHC 34.5 (30-36) % RDW 15.3 H (11.6-14.8) % Plt Count 200 (150-400) X10^3/uL Neut % (Auto) 81.4 H (50-75) % Lymph % (Auto) 10.4 L (25-40) % Foster % (Auto) 7.3 (3-14) % Eos % (Auto) 0.1 L (2-4) % Baso % (Auto) 0.8 (0-2) % Neut # (Auto) 7000 (9154-3104) /uL Lymph # (Auto) 900 L (8385-0265) /uL Foster # (Auto) 600 (0-900) /uL Eos # (Auto) 0 (0-450) /uL Baso # (Auto) 100 (0-100) /uL PT 15.5 H (10.1-12.7) SECONDS INR 1.3 (0.9-1.3) APTT 28 (26-36) SECONDS ABG pH (7.35-7.45) ABG pCO2 (35-45) mmHg ABG pO2 (80-100) mmHg ABG HCO3 (23-27) mmol/L ABG Total CO2 (23-27) mmol/L ABG O2 Saturation (95-100) % ABG Base Excess (-2-3) mmol/L FiO2 Sodium (137-145) mmol/L Potassium (3.4-5.1) mmol/L Chloride (98-107) mmol/L Carbon Dioxide (22-32) mmol/L BUN (9-20) mg/dL Creatinine (0.66-1.25) mg/dL Estimated GFR (>60) mL/min BUN/Creatinine Ratio (6-22) Glucose (80-110) mg/dL Lactate (0.7-2.1) mmol/L Calcium (8.4-10.2) mg/dL Total Bilirubin (0.2-1.3) mg/dL AST (17-59) IU/L ALT (<50) IU/L Alkaline Phosphatase (38-126) U/L Total Creatine Kinase (55-170) U/L Troponin I (0.01-0.034) ng/mL NT-Pro-B Natriuret Pep (<450) pg/mL Total Protein (6.3-8.2) g/dL Albumin (3.5-5.0) g/dL Globulin (1.7-4.1) g/dL Albumin/Globulin Ratio (1.0-2.8) Lipase (23-300) U/L Procalcitonin (<0.5) ng/mL Chlamy pneumoniae PCR Not detected (Not Detect) Adenovirus (PCR) Not detected (Not Detect) B. pertussis DNA (PCR) Not detected (Not Detecte) B.parapertussis DNA PCR Not detected (Not Detecte) Coronavirus OC43 (PCR) Not detected (Not Detect) Coronavirus HKU1 (PCR) Not detected (Not Detect) Coronavirus 229E (PCR) Not detected (Not Detect) SARS-CoV-2 (PCR) Not detected (Not Detecte) Coronavirus NL63 (PCR) Not detected (Not Detect) Human Metapneumovir PCR Not detected (Not Detect) Influenza Type A (PCR) Not detected (Not Detect) Influenza Type B (PCR) Not detected (Not Detect) M. pneumoniae (PCR) Not detected (Not Detect) Parainfluenza 1 (PCR) Not detected (Not Detect) Parainfluenza 2 (PCR) Not detected (Not Detect) Parainfluenza 3 (PCR) Not detected (Not Detect) Parainfluenza 4 (PCR) Not detected (Not Detect) RSV (PCR) Not detected (Not Detect) Entero/Rhino (PCR) Not detected (Not Detect) 05/16/23 05/16/23 05/16/23 Range/Units 12:50 12:50 13:45 WBC (4.5-11.0) X10^3/uL RBC (4.5-5.9) X10^6/uL Hgb (13.5-17.5) g/dL Hct (41-53) % MCV (80-100) fL MCH (26-34) PG MCHC (30-36) % RDW (11.6-14.8) % Plt Count (150-400) X10^3/uL Neut % (Auto) (50-75) % Lymph % (Auto) (25-40) % Foster % (Auto) (3-14) % Eos % (Auto) (2-4) % Baso % (Auto) (0-2) % Neut # (Auto) (8692-8162) /uL Lymph # (Auto) (8195-9076) /uL Foster # (Auto) (0-900) /uL Eos # (Auto) (0-450) /uL Baso # (Auto) (0-100) /uL PT (10.1-12.7) SECONDS INR (0.9-1.3) APTT (26-36) SECONDS ABG pH 7.73 H* (7.35-7.45) ABG pCO2 12.6 L* (35-45) mmHg ABG pO2 53 L (80-100) mmHg ABG HCO3 17 L (23-27) mmol/L ABG Total CO2 17 L (23-27) mmol/L ABG O2 Saturation 95 (95-100) % ABG Base Excess -3.0 L (-2-3) mmol/L FiO2 21 Sodium 133 L (137-145) mmol/L Potassium 3.9 (3.4-5.1) mmol/L Chloride 101 (98-107) mmol/L Carbon Dioxide 20 L (22-32) mmol/L BUN 16 (9-20) mg/dL Creatinine 0.90 (0.66-1.25) mg/dL Estimated GFR > 60 (>60) mL/min BUN/Creatinine Ratio 17.8 (6-22) Glucose 258 H (80-110) mg/dL Lactate 2.7 H (0.7-2.1) mmol/L Calcium 9.2 (8.4-10.2) mg/dL Total Bilirubin 0.8 (0.2-1.3) mg/dL AST 34 (17-59) IU/L ALT 31 (<50) IU/L Alkaline Phosphatase 77 (38-126) U/L Total Creatine Kinase 239 H (55-170) U/L Troponin I < 0.012 (0.01-0.034) ng/mL NT-Pro-B Natriuret Pep 343 (<450) pg/mL Total Protein 7.4 (6.3-8.2) g/dL Albumin 4.1 (3.5-5.0) g/dL Globulin 3.3 (1.7-4.1) g/dL Albumin/Globulin Ratio 1.2 (1.0-2.8) Lipase 105 (23-300) U/L Procalcitonin 4.96 H (<0.5) ng/mL Chlamy pneumoniae PCR (Not Detect) Adenovirus (PCR) (Not Detect) B. pertussis DNA (PCR) (Not Detecte) B.parapertussis DNA PCR (Not Detecte) Coronavirus OC43 (PCR) (Not Detect) Coronavirus HKU1 (PCR) (Not Detect) Coronavirus 229E (PCR) (Not Detect) SARS-CoV-2 (PCR) (Not Detecte) Coronavirus NL63 (PCR) (Not Detect) Human Metapneumovir PCR (Not Detect) Influenza Type A (PCR) (Not Detect) Influenza Type B (PCR) (Not Detect) M. pneumoniae (PCR) (Not Detect) Parainfluenza 1 (PCR) (Not Detect) Parainfluenza 2 (PCR) (Not Detect) Parainfluenza 3 (PCR) (Not Detect) Parainfluenza 4 (PCR) (Not Detect) RSV (PCR) (Not Detect) Entero/Rhino (PCR) (Not Detect) 05/16/23 05/16/23 Range/Units 14:52 14:52 WBC (4.5-11.0) X10^3/uL RBC (4.5-5.9) X10^6/uL Hgb (13.5-17.5) g/dL Hct (41-53) % MCV (80-100) fL MCH (26-34) PG MCHC (30-36) % RDW (11.6-14.8) % Plt Count (150-400) X10^3/uL Neut % (Auto) (50-75) % Lymph % (Auto) (25-40) % Foster % (Auto) (3-14) % Eos % (Auto) (2-4) % Baso % (Auto) (0-2) % Neut # (Auto) (4714-8636) /uL Lymph # (Auto) (3046-6192) /uL Foster # (Auto) (0-900) /uL Eos # (Auto) (0-450) /uL Baso # (Auto) (0-100) /uL PT (10.1-12.7) SECONDS INR (0.9-1.3) APTT (26-36) SECONDS ABG pH (7.35-7.45) ABG pCO2 (35-45) mmHg ABG pO2 (80-100) mmHg ABG HCO3 (23-27) mmol/L ABG Total CO2 (23-27) mmol/L ABG O2 Saturation (95-100) % ABG Base Excess (-2-3) mmol/L FiO2 Sodium (137-145) mmol/L Potassium (3.4-5.1) mmol/L Chloride (98-107) mmol/L Carbon Dioxide (22-32) mmol/L BUN (9-20) mg/dL Creatinine (0.66-1.25) mg/dL Estimated GFR (>60) mL/min BUN/Creatinine Ratio (6-22) Glucose (80-110) mg/dL Lactate 2.1 (0.7-2.1) mmol/L Calcium (8.4-10.2) mg/dL Total Bilirubin (0.2-1.3) mg/dL AST (17-59) IU/L ALT (<50) IU/L Alkaline Phosphatase (38-126) U/L Total Creatine Kinase (55-170) U/L Troponin I < 0.012 (0.01-0.034) ng/mL NT-Pro-B Natriuret Pep (<450) pg/mL Total Protein (6.3-8.2) g/dL Albumin (3.5-5.0) g/dL Globulin (1.7-4.1) g/dL Albumin/Globulin Ratio (1.0-2.8) Lipase (23-300) U/L Procalcitonin (<0.5) ng/mL Chlamy pneumoniae PCR (Not Detect) Adenovirus (PCR) (Not Detect) B. pertussis DNA (PCR) (Not Detecte) B.parapertussis DNA PCR (Not Detecte) Coronavirus OC43 (PCR) (Not Detect) Coronavirus HKU1 (PCR) (Not Detect) Coronavirus 229E (PCR) (Not Detect) SARS-CoV-2 (PCR) (Not Detecte) Coronavirus NL63 (PCR) (Not Detect) Human Metapneumovir PCR (Not Detect) Influenza Type A (PCR) (Not Detect) Influenza Type B (PCR) (Not Detect) M. pneumoniae (PCR) (Not Detect) Parainfluenza 1 (PCR) (Not Detect) Parainfluenza 2 (PCR) (Not Detect) Parainfluenza 3 (PCR) (Not Detect) Parainfluenza 4 (PCR) (Not Detect) RSV (PCR) (Not Detect) Entero/Rhino (PCR) (Not Detect) Imaging Data Chest x-ray: Radiologist's Impression: Close Chest CTA 05/16/23 Chest X-Ray (Signed) Sreedhar Morales - 05/16/[address] (Signed) [place] - 04/20/[address] (Signed) Justin Molina - 04/09/23 Chest CTA (Signed) Franklin Gold - 01/12/23 Chest X-Ray (Signed) [place] - 01/12/23 Telemetry Strips 10/13/22 Chest CTA (Signed) Darien Young - 10/12/22 Chest X-Ray (Signed) Karlo Simon - 10/12/22 Telemetry Strips 09/30/22 Chest CTA (Signed) Marleny Cilnton - 09/30/22 Chest X-Ray (Signed) Nikhil Cr - 09/30/22 Abdomen/Pelvis CT (Signed) Nikhil Cr - 07/18/[address] (Signed) Carlin Ellis - 07/17/20 Radiology Report (Cancelled) Vic Hagen - 12/22/18 Echocardiogram Ultrasound (Cancelled) 12/22/18 Myocardial Perfusion Scan Nuc Med (Signed) Vic Hagen - 12/21/18 Myocardial Perfusion Scan Nuc Med (Cancelled) 12/21/18 Telemetry Strips 11/17/18 Abdomen/Pelvis CT (Signed) Darian Madera - 06/22/18 KUB X-Ray (Signed) Crow Bajwa - 06/22/18 Launch?Image [address] [address] XRay Report Signed Patient: Boy Pisano MR#: [id number] : 1945 Acct:[id number] Age/Sex: 77 / M Date of Service: 05/16/23 Loc: ED Accession Number: [id number] ?? Procedure: XR chest 1V Ordering Provider: July hWite D.O. PROCEDURE:? XR CHEST 1V ? INDICATIONS:? suspected sepsis ? TECHNIQUE:? One view of the chest was acquired.? ? COMPARISON:? [facility], CR, XR CHEST 1V, 01/12/2023, 12:37. ? FINDINGS:? ? Surgical changes and devices:? Median sternotomy wires are present and appear intact.? Postsurgical changes of prior CABG ? Lungs and pleura:? Lungs are clear.? No pleural effusions or pneumothorax.? Minimal streaky bibasilar opacities favored to represent atelectasis.? Large hiatal hernia. ? Mediastinum:? Mediastinal contours appear normal.? Heart size is normal.? ? Bones and chest wall:? No suspicious bony lesions.? Overlying soft tissues appear unremarkable.? ? IMPRESSION:? Streaky bibasilar opacities favored to represent atelectasis.? Otherwise, no acute cardiopulmonary abnormality seen.? No focal consolidation. ? ? Dictated by: Sreedhar Morales M.D. on 05/16/2023 at 12:24 ? ? Approved by: Sreedhar Morales M.D. on 05/16/2023 at 12:25?? ECG Data Attestation: I personally reviewed and interpreted this ECG as follows: Interpretation: Sinus tach rate of 102 WV 218, QRS of [address] elevation depression appreciated. EKG 2. Sinus tachycardia first-degree AV block rate of 104, P are 228, QRS of 100 QTC 444. No dynamic changes from 1st to 2nd. MDM Narrative Medical decision making narrative: 77-year-old male with increasing shortness of breath over the past 4 days, patient has had a recent dental infection of the left lower jaw. There is a li ttle bit of swelling erythema does not appear extensive. He describes a fever at home, denies chest pain or pressure but is very short of breath, tachypneic has increased work of breathing. Has not been hypoxic but does have some tachycardia. He does had prior pulmonary emboli he states he has been taking his anticoagulation appropriately had this after COVID infection in October and developed blood clots in his admitted. Patient labs do show positive procalcitonin, he is afebrile in the department. No leukocytosis. Normal platelets in hemoglobin very mild anemia but at baseline. Sodium is 130, CO2 is 20, chloride appropriate creatinine also appropriate glucose 258 lactate was 2.72.1 on recheck, total CK was 239 with troponins negative x2 elevations in LFTs but broke out is 0.496. Chest x-ray shows possible pneumonia, with patient's history CT chest was obtained as patient is ABG showed what appears to be alkalosis with a CO2 of pH is 7.73 and a PO2 of 53. Bicarb is 16. Patient was post stent on some oxygen, had small amount of Ativan which did improve his respiratory rate and he felt more comfortable. Patient was given a dose of Zosyn he did appear to have a reaction started having redness streaking up his arm and which she describes an itchy burning sensation across chest and torso. Patient does appear to have rash, received 50 mg of Benadryl as he is already received Solu-Medrol 125 for possible breathing/COPD issues. Had significant improvement neatly thereafter and felt to have allergy. CT PE does not show blood clot centrally, there is some improvement from CT in December of 2022 but does have some potential chronic appearing bilateral lower lobe bronchiectasis. No pericardial effusion there is a nodule a not quite 2 cm it appears stable and no new focal consolidations. Patient's does not have any changes consistent pulmonary edema he does have a large hiatal hernia. Dr. Nunez accepts, plan for Levaquin as alternative to antibiotic. Patient did give bleed or fluid. This was held initially as a risk concern for possible CHF component. Critical Care Time Critical Care Time Attestation: The high probability of a clinically significant, sudden or life threatening deterioration of the [cardiac,pulm] system(s) required my full and direct attention, intervention and personal management. The aggregate critical care time was [35] minutes. This time is in addition to time spent performing reported procedures but includes the following: [x] Data Review and interpretation [x] Patient assessment and monitoring of vital signs [x] Documentation [x] Medication orders and management Discharge Plan Departure Patient Disposition: Admitted As Inpatient Clinical Impression: Pneumonia, Sepsis, Hernia, hiatal Admit Date/Time: 05/16/23 16:02 Admit Provider: Chanda Nunez
[2023-05-16] MEDS: LORazepam 2 MG/ML INJ 0.5 MG IV (13:59)
[2023-05-16 14:03] LABS: Fractionated Inspired Oxygen 21; HCO3 ABG 17 mmol/L (23-27); Oxygen Saturation ABG 95 % (95-100); PCO2 ABG 12.6 mmHg (35-45); PO2 ABG 53 mmHg (80-100); TCO2 ABG 17 mmol/L (23-27); pH ABG 7.73 (7.35-7.45)
[2023-05-16 14:37] LABS: Adenovirus Not Detected (Not Detect); B. parapertussis Not Detected (Not Detecte); Bordetella pertussis Not Detected (Not Detecte); Chlamydophila pneumoniae Not Detected (Not Detect); Coronavirus 229E Not Detected (Not Detect); Coronavirus HKU1 Not Detected (Not Detect); Coronavirus NL 63 Not Detected (Not Detect); Coronavirus OC43 Not Detected (Not Detect); Human Metapneumovirus Not Detected (Not Detect); Human Rhinovirus/Enterovirus Not Detected (Not Detect); Influenza A Not Detected (Not Detect); Influenza B Not Detected (Not Detect); Mycoplasma pneumoniae Not Detected (Not Detect); Parainfluenza Virus 1 Not Detected (Not Detect); Parainfluenza Virus 2 Not Detected (Not Detect); Parainfluenza Virus 3 Not Detected (Not Detect); Parainfluenza Virus 4 Not Detected (Not Detect); Respiratory Syncytial Virus Not Detected (Not Detect); SARS- CoV-2 Not Detected (Not Detecte)
[2023-05-16 15:12] LABS: Reflexed Lactate in 2 Hours Y
[2023-05-16 15:21] LABS: Lactate 2HR (Lactic Acid Rflx) 2.1 mmol/L (0.7-2.1)
[2023-05-16 15:23] LABS: Troponin I < 0.012 ng/mL (0.01-0.034)
[2023-05-16] MEDS: SODIUM CHLORIDE 0.9% 1,000 ML 1000 ML IV (15:33)
[2023-05-16] MEDS: levoFLOXacin 750 MG/150 ML PIGGYBACK 100 MG IV (16:02)
--- NOTE | 2023-05-16 17:06 | PC.NURSE ---
Called report to Sp TAVERAS
[2023-05-16] MEDS: DABIGATRAN 75 MG CAPSULE 150 MG PO (20:52)
[2023-05-16] MEDS: OXYCODONE/ACETAMINOPHEN 5/325 TABLET 1 TAB PO (20:52)
[2023-05-16 21:42] LABS: Glucose 545 mg/dL (80-110)
[2023-05-16] MEDS: INSULIN GLARGINE 100 UNIT/ML 3ML PEN 10 UNIT SUBCUT (22:26)
[2023-05-16] MEDS: INSULIN LISPRO 100 UNIT/ML 3ML VIAL SUBCUT (22:26)
[2023-05-16 23:20] LABS: Fractionated Inspired Oxygen 21; HCO3 VBG 22 mmol/L (24-28); Oxygen Saturation VBG 76 % (70-75); PCO2 VBG 33.2 mmHg (45-50); PO2 VBG 39 mmHg (35-45); Total CO2 VBG 23 mmol/L (24-29); pH VBG 7.43 (7.33-7.43)
[2023-05-16] MEDS: TAMSULOSIN 0.4 MG CAPSULE PO (23:56)
[2023-05-16] MEDS: FLUTICASONE 120 SPRAY/16 GM SPRAY.SUSP NASAL (23:57)
[2023-05-17] VITALS (9 sets, daily range): BP systolic 128–149; BP diastolic 59–83; PULSE 78–107; RESP 15–24; TEMP 36.1–36.8; O2SAT 94–97
[2023-05-17] MEDS: OXYCODONE/ACETAMINOPHEN 5/325 TABLET 1 TAB PO ×4 (00:34→16:28)
--- NOTE | 2023-05-17 05:36 | P.HP_ITS ---
History of Present Illness History of Present Illness Date Patient Seen: 05/16/23 Time Patient Seen: 21:30 Chief complaint: oral abcess / fever/ on abx Narrative: Mr. 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 He has had worsening shortness of breath for four days. He has had a cough, but he thinks his symptoms are primarily secondary to nasal congestion. He has noted fatigue and weakness. He ultimately attributes much of this to symptoms he has had since having COVID in October,. He also notes having a chronically bad tooth, his left lower incisor and was started on antibiotics two days ago. He is planned to have tooth extraction this Friday 05/18. He has no chest pain or fevers. He has had poorly controlled diabetes with blood sugars at home in the 200s-300s and has been on ozempic and metformin, but has been resistant to being placed on insulin. In the ED workup was done, vitals were notable for temp 99.2, heart rate 110s, respiratory rate 30s, blood pressure 120s/70s, sats 98% on 2L. Labs reviewed by me and notable for WBC 8.6, hgb 12.9, plts 200. Na 133, BUN 16, creatinine 0.90. Respiratory panel negative. Lactate 2.7->2.1. Trop negative. BNP 343. Procal 4.96. Chest xray reviewed by me and notable for bibasilar streaky opacities. CTA chest reviewed by me and negative for PE and notable for bronchiectasis. He was ordered for zosyn and developed a rash an hour after infusion. He was admitted for further treatment. [facility] Medical History CAD (coronary artery disease) Coronary artery disease involving coronary bypass graft of [place] heart Diabetes mellitus History of non-insulin dependent diabetes mellitus Hypercholesterolemia Hypertension Kidney stone Social History household members: spouse Smoking Status: Never smoker alcohol intake: current Meds Home Medications and Allergies Home Medications Medication Instructions Recorded Confirmed Type metoprolol succinate 25 mg 25 mg PO DAILY 11/17/18 05/16/23 History tablet,extended release 24 hr omeprazole 20 mg capsule,delayed 20 mg PO Q OTHER DAY 11/17/18 05/16/23 History release simvastatin 40 mg tablet 40 mg PO QPM 11/17/18 05/16/23 History travoprost 0.004 % eye drops 1 drp EYE-BOTH DAILY 11/17/18 05/16/23 History Lactobacillus acidophilus 100 mg 100 mg PO DAILY 10/01/22 05/16/23 History (1 billion cell) capsule acetaminophen 325 mg tablet 650 mg PO BEDTIME 10/01/22 05/16/23 History ascorbic acid (vitamin C) 1,000 mg 1,000 mg PO DAILY 10/01/22 05/16/23 History tablet (Vitamin C) aspirin 325 mg tablet 325 mg PO DAILY 10/01/22 05/16/23 History cetirizine 10 mg tablet 10 mg PO DAILY 10/01/22 05/16/23 History cholecalciferol (vitamin D3) 125 500 mcg PO QWEEK 10/01/22 05/16/23 History mcg (5,000 unit) tablet (Vitamin D3) coenzyme Q10 300 mg capsule 300 mg PO DAILY 10/01/22 05/16/23 History flaxseed oil 1,300 mg-omega 3,6,9 1 cap PO DAILY 10/01/22 05/16/23 History 845 mg-117 mg-117 mg capsule bmvpqwwrufc-vekrafxqz-ueu C-Mn 500 1 cap PO DAILY 10/01/22 05/16/23 History mg-400 mg capsule ibuprofen 600 mg tablet 600 mg PO TID PRN Pain (Scale 10/01/22 05/16/23 History Score 1-3) magnesium 200 mg tablet 200 mg PO DAILY 10/01/22 05/16/23 History multivitamin 1 tab PO DAILY 10/01/22 05/16/23 History omega-3 fatty acids-fish oil 340 1 cap PO DAILY 10/01/22 05/16/23 History mg-1,000 mg capsule semaglutide 1 mg/dose (4 mg/3 mL) 1 mg SUBCUT QWEEK 10/01/22 05/16/23 History subcutaneous pen injector (Ozempic) tadalafil 5 mg tablet 5 mg PO DAILY 10/01/22 05/16/23 History vitamin B complex (B 1 tab PO DAILY 10/01/22 05/16/23 History Complex-Vitamin B12 tablet) tramadol 50 mg tablet 50 mg PO QID PRN Pain, Moderate 10/18/22 05/16/23 Rx (4-6) #60 tabs erythromycin 5 mg/gram (0.5 %) eye 0.5 inch EYE-BOTH TID #3.5 grams 01/12/23 05/16/23 Rx ointment amoxicillin 500 mg tablet 500 mg PO 3XD 05/16/23 05/16/23 History dabigatran etexilate 150 mg 150 mg PO BID 05/16/23 05/16/23 History capsule (Pradaxa) hydrocodone 5 mg-acetaminophen 325 1 tab PO Q4-6H PRN pain 05/16/23 05/16/23 History mg tablet tamsulosin 0.4 mg capsule 0.4 mg PO BEDTIME 05/16/23 05/16/23 History metformin 500 mg tablet 1,000 mg PO BID 05/17/23 05/17/23 History Allergies Allergy/AdvReac Type Severity Reaction Status Date / Time piperacillin [From Zosyn] Allergy Intermediate Rash Verified 05/16/23 13:51 tazobactam [From Zosyn] Allergy Intermediate Rash Verified 05/16/23 13:51 Review of Systems Review of Systems Narrative: 14 systems reviewed and negative aside from what is noted in HPI Exam Vital Signs (past 8 hours): - 05/17/23 00:00 05/17/23 00:03 05/17/23 04:00 Temperature 97.0 F L 97.5 F L Pulse Rate 94 H 84 Respiratory Rate 19 15 Blood Pressure 131/79 149/83 H Pulse Oximetry 97 97 94 Oxygen Delivery Method Room Air Oxygen Flow Rate 0 05/17/23 04:00 Temperature Pulse Rate Respiratory Rate Blood Pressure Pulse Oximetry 94 Oxygen Delivery Method CPAP Oxygen Flow Rate 0 Fraction of Inspired Oxygen 21 SaO2/FiO2 Ratio 461 Oxygen Delivery Method CPAP Oxygen Flow Rate 0 Narrative Exam Narrative: GEN: in respiratory distress CV: regular rate and rhythm, no murmurs PULM: clear bilatreally, increased work of breathing ABD: soft, nontender, nondistended, no organomegaly EXT: warm and well perfused with no edema NEURO: awake, alert, oriented, no focal deficits Objective Labs 05/16/23 12:50 05/16/23 21:20 Labs: Laboratory Results - last 24 hr 05/16/23 05/16/23 05/16/23 12:41 12:50 12:50 WBC 8.6 RBC 4.38 L Hgb 12.9 L Hct 37.4 L MCV 85.4 MCH 29.5 MCHC 34.5 RDW 15.3 H Plt Count 200 Neut % (Auto) 81.4 H Lymph % (Auto) 10.4 L [place] % (Auto) 7.3 Eos % (Auto) 0.1 L Baso % (Auto) 0.8 Neut # (Auto) 7000 Lymph # (Auto) 900 L [place] # (Auto) 600 Eos # (Auto) 0 Baso # (Auto) 100 PT 15.5 H INR 1.3 APTT 28 ABG pH ABG pCO2 ABG pO2 ABG HCO3 ABG Total CO2 ABG O2 Saturation ABG Base Excess VBG pH VBG pCO2 VBG pO2 VBG HCO3 VBG Total CO2 VBG O2 Saturation VBG Base Excess FiO2 Sodium Potassium Chloride Carbon Dioxide BUN Creatinine Estimated GFR BUN/Creatinine Ratio Glucose Lactate Calcium Total Bilirubin AST ALT Alkaline Phosphatase Total Creatine Kinase Troponin I NT-Pro-B Natriuret Pep Total Protein Albumin Globulin Albumin/Globulin Ratio Lipase Procalcitonin Chlamy pneumoniae PCR Not detected Adenovirus (PCR) Not detected B. pertussis DNA (PCR) Not detected B.parapertussis DNA PCR Not detected Coronavirus OC43 (PCR) Not detected Coronavirus HKU1 (PCR) Not detected Coronavirus 229E (PCR) Not detected SARS-CoV-2 (PCR) Not detected Coronavirus NL63 (PCR) Not detected Human Metapneumovir PCR Not detected Influenza Type A (PCR) Not detected Influenza Type B (PCR) Not detected M. pneumoniae (PCR) Not detected Parainfluenza 1 (PCR) Not detected Parainfluenza 2 (PCR) Not detected Parainfluenza 3 (PCR) Not detected Parainfluenza 4 (PCR) Not detected RSV (PCR) Not detected Entero/Rhino (PCR) Not detected 05/16/23 05/16/23 05/16/23 12:50 12:50 13:45 WBC RBC Hgb Hct MCV MCH MCHC RDW Plt Count Neut % (Auto) Lymph % (Auto) [place] % (Auto) Eos % (Auto) Baso % (Auto) Neut # (Auto) Lymph # (Auto) [place] # (Auto) Eos # (Auto) Baso # (Auto) PT INR APTT ABG pH 7.73 H* ABG pCO2 12.6 L* ABG pO2 53 L ABG HCO3 17 L ABG Total CO2 17 L ABG O2 Saturation 95 ABG Base Excess -3.0 L VBG pH VBG pCO2 VBG pO2 VBG HCO3 VBG Total CO2 VBG O2 Saturation VBG Base Excess FiO2 21 Sodium 133 L Potassium 3.9 Chloride 101 Carbon Dioxide 20 L BUN 16 Creatinine 0.90 Estimated GFR > 60 BUN/Creatinine Ratio 17.8 Glucose 258 H Lactate 2.7 H Calcium 9.2 Total Bilirubin 0.8 AST 34 ALT 31 Alkaline Phosphatase 77 Total Creatine Kinase 239 H Troponin I < 0.012 NT-Pro-B Natriuret Pep 343 Total Protein 7.4 Albumin 4.1 Globulin 3.3 Albumin/Globulin Ratio 1.2 Lipase 105 Procalcitonin 4.96 H Chlamy pneumoniae PCR Adenovirus (PCR) B. pertussis DNA (PCR) B.parapertussis DNA PCR Coronavirus OC43 (PCR) Coronavirus HKU1 (PCR) Coronavirus 229E (PCR) SARS-CoV-2 (PCR) Coronavirus NL63 (PCR) Human Metapneumovir PCR Influenza Type A (PCR) Influenza Type B (PCR) M. pneumoniae (PCR) Parainfluenza 1 (PCR) Parainfluenza 2 (PCR) Parainfluenza 3 (PCR) Parainfluenza 4 (PCR) RSV (PCR) Entero/Rhino (PCR) 05/16/23 05/16/23 05/16/23 14:52 14:52 21:20 WBC RBC Hgb Hct MCV MCH MCHC RDW Plt Count Neut % (Auto) Lymph % (Auto) [place] % (Auto) Eos % (Auto) Baso % (Auto) Neut # (Auto) Lymph # (Auto) [place] # (Auto) Eos # (Auto) Baso # (Auto) PT INR APTT ABG pH ABG pCO2 ABG pO2 ABG HCO3 ABG Total CO2 ABG O2 Saturation ABG Base Excess VBG pH VBG pCO2 VBG pO2 VBG HCO3 VBG Total CO2 VBG O2 Saturation VBG Base Excess FiO2 Sodium Potassium Chloride Carbon Dioxide BUN Creatinine Estimated GFR BUN/Creatinine Ratio Glucose 545 H* D Lactate 2.1 Calcium Total Bilirubin AST ALT Alkaline Phosphatase Total Creatine Kinase Troponin I < 0.012 NT-Pro-B Natriuret Pep Total Protein Albumin Globulin Albumin/Globulin Ratio Lipase Procalcitonin Chlamy pneumoniae PCR Adenovirus (PCR) B. pertussis DNA (PCR) B.parapertussis DNA PCR Coronavirus OC43 (PCR) Coronavirus HKU1 (PCR) Coronavirus 229E (PCR) SARS-CoV-2 (PCR) Coronavirus NL63 (PCR) Human Metapneumovir PCR Influenza Type A (PCR) Influenza Type B (PCR) M. pneumoniae (PCR) Parainfluenza 1 (PCR) Parainfluenza 2 (PCR) Parainfluenza 3 (PCR) Parainfluenza 4 (PCR) RSV (PCR) Entero/Rhino (PCR) 05/16/23 21:23 WBC RBC Hgb Hct MCV MCH MCHC RDW Plt Count Neut % (Auto) Lymph % (Auto) [place] % (Auto) Eos % (Auto) Baso % (Auto) Neut # (Auto) Lymph # (Auto) [place] # (Auto) Eos # (Auto) Baso # (Auto) PT INR APTT ABG pH ABG pCO2 ABG pO2 ABG HCO3 ABG Total CO2 ABG O2 Saturation ABG Base Excess VBG pH 7.43 VBG pCO2 33.2 L VBG pO2 39 VBG HCO3 22 L VBG Total CO2 23 L VBG O2 Saturation 76 H VBG Base Excess -2.0 L FiO2 21 Sodium Potassium Chloride Carbon Dioxide BUN Creatinine Estimated GFR BUN/Creatinine Ratio Glucose Lactate Calcium Total Bilirubin AST ALT Alkaline Phosphatase Total Creatine Kinase Troponin I NT-Pro-B Natriuret Pep Total Protein Albumin Globulin Albumin/Globulin Ratio Lipase Procalcitonin Chlamy pneumoniae PCR Adenovirus (PCR) B. pertussis DNA (PCR) B.parapertussis DNA PCR Coronavirus OC43 (PCR) Coronavirus HKU1 (PCR) Coronavirus 229E (PCR) SARS-CoV-2 (PCR) Coronavirus NL63 (PCR) Human Metapneumovir PCR Influenza Type A (PCR) Influenza Type B (PCR) M. pneumoniae (PCR) Parainfluenza 1 (PCR) Parainfluenza 2 (PCR) Parainfluenza 3 (PCR) Parainfluenza 4 (PCR) RSV (PCR) Entero/Rhino (PCR) Assessment & Plan Assessment & Plan narrative: 1. Acute respiratory distress likely secondary to acute bronchiectasis -RT consult placed, placed on incentive spirometry -continue with antibiotics with levofloxacin -had possible allergy to zosyn -procal elevated to 4.96 either from pulmonary or dental source 2. Acute dental infection -continue amoxicillin, monitor for allergy -has dental surgery planned for Friday 05/18 -pain medications ordered 3. Type 2 Diabetes with hyperglycemia -on ozempic and metformin -blood sugars poorly controlled -start lantus and insulin sliding scale here and check glucose achs 4. History of PE -continue pradaxa -CT angio this admission negative for PE 5. Nasal congestion -trial flonase spray 6. BPH -continue tamsulosin 7. Hiatal hernia -continue PPI I have discussed plan and obtained history from patient. I have discussed plan of care with ED physician and bedside nurse. I have reviewed labs, imaging. CODE: Full Proxy: Divine Pisano, Quality VTE Deep Vein Thrombosis/Pulmonary Embolism Present on Admission: No
[2023-05-17] MEDS: INSULIN LISPRO 100 UNIT/ML 3ML VIAL SUBCUT ×4 (08:22→22:12)
[2023-05-17] MEDS: METOPROLOL ER 25 MG TABLET PO (08:26)
[2023-05-17] MEDS: AMOXICILLIN 250 MG CAPSULE 500 MG PO ×2 (08:26→15:44)
[2023-05-17] MEDS: DABIGATRAN 75 MG CAPSULE 150 MG PO ×2 (08:29→22:14)
[2023-05-17] MEDS: FLUTICASONE 120 SPRAY/16 GM SPRAY.SUSP NASAL ×2 (08:30→22:16)
[2023-05-17] MEDS: INSULIN GLARGINE 100 UNIT/ML 3ML PEN 10 UNIT SUBCUT (08:46)
[2023-05-17 09:04] LABS: Add Manual Diff / Slide Review NO; Basophils Absolute Auto 0 /uL (0-100); Basophils Percent Auto 0.3 % (0-2); Eosinophils Absolute Auto 0 /uL (0-450); Eosinophils Percent Auto 0.1 % (2-4); Hematocrit 40.7 % (41-53); Lymphocytes Absolute Auto 1200 /uL (1100-4500); Mean Corpuscular HGB Conc 34.3 % (30-36); Mean Corpuscular Hemoglobin 29.6 PG (26-34); Mean Corpuscular Volume 86.2 fL (80-100); Monocytes Absolute Auto 1000 /uL (0-900); Monocytes Percent Auto 8.1 % (3-14); Neutrophils Absolute Auto 10000 /uL (1500-7000); Neutrophils Percent Auto 81.5 % (50-75); Platelet Count 239 X10^3/uL (150-400); Red Blood Cell Count 4.72 X10^6/uL (4.5-5.9); Red Cell Distribution Width 15.2 % (11.6-14.8); White Blood Cell Count 12.3 X10^3/uL (4.5-11.0)
[2023-05-17 09:23] LABS: BUN Creatinine Ratio 22.2 (6-22); Blood Urea Nitrogen 20 mg/dL (9-20); Calcium 9.9 mg/dL (8.4-10.2); Carbon Dioxide 24 mmol/L (22-32); Chloride 99 mmol/L (98-107); Estimated Glomerular Filt Rate > 60 mL/min (>60); Glucose 299 mg/dL (80-110); HEMOLYSIS < 15 (0-50); Potassium 4.4 mmol/L (3.4-5.1); Sodium 135 mmol/L (137-145)
--- NOTE | 2023-05-17 09:31 | CM.DANOTE ---
Reviewed chart with existing information, and patient will discussed in multidisciplinary rounds this morning. Met with patient and introduced to care coordination and discharge planning. They agree to assessment. Pt is a admitted for fever, dental abscess. Patient states he has appt for tooth extraction tomorrow. Relays that he is independent, cooks, grocery shops for who is 15 year younger and still works as a high school librarian online. Plan: IV ABX DCP is for home with supportive spouse in [place] PCP: Teodora Gordon seen about 4 weeks ago DME: States none Payer: [facility] Barriers: None foreseen Hope Child RN CM
[2023-05-17 10:11] LABS: Creatine Kinase 147 U/L (55-170)
[2023-05-17 11:07] LABS: Procalcitonin 2.53 ng/mL (<0.5)
[2023-05-17] MEDS: LORazepam 0.5 MG TABLET PO (12:40)
--- NOTE | 2023-05-17 12:52 | PC.NURSE ---
pt up to chair for breakfast, cbg 284 with coverage medicated for left facial pain r/t abscess tooth, pt has been teary and sad for a few month because health issues-pt becomes sob, restless and anxious, spoke with md and medicated pt with ativan po. dr Nunez into see pt [id number]
--- NOTE | 2023-05-17 13:16 | PM.PN.1 ---
Subjective Subjective Interval history: Patient is teary and anxious with intermittent hyperventilation. Discussed his breathing pattern being like this since having COVID in October. It is a combination of being related to anxiety and deconditioned state. Anytime that the patient gets short of breath likely from deconditioned state he also has increase symptoms due to anxiety. In however is pleased that last night was the 1st night he was not congested in his sinuses and likely this is rated related to having a dexamethasone dose in the ER. He has come to the conclusion that he should delay his dental surgery and I recommended that it be delayed for 2 weeks so that he can recover from his other current medical problems. Of note, even though it was thought that perhaps the patient had a penicillin allergy with a reaction to Zosyn in the ER, patient was given amoxicillin dose today with no reaction. Therefore it was clear the patient is not allergic to penicillins and may be allergic to tazobactam in Zosyn. We will continue with the amoxicillin and the levofloxacin. He should stay on the amoxicillin until he has a dental procedure. Also on discussion with the patient, it is readily apparent that his lack of using insulin to control his diabetes is based on certain police and fears that he is had towards insulin use in diabetics in his misunderstanding of the progression of the disease. He is willing to continue with the current insulin and most likely should be discharged on at least a b.i.d. Lantus dose. For his anxiety, as needed Ativan will be available however the patient will be started on fluoxetine 20 mg daily as well. Exam Vital Signs (past 8 hours): - 05/17/23 07:43 05/17/23 12:18 05/17/23 08:30 Temperature 98.2 F 97.8 F Pulse Rate 80 78 Respiratory Rate 16 16 Blood Pressure 138/60 128/59 L Pulse Oximetry 95 96 96 Oxygen Delivery Method Room Air Oxygen Flow Rate 0 0 Fraction of Inspired Oxygen 21 SaO2/FiO2 Ratio 461 Oxygen Delivery Method Room Air Oxygen Flow Rate 0 Narrative Exam Narrative: GEN: in respiratory distress only when he is anxious. However can calm down and breathe normally and appears to not be in acute medical distress CV: regular rate and rhythm, no murmurs PULM: clear bilatreally, increased work of breathing intermittently largely dependent on anxiety ABD: soft, nontender, nondistended, no organomegaly, general obesity EXT: warm and well perfused with no edema NEURO: awake, alert, oriented, no focal deficits Objective Labs 05/17/23 08:25 05/17/23 08:25 Labs: Laboratory Results - last 24 hr 05/16/23 05/16/23 05/16/23 12:41 12:50 12:50 WBC 8.6 RBC 4.38 L Hgb 12.9 L Hct 37.4 L MCV 85.4 MCH 29.5 MCHC 34.5 RDW 15.3 H Plt Count 200 Neut % (Auto) 81.4 H Lymph % (Auto) 10.4 L [place] % (Auto) 7.3 Eos % (Auto) 0.1 L Baso % (Auto) 0.8 Neut # (Auto) 7000 Lymph # (Auto) 900 L [place] # (Auto) 600 Eos # (Auto) 0 Baso # (Auto) 100 PT 15.5 H INR 1.3 APTT 28 ABG pH ABG pCO2 ABG pO2 ABG HCO3 ABG Total CO2 ABG O2 Saturation ABG Base Excess VBG pH VBG pCO2 VBG pO2 VBG HCO3 VBG Total CO2 VBG O2 Saturation VBG Base Excess FiO2 Sodium Potassium Chloride Carbon Dioxide BUN Creatinine Estimated GFR BUN/Creatinine Ratio Glucose Lactate Calcium Total Bilirubin AST ALT Alkaline Phosphatase Total Creatine Kinase Troponin I NT-Pro-B Natriuret Pep Total Protein Albumin Globulin Albumin/Globulin Ratio Lipase Procalcitonin Chlamy pneumoniae PCR Not detected Adenovirus (PCR) Not detected B. pertussis DNA (PCR) Not detected B.parapertussis DNA PCR Not detected Coronavirus OC43 (PCR) Not detected Coronavirus HKU1 (PCR) Not detected Coronavirus 229E (PCR) Not detected SARS-CoV-2 (PCR) Not detected Coronavirus NL63 (PCR) Not detected Human Metapneumovir PCR Not detected Influenza Type A (PCR) Not detected Influenza Type B (PCR) Not detected M. pneumoniae (PCR) Not detected Parainfluenza 1 (PCR) Not detected Parainfluenza 2 (PCR) Not detected Parainfluenza 3 (PCR) Not detected Parainfluenza 4 (PCR) Not detected RSV (PCR) Not detected Entero/Rhino (PCR) Not detected 05/16/23 05/16/23 05/16/23 12:50 12:50 13:45 WBC RBC Hgb Hct MCV MCH MCHC RDW Plt Count Neut % (Auto) Lymph % (Auto) [place] % (Auto) Eos % (Auto) Baso % (Auto) Neut # (Auto) Lymph # (Auto) [place] # (Auto) Eos # (Auto) Baso # (Auto) PT INR APTT ABG pH 7.73 H* ABG pCO2 12.6 L* ABG pO2 53 L ABG HCO3 17 L ABG Total CO2 17 L ABG O2 Saturation 95 ABG Base Excess -3.0 L VBG pH VBG pCO2 VBG pO2 VBG HCO3 VBG Total CO2 VBG O2 Saturation VBG Base Excess FiO2 21 Sodium 133 L Potassium 3.9 Chloride 101 Carbon Dioxide 20 L BUN 16 Creatinine 0.90 Estimated GFR > 60 BUN/Creatinine Ratio 17.8 Glucose 258 H Lactate 2.7 H Calcium 9.2 Total Bilirubin 0.8 AST 34 ALT 31 Alkaline Phosphatase 77 Total Creatine Kinase 239 H Troponin I < 0.012 NT-Pro-B Natriuret Pep 343 Total Protein 7.4 Albumin 4.1 Globulin 3.3 Albumin/Globulin Ratio 1.2 Lipase 105 Procalcitonin 4.96 H Chlamy pneumoniae PCR Adenovirus (PCR) B. pertussis DNA (PCR) B.parapertussis DNA PCR Coronavirus OC43 (PCR) Coronavirus HKU1 (PCR) Coronavirus 229E (PCR) SARS-CoV-2 (PCR) Coronavirus NL63 (PCR) Human Metapneumovir PCR Influenza Type A (PCR) Influenza Type B (PCR) M. pneumoniae (PCR) Parainfluenza 1 (PCR) Parainfluenza 2 (PCR) Parainfluenza 3 (PCR) Parainfluenza 4 (PCR) RSV (PCR) Entero/Rhino (PCR) 05/16/23 05/16/23 05/16/23 14:52 14:52 21:20 WBC RBC Hgb Hct MCV MCH MCHC RDW Plt Count Neut % (Auto) Lymph % (Auto) [place] % (Auto) Eos % (Auto) Baso % (Auto) Neut # (Auto) Lymph # (Auto) [place] # (Auto) Eos # (Auto) Baso # (Auto) PT INR APTT ABG pH ABG pCO2 ABG pO2 ABG HCO3 ABG Total CO2 ABG O2 Saturation ABG Base Excess VBG pH VBG pCO2 VBG pO2 VBG HCO3 VBG Total CO2 VBG O2 Saturation VBG Base Excess FiO2 Sodium Potassium Chloride Carbon Dioxide BUN Creatinine Estimated GFR BUN/Creatinine Ratio Glucose 545 H* D Lactate 2.1 Calcium Total Bilirubin AST ALT Alkaline Phosphatase Total Creatine Kinase Troponin I < 0.012 NT-Pro-B Natriuret Pep Total Protein Albumin Globulin Albumin/Globulin Ratio Lipase Procalcitonin Chlamy pneumoniae PCR Adenovirus (PCR) B. pertussis DNA (PCR) B.parapertussis DNA PCR Coronavirus OC43 (PCR) Coronavirus HKU1 (PCR) Coronavirus 229E (PCR) SARS-CoV-2 (PCR) Coronavirus NL63 (PCR) Human Metapneumovir PCR Influenza Type A (PCR) Influenza Type B (PCR) M. pneumoniae (PCR) Parainfluenza 1 (PCR) Parainfluenza 2 (PCR) Parainfluenza 3 (PCR) Parainfluenza 4 (PCR) RSV (PCR) Entero/Rhino (PCR) 05/16/23 05/17/23 05/17/23 21:23 08:25 08:25 WBC 12.3 H RBC 4.72 Hgb 14.0 Hct 40.7 L MCV 86.2 MCH 29.6 MCHC 34.3 RDW 15.2 H Plt Count 239 Neut % (Auto) 81.5 H Lymph % (Auto) 10.0 L [place] % (Auto) 8.1 Eos % (Auto) 0.1 L Baso % (Auto) 0.3 Neut # (Auto) 98165 H Lymph # (Auto) 1200 [place] # (Auto) 1000 H Eos # (Auto) 0 Baso # (Auto) 0 PT INR APTT ABG pH ABG pCO2 ABG pO2 ABG HCO3 ABG Total CO2 ABG O2 Saturation ABG Base Excess VBG pH 7.43 VBG pCO2 33.2 L VBG pO2 39 VBG HCO3 22 L VBG Total CO2 23 L VBG O2 Saturation 76 H VBG Base Excess -2.0 L FiO2 21 Sodium 135 L Potassium 4.4 Chloride 99 Carbon Dioxide 24 BUN 20 Creatinine 0.90 Estimated GFR > 60 BUN/Creatinine Ratio 22.2 H Glucose 299 H D Lactate Calcium 9.9 Total Bilirubin AST ALT Alkaline Phosphatase Total Creatine Kinase Troponin I NT-Pro-B Natriuret Pep Total Protein Albumin Globulin Albumin/Globulin Ratio Lipase Procalcitonin Chlamy pneumoniae PCR Adenovirus (PCR) B. pertussis DNA (PCR) B.parapertussis DNA PCR Coronavirus OC43 (PCR) Coronavirus HKU1 (PCR) Coronavirus 229E (PCR) SARS-CoV-2 (PCR) Coronavirus NL63 (PCR) Human Metapneumovir PCR Influenza Type A (PCR) Influenza Type B (PCR) M. pneumoniae (PCR) Parainfluenza 1 (PCR) Parainfluenza 2 (PCR) Parainfluenza 3 (PCR) Parainfluenza 4 (PCR) RSV (PCR) Entero/Rhino (PCR) 05/17/23 05/17/23 08:25 08:25 WBC RBC Hgb Hct MCV MCH MCHC RDW Plt Count Neut % (Auto) Lymph % (Auto) [place] % (Auto) Eos % (Auto) Baso % (Auto) Neut # (Auto) Lymph # (Auto) [place] # (Auto) Eos # (Auto) Baso # (Auto) PT INR APTT ABG pH ABG pCO2 ABG pO2 ABG HCO3 ABG Total CO2 ABG O2 Saturation ABG Base Excess VBG pH VBG pCO2 VBG pO2 VBG HCO3 VBG Total CO2 VBG O2 Saturation VBG Base Excess FiO2 Sodium Potassium Chloride Carbon Dioxide BUN Creatinine Estimated GFR BUN/Creatinine Ratio Glucose Lactate Calcium Total Bilirubin AST ALT Alkaline Phosphatase Total Creatine Kinase 147 Troponin I NT-Pro-B Natriuret Pep Total Protein Albumin Globulin Albumin/Globulin Ratio Lipase Procalcitonin 2.53 H Chlamy pneumoniae PCR Adenovirus (PCR) B. pertussis DNA (PCR) B.parapertussis DNA PCR Coronavirus OC43 (PCR) Coronavirus HKU1 (PCR) Coronavirus 229E (PCR) SARS-CoV-2 (PCR) Coronavirus NL63 (PCR) Human Metapneumovir PCR Influenza Type A (PCR) Influenza Type B (PCR) M. pneumoniae (PCR) Parainfluenza 1 (PCR) Parainfluenza 2 (PCR) Parainfluenza 3 (PCR) Parainfluenza 4 (PCR) RSV (PCR) Entero/Rhino (PCR) [facility] Medical History CAD (coronary artery disease) Coronary artery disease involving coronary bypass graft of [place] heart Diabetes mellitus History of non-insulin dependent diabetes mellitus Hypercholesterolemia Hypertension Kidney stone Social History household members: spouse Smoking Status: Never smoker alcohol intake: current Assessment & Plan Assessment & Plan narrative: 1. Acute respiratory distress likely secondary to acute bronchiectasis -RT consult placed, placed on incentive spirometry -continue with antibiotics with levofloxacin which can be given orally 750 mg daily -had possible allergy to zosyn-and most likely secondary to tazobactam -procal elevated to 4.96 either from pulmonary or dental source, decreased to 2.53 today, continue to follow 2. Acute dental infection -continue amoxicillin, monitor for allergy -no signs of allergy today -has dental surgery planned for Friday 05/18-this will be delayed and recommended the patient to lay for 2 weeks -pain medications ordered 3. Type 2 Diabetes with hyperglycemia -on ozempic and metformin -discussed about his fears of insulin and his misunderstanding of insulin and appropriate control of diabetes -blood sugars poorly controlled -start lantus and insulin sliding scale here and check glucose achs 4. History of PE -continue pradaxa -CT angio this admission negative for PE 5. Nasal congestion -trial flonase sprayp-this combined with the 1 dose of methylprednisone have cleared the patient's sinuses 6. BPH -continue tamsulosin 7. Hiatal hernia -continue PPI 8. Anxiety. Treat with as needed Ativan q.4h and initiate fluoxetine 20 mg daily Follow labs and patient clinically. CODE: Full Proxy: Divine Pisano, DVT prophylaxis: On Pradaxa Quality VTE Deep Vein Thrombosis/Pulmonary Embolism Present on Admission: No
[2023-05-17] MEDS: levoFLOXacin 250 MG TABLET 750 MG PO (15:43)
[2023-05-17] MEDS: FLUoxetine 20 MG CAPSULE PO (16:29)
[2023-05-17] MEDS: HYDROMORPHONE 1 MG INJ IV ×2 (19:16→22:16)
[2023-05-17] MEDS: VANCOMYCIN 2,000 MG/400 ML PIGGYBACK 200 MG IV (20:16)
[2023-05-17] MEDS: INSULIN GLARGINE 100 UNIT/ML 3ML PEN 20 UNIT SUBCUT (22:12)
[2023-05-17] MEDS: ATORVASTATIN 20 MG TABLET 40 MG PO (22:14)
[2023-05-17] MEDS: TAMSULOSIN 0.4 MG CAPSULE PO (22:14)
[2023-05-17] MEDS: AMPICILLIN/SULBACTAM 3 GM 3 GM in SODIUM CHLORIDE 0.9% 100 ML IV (22:48)
[2023-05-18] VITALS (9 sets, daily range): BP systolic 118–132; BP diastolic 60–84; PULSE 69–97; RESP 16–24; TEMP 36–36.3; O2SAT 92–98
[2023-05-18] MEDS: HYDROMORPHONE 1 MG INJ IV ×3 (03:22→12:16)
[2023-05-18] MEDS: AMPICILLIN/SULBACTAM 3 GM 3 GM in SODIUM CHLORIDE 0.9% 100 ML IV ×4 (04:20→22:33)
[2023-05-18] MEDS: OXYCODONE IR 10 MG TABLET PO ×3 (04:57→17:35)
[2023-05-18] MEDS: LORazepam 0.5 MG TABLET PO ×2 (05:32→09:07)
[2023-05-18 06:55] LABS: Add Manual Diff / Slide Review NO; Basophils Absolute Auto 100 /uL (0-100); Basophils Percent Auto 0.6 % (0-2); Eosinophils Absolute Auto 100 /uL (0-450); Eosinophils Percent Auto 1.5 % (2-4); Hematocrit 37.4 % (41-53); Lymphocytes Absolute Auto 1800 /uL (1100-4500); Lymphocytes Percent Auto 19.8 % (25-40); Mean Corpuscular HGB Conc 34.7 % (30-36); Mean Corpuscular Hemoglobin 29.8 PG (26-34); Mean Corpuscular Volume 85.8 fL (80-100); Monocytes Absolute Auto 800 /uL (0-900); Monocytes Percent Auto 9.3 % (3-14); Neutrophils Absolute Auto 6200 /uL (1500-7000); Neutrophils Percent Auto 68.8 % (50-75); Platelet Count 227 X10^3/uL (150-400); Red Blood Cell Count 4.36 X10^6/uL (4.5-5.9); Red Cell Distribution Width 15.9 % (11.6-14.8)
[2023-05-18 07:07] LABS: Alanine Aminotransferase 27 IU/L (<50); Albumin 3.7 g/dL (3.5-5.0); Alkaline Phosphatase 76 U/L (38-126); Aspartate Aminotransferase 20 IU/L (17-59); BUN Creatinine Ratio 23.6 (6-22); Bilirubin Total 0.5 mg/dL (0.2-1.3); Bilirubin Unconjugated 0.2 mg/dL (0.0-1.1); Blood Urea Nitrogen 21 mg/dL (9-20); Carbon Dioxide 19 mmol/L (22-32); Chloride 103 mmol/L (98-107); Estimated Glomerular Filt Rate > 60 mL/min (>60); Globulin 3.7 g/dL (1.7-4.1); Glucose 269 mg/dL (80-110); HEMOLYSIS < 15 (0-50); Sodium 133 mmol/L (137-145); Total Protein 7.4 g/dL (6.3-8.2)
[2023-05-18 07:23] LABS: Procalcitonin 1.46 ng/mL (<0.5)
[2023-05-18] MEDS: INSULIN LISPRO 100 UNIT/ML 3ML VIAL SUBCUT ×4 (08:27→20:54)
[2023-05-18] MEDS: INSULIN GLARGINE 100 UNIT/ML 3ML PEN 20 UNIT SUBCUT ×2 (08:28→20:58)
[2023-05-18] MEDS: METOPROLOL ER 25 MG TABLET PO (08:29)
[2023-05-18] MEDS: DABIGATRAN 75 MG CAPSULE 150 MG PO (08:30)
[2023-05-18] MEDS: ASPIRIN EC 325 MG TABLET PO (08:30)
[2023-05-18] MEDS: VANCOMYCIN 1,000 MG/200 ML PIGGYBACK 200 MG IV ×2 (08:30→20:53)
[2023-05-18] MEDS: FLUoxetine 20 MG CAPSULE PO (08:31)
[2023-05-18] MEDS: FLUTICASONE 120 SPRAY/16 GM SPRAY.SUSP NASAL ×2 (10:00→20:53)
[2023-05-18] MEDS: KETOROLAC 30 MG/ML VIAL 15 MG IV ×3 (10:04→22:33)
--- NOTE | 2023-05-18 11:03 | PM.PN.1 ---
Subjective Subjective Interval history: Patient's main complaint is anxiety and increased breathing secondary to his reaction to increased pain. Based on this, the plan is to hold his aspirin and Pradaxa while giving him Toradol 15 mg IV every 6 hours for a couple days to settled his pain and inflammation of his left jaw area. Once pain settles more effectively the patient can be reinitiated on the aspirin and Pradaxa. Also last evening, the patient's antibiotic was switched to Unasyn 3 g IV every 6 hours. Exam Vital Signs (past 8 hours): - 05/18/23 04:00 05/18/23 04:00 05/18/23 06:37 Temperature 97.0 F L Pulse Rate 93 H 90 Respiratory Rate 24 Blood Pressure 123/75 118/76 Pulse Oximetry 93 93 Oxygen Delivery Method Oxygen Flow Rate 05/18/23 08:29 05/18/23 08:00 05/18/23 08:00 Temperature 97.1 F L Pulse Rate 90 90 Respiratory Rate 20 Blood Pressure 128/77 Pulse Oximetry 92 95 Oxygen Delivery Method Room Air Oxygen Flow Rate 0 0 05/18/23 10:06 Temperature Pulse Rate 69 Respiratory Rate Blood Pressure Pulse Oximetry Oxygen Delivery Method Oxygen Flow Rate Fraction of Inspired Oxygen 28 SaO2/FiO2 Ratio 461 Oxygen Delivery Method Room Air Oxygen Flow Rate 0 Narrative Exam Narrative: GEN: in respiratory distress only when he is anxious.? However can calm down and breathe normally and appears to not be in acute medical distress CV: regular rate and rhythm, no murmurs PULM: clear bilatreally, increased work of breathing intermittently largely dependent on anxiety ABD: soft, nontender, nondistended, no organomegaly, general obesity EXT: warm and well perfused with no edema NECK/Left Jaw area: Some tenderness and swelling as well as erythema. Does not appear increased from yesterday. NEURO: awake, alert, oriented, no focal deficits Objective Labs 05/18/23 06:35 05/18/23 06:35 Labs: Laboratory Results - last 24 hr 05/17/23 05/18/23 05/18/23 08:25 06:35 06:35 WBC 9.0 RBC 4.36 L Hgb 13.0 L Hct 37.4 L MCV 85.8 MCH 29.8 MCHC 34.7 RDW 15.9 H Plt Count 227 Neut % (Auto) 68.8 Lymph % (Auto) 19.8 L Smith % (Auto) 9.3 Eos % (Auto) 1.5 L Baso % (Auto) 0.6 Neut # (Auto) 6200 Lymph # (Auto) 1800 Smith # (Auto) 800 Eos # (Auto) 100 Baso # (Auto) 100 Sodium 133 L Potassium 4.0 Chloride 103 Carbon Dioxide 19 L BUN 21 H Creatinine 0.89 Estimated GFR > 60 BUN/Creatinine Ratio 23.6 H Glucose 269 H Calcium 9.0 Total Bilirubin 0.5 Conjugated Bilirubin 0.0 Unconjugated Bilirubin 0.2 AST 20 ALT 27 Alkaline Phosphatase 76 Total Protein 7.4 Albumin 3.7 Globulin 3.7 Albumin/Globulin Ratio 1.0 Procalcitonin 2.53 H 1.46 H [facility] Medical History CAD (coronary artery disease) Coronary artery disease involving coronary bypass graft of [place] heart Diabetes mellitus History of non-insulin dependent diabetes mellitus Hypercholesterolemia Hypertension Kidney stone Social History household members: spouse Smoking Status: Never smoker alcohol intake: current Assessment & Plan Assessment & Plan narrative: 1. Acute respiratory distress likely secondary to acute bronchiectasis plus component of anxiety -RT consult placed, placed on incentive spirometry -continue with antibiotics with levofloxacin which can be given orally 750 mg daily -this has been switched to Unasyn 3 g IV every 6 hours and vancomycin IV last evening -had possible allergy to zosyn-and most likely secondary to tazobactam -procal elevated to 4.96 either from pulmonary or dental source, decreased to 2.53 yesterday, decreased to 1.46 today, continue to follow 2. Acute dental infection -continue amoxicillin yesterday, monitor for allergy -no signs of allergy yesterday -last evening switch to Unasyn and vancomycin intravenously -has dental surgery planned for Friday 05/18-this will be delayed and recommended the patient to delay for 2 weeks -discussed with Dr. Quintero dentist today, recommending the patient become medically stable prior to surgery -pain medications ordered, increased today with use of Toradol 15 mg IV every 6 hours 3. Type 2 Diabetes with hyperglycemia -on ozempic and metformin -discussed about his fears of insulin and his misunderstanding of insulin and appropriate control of diabetes -blood sugars poorly controlled -start lantus and insulin sliding scale here and check glucose achs, the Lantus dose has been increased to 20 units subQ b.i.d. 4. History of PE -continue pradaxa initially but on hold for a few days while the patient is on Toradol. -CT angio this admission negative for PE 5. Nasal congestion -trial flonase spray-this combined with the 1 dose of methylprednisone have cleared the patient's sinuses, continue nasal spray 6. BPH -continue tamsulosin 7. Hiatal hernia -continue PPI 8. Anxiety.? Treat with as needed Ativan q.4h and initiate fluoxetine 20 mg daily Follow labs and patient clinically. CODE: Full Proxy: Divine Pisano, DVT prophylaxis:? On Pradaxa Quality VTE Deep Vein Thrombosis/Pulmonary Embolism Present on Admission: No
[2023-05-18] MEDS: TAMSULOSIN 0.4 MG CAPSULE PO (20:53)
[2023-05-18] MEDS: ATORVASTATIN 20 MG TABLET 40 MG PO (20:53)
[2023-05-19] VITALS (8 sets, daily range): BP systolic 120–128; BP diastolic 70–73; PULSE 79–92; RESP 16–19; TEMP 35.9–36.7; O2SAT 93–98
[2023-05-19] MEDS: KETOROLAC 30 MG/ML VIAL 15 MG IV ×4 (04:44→21:50)
[2023-05-19] MEDS: AMPICILLIN/SULBACTAM 3 GM 3 GM in SODIUM CHLORIDE 0.9% 100 ML IV ×4 (04:44→21:50)
[2023-05-19 06:46] LABS: Add Manual Diff / Slide Review NO; Basophils Absolute Auto 0 /uL (0-100); Basophils Percent Auto 0.6 % (0-2); Eosinophils Absolute Auto 300 /uL (0-450); Eosinophils Percent Auto 3.6 % (2-4); Hematocrit 35.9 % (41-53); Hemoglobin 12.4 g/dL (13.5-17.5); Lymphocytes Absolute Auto 1700 /uL (1100-4500); Mean Corpuscular HGB Conc 34.6 % (30-36); Mean Corpuscular Hemoglobin 29.6 PG (26-34); Mean Corpuscular Volume 85.7 fL (80-100); Monocytes Absolute Auto 800 /uL (0-900); Monocytes Percent Auto 10.2 % (3-14); Neutrophils Absolute Auto 4800 /uL (1500-7000); Neutrophils Percent Auto 62.6 % (50-75); Platelet Count 215 X10^3/uL (150-400); Red Blood Cell Count 4.19 X10^6/uL (4.5-5.9); Red Cell Distribution Width 15.4 % (11.6-14.8); White Blood Cell Count 7.6 X10^3/uL (4.5-11.0)
[2023-05-19 06:54] LABS: Alanine Aminotransferase 23 IU/L (<50); Albumin 3.4 g/dL (3.5-5.0); Albumin Globulin Ratio 1.1 (1.0-2.8); Alkaline Phosphatase 70 U/L (38-126); Aspartate Aminotransferase 18 IU/L (17-59); BUN Creatinine Ratio 22.1 (6-22); Bilirubin Total 0.5 mg/dL (0.2-1.3); Blood Urea Nitrogen 19 mg/dL (9-20); C-Reactive Protein Quant 8.4 mg/dL (<1.0); Calcium 8.9 mg/dL (8.4-10.2); Carbon Dioxide 22 mmol/L (22-32); Chloride 105 mmol/L (98-107); Estimated Glomerular Filt Rate > 60 mL/min (>60); Globulin 3.2 g/dL (1.7-4.1); Glucose 214 mg/dL (80-110); HEMOLYSIS < 15 (0-50); Potassium 3.8 mmol/L (3.4-5.1); Sodium 135 mmol/L (137-145); Total Protein 6.6 g/dL (6.3-8.2)
[2023-05-19 08:26] LABS: Vancomycin Trough 10.8 ug/mL (10-20)
[2023-05-19] MEDS: INSULIN LISPRO 100 UNIT/ML 3ML VIAL SUBCUT ×4 (08:39→21:54)
[2023-05-19] MEDS: VANCOMYCIN 1,000 MG/200 ML PIGGYBACK 200 MG IV (08:40)
[2023-05-19] MEDS: INSULIN GLARGINE 100 UNIT/ML 3ML PEN 20 UNIT SUBCUT ×2 (08:40→21:53)
[2023-05-19] MEDS: FLUoxetine 20 MG CAPSULE PO (08:40)
[2023-05-19] MEDS: FLUTICASONE 120 SPRAY/16 GM SPRAY.SUSP NASAL ×2 (08:40→21:49)
[2023-05-19] MEDS: OXYCODONE IR 10 MG TABLET PO ×2 (08:41→13:54)
[2023-05-19] MEDS: METOPROLOL ER 25 MG TABLET PO (08:41)
--- NOTE | 2023-05-19 09:21 | CM.DPC ---
DCP Continued: RACE STEWARD entered room and introduced self and role. Patient was sitting up in chair and appeared A/Ox4. Patient reports he has a lot of supports at home including and daughter. Patient reports that he likely has no needs from this team. Patient is adamant that he does not want sound view. Patient reports he likely has no needs from CM team at this time. Plan: d/c home with family when medically stable. Transport with family. Likely no needs from CM team. CM team will continue to follow as needed. SAW Yun
[2023-05-19 11:57] LABS: Vancomycin Peak 30.4 ug/mL (20-40)
--- NOTE | 2023-05-19 18:08 | PM.PN.1 ---
Subjective Subjective Interval history: Patient feeling much better today and the swelling in his face and jaw has improved substantially. Exam Vital Signs (past 8 hours): - 05/19/23 11:56 05/19/23 12:17 05/19/23 16:16 Temperature 97.9 F 98 F Pulse Rate 79 79 81 Respiratory Rate 18 16 Blood Pressure 125/73 128/73 Pulse Oximetry 97 98 Oxygen Flow Rate 0 0 Fraction of Inspired Oxygen 28 SaO2/FiO2 Ratio 461 Oxygen Delivery Method CPAP Oxygen Flow Rate 0 Narrative Exam Narrative: GEN: No acute distress CV: regular rate and rhythm, no murmurs PULM: clear bilatreally, increased work of breathing intermittently largely dependent on anxiety ABD: soft, nontender, nondistended, no organomegaly, general obesity EXT: warm and well perfused with no edema NECK/Left Jaw area: Some tenderness and swelling as well as erythema of left lower jaw. Appears improved. NEURO: awake, alert, oriented, no focal deficits Objective Labs 05/19/23 06:11 05/19/23 06:11 Labs: Laboratory Results - last 24 hr 05/19/23 05/19/23 05/19/23 06:11 06:11 07:30 WBC 7.6 RBC 4.19 L Hgb 12.4 L Hct 35.9 L MCV 85.7 MCH 29.6 MCHC 34.6 RDW 15.4 H Plt Count 215 Neut % (Auto) 62.6 Lymph % (Auto) 23.0 L Sampson % (Auto) 10.2 Eos % (Auto) 3.6 Baso % (Auto) 0.6 Neut # (Auto) 4800 Lymph # (Auto) 1700 Sampson # (Auto) 800 Eos # (Auto) 300 Baso # (Auto) 0 Sodium 135 L Potassium 3.8 Chloride 105 Carbon Dioxide 22 BUN 19 Creatinine 0.86 Estimated GFR > 60 BUN/Creatinine Ratio 22.1 H Glucose 214 H Calcium 8.9 Total Bilirubin 0.5 AST 18 ALT 23 Alkaline Phosphatase 70 C-Reactive Protein 8.4 H Total Protein 6.6 Albumin 3.4 L Globulin 3.2 Albumin/Globulin Ratio 1.1 Vancomycin Peak Vancomycin Trough 10.8 05/19/23 10:50 WBC RBC Hgb Hct MCV MCH MCHC RDW Plt Count Neut % (Auto) Lymph % (Auto) Sampson % (Auto) Eos % (Auto) Baso % (Auto) Neut # (Auto) Lymph # (Auto) Sampson # (Auto) Eos # (Auto) Baso # (Auto) Sodium Potassium Chloride Carbon Dioxide BUN Creatinine Estimated GFR BUN/Creatinine Ratio Glucose Calcium Total Bilirubin AST ALT Alkaline Phosphatase C-Reactive Protein Total Protein Albumin Globulin Albumin/Globulin Ratio Vancomycin Peak 30.4 Vancomycin Trough PFSH Medical History CAD (coronary artery disease) Coronary artery disease involving coronary bypass graft of [place] heart Diabetes mellitus History of non-insulin dependent diabetes mellitus Hypercholesterolemia Hypertension Kidney stone Social History household members: spouse Smoking Status: Never smoker alcohol intake: current Assessment & Plan Assessment & Plan narrative: 1. Acute dental infection, improving -continue Unasyn 3g q6h, swelling and erythema now improving -had dental surgery planned for Friday 05/18, discussed with Dr. Quintero dentist on 05/18, recommending the patient become medically stable prior to surgery -pain medications ordered, using Toradol 15 mg IV every 6 hours with good effect -WBC now normalized 2. Acute respiratory distress likely secondary to acute bronchiectasis plus component of anxiety, improved -RT consult placed, placed on incentive spirometry 3. Type 2 Diabetes with hyperglycemia -on ozempic and metformin -discussed about his fears of insulin and his misunderstanding of insulin and appropriate control of diabetes -blood sugars poorly controlled -started lantus and insulin sliding scale here and check glucose achs, the Lantus dose has been increased to 20 units subQ b.i.d. 4. History of PE -continue pradaxa initially but on hold for a few days while the patient is on Toradol. -CT angio this admission negative for PE 5. Nasal congestion -trial flonase spray-this combined with the 1 dose of methylprednisone have cleared the patient's sinuses, continue nasal spray 6. BPH -continue tamsulosin 7. Hiatal hernia -continue PPI 8. Anxiety.? Treat with as needed Ativan q.4h and initiate fluoxetine 20 mg daily Follow labs and patient clinically. CODE: Full Proxy: Divine Pisano, DVT prophylaxis:? On Pradaxa, on hold for now Dispo: Home on 05/20 to have outpatient dental surgery. Quality VTE Deep Vein Thrombosis/Pulmonary Embolism Present on Admission: No
[2023-05-19] MEDS: ATORVASTATIN 20 MG TABLET 40 MG PO (21:48)
[2023-05-19] MEDS: TAMSULOSIN 0.4 MG CAPSULE PO (21:49)
[2023-05-20] VITALS: BP 128/82; PULSE 89; RESP 18; TEMP 36.1; O2SAT 97
[2023-05-20 03:41] VITALS: O2SAT 98
[2023-05-20] MEDS: KETOROLAC 30 MG/ML VIAL 15 MG IV ×2 (03:41→10:29)
[2023-05-20] MEDS: AMPICILLIN/SULBACTAM 3 GM 3 GM in SODIUM CHLORIDE 0.9% 100 ML IV ×2 (03:41→10:29)
[2023-05-20 04:00] VITALS: BP 138/77; PULSE 87; RESP 17; TEMP 35.8; O2SAT 98
[2023-05-20] MEDS: INSULIN GLARGINE 100 UNIT/ML 3ML PEN 25 UNIT SUBCUT (09:00)
[2023-05-20] MEDS: INSULIN LISPRO 100 UNIT/ML 3ML VIAL SUBCUT (09:01)
[2023-05-20] MEDS: FLUoxetine 20 MG CAPSULE PO (09:01)
[2023-05-20] MEDS: METOPROLOL ER 25 MG TABLET PO (09:01)
[2023-05-20] MEDS: FLUTICASONE 120 SPRAY/16 GM SPRAY.SUSP NASAL (09:01)
[2023-05-20 09:23] VITALS: BP 138/76; PULSE 82; RESP 17; TEMP 36.4; O2SAT 95
--- NOTE | 2023-05-20 18:44 | PM.DS.1 ---
History of Present Illness History of Present Illness Date Patient Seen: 05/16/23 Time Patient Seen: 21:30 Chief complaint: oral abcess / fever/ on abx Narrative: Mr. 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 He has had worsening shortness of breath for four days. He has had a cough, but he thinks his symptoms are primarily secondary to nasal congestion. He has noted fatigue and weakness. He ultimately attributes much of this to symptoms he has had since having COVID in October,. He also notes having a chronically bad tooth, his left lower incisor and was started on antibiotics two days ago. He is planned to have tooth extraction this Friday 05/18. He has no chest pain or fevers. He has had poorly controlled diabetes with blood sugars at home in the 200s-300s and has been on ozempic and metformin, but has been resistant to being placed on insulin. In the ED workup was done, vitals were notable for temp 99.2, heart rate 110s, respiratory rate 30s, blood pressure 120s/70s, sats 98% on 2L. Labs reviewed by me and notable for WBC 8.6, hgb 12.9, plts 200. Na 133, BUN 16, creatinine 0.90. Respiratory panel negative. Lactate 2.7->2.1. Trop negative. BNP 343. Procal 4.96. Chest xray reviewed by me and notable for bibasilar streaky opacities. CTA chest reviewed by me and negative for PE and notable for bronchiectasis. He was ordered for zosyn and developed a rash an hour after infusion. He was admitted for further treatment. Discharge Providers Provider Date of admission: 05/16/23 16:02 Discharge Date: 05/20/23 Primary care physician: Teodora Gordon PA-C Discharge provider: Shan Shaffer DO Summary Hospital Course Discharge Diagnosis: 1. Acute dental infection, improving -continue Unasyn 3g q6h, swelling and erythema now improving -had dental surgery planned for Friday 05/18, discussed with Dr. Quintero dentist on 05/18, recommending the patient become medically stable prior to surgery -pain medications ordered, using Toradol 15 mg IV every 6 hours with good effect -WBC now normalized -has dental extraction scheduled for 05/21 -dc on 10 days of po augmentin 2. Acute respiratory distress likely secondary to acute bronchiectasis plus component of anxiety, resolved -RT consult placed, placed on incentive spirometry 3. Type 2 Diabetes with hyperglycemia -on ozempic and metformin -discussed about his fears of insulin and his misunderstanding of insulin and appropriate control of diabetes -blood sugars poorly controlled -started lantus and insulin sliding scale here and check glucose achs, the Lantus dose has been increased to 20 units subQ b.i.d. -A1c returned at 10.9% 4. History of PE -continue pradaxa initially but on hold for a few days while the patient is on Toradol. -CT angio this admission negative for PE 5. Nasal congestion -trial flonase spray-this combined with the 1 dose of methylprednisone have cleared the patient's sinuses, continue nasal spray 6. BPH -continue tamsulosin 7. Hiatal hernia -continue PPI 8. Anxiety.? -Treat with as needed Ativan q.4h and initiate fluoxetine 20 mg daily Hospital Course: Admitted with worsening tooth abscess of left jaw and placed on Unasyn with improvement in his pain, swelling and erythema. Scheduled tooth extraction with his dentist on 05/21 and discharged on 10 days of p.o. Augmentin. His home Pradaxa was held in anticipation for oral surgery. His dentist can decide when to resume this. Patient's A1c returned at 10.9% he was advised to speak with his PCP about starting insulin. He is hesitant to do this for reasons connected to his who while on insulin. Exam Vital Signs (past 8 hours): Fraction of Inspired Oxygen 28 SaO2/FiO2 Ratio 461 Oxygen Delivery Method Room Air Oxygen Flow Rate 0 Narrative Exam Narrative: GEN: No acute distress CV: regular rate and rhythm, no murmurs PULM: clear bilatreally, increased work of breathing intermittently largely dependent on anxiety ABD: soft, nontender, nondistended, no organomegaly, general obesity EXT: warm and well perfused with no edema NECK/Left Jaw area: Some tenderness and swelling as well as erythema of left lower jaw. Appears improved. NEURO: awake, alert, oriented, no focal deficits Objective Labs 05/19/23 06:11 05/19/23 06:11 [facility] Medical History CAD (coronary artery disease) Coronary artery disease involving coronary bypass graft of [place] heart Diabetes mellitus History of non-insulin dependent diabetes mellitus Hypercholesterolemia Hypertension Kidney stone Social History household members: spouse Smoking Status: Never smoker alcohol intake: current Discharge Plan Discharge Plan Patient Disposition: Home Provider Discharge Comment: You were admitted for worsening left sided tooth abscess. We gave you IV antibiotics and your infection improved. We held your Pradaxa in anticipation for tooth extraction surgery. I have sent 10 days of an oral antibiotic to cover you going forward. I have also sent some pain medication if needed. Restart your Pradaxa under the direction of your dentist. Discharge orders & Medications Prescriptions: New oxycodone-acetaminophen 5-325 mg Tablet 1 tab PO Q4HR PRN (Reason: Pain, Moderate (4-6)) 7 Days Qty: 20 0RF amoxicillin-pot clavulanate 875-125 mg tablet 1 tab PO BID 10 Days Qty: 20 0RF Continued travoprost 0.004 % Drops 1 drp EYE-BOTH DAILY simvastatin 40 mg Tablet 40 mg PO QPM omeprazole 20 mg Capsule,Delayed Release(Dr/Ec) 20 mg PO Q OTHER DAY metoprolol succinate 25 mg Tablet Extended Release 24 Hr 25 mg PO DAILY acetaminophen 325 mg Tablet 650 mg PO BEDTIME magnesium 200 mg Tablet 200 mg PO DAILY Lactobacillus acidophilus 100 mg (1 billion cell) Capsule 100 mg PO DAILY Patient Comments: Has not taken in a while, does not remember the last time he took it multivitamin Tablet 1 tab PO DAILY ascorbic acid (vitamin C) [Vitamin C] 1,000 mg Tablet 1,000 mg PO DAILY cetirizine 10 mg Tablet 10 mg PO DAILY aspirin 325 mg Tablet 325 mg PO DAILY vitamin B complex [B Complex-Vitamin B12] Tablet 1 tab PO DAILY ibuprofen 600 mg Tablet 600 mg PO TID PRN (Reason: Pain (Scale Score 1-3)) [id number] C-Mn 500-400 mg Capsule 1 cap PO DAILY coenzyme Q10 300 mg Capsule 300 mg PO DAILY tadalafil 5 mg Tablet 5 mg PO DAILY omega-3 fatty acids-fish oil 340-1,000 mg Capsule 1 cap PO DAILY cholecalciferol (vitamin D3) [Vitamin D3] 125 mcg (5,000 unit) Tablet 500 mcg PO QWEEK flaxseed oil-omega 3,6,9 1,300 mg-845 mg -117 mg-117 mg Capsule 1 cap PO DAILY Ozempic 1 mg/dose (4 mg/3 mL) Pen Injector 1 mg SUBCUT QWEEK erythromycin 5 mg/gram (0.5 %) ointment 0.5 inch EYE-BOTH TID Qty: 3.5 2RF dabigatran etexilate [Pradaxa] 150 mg capsule 150 mg PO BID hydrocodone-acetaminophen 5-325 mg tablet 1 tab PO Q4-6H PRN (Reason: pain) tamsulosin 0.4 mg capsule 0.4 mg PO BEDTIME metformin 500 mg tablet 1,000 mg PO BID tramadol 50 mg Tablet 50 mg PO QID PRN (Reason: Pain, Moderate (4-6)) Qty: 60 0RF Discontinued amoxicillin 500 mg tablet 500 mg PO 3XD Follow up/Referrals: Teodora Gordon PA-C [Primary Care Provider] - Visit Report/Discharge Packet Instructions: DI for Tooth Abscess, DI for Prescription Opioid Use Stand Alone Forms: Patient Portal/API, Stroke Signs & Symptoms Discharge Data Primary Care Provider: Teodora Gordon Discharges patient from system. Discharge Date/Time: 05/20/23 13:40 Quality VTE Deep Vein Thrombosis/Pulmonary Embolism Present on Admission: No
[2023-05-21 06:36] LABS: Labcorp Hemoglobin (Hb) A1c 10.9 % (4.8-5.6)
== END 2023-05-20 13:40 | disposition home or self-care (01) | DRG 192 ==
LOC: ED 15:50 → AC 16:02
PROVIDERS: Internal Medicine; Student in an Organized Health Care Education/Training Program; Admitting Provider Neuromusculoskeletal Medicine, Sports Medicine; Emergency Provider Emergency Medicine; Family Provider Physician Assistant Medical; PCP Physician Assistant Medical; Referring Provider Emergency Medicine; Visit Provider Neuromusculoskeletal Medicine, Sports Medicine
DX: J47.9 Bronchiectasis, uncomplicated (principal); K04.7 Periapical abscess without sinus; E11.65 Type 2 diabetes mellitus with hyperglycemia; R09.81 Nasal congestion; N40.0 Benign prostatic hyperplasia without lower urinary tract symptoms; K44.9 Diaphragmatic hernia without obstruction or gangrene; F41.9 Anxiety disorder, unspecified; R06.03 Acute respiratory distress; I25.10 Atherosclerotic heart disease of native coronary artery without angina pectoris; I10 Essential (primary) hypertension; E78.00 Pure hypercholesterolemia, unspecified; G47.33 Obstructive sleep apnea (adult) (pediatric); Z79.85 Long-term (current) use of injectable non-insulin antidiabetic drugs; Z79.84 Long term (current) use of oral hypoglycemic drugs; Z86.711 Personal history of pulmonary embolism; Z79.01 Long term (current) use of anticoagulants
CPT/HCPCS: 36415; 36600; 71045; 71275; 80048; 80053; 80076; 80202; 81003; 82550; 82805; 82947; 82962; 83036; 83605; 83690; 83880; 84145; 84484; 85025; 85610; 85730; 86140; 87040; 87633; 93005; 94625; 94640; 96365; 96367; 96375; 99285; 99291; J0295; J1170; J1200; J1815; J1885; J1956; J2060; J2270; J2543; J2930; Q9967

== ENCOUNTER 2023-06-15 14:34 | Emergency (ER) | payer OTHER, SELFPAY ==
[2023-05-16 17:09] VITALS: BMI 35.1
[2023-06-15] VITALS (37 sets, daily range): BP systolic 111–145; BP diastolic 58–101; PULSE 78–134; RESP 12–49; TEMP 36.8; O2SAT 90–97; BMI 35.2
--- NOTE | 2023-06-15 14:48 | DI.RAD.S_ITS ---
PROCEDURE: XR CHEST 1V INDICATIONS: suspected sepsis TECHNIQUE: One view of the chest was acquired. COMPARISON: [facility], CR, XR CHEST 1V, 05/16/2023, 12:40. [facility], CR, XR CHEST 1V, 01/12/2023, 12:37. FINDINGS: Surgical changes and devices: Median sternotomy wires. The 2nd most inferior wire appears fractured, stable. Postsurgical changes from prior CABG. Lungs and pleura: Blunting left costophrenic angle likely representing effusion versus consolidation atelectasis. Bibasilar atelectasis Mediastinum: Mediastinal contours appear normal. Large hiatal hernia. Or wall Heart size is normal. Bones and chest wall: No suspicious bony lesions. Overlying soft tissues appear unremarkable. IMPRESSION: Blunting of left costophrenic angle, may represent atelectasis, consolidation or pleural effusion. Dictated by: Viral Donnelly M.D. on 06/15/2023 at 15:42 Approved by: Viral Donnelly M.D. on 06/15/2023 at 15:45
[2023-06-15 15:00] LABS: Basophils Percent Auto 0.7 % (0-2); Eosinophils Percent Auto 2.4 % (2-4); Hematocrit 36.3 % (41-53); Hemoglobin 12.7 g/dL (13.5-17.5); Lymphocytes Percent Auto 31.8 % (25-40); Mean Corpuscular Hemoglobin 29.9 PG (26-34); Mean Corpuscular Volume 85.4 fL (80-100); Neutrophils Percent Auto 58.1 % (50-75); Platelet Count 254 X10^3/uL (150-400); Red Blood Cell Count 4.25 X10^6/uL (4.5-5.9); Red Cell Distribution Width 14.7 % (11.6-14.8)
[2023-06-15 15:01] LABS: Add Manual Diff / Slide Review NO; Basophils Absolute Auto 0 /uL (0-100); Eosinophils Absolute Auto 200 /uL (0-450); Lymphocytes Absolute Auto 2200 /uL (1100-4500); Monocytes Absolute Auto 500 /uL (0-900); Neutrophils Absolute Auto 4000 /uL (1500-7000)
[2023-06-15 15:05] LABS: INR 1.2 (0.9-1.3); Prothrombin Time 13.6 SECONDS (10.1-12.7)
[2023-06-15 15:08] LABS: PTT Partial Thromboplastin Tim 40 SECONDS (26-36)
[2023-06-15 15:09] LABS: Lactate (Lactic Acid) 2.9 mmol/L (0.7-2.1)
[2023-06-15 15:10] LABS: Alanine Aminotransferase 25 IU/L (<50); Albumin Globulin Ratio 1.2 (1.0-2.8); Alkaline Phosphatase 103 U/L (38-126); Aspartate Aminotransferase 24 IU/L (17-59); BUN Creatinine Ratio 22.6 (6-22); Bilirubin Total 0.4 mg/dL (0.2-1.3); Blood Urea Nitrogen 19 mg/dL (9-20); Calcium 9.8 mg/dL (8.4-10.2); Carbon Dioxide 20 mmol/L (22-32); Chloride 100 mmol/L (98-107); Creatine Kinase 62 U/L (55-170); Estimated Glomerular Filt Rate > 60 mL/min (>60); Globulin 3.4 g/dL (1.7-4.1); Glucose 408 mg/dL (80-110); HEMOLYSIS < 15 (0-50); Lipase 273 U/L (23-300); Potassium 4.2 mmol/L (3.4-5.1); Sodium 132 mmol/L (137-145); Total Protein 7.4 g/dL (6.3-8.2)
[2023-06-15 15:21] LABS: NT-proBNP (BNP-Adult 18+) 196 pg/mL (<450); Troponin I < 0.012 ng/mL (0.01-0.034)
[2023-06-15 15:26] LABS: Procalcitonin 0.08 ng/mL (<0.5)
[2023-06-15] MEDS: SODIUM CHLORIDE 0.9% 1,000 ML 1000 ML IV (15:55)
[2023-06-15 16:53] LABS: Reflexed Lactate in 2 Hours Y
--- NOTE | 2023-06-15 18:07 | ED_ITS ---
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 He had been started on insulin a few weeks ago and earlier it sounds like his blood glucose was 377. He is also taking Ozempic and Lantus. Otherwise he denies any medication or dietary change. He is had no fever or chills. He denies chest pain nausea, vomiting or diarrhea. Related Data Home Medications Medication Instructions Recorded Confirmed metoprolol succinate 25 mg 25 mg PO DAILY 11/17/18 05/16/23 tablet,extended release 24 hr omeprazole 20 mg capsule,delayed 20 mg PO Q OTHER DAY 11/17/18 05/16/23 release simvastatin 40 mg tablet 40 mg PO QPM 11/17/18 05/16/23 travoprost 0.004 % eye drops 1 drp EYE-BOTH DAILY 11/17/18 05/16/23 Lactobacillus acidophilus 100 mg 100 mg PO DAILY 10/01/22 05/16/23 (1 billion cell) capsule acetaminophen 325 mg tablet 650 mg PO BEDTIME 10/01/22 05/16/23 ascorbic acid (vitamin C) 1,000 mg 1,000 mg PO DAILY 10/01/22 05/16/23 tablet (Vitamin C) aspirin 325 mg tablet 325 mg PO DAILY 10/01/22 05/16/23 cetirizine 10 mg tablet 10 mg PO DAILY 10/01/22 05/16/23 cholecalciferol (vitamin D3) 125 500 mcg PO QWEEK 10/01/22 05/16/23 mcg (5,000 unit) tablet (Vitamin D3) coenzyme Q10 300 mg capsule 300 mg PO DAILY 10/01/22 05/16/23 flaxseed oil 1,300 mg-omega 3,6,9 1 cap PO DAILY 10/01/22 05/16/23 845 mg-117 mg-117 mg capsule [id number]-[id number] C-Mn 500 1 cap PO DAILY 10/01/22 05/16/23 mg-400 mg capsule ibuprofen 600 mg tablet 600 mg PO TID PRN Pain (Scale 10/01/22 05/16/23 Score 1-3) magnesium 200 mg tablet 200 mg PO DAILY 10/01/22 05/16/23 multivitamin 1 tab PO DAILY 10/01/22 05/16/23 omega-3 fatty acids-fish oil 340 1 cap PO DAILY 10/01/22 05/16/23 mg-1,000 mg capsule semaglutide 1 mg/dose (4 mg/3 mL) 1 mg SUBCUT QWEEK 10/01/22 05/16/23 subcutaneous pen injector (Ozempic) tadalafil 5 mg tablet 5 mg PO DAILY 10/01/22 05/16/23 vitamin B complex (B 1 tab PO DAILY 10/01/22 05/16/23 Complex-Vitamin B12 tablet) dabigatran etexilate 150 mg 150 mg PO BID 05/16/23 05/16/23 capsule (Pradaxa) hydrocodone 5 mg-acetaminophen 325 1 tab PO Q4-6H PRN pain 05/16/23 05/16/23 mg tablet tamsulosin 0.4 mg capsule 0.4 mg PO BEDTIME 05/16/23 05/16/23 metformin 500 mg tablet 1,000 mg PO BID 05/17/23 05/17/23 Previous Rx's Medication Instructions Recorded tramadol 50 mg tablet 50 mg PO QID PRN Pain, Moderate 10/18/22 (4-6) #60 tabs erythromycin 5 mg/gram (0.5 %) eye 0.5 inch EYE-BOTH TID #3.5 grams 01/12/23 ointment Allergies Allergy/AdvReac Type Severity Reaction Status Date / Time tazobactam [From Zosyn] Allergy Intermediate Rash Verified 06/15/23 14:53 Review of Systems Review of Systems Narrative: GENERAL: See HPI HEENT: Denies sinus pain, ear pain, sore throat, difficulty swallowing, dizziness. RESPIRATORY: See HPI CARDIOVASCULAR: Denies chest pain, palpitations, orthopnea, edema, GASTROINTESTINAL: Denies nausea, vomiting, abdominal pain, diarrhea, constipation, melena. : Denies dysuria, frequency, incontinence, hematuria, urinary retention. MUSCULOSKELETAL: denies weakness, joint pain, or bony pain SKIN: Denies rash, skin lesions, or other NEUROLOGIC: Denies weakness, headache, numbness, change in speech, confusion, seizures, incoordination. PSYCHIATRIC: No concerning psychosocial issues. 12 point review of systems is negative except for those stated above Patient History Medical History CAD (coronary artery disease) Coronary artery disease involving coronary bypass graft of [place] heart Diabetes mellitus History of non-insulin dependent diabetes mellitus Hypercholesterolemia Hypertension Kidney stone Social History household members: spouse Smoking Status: Never smoker alcohol intake: current Smoking Status: Never smoker alcohol intake frequency: holidays/special occasions only Substance Use Type: does not use Exam Narrative Exam Narrative: GENERAL: [77] year old patient appears stated age. Well-developed patient, in mild distress. HEAD: Atraumatic. Normocephalic. EYES: Pupils equal round and reactive. Extraocular motions intact. No scleral icterus. No injection or drainage. ENT: Nose without bleeding, purulent drainage. Throat without erythema, tonsillar hypertrophy or exudate. Airway patent. NECK: Trachea midline. Non tender CARDIOVASCULAR: Regular rate and rhythm without murmurs, gallops, or rubs. RESPIRATORY: Clear to auscultation. Breath sounds equal bilaterally. No wheezes, rales, or rhonchi. GASTROINTESTINAL: Abdomen soft, non-tender, nondistended. EXTREMITIES: No edema or joint tenderness. BACK: Nontender without deformity or crepitance. No flank tenderness. NEURO: AOx3. SKIN: No rash or erythema of visible areas Initial Vital Signs Initial Vital Signs: Vital Signs Pulse Rate 134 H 06/15/23 14:40 Respiratory Rate 25 H 06/15/23 14:40 Course Orders Ordered: Discontinued Medications Sodium Chloride (Normal Saline 0.9%) 1,000 mls @ 1,000 mls/hr IV BOLUS ONE Stop: 06/15/23 15:47 Last Infusion: 06/15/23 16:54 Dose: 0 mls/hr Documented By: Admin: 06/15/23 15:55 Dose: 1,000 mls/hr Documented By: SLAVA Ondansetron HCl (Ondansetron 4 Mg/2 Ml Inj) 4 mg IV NOW PRN PRN Reason: Nausea And Vomiting Ondansetron HCl (Ondansetron 4 Mg Odt) 4 mg SL NOW PRN PRN Reason: Nausea And Vomiting Vital Signs Vital signs: Vital Signs - 8 hr 06/15/23 21:41 06/15/23 21:43 06/15/23 21:44 Pulse Rate 78 87 Pulse Rate [Orthostatic Lying] 78 Pulse Rate [Orthostatic Sitting] 84 Pulse Rate [Orthostatic Standing] 87 Respiratory Rate 18 20 Blood Pressure 123/59 L Blood Pressure [Orthostatic Lying] 123/59 L Blood Pressure [Orthostatic Sitting] 140/68 Blood Pressure [Orthostatic Standing] 136/65 Pulse Oximetry 96 95 Oxygen Delivery Method Room Air Medical Decision Making Lab Data 06/15/23 14:48 06/15/23 14:48 Labs: Lab Results 06/15/23 06/15/23 06/15/23 Range/Units 14:48 14:48 14:48 WBC 7.0 (4.5-11.0) X10^3/uL RBC 4.25 L (4.5-5.9) X10^6/uL Hgb 12.7 L (13.5-17.5) g/dL Hct 36.3 L (41-53) % MCV 85.4 (80-100) fL MCH 29.9 (26-34) PG MCHC 35.0 (30-36) % RDW 14.7 (11.6-14.8) % Plt Count 254 (150-400) X10^3/uL Neut % (Auto) 58.1 (50-75) % Lymph % (Auto) 31.8 (25-40) % [place] % (Auto) 7.0 (3-14) % Eos % (Auto) 2.4 (2-4) % Baso % (Auto) 0.7 (0-2) % Neut # (Auto) 4000 (3733-3305) /uL Lymph # (Auto) 2200 (3202-1812) /uL [place] # (Auto) 500 (0-900) /uL Eos # (Auto) 200 (0-450) /uL Baso # (Auto) 0 (0-100) /uL PT 13.6 H (10.1-12.7) SECONDS INR 1.2 (0.9-1.3) APTT 40 H (26-36) SECONDS Sodium 132 L (137-145) mmol/L Potassium 4.2 (3.4-5.1) mmol/L Chloride 100 (98-107) mmol/L Carbon Dioxide 20 L (22-32) mmol/L BUN 19 (9-20) mg/dL Creatinine 0.84 (0.66-1.25) mg/dL Estimated GFR > 60 (>60) mL/min BUN/Creatinine Ratio 22.6 H (6-22) Glucose 408 H (80-110) mg/dL Lactate (0.7-2.1) mmol/L Calcium 9.8 (8.4-10.2) mg/dL Total Bilirubin 0.4 (0.2-1.3) mg/dL AST 24 (17-59) IU/L ALT 25 (<50) IU/L Alkaline Phosphatase 103 (38-126) U/L Total Creatine Kinase 62 (55-170) U/L Troponin I < 0.012 (0.01-0.034) ng/mL NT-Pro-B Natriuret Pep 196 (<450) pg/mL Total Protein 7.4 (6.3-8.2) g/dL Albumin 4.0 (3.5-5.0) g/dL Globulin 3.4 (1.7-4.1) g/dL Albumin/Globulin Ratio 1.2 (1.0-2.8) Lipase 273 (23-300) U/L Procalcitonin 0.08 (<0.5) ng/mL 06/15/23 06/15/23 Range/Units 14:48 17:15 WBC (4.5-11.0) X10^3/uL RBC (4.5-5.9) X10^6/uL Hgb (13.5-17.5) g/dL Hct (41-53) % MCV (80-100) fL MCH (26-34) PG MCHC (30-36) % RDW (11.6-14.8) % Plt Count (150-400) X10^3/uL Neut % (Auto) (50-75) % Lymph % (Auto) (25-40) % [place] % (Auto) (3-14) % Eos % (Auto) (2-4) % Baso % (Auto) (0-2) % Neut # (Auto) (5260-7913) /uL Lymph # (Auto) (4168-7639) /uL [place] # (Auto) (0-900) /uL Eos # (Auto) (0-450) /uL Baso # (Auto) (0-100) /uL PT (10.1-12.7) SECONDS INR (0.9-1.3) APTT (26-36) SECONDS Sodium (137-145) mmol/L Potassium (3.4-5.1) mmol/L Chloride (98-107) mmol/L Carbon Dioxide (22-32) mmol/L BUN (9-20) mg/dL Creatinine (0.66-1.25) mg/dL Estimated GFR (>60) mL/min BUN/Creatinine Ratio (6-22) Glucose (80-110) mg/dL Lactate 2.9 H 2.0 (0.7-2.1) mmol/L Calcium (8.4-10.2) mg/dL Total Bilirubin (0.2-1.3) mg/dL AST (17-59) IU/L ALT (<50) IU/L Alkaline Phosphatase (38-126) U/L Total Creatine Kinase (55-170) U/L Troponin I (0.01-0.034) ng/mL NT-Pro-B Natriuret Pep (<450) pg/mL Total Protein (6.3-8.2) g/dL Albumin (3.5-5.0) g/dL Globulin (1.7-4.1) g/dL Albumin/Globulin Ratio (1.0-2.8) Lipase (23-300) U/L Procalcitonin (<0.5) ng/mL Urine Dip Bedside Urine Glucose 1000 mg/dl Bedside Urine Bilirubin - Negative Bedside Urine Ketone - Negative Urine Specific [place] 1.010 Bedside Urine Occult Blood - Negative Bedside Urine pH 6.0 Bedside Urine Protein - Negative Bedside Urine Urobilinogen - Negative Bedside Urine Nitrite - Negative Bedside Urine Leukocytes - Negative Esterase Point of care testing: Urine Dip Bedside Urine Glucose 1000 mg/dl Bedside Urine Bilirubin - Negative Bedside Urine Ketone - Negative Urine Specific [place] 1.010 Bedside Urine Occult Blood - Negative Bedside Urine pH 6.0 Bedside Urine Protein - Negative Bedside Urine Urobilinogen - Negative Bedside Urine Nitrite - Negative Bedside Urine Leukocytes - Negative Esterase MDM Narrative Medical decision making narrative: [age] year old patient presents with elevated blood sugar and low blood pressure at pulmonary rehab Multiple etiologies for patient's symptoms considered including, but not limited to: [Sepsis versus dehydration versus medication reaction versus other] Prior Charts reviewed in our EMR Primary Historian: patient Labs reviewed and interpreted by myself: No leukocytosis or left shift, no anemia, electrolytes and renal function within normal, initial serum glucose 408, repeat by POC down in the 200s, initial lactate 2.9, improves to 2.0, troponin negative. Imaging reviewed: Chest x-ray shows blunting of the left costophrenic angle Patient's symptoms improved over duration of stay with above-stated therapies. He is observed for many hours and essentially asymptomatic for the duration of his visit. No significant interventions employed. Patient has reassuring orthostatics and is ambulatory through the department. No dizziness weakness, no shortness of breath. No lab abnormalities requiring further workup or admission. No signs of sepsis, renal injury or other Findings and discharge diagnosis discussed with patient/family followed by verbalization of understanding Return precautions discussed with patient/family whom verbalize understanding of diagnosis and plan Discharge Plan Departure Patient Disposition: Home Clinical Impression: Acute hyperglycemia, Acute hypotension Instructions: DI for Hyperglycemia -- Adult Activity Restrictions/Additional Instructions: *You have been diagnosed with [episode of low blood pressure and high blood sugar. As we discussed your history and physical exam as well as labs and improvement are all very reassuring. There is no indication that further workup or hospitalization is necessary.] *What to do: *Please continue to take your regular medications as directed. [ ] New medication prescriptions sent to your pharmacy: [ ] [ ] New medication written as a paper prescription [ ] No new medications given *Please follow up with your primary care provider in 2-3 days, call for an appointment. Let them know you were seen in the Emergency Department and that we ask that you be seen in follow up. We will electronically transmit a record of today's note if your PCP is in our system *If you do not have a primary care provider please contact the [facility] Resource line at [phone]. They will ask some questions about your medical history and help get you set up with a doctor in the community. *Return to Emergency Department if you should have any new, worsening or concerning symptoms, such as [fever greater than 101 F, shaking chills, worsening pain, persistent vomiting or other bothersome symptoms] Prescriptions: No Action travoprost 0.004 % Drops 1 drp EYE-BOTH DAILY simvastatin 40 mg Tablet 40 mg PO QPM omeprazole 20 mg Capsule,Delayed Release(Dr/Ec) 20 mg PO Q OTHER DAY metoprolol succinate 25 mg Tablet Extended Release 24 Hr 25 mg PO DAILY acetaminophen 325 mg Tablet 650 mg PO BEDTIME magnesium 200 mg Tablet 200 mg PO DAILY Lactobacillus acidophilus 100 mg (1 billion cell) Capsule 100 mg PO DAILY Patient Comments: Has not taken in a while, does not remember the last time he took it multivitamin Tablet 1 tab PO DAILY ascorbic acid (vitamin C) [Vitamin C] 1,000 mg Tablet 1,000 mg PO DAILY cetirizine 10 mg Tablet 10 mg PO DAILY aspirin 325 mg Tablet 325 mg PO DAILY vitamin B complex [B Complex-Vitamin B12] Tablet 1 tab PO DAILY ibuprofen 600 mg Tablet 600 mg PO TID PRN (Reason: Pain (Scale Score 1-3)) [id number]-vte C-Mn 500-400 mg Capsule 1 cap PO DAILY coenzyme Q10 300 mg Capsule 300 mg PO DAILY tadalafil 5 mg Tablet 5 mg PO DAILY omega-3 fatty acids-fish oil 340-1,000 mg Capsule 1 cap PO DAILY cholecalciferol (vitamin D3) [Vitamin D3] 125 mcg (5,000 unit) Tablet 500 mcg PO QWEEK flaxseed oil-omega 3,6,9 1,300 mg-845 mg -117 mg-117 mg Capsule 1 cap PO DAILY Ozempic 1 mg/dose (4 mg/3 mL) Pen Injector 1 mg SUBCUT QWEEK erythromycin 5 mg/gram (0.5 %) ointment 0.5 inch EYE-BOTH TID Qty: 3.5 2RF dabigatran etexilate [Pradaxa] 150 mg capsule 150 mg PO BID hydrocodone-acetaminophen 5-325 mg tablet 1 tab PO Q4-6H PRN (Reason: pain) tamsulosin 0.4 mg capsule 0.4 mg PO BEDTIME metformin 500 mg tablet 1,000 mg PO BID tramadol 50 mg Tablet 50 mg PO QID PRN (Reason: Pain, Moderate (4-6)) Qty: 60 0RF Referrals: Teodora Gordon PA-C [Primary Care Provider] - Stand Alone Forms: Patient Portal/API
--- NOTE | 2023-06-15 21:45 | PC.NURSE ---
pt ambulated without assistance not dizziness
== END 2023-06-15 22:04 | disposition home or self-care (01) ==
PROVIDERS: Emergency Medicine; Emergency Provider Emergency Medicine; Family Provider Physician Assistant Medical; PCP Physician Assistant Medical
DX: E11.65 Type 2 diabetes mellitus with hyperglycemia (principal); I95.9 Hypotension, unspecified
CPT/HCPCS: 36415; 71045; 80053; 81003; 82550; 83605; 83690; 83880; 84145; 84484; 85025; 85610; 85730; 87040; 93005; 99284

== ENCOUNTER 2023-06-17 14:15 | Outpatient (RCR) | payer OTHER, SELFPAY ==
[2022-10-13 01:48] VITALS: BMI 30.4
== END 2023-06-17 16:15 ==
LOC: PUL 14:15
PROVIDERS: Family Provider Physician Assistant Medical; PCP Physician Assistant Medical; Referring Provider Internal Medicine Pulmonary Disease; Visit Provider Internal Medicine Pulmonary Disease
DX: J84.115 Respiratory bronchiolitis interstitial lung disease (principal)
CPT/HCPCS: 94625; 94626

== ENCOUNTER 2023-09-07 14:15 | Outpatient (RCR) | payer OTHER, SELFPAY ==
[2023-05-16 17:09] VITALS: BMI 35.1
== END 2023-09-07 16:15 ==
LOC: PUL 14:15
PROVIDERS: Family Provider Physician Assistant Medical; PCP Physician Assistant Medical; Referring Provider Internal Medicine Pulmonary Disease; Visit Provider Internal Medicine Pulmonary Disease
DX: J84.9 Interstitial pulmonary disease, unspecified (principal)
CPT/HCPCS: 94626

== ENCOUNTER → 2024-07-21 14:42 | Outpatient (CLI) | payer OTHER, SELFPAY ==
[2023-05-16 17:09] VITALS: BMI 35.1
--- NOTE | 2024-07-21 14:43 | DI.CT.S_ITS ---
PROCEDURE: CT CHEST WO CON INDICATIONS: Interstitial lung disease TECHNIQUE: Noncontrast 5 mm thick sections acquired from the pulmonary apices to the posterior costophrenic angles. 1 mm lung window, 5 mm thick coronal and sagittal and 7 mm axial MIP reformats were then acquired. For radiation dose reduction, the following was used: automated exposure control, adjustment of mA and/or kV according to patient size. COMPARISON: [facility], CT, CT CHEST WO CON, 04/09/2023, 15:38. FINDINGS: Large hiatal hernia is again noted unchanged with most of the stomach above the diaphragm on the left. Nonspecific wall thickening of the gastric antrum, pylorus new or increased compared to the prior exam some of which commonly artifact from partial nondistention although gastritis, or other process could be considered Mild bibasilar subsegmental atelectasis left greater than right similar to the prior exam. Moderate bronchiectasis, mildly prominent interstitial markings and peribronchial thickening in the inferior lingula, bilateral lower lobes and inferior right middle lobe similar to the prior exam. Findings may be related to chronic bronchitis, interstitial lung disease, chronic aspiration or other infectious/inflammatory process. Moderate calcifications of the aortic valve, coronary arteries, aortic arch and descending aorta unchanged. Median sternotomy, CABG again noted. Moderate degenerate changes of the thoracic spine without CT evidence of fracture subluxation or central stenosis. No pneumothorax, no pleural effusion, no pericardial effusion. Image quality: Diagnostic. Lower Neck: No enlarged lymph nodes. Thyroid: No thyroid nodules which require sonographic follow up, per consensus guidelines. Heart: Heart size is normal. No pericardial effusion. Thoracic Vessels: The aorta and pulmonary arteries demonstrate normal size. Mediastinum and [place]: No enlarged lymph nodes. IMPRESSION: Large hiatal hernia is again noted unchanged. Nonspecific wall thickening of the stomach new or increased compared to the prior exam some of which commonly artifact from partial nondistention although gastritis, or other process could be considered Mild bibasilar subsegmental atelectasis similar to the prior exam. Moderate bronchiectasis, mildly prominent interstitial markings and peribronchial thickening as discussed above, similar to the prior exam. Moderate calcifications of the aortic valve, coronary arteries, aortic arch and descending aorta unchanged. Dictated by: Panfilo Cole M.D. on 07/21/2024 at 15:24 Approved by: Panfilo Cole M.D. on 07/21/2024 at 15:55
== END ==
LOC: CT 14:43
PROVIDERS: Family Provider Physician Assistant Medical; PCP Physician Assistant Medical; Referring Provider Internal Medicine Pulmonary Disease; Visit Provider Internal Medicine Pulmonary Disease
DX: J84.9 Interstitial pulmonary disease, unspecified (principal); K44.9 Diaphragmatic hernia without obstruction or gangrene; J98.11 Atelectasis; J47.9 Bronchiectasis, uncomplicated; I70.0 Atherosclerosis of aorta; I25.10 Atherosclerotic heart disease of native coronary artery without angina pectoris; Z95.1 Presence of aortocoronary bypass graft
CPT/HCPCS: 71250

== ENCOUNTER 2024-09-08 11:46 | Emergency (ER) | payer OTHER, SELFPAY ==
[2023-05-16 17:09] VITALS: BMI 35.1
[2024-09-08] VITALS (20 sets, daily range): BP systolic 102–139; BP diastolic 56–73; PULSE 92–111; RESP 16–24; TEMP 37.1; O2SAT 92–97; BMI 35.4
--- NOTE | 2024-09-08 12:04 | DI.RAD.S_ITS ---
PROCEDURE: XR KNEE RT 3V INDICATIONS: fall TECHNIQUE: 3 views of the knee were acquired. COMPARISON: None. FINDINGS: Bones: No acute fractures or dislocations. No suspicious bony lesions. 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 Soft tissues: Prominent soft tissue edema and possible hematoma or bursal effusion anterior medial to the knee. No significant knee effusion. Surgical clips project over the medial lower leg. Vascular calcifications are present. IMPRESSION: 1. Prominent soft tissue edema and possible hematoma in the subcutaneous tissues anterior medial to the knee. 2. No acute osseous abnormality. If there is continued clinical concern or persistent symptoms, repeat radiographs or cross-sectional imaging (e.g. CT, MRI) may be helpful for further evaluation. 3. Tricompartmental osteoarthrosis. Approved by: Kenneth Brown M.D. on 09/08/2024 at 12:23
[2024-09-08 14:07] LABS: Add Manual Diff / Slide Review NO; Basophils Absolute Auto 100 /uL (0-100); Basophils Percent Auto 1.4 % (0-2); Eosinophils Absolute Auto 0 /uL (0-450); Eosinophils Percent Auto 0.5 % (2-4); Hematocrit 39.4 % (41-53); Hemoglobin 13.5 g/dL (13.5-17.5); Lymphocytes Absolute Auto 1800 /uL (1100-4500); Mean Corpuscular HGB Conc 34.2 % (30-36); Mean Corpuscular Hemoglobin 32.2 PG (26-34); Monocytes Absolute Auto 800 /uL (0-900); Monocytes Percent Auto 9.7 % (3-14); Neutrophils Absolute Auto 5900 /uL (1500-7000); Neutrophils Percent Auto 67.4 % (50-75); Platelet Count 209 X10^3/uL (150-400); Red Blood Cell Count 4.19 X10^6/uL (4.5-5.9); Red Cell Distribution Width 13.1 % (11.6-14.8); White Blood Cell Count 8.7 X10^3/uL (4.5-11.0)
--- NOTE | 2024-09-08 14:10 | ED.FALL ---
HPI - Fall General Chief Complaint: Trauma Stated Complaint: Fall Time Seen by Provider: 09/08/24 14:08 Source: patient Mode of arrival: Family Vehicle History of Present Illness HPI Narrative: Patient 79-year-old male on Pradaxa secondary to pulmonary embolisms from COVID 2 years ago, diabetes hyperlipidemia presenting today with right knee pain. He reports that he fell last night. He usually walks with a walker but he fell kind of in the closet. He did not really hit his head or lose consciousness. He was unable to bear weight today due to severe pain and swelling. Reports that his feet are always cold. Related Data Home Medications Medication Instructions Recorded Confirmed metoprolol succinate 25 mg 25 mg PO DAILY 11/17/18 05/16/23 tablet,extended release 24 hr omeprazole 20 mg capsule,delayed 20 mg PO Q OTHER DAY 11/17/18 05/16/23 release simvastatin 40 mg tablet 40 mg PO QPM 11/17/18 05/16/23 travoprost 0.004 % eye drops 1 drp EYE-BOTH DAILY 11/17/18 05/16/23 Lactobacillus acidophilus 100 mg 100 mg PO DAILY 10/01/22 05/16/23 (1 billion cell) capsule acetaminophen 325 mg tablet 650 mg PO BEDTIME 10/01/22 05/16/23 ascorbic acid (vitamin C) 1,000 mg 1,000 mg PO DAILY 10/01/22 05/16/23 tablet (Vitamin C) aspirin 325 mg tablet 325 mg PO DAILY 10/01/22 05/16/23 cetirizine 10 mg tablet 10 mg PO DAILY 10/01/22 05/16/23 cholecalciferol (vitamin D3) 125 500 mcg PO QWEEK 10/01/22 05/16/23 mcg (5,000 unit) tablet (Vitamin D3) coenzyme Q10 300 mg capsule 300 mg PO DAILY 10/01/22 05/16/23 flaxseed oil 1,300 mg-omega 3,6,9 1 cap PO DAILY 10/01/22 05/16/23 845 mg-117 mg-117 mg capsule idksmhcnsdi-jsiwlfdiq-ggr C-Mn 500 1 cap PO DAILY 10/01/22 05/16/23 mg-400 mg capsule ibuprofen 600 mg tablet 600 mg PO TID PRN Pain (Scale 10/01/22 05/16/23 Score 1-3) magnesium 200 mg tablet 200 mg PO DAILY 10/01/22 05/16/23 multivitamin 1 tab PO DAILY 10/01/22 05/16/23 omega-3 fatty acids-fish oil 340 1 cap PO DAILY 10/01/22 05/16/23 mg-1,000 mg capsule semaglutide 1 mg/dose (4 mg/3 mL) 1 mg SUBCUT QWEEK 10/01/22 05/16/23 subcutaneous pen injector (Ozempic) tadalafil 5 mg tablet 5 mg PO DAILY 10/01/22 05/16/23 vitamin B complex (B 1 tab PO DAILY 10/01/22 05/16/23 Complex-Vitamin B12 tablet) dabigatran etexilate 150 mg 150 mg PO BID 05/16/23 05/16/23 capsule (Pradaxa) hydrocodone 5 mg-acetaminophen 325 1 tab PO Q4-6H PRN pain 05/16/23 05/16/23 mg tablet tamsulosin 0.4 mg capsule 0.4 mg PO BEDTIME 05/16/23 05/16/23 metformin 500 mg tablet 1,000 mg PO BID 05/17/23 05/17/23 Previous Rx's Medication Instructions Recorded tramadol 50 mg tablet 50 mg PO QID PRN Pain, Moderate 10/18/22 (4-6) #60 tabs erythromycin 5 mg/gram (0.5 %) eye 0.5 inch EYE-BOTH TID #3.5 grams 01/12/23 ointment oxycodone 5 mg tablet 5 mg PO Q6H PRN pain #10 tabs 09/08/24 Allergies Allergy/AdvReac Type Severity Reaction Status Date / Time tazobactam [From Zosyn] Allergy Intermediate Rash Verified 06/15/23 14:53 Patient History Medical History CAD (coronary artery disease) Coronary artery disease involving coronary bypass graft of [place] heart Diabetes mellitus History of non-insulin dependent diabetes mellitus Hypercholesterolemia Hypertension Kidney stone Social History household members: spouse Smoking Status: Never smoker alcohol intake: current Smoking Status: Never smoker alcohol intake frequency: holidays/special occasions only Substance Use Type: does not use Exam Initial Vital Signs Initial Vital Signs: Vital Signs Temperature 98.7 F 11/07/24 11:45 Pulse Rate 103 H 09/08/24 11:45 Respiratory Rate 24 09/08/24 11:45 Blood Pressure 123/67 09/08/24 11:45 Pulse Oximetry 95 09/08/24 11:45 Oxygen Delivery Method Room Air 09/08/24 11:45 GENERAL: Alert 79-year-old male and in no acute distress. HEENT: Head atraumatic,EOMI, pupils reactive, face symmetric, moist mucous membranes CARDIOVASCULAR: Regular rate and rhythm without murmurs, rubs or gallops. RESPIRATORY: Breath sounds equal bilaterally, no wheezes rales or rhonchi. ABDOMEN: Soft, nontender. Normoactive bowel sounds all 4 quadrants. No guarding or rebound. EXTREMITIES: Normal range of motion, no clubbing or edema. Neurovascularly intact. Pelvis stable Right lower extremity significant swelling of right knee small 1 cm x 2 cm blister medially pulses only found distally by Doppler Left lower extremity foot is cold difficult to palpate and find pulse there NEUROLOGICAL: Alert and oriented x4. Business Analytics Director strength equal bilaterally SKIN: Warm, dry, no laceration, no petechiae, no rashes or lesions. Course Orders Ordered: Discontinued Medications Hydromorphone HCl (Hydromorphone 0.5 Mg Inj) 0.5 mg IV NOW ONE Stop: 09/08/24 14:22 Last Admin: 09/08/24 14:37 Dose: 0.5 mg Documented By: BETSY Oxycodone HCl (Oxycodone Ir 5 Mg Tablet) 5 mg PO NOW ONE Stop: 09/08/24 16:45 Last Admin: 09/08/24 17:03 Dose: 5 mg Documented By: MARIANELA Vital Signs Vital signs: Vital Signs - 8 hr 09/08/24 11:45 09/08/24 11:50 09/08/24 11:50 Temperature 98.7 F Pulse Rate 103 H 102 H Respiratory Rate 24 Blood Pressure 123/67 123/67 Pulse Oximetry 95 94 Oxygen Delivery Method Room Air 09/08/24 12:00 09/08/24 12:00 09/08/24 12:30 Temperature Pulse Rate 103 H 100 H Respiratory Rate 20 18 Blood Pressure 114/65 Pulse Oximetry 97 94 Oxygen Delivery Method Room Air Room Air 09/08/24 13:00 09/08/24 13:00 09/08/24 13:30 Temperature Pulse Rate 103 H 97 H Respiratory Rate Blood Pressure 119/69 Pulse Oximetry 95 92 Oxygen Delivery Method 09/08/24 13:30 09/08/24 14:00 09/08/24 14:00 Temperature Pulse Rate 99 H Respiratory Rate 16 Blood Pressure 127/73 127/60 Pulse Oximetry 94 Oxygen Delivery Method 09/08/24 14:30 09/08/24 14:31 09/08/24 14:31 Temperature Pulse Rate 101 H 104 H Respiratory Rate 18 Blood Pressure 102/60 Pulse Oximetry 94 94 Oxygen Delivery Method Room Air 09/08/24 15:00 09/08/24 15:00 Temperature Pulse Rate 100 H Respiratory Rate Blood Pressure 105/56 L Pulse Oximetry 93 Oxygen Delivery Method MDM - Fall Lab Data 09/08/24 13:05 09/08/24 13:05 Labs: Lab Results 09/08/24 Range/Units 13:05 WBC 8.7 (4.5-11.0) X10^3/uL RBC 4.19 L (4.5-5.9) X10^6/uL Hgb 13.5 (13.5-17.5) g/dL Hct 39.4 L (41-53) % MCV 94.0 (80-100) fL MCH 32.2 (26-34) PG MCHC 34.2 (30-36) % RDW 13.1 (11.6-14.8) % Plt Count 209 (150-400) X10^3/uL Neut % (Auto) 67.4 (50-75) % Lymph % (Auto) 21.0 L (25-40) % Nicholas % (Auto) 9.7 (3-14) % Eos % (Auto) 0.5 L (2-4) % Baso % (Auto) 1.4 (0-2) % Neut # (Auto) 5900 (6381-8311) /uL Lymph # (Auto) 1800 (4257-0581) /uL Nicholas # (Auto) 800 (0-900) /uL Eos # (Auto) 0 (0-450) /uL Baso # (Auto) 100 (0-100) /uL Sodium 133 L (137-145) mmol/L Potassium 4.3 (3.4-5.1) mmol/L Chloride 99 (98-107) mmol/L Carbon Dioxide 24 (22-32) mmol/L BUN 11 (9-20) mg/dL Creatinine 0.94 (0.66-1.25) mg/dL Estimated GFR > 60 (>60) mL/min BUN/Creatinine Ratio 11.7 (6-22) Glucose 378 H (80-110) mg/dL Calcium 9.0 (8.4-10.2) mg/dL Total Bilirubin 0.9 (0.2-1.3) mg/dL AST 49 (17-59) IU/L ALT 33 (<50) IU/L Alkaline Phosphatase 87 (38-126) U/L Total Protein 6.9 (6.3-8.2) g/dL Albumin 3.9 (3.5-5.0) g/dL Globulin 3.0 (1.7-4.1) g/dL Albumin/Globulin Ratio 1.3 (1.0-2.8) Imaging Data Extremity x-ray #1: Radiologist's Impression: PROCEDURE: XR KNEE RT 3V INDICATIONS: fall TECHNIQUE: 3 views of the knee were acquired. COMPARISON: None. FINDINGS: Bones: No acute fractures or dislocations. No suspicious bony lesions. 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 Soft tissues: Prominent soft tissue edema and possible hematoma or bursal effusion anterior medial to the knee. No significant knee effusion. Surgical clips project over the medial lower leg. Vascular calcifications are present. IMPRESSION: 1. Prominent soft tissue edema and possible hematoma in the subcutaneous tissues anterior medial to the knee. 2. No acute osseous abnormality. If there is continued clinical concern or persistent symptoms, repeat radiographs or cross-sectional imaging (e.g. CT, MRI) may be helpful for further evaluation. 3. Tricompartmental osteoarthrosis. Approved by: Kenneth Brown M.D. on 09/08/2024 at 12:23 CT aorta run off: Radiologist's Impression: PROCEDURE: CT ANGIO ABD AORTA RUNOFF INDICATIONS: right knee hematoma hard pulse to find TECHNIQUE: After the administration of intravenous contrast, 2.5 mm sections acquired from T12 to the feet, with optional delayed image acquisition from the knees to the feet. 3-dimensional maximum intensity projection (MIP) coronal and sagittal reformats, and/or 3-dimensional volume rendering reformatting was then performed. For radiation dose reduction, the following was used: automated exposure control. COMPARISON: None. FINDINGS: Image Quality: Diagnostic. Abdominal aorta: Moderate aortic atherosclerotic calcifications. Aneurysmal dilatation or dissection. No acute aortic syndrome. Bilateral common iliac, external iliac, and internal iliac arteries are patent. Splanchnic vessels: Atherosclerotic calcifications at the origin of the celiac trunk result in focal 75 % stenosis. Approximately 50% narrowing of the superior mesenteric artery at the origin. No significant narrowing of the renal arteries. Accessory left renal artery is patent. Inferior mesenteric artery appears to be patent. Right lower extremity: Mild atherosclerotic calcifications in the common femoral, superficial femoral, deep femoral arteries without hemodynamically significant stenosis. Atherosclerotic calcifications are seen in the popliteal artery without significant stenosis. Anterior tibial artery origin is patent. Moderate calcifications within the arteries of the calf. Three-vessel runoff to the foot. Subcutaneous hematoma is seen anterior lateral to the left knee measuring approximately 9.0 x 4.0 by 13.8 cm. A small focus of contrast enhancement is seen along the deep margin suspicious for active extravasation. There is surrounding subcutaneous edema. Small right knee effusion. Left lower extremity: Moderate atherosclerotic calcifications within the common, superficial, and deep femoral arteries. There is delayed opacification of the popliteal artery, which opacifies on subsequent scanning. No high-grade popliteal stenosis seen. Dense atherosclerotic calcifications in the calf vessels. There is nonopacification of the anterior tibial artery of the mid dlaal level with 2 vessel runoff to the foot. Dorsalis pedis artery reconstitutes due to collateral flow. Lower Chest: Mild bibasilar atelectasis. Hiatal hernia partially imaged. ABDOMEN: Liver: No solid mass. Liver is hypoattenuating cyst with fatty infiltration. Gallbladder: No radiopaque gallstones or wall thickening. Biliary ducts: No biliary dilation. Pancreas: No ductal dilation. Spleen: Size is within normal limits. Adrenal Glands: No adrenal nodules. Kidneys and Ureters: No hydronephrosis. No solid mass. No complex renal cystic lesion which requires follow up. Benign left renal cyst. Stomach and Bowel: Normal colonic caliber, without significant wall thickening. Peritoneum: No abnormal intraperitoneal fluid. No free air. Ventral Wall: No hernia. Abdominal Nodes: No retroperitoneal or mesenteric adenopathy by size criteria. Vessels: Aorta and inferior vena cava are normal in size. PELVIS: Pelvic Organs: Unremarkable. Bladder: Unremarkable. Pelvic Nodes: No enlarged lymph nodes. Miscellaneous: No inguinal hernias are seen. Bones: No aggressive osseous abnormality. Multilevel degenerative changes in the spine. IMPRESSION: 1. Subcutaneous hematoma anterior medial to the right knee measuring up to 13.8 cm in superior inferior extent. Small focus of contrast material on the deep margin of the hematoma is suspicious for active extravasation. No acute osseous fracture. 2. No acute arterial anomaly in the right lower extremity. 3. Nonopacification of the left anterior tibial artery at the mid dalal level with 2 vessel runoff to the left foot. 4. Focal 70% narrowing at the origin of the celiac trunk. Focal 50% narrowing at the SMA origin. Approved by: Kenneth Brown M.D. on 09/08/2024 at 16:24 MDM Narrative Medical decision making narrative: Patient 79-year-old male on Pradaxa secondary pulmonary embolisms from COVID presents today after fall last night and right knee swelling. He is large significant hematoma distal pedal pulse is dopplerable both feet car cold. He have a small blister 1 cm x 2 cm clear fluid. X-ray has been reviewed and negative CT angio was done due to significant hematoma blister and poor pulses and circulation. 1553 Dr. Adam orthopedics updated patient's symptoms test results reports do not pop the blisters supportive care only despite helping hematoma Patient is given Javier wrap oxycodone. He is able to stand take a couple of steps with a walker. At this time does not meet admission criteria. His daughter's coming up from [place] to help him. We will use wheelchair to help get him out to the car recommend lift assist call if needed once home. Supportive care only at this time. I did discuss with patient talking with pulmonology about risks and benefits of continuing Pradaxa at this time. Discharge Plan Departure Patient Disposition: Home Clinical Impression: Hematoma of right knee region Instructions: DI for Hematoma (Bruise) Activity Restrictions/Additional Instructions: *You have been diagnosed with hematoma *What to do: At this time keep knee elevated ice and compression on it. May remove Javier wrap as needed. You may weightbear as tolerated. You have no broken bones both confirmed by x-ray and CT scan. You do have a lot of bleeding likely due to the Pradaxa you were taking. *Continue to take medications as directed Oxycodone 5 mg every 4-6 hours if needed for severe pain Tylenol 1000 mg every 6 hours for [id number] pain *Follow up with your primary care provider in 2-3 days or call [phone] *Return to ER if you should have increasing pain redness swelling or any new, worsening or concerning symptoms CONTROLLED SUBSTANCE DISCHARGE (Narcotoic/benzodiazepine/Flexeril/Phenergan) 1. You have been prescribed narcotic medications, it does have acetaminophen/Tylenol/paracetamol in it, DO NOT TAKE MORE THAN 4,00mg in 24 hours of Tylenol. TRAMADOL DOES NOT CONTAIN TYLENOL 2. Please understand that we cannot provide further refills of narcotics, benzodiazepines or controlled substances through the ED and her pain management will need to be through your provider. 3. While on these medications you cannot drive or operate heavy machinery. 4. You cannot sign legal documents or perform any duties such as this. 5. As long as you're taking opiate pain medications he should also be taking a stool softener such as Colace, Dulcolax, MiraLAX or prune juice, to help avoid constipation. Prescriptions: New oxycodone 5 mg tablet 5 mg PO Q6H PRN (Reason: pain) Qty: 10 0RF No Action travoprost 0.004 % Drops 1 drp EYE-BOTH DAILY simvastatin 40 mg Tablet 40 mg PO QPM omeprazole 20 mg Capsule,Delayed Release(Dr/Ec) 20 mg PO Q OTHER DAY metoprolol succinate 25 mg Tablet Extended Release 24 Hr 25 mg PO DAILY acetaminophen 325 mg Tablet 650 mg PO BEDTIME magnesium 200 mg Tablet 200 mg PO DAILY Lactobacillus acidophilus 100 mg (1 billion cell) Capsule 100 mg PO DAILY Patient Comments: Has not taken in a while, does not remember the last time he took it multivitamin Tablet 1 tab PO DAILY ascorbic acid (vitamin C) [Vitamin C] 1,000 mg Tablet 1,000 mg PO DAILY cetirizine 10 mg Tablet 10 mg PO DAILY aspirin 325 mg Tablet 325 mg PO DAILY vitamin B complex [B Complex-Vitamin B12] Tablet 1 tab PO DAILY ibuprofen 600 mg Tablet 600 mg PO TID PRN (Reason: Pain (Scale Score 1-3)) dokxwzdacoa-usfmspugs-dia C-Mn 500-400 mg Capsule 1 cap PO DAILY coenzyme Q10 300 mg Capsule 300 mg PO DAILY tadalafil 5 mg Tablet 5 mg PO DAILY omega-3 fatty acids-fish oil 340-1,000 mg Capsule 1 cap PO DAILY cholecalciferol (vitamin D3) [Vitamin D3] 125 mcg (5,000 unit) Tablet 500 mcg PO QWEEK flaxseed oil-omega 3,6,9 1,300 mg-845 mg -117 mg-117 mg Capsule 1 cap PO DAILY Ozempic 1 mg/dose (4 mg/3 mL) Pen Injector 1 mg SUBCUT QWEEK erythromycin 5 mg/gram (0.5 %) ointment 0.5 inch EYE-BOTH TID Qty: 3.5 2RF dabigatran etexilate [Pradaxa] 150 mg capsule 150 mg PO BID hydrocodone-acetaminophen 5-325 mg tablet 1 tab PO Q4-6H PRN (Reason: pain) tamsulosin 0.4 mg capsule 0.4 mg PO BEDTIME metformin 500 mg tablet 1,000 mg PO BID tramadol 50 mg Tablet 50 mg PO QID PRN (Reason: Pain, Moderate (4-6)) Qty: 60 0RF Referrals: Teodora Gordon PA-C [Primary Care Provider] - Stand Alone Forms: Patient Portal/API/Survey
--- NOTE | 2024-09-08 14:21 | DI.CT.S_ITS ---
PROCEDURE: CT ANGIO ABD AORTA RUNOFF INDICATIONS: right knee hematoma hard pulse to find TECHNIQUE: After the administration of intravenous contrast, 2.5 mm sections acquired from T12 to the feet, with optional delayed image acquisition from the knees to the feet. 3-dimensional maximum intensity projection (MIP) coronal and sagittal reformats, and/or 3-dimensional volume rendering reformatting was then performed. For radiation dose reduction, the following was used: automated exposure control. COMPARISON: None. FINDINGS: Image Quality: Diagnostic. Abdominal aorta: Moderate aortic atherosclerotic calcifications. Aneurysmal dilatation or dissection. No acute aortic syndrome. Bilateral common iliac, external iliac, and internal iliac arteries are patent. Splanchnic vessels: Atherosclerotic calcifications at the origin of the celiac trunk result in focal 75 % stenosis. Approximately 50% narrowing of the superior mesenteric artery at the origin. No significant narrowing of the renal arteries. Accessory left renal artery is patent. Inferior mesenteric artery appears to be patent. Right lower extremity: Mild atherosclerotic calcifications in the common femoral, superficial femoral, deep femoral arteries without hemodynamically significant stenosis. Atherosclerotic calcifications are seen in the popliteal artery without significant stenosis. Anterior tibial artery origin is patent. Moderate calcifications within the arteries of the calf. Three-vessel runoff to the foot. Subcutaneous hematoma is seen anterior lateral to the left knee measuring approximately 9.0 x 4.0 by 13.8 cm. A small focus of contrast enhancement is seen along the deep margin suspicious for active extravasation. There is surrounding subcutaneous edema. Small right knee effusion. Left lower extremity: Moderate atherosclerotic calcifications within the common, superficial, and deep femoral arteries. There is delayed opacification of the popliteal artery, which opacifies on subsequent scanning. No high-grade popliteal stenosis seen. Dense atherosclerotic calcifications in the calf vessels. There is nonopacification of the anterior tibial artery of the mid daall level with 2 vessel runoff to the foot. Dorsalis pedis artery reconstitutes due to collateral flow. Lower Chest: Mild bibasilar atelectasis. Hiatal hernia partially imaged. ABDOMEN: Liver: No solid mass. Liver is hypoattenuating cyst with fatty infiltration. Gallbladder: No radiopaque gallstones or wall thickening. Biliary ducts: No biliary dilation. Pancreas: No ductal dilation. Spleen: Size is within normal limits. Adrenal Glands: No adrenal nodules. Kidneys and Ureters: No hydronephrosis. No solid mass. No complex renal cystic lesion which requires follow up. Benign left renal cyst. Stomach and Bowel: Normal colonic caliber, without significant wall thickening. Peritoneum: No abnormal intraperitoneal fluid. No free air. Ventral Wall: No hernia. Abdominal Nodes: No retroperitoneal or mesenteric adenopathy by size criteria. Vessels: Aorta and inferior vena cava are normal in size. PELVIS: Pelvic Organs: Unremarkable. Bladder: Unremarkable. Pelvic Nodes: No enlarged lymph nodes. Miscellaneous: No inguinal hernias are seen. Bones: No aggressive osseous abnormality. Multilevel degenerative changes in the spine. IMPRESSION: 1. Subcutaneous hematoma anterior medial to the right knee measuring up to 13.8 cm in superior inferior extent. Small focus of contrast material on the deep margin of the hematoma is suspicious for active extravasation. No acute osseous fracture. 2. No acute arterial anomaly in the right lower extremity. 3. Nonopacification of the left anterior tibial artery at the mid dalal level with 2 vessel runoff to the left foot. 4. Focal 70% narrowing at the origin of the celiac trunk. Focal 50% narrowing at the SMA origin. Approved by: Kenneth Brown M.D. on 09/08/2024 at 16:24
[2024-09-08] MEDS: HYDROMORPHONE 0.5 MG INJ IV (14:37)
[2024-09-08 14:56] LABS: Alanine Aminotransferase 33 IU/L (<50); Albumin 3.9 g/dL (3.5-5.0); Albumin Globulin Ratio 1.3 (1.0-2.8); Alkaline Phosphatase 87 U/L (38-126); Aspartate Aminotransferase 49 IU/L (17-59); BUN Creatinine Ratio 11.7 (6-22); Bilirubin Total 0.9 mg/dL (0.2-1.3); Blood Urea Nitrogen 11 mg/dL (9-20); Carbon Dioxide 24 mmol/L (22-32); Chloride 99 mmol/L (98-107); Estimated Glomerular Filt Rate > 60 mL/min (>60); Glucose 378 mg/dL (80-110); HEMOLYSIS < 15 (0-50); Potassium 4.3 mmol/L (3.4-5.1); Sodium 133 mmol/L (137-145); Total Protein 6.9 g/dL (6.3-8.2)
[2024-09-08] MEDS: OXYCODONE IR 5 MG TABLET PO (17:03)
== END 2024-09-08 20:16 | disposition home or self-care (01) ==
PROVIDERS: Emergency Provider Emergency Medicine; Family Provider Physician Assistant Medical; PCP Physician Assistant Medical
DX: S80.01XA Contusion of right knee, initial encounter (principal); W18.30XA Fall on same level, unspecified, initial encounter; Z86.16 Personal history of COVID-19; Z79.01 Long term (current) use of anticoagulants
CPT/HCPCS: 36415; 73562; 75635; 80053; 85025; 96374; 99284; J1171; Q9967

== ENCOUNTER 2024-09-21 18:15 | Emergency (ER) | payer OTHER, SELFPAY ==
[2023-05-16 17:09] VITALS: BMI 35.1
[2024-09-21] VITALS (16 sets, daily range): BP systolic 77–130; BP diastolic 50–83; PULSE 88–100; RESP 14–35; TEMP 36.9; O2SAT 92–98; BMI 40.1
--- NOTE | 2024-09-21 19:01 | DI.CT.S_ITS ---
PROCEDURE: CT LE RT W CON INDICATIONS: fall persistant hematoma TECHNIQUE: After the administration of intravenous contrast, 3 mm axial sections acquired of the left lower extremity , with coronal and sagittal reformats. COMPARISON: [facility], CR, XR KNEE RT 3V, 09/08/2024, 11:26. FINDINGS: Image quality: Excellent. Bones: Tricompartmental arthritic change at the knee is present periarticular osteophytes are present. No distinct erosions. Soft tissues: Extensive vascular calcifications are present. Significant soft tissue edema anterior to the patella. Hounsfield units measure 69. Mild effusion. IMPRESSION: Significant anterior knee soft tissue hematoma. No visualized underlying fracture. Ligamentous injury cannot be excluded. Dictated by: Marleny Clinton M.D. on 09/21/2024 at 20:03 Approved by: Marleny Clinton M.D. on 09/21/2024 at 20:05
--- NOTE | 2024-09-21 19:08 | EKG_ITS ---
[address] [address] Test Date: 2024-09-21 Pat Name: Boy Pisano Department: Room: Gender: Male Towerman: AMNA : 1945 Requested By: Order Number: [id number] Reading MD: Tevin Perkins Measurements Intervals [place] Rate: 99 P: 3 HI: 218 QRS: 63 QRSD: 94 T: -33 QT: 352 QTc: 451 Interpretive Statements Sinus rhythm with 1st degree AV block with premature atrial complexes Abnormal QRS-T angle, consider primary T wave abnormality Electronically Signed On 09-22-2024 7:58:54 PST by Tevin Perkins
--- NOTE | 2024-09-21 19:20 | PC.NURSE ---
Pt complaining of indigestion, states it is from his hernia that causes his indigestion. Pt hypotensive at this time. Dr. Coleman notified. Blood work and EKG ordered.
[2024-09-21 19:33] LABS: Add Manual Diff / Slide Review NO; Basophils Absolute Auto 100 /uL (0-100); Basophils Percent Auto 0.7 % (0-2); Eosinophils Absolute Auto 200 /uL (0-450); Eosinophils Percent Auto 1.8 % (2-4); Hematocrit 41.6 % (41-53); Hemoglobin 14.1 g/dL (13.5-17.5); INR 1.3 (0.9-1.3); Lymphocytes Absolute Auto 2500 /uL (1100-4500); Mean Corpuscular HGB Conc 33.9 % (30-36); Mean Corpuscular Hemoglobin 31.8 PG (26-34); Mean Corpuscular Volume 93.7 fL (80-100); Monocytes Absolute Auto 700 /uL (0-900); Monocytes Percent Auto 8.4 % (3-14); Neutrophils Absolute Auto 5400 /uL (1500-7000); Neutrophils Percent Auto 61.1 % (50-75); Platelet Count 323 X10^3/uL (150-400); Prothrombin Time 15.1 SECONDS (9.4-12.5); Red Blood Cell Count 4.44 X10^6/uL (4.5-5.9); Red Cell Distribution Width 13.4 % (11.6-14.8); White Blood Cell Count 8.8 X10^3/uL (4.5-11.0)
[2024-09-21 19:35] LABS: PTT Partial Thromboplastin Tim 48 SECONDS (25.1-36.5)
[2024-09-21 19:37] LABS: Alanine Aminotransferase 37 IU/L (<50); Albumin 3.9 g/dL (3.5-5.0); Albumin Globulin Ratio 1.1 (1.0-2.8); Alkaline Phosphatase 122 U/L (38-126); Aspartate Aminotransferase 55 IU/L (17-59); BUN Creatinine Ratio 13.5 (6-22); Bilirubin Total 0.9 mg/dL (0.2-1.3); Blood Urea Nitrogen 13 mg/dL (9-20); Calcium 9.6 mg/dL (8.4-10.2); Carbon Dioxide 20 mmol/L (22-32); Chloride 103 mmol/L (98-107); Estimated Glomerular Filt Rate > 60 mL/min (>60); Globulin 3.6 g/dL (1.7-4.1); Glucose 218 mg/dL (80-110); HEMOLYSIS 35 (0-50); Potassium 4.2 mmol/L (3.4-5.1); Sodium 132 mmol/L (137-145); Total Protein 7.5 g/dL (6.3-8.2)
[2024-09-21] MEDS: HYDROMORPHONE 0.5 MG INJ IV ×2 (19:48→22:26)
[2024-09-21] MEDS: ONDANSETRON 4 MG/2 ML INJ IV (19:48)
[2024-09-21] MEDS: PANTOPRAZOLE 40 MG VIAL IV (20:08)
[2024-09-21 20:11] LABS: Creatine Kinase 55 U/L (55-170)
[2024-09-21 20:24] LABS: Troponin I < 0.012 ng/mL (0.01-0.034)
--- NOTE | 2024-09-21 20:51 | ED_ITS ---
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 I saw and evaluated here him on September 08 after he fell and suffered a large hematoma of his right knee. He has been getting around and doing okay. He has had some difficulty with pain control however he finds that tramadol and gabapentin have been helping. He is frequently nauseous. No fever chills or redness. Swelling has actually gone down. He has been getting around with a walker which has been helpful. He also is complaining of some acid reflux which has been ongoing for him as well. Today he was unable to walk due to increasing pain. He arrived by EMS very quickly after arrival his blood pressure decreased into the 70s. Then quickly came up without any sort of intervention. He did receive 50 mcg of fentanyl with EMS prior to arrival. Related Data Home Medications Medication Instructions Recorded Confirmed metoprolol succinate 25 mg 25 mg PO DAILY 11/17/18 05/16/23 tablet,extended release 24 hr omeprazole 20 mg capsule,delayed 20 mg PO Q OTHER DAY 11/17/18 05/16/23 release simvastatin 40 mg tablet 40 mg PO QPM 11/17/18 05/16/23 travoprost 0.004 % eye drops 1 drp EYE-BOTH DAILY 11/17/18 05/16/23 Lactobacillus acidophilus 100 mg 100 mg PO DAILY 10/01/22 05/16/23 (1 billion cell) capsule acetaminophen 325 mg tablet 650 mg PO BEDTIME 10/01/22 05/16/23 ascorbic acid (vitamin C) 1,000 mg 1,000 mg PO DAILY 10/01/22 05/16/23 tablet (Vitamin C) aspirin 325 mg tablet 325 mg PO DAILY 10/01/22 05/16/23 cetirizine 10 mg tablet 10 mg PO DAILY 10/01/22 05/16/23 cholecalciferol (vitamin D3) 125 500 mcg PO QWEEK 10/01/22 05/16/23 mcg (5,000 unit) tablet (Vitamin D3) coenzyme Q10 300 mg capsule 300 mg PO DAILY 10/01/22 05/16/23 flaxseed oil 1,300 mg-omega 3,6,9 1 cap PO DAILY 10/01/22 05/16/23 845 mg-117 mg-117 mg capsule [id number]-bdx C-Mn 500 1 cap PO DAILY 10/01/22 05/16/23 mg-400 mg capsule ibuprofen 600 mg tablet 600 mg PO TID PRN Pain (Scale 10/01/22 05/16/23 Score 1-3) magnesium 200 mg tablet 200 mg PO DAILY 10/01/22 05/16/23 multivitamin 1 tab PO DAILY 10/01/22 05/16/23 omega-3 fatty acids-fish oil 340 1 cap PO DAILY 10/01/22 05/16/23 mg-1,000 mg capsule semaglutide 1 mg/dose (4 mg/3 mL) 1 mg SUBCUT QWEEK 10/01/22 05/16/23 subcutaneous pen injector (Ozempic) tadalafil 5 mg tablet 5 mg PO DAILY 10/01/22 05/16/23 vitamin B complex (B 1 tab PO DAILY 10/01/22 05/16/23 Complex-Vitamin B12 tablet) dabigatran etexilate 150 mg 150 mg PO BID 05/16/23 05/16/23 capsule (Pradaxa) hydrocodone 5 mg-acetaminophen 325 1 tab PO Q4-6H PRN pain 05/16/23 05/16/23 mg tablet tamsulosin 0.4 mg capsule 0.4 mg PO BEDTIME 05/16/23 05/16/23 metformin 500 mg tablet 1,000 mg PO BID 05/17/23 05/17/23 Previous Rx's Medication Instructions Recorded tramadol 50 mg tablet 50 mg PO QID PRN Pain, Moderate 10/18/22 (4-6) #60 tabs erythromycin 5 mg/gram (0.5 %) eye 0.5 inch EYE-BOTH TID #3.5 grams 01/12/23 ointment oxycodone 5 mg tablet 5 mg PO Q6H PRN pain #10 tabs 09/08/24 ondansetron 4 mg disintegrating 4 mg PO Q8H PRN nausea and 09/21/24 tablet vomiting #10 tabs tramadol 50 mg tablet 50 mg PO TID PRN pain #30 tabs 09/21/24 Allergies Allergy/AdvReac Type Severity Reaction Status Date / Time tazobactam [From Zosyn] Allergy Intermediate Rash Verified 06/15/23 14:53 Patient History Medical History CAD (coronary artery disease) 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 HEENT: Head atraumatic,EOMI, pupils reactive, face symmetric, [moist] mucous membranes CARDIOVASCULAR: Regular rate and rhythm without murmurs, rubs or gallops. RESPIRATORY: Breath sounds equal bilaterally, no wheezes rales or rhonchi. ABDOMEN: Soft, nontender. Normoactive bowel sounds all 4 quadrants. No guarding or rebound. EXTREMITIES: Normal range of motion, no clubbing or edema. Neurovascularly intact Right lower extremity he does have significant medial hematoma he is some discoloration of the skin of yellowing also some dark or bruising on the medial thigh and down in his lower extremity as well. He has a good strong distal pedal pulse. NEUROLOGICAL: Alert and oriented x4. SKIN: Warm, dry, no laceration, no petechiae, no rashes or lesions. Course Orders Ordered: ED Orders 09/21/24 22:24 EKG-12 Lead Stat Discontinued Medications Hydromorphone HCl (Hydromorphone 0.5 Mg Inj) 0.5 mg IV NOW ONE Stop: 09/21/24 19:02 Last Admin: 09/21/24 19:48 Dose: 0.5 mg Documented By: KRISTIE Hydromorphone HCl (Hydromorphone 0.5 Mg Inj) 0.5 mg IV NOW ONE Stop: 09/21/24 22:17 Last Admin: 09/21/24 22:26 Dose: 0.5 mg Documented By: KRISTIE Ondansetron HCl (Ondansetron 4 Mg/2 Ml Inj) 4 mg IV NOW ONE Stop: 09/21/24 19:43 Last Admin: 09/21/24 19:48 Dose: 4 mg Documented By: KRISTIE Ondansetron HCl (Ondansetron 4 Mg Odt Prepack) 1 bottle MISC DIRECTED ONE Stop: 09/21/24 22:17 Last Admin: 09/21/24 22:35 Dose: Not Given Documented By: FITZ Ondansetron HCl (Ondansetron 4 Mg Odt Prepack) 1 bottle MISC Q6HR SHIRLEY Ondansetron HCl (Ondansetron 4 Mg Odt Prepack) 1 bottle MISC Q6H PRN PRN Reason: Nausea Last Admin: 09/21/24 22:45 Dose: 1 bottle Documented By: KRISTIE Pantoprazole Sodium (Pantoprazole 40 Mg Vial) 40 mg IV NOW ONE Stop: 09/21/24 19:50 Last Admin: 09/21/24 20:08 Dose: 40 mg Documented By: KRISTIE Vital Signs Vital signs: Vital Signs - 8 hr 09/21/24 21:30 09/21/24 21:30 09/21/24 22:00 Pulse Rate 94 H 93 H Respiratory Rate 14 Blood Pressure 121/69 Pulse Oximetry 92 94 09/21/24 22:00 09/21/24 22:30 09/21/24 22:30 Pulse Rate 96 H Respiratory Rate Blood Pressure 130/83 125/66 Pulse Oximetry 95 MDM - Extremity Injury (Lower) Lab Data 09/21/24 19:10 09/21/24 19:10 Labs: Lab Results 09/21/24 Range/Units 19:10 WBC 8.8 (4.5-11.0) X10^3/uL RBC 4.44 L (4.5-5.9) X10^6/uL Hgb 14.1 (13.5-17.5) g/dL Hct 41.6 (41-53) % MCV 93.7 (80-100) fL MCH 31.8 (26-34) PG MCHC 33.9 (30-36) % RDW 13.4 (11.6-14.8) % Plt Count 323 (150-400) X10^3/uL Neut % (Auto) 61.1 (50-75) % Lymph % (Auto) 28.0 (25-40) % [place] % (Auto) 8.4 (3-14) % Eos % (Auto) 1.8 L (2-4) % Baso % (Auto) 0.7 (0-2) % Neut # (Auto) 5400 (4573-8810) /uL Lymph # (Auto) 2500 (5821-6045) /uL [place] # (Auto) 700 (0-900) /uL Eos # (Auto) 200 (0-450) /uL Baso # (Auto) 100 (0-100) /uL PT 15.1 H (9.4-12.5) SECONDS INR 1.3 (0.9-1.3) APTT 48 H (25.1-36.5) SECONDS Sodium 132 L (137-145) mmol/L Potassium 4.2 (3.4-5.1) mmol/L Chloride 103 (98-107) mmol/L Carbon Dioxide 20 L (22-32) mmol/L BUN 13 (9-20) mg/dL Creatinine 0.96 (0.66-1.25) mg/dL Estimated GFR > 60 (>60) mL/min BUN/Creatinine Ratio 13.5 (6-22) Glucose 218 H (80-110) mg/dL Calcium 9.6 (8.4-10.2) mg/dL Total Bilirubin 0.9 (0.2-1.3) mg/dL AST 55 (17-59) IU/L ALT 37 (<50) IU/L Alkaline Phosphatase 122 (38-126) U/L Total Creatine Kinase 55 (55-170) U/L Troponin I < 0.012 (0.01-0.034) ng/mL Total Protein 7.5 (6.3-8.2) g/dL Albumin 3.9 (3.5-5.0) g/dL Globulin 3.6 (1.7-4.1) g/dL Albumin/Globulin Ratio 1.1 (1.0-2.8) Blood Type B Negative Antibody Screen Negative Imaging Data CT LE: Radiologist's Impression: PROCEDURE: CT LE RT W CON INDICATIONS: fall persistant hematoma TECHNIQUE: After the administration of intravenous contrast, 3 mm axial sections acquired of the left lower extremity , with coronal and sagittal reformats. COMPARISON: [facility], CR, XR KNEE RT 3V, 09/08/2024, 11:26. FINDINGS: Image quality: Excellent. Bones: Tricompartmental arthritic change at the knee is present periarticular osteophytes are present. No distinct erosions. Soft tissues: Extensive vascular calcifications are present. Significant soft tissue edema anterior to the patella. Hounsfield units measure 69. Mild effusion. IMPRESSION: Significant anterior knee soft tissue hematoma. No visualized underlying fracture. Ligamentous injury cannot be excluded. Dictated by: Marleny Clinton M.D. on 09/21/2024 at 20:03 Approved by: Marleny Clinton M.D. on 09/21/2024 at 20:05 ECG Data Attestation: I personally reviewed and interpreted this ECG as follows: Interpretation: Normal sinus rhythm rate 99 MO interval 218 QRS 94 QTC 451 no ischemia MDM Narrative Medical decision making narrative: MDM CC: Right knee pain Complicating co-morbidities: On Pradaxa secondary to remote pulmonary embolism Data collected from: Daughter at bedside Medical records reviewed: Previous ED visits on September 08 Differential considered: Ongoing hematoma infection Exam documented above, pertinent findings include: Significant right lower extremity knee anterior medial hematoma soft no significant erythema he is got good distal pedal pulse Lab Test results independently reviewed as above. Pertinent findings: WBC 8.8, hemoglobin 14.1, hematocrit 41.6, platelets 323 INR 1.3, PTT 40 Sodium 132 potassium 4.2 chloride 103 carbon dioxide 20 BUN 13, creatinine 0.96 Troponin negative Independently reviewed EKG as above: Sinus rhythm no ischemia Imaging studies independently reviewed: CT lower extremity shows right large hematoma Consultations: 2051 Dr. Rodriguez orthopedic surgery updated on patient's symptoms test results has received photos of knee. Reports that it could attempt to aspirate with 18 gauge needle. She is happy to see him in follow-up in the clinic Treatments: Dilaudid Re-evaluations: Patient is feeling much better after Dilaudid Discussion: 79-year-old male presents today with ongoing right knee pain and swelling and hematoma. He fell about 2 weeks ago swelling has actually gone down but is still very much present. He was only having his Pradaxa. He has a very remote history of pulmonary embolism he has not anemic today he had a brief episode of hypotension. At this time I think it is reasonable for him to stop his Pradaxa he is followed by pulmonology but I do recommend he call and talk to pulmonology as well. Orthopedic surgery recommended I could attempt I and D with 18 gauge needle however I did discuss this with patient and daughter. At this time patient would like to hold off he reports it is getting softer the pain is last overall he is feeling better. He is fine to follow up with Orthopedics in the clinic. At this time he has no significant leukocytosis or anemia no significant erythema or sign of infection. Recommend supportive care. Discharge Plan Departure Patient Disposition: Home Clinical Impression: Hematoma of right knee region Instructions: DI for Hematoma (Bruise) Activity Restrictions/Additional Instructions: *You have been diagnosed with right knee hematoma *What to do: At this time elevate and ice as often as possible. You are doing a great job. *Continue to take medications as directed Tramadol 50-100 mg every 6 hours if needed for pain Zofran 4 mg every 8 hours if needed for nausea or vomiting *Follow up with your primary care provider in 2-3 days or call [phone] *Return to ER if you should have increasing pain redness fever confusion or any new, worsening or concerning symptoms Prescriptions: New tramadol 50 mg tablet 50 mg PO TID PRN (Reason: pain) Qty: 30 0RF ondansetron 4 mg tablet,disintegrating 4 mg PO Q8H PRN (Reason: nausea and vomiting) Qty: 10 0RF No Action travoprost 0.004 % Drops 1 drp EYE-BOTH DAILY simvastatin 40 mg Tablet 40 mg PO QPM omeprazole 20 mg Capsule,Delayed Release(Dr/Ec) 20 mg PO Q OTHER DAY metoprolol succinate 25 mg Tablet Extended Release 24 Hr 25 mg PO DAILY acetaminophen 325 mg Tablet 650 mg PO BEDTIME magnesium 200 mg Tablet 200 mg PO DAILY Lactobacillus acidophilus 100 mg (1 billion cell) Capsule 100 mg PO DAILY Patient Comments: Has not taken in a while, does not remember the last time he took it multivitamin Tablet 1 tab PO DAILY ascorbic acid (vitamin C) [Vitamin C] 1,000 mg Tablet 1,000 mg PO DAILY cetirizine 10 mg Tablet 10 mg PO DAILY aspirin 325 mg Tablet 325 mg PO DAILY vitamin B complex [B Complex-Vitamin B12] Tablet 1 tab PO DAILY ibuprofen 600 mg Tablet 600 mg PO TID PRN (Reason: Pain (Scale Score 1-3)) [id number] C-Mn 500-400 mg Capsule 1 cap PO DAILY coenzyme Q10 300 mg Capsule 300 mg PO DAILY tadalafil 5 mg Tablet 5 mg PO DAILY omega-3 fatty acids-fish oil 340-1,000 mg Capsule 1 cap PO DAILY cholecalciferol (vitamin D3) [Vitamin D3] 125 mcg (5,000 unit) Tablet 500 mcg PO QWEEK flaxseed oil-omega 3,6,9 1,300 mg-845 mg -117 mg-117 mg Capsule 1 cap PO DAILY Ozempic 1 mg/dose (4 mg/3 mL) Pen Injector 1 mg SUBCUT QWEEK erythromycin 5 mg/gram (0.5 %) ointment 0.5 inch EYE-BOTH TID Qty: 3.5 2RF dabigatran etexilate [Pradaxa] 150 mg capsule 150 mg PO BID hydrocodone-acetaminophen 5-325 mg tablet 1 tab PO Q4-6H PRN (Reason: pain) tamsulosin 0.4 mg capsule 0.4 mg PO BEDTIME metformin 500 mg tablet 1,000 mg PO BID oxycodone 5 mg tablet 5 mg PO Q6H PRN (Reason: pain) Qty: 10 0RF tramadol 50 mg Tablet 50 mg PO QID PRN (Reason: Pain, Moderate (4-6)) Qty: 60 0RF Referrals: [facility] [Provider Group] Teodora Gordon PA-C [Primary Care Provider] - Stand Alone Forms: Patient Portal/API/Survey
[2024-09-21] MEDS: ONDANSETRON 4 MG ODT PREPACK 1 BOTTLE MISC (22:45)
== END 2024-09-21 22:48 | disposition home or self-care (01) ==
PROVIDERS: Emergency Provider Emergency Medicine; Family Provider Physician Assistant Medical; PCP Physician Assistant Medical
DX: S80.01XA Contusion of right knee, initial encounter (principal); M25.461 Effusion, right knee; I44.0 Atrioventricular block, first degree; Z79.01 Long term (current) use of anticoagulants; W19.XXXA Unspecified fall, initial encounter
CPT/HCPCS: 36415; 73701; 80053; 82550; 84484; 85025; 85610; 85730; 86850; 86900; 86901; 93005; 96374; 96375; 96376; 99283; 99284; J1171; J2405; J2470; Q9967

== ENCOUNTER → 2025-02-15 15:42 | Outpatient (CLI) | payer OTHER, SELFPAY ==
[2023-05-16 17:09] VITALS: BMI 35.1
--- NOTE | 2025-02-15 15:43 | DI.CT.S_ITS ---
PROCEDURE: CT SINUS SCREEN WO CON INDICATIONS: RHINITIS TECHNIQUE: Noncontrast 3.0 mm axial images acquired from the frontal sinuses to the mid-sella, with coronal and sagittal reformats. For radiation dose reduction, the following was used: automated exposure control, adjustment of mA and/or kV according to patient size. COMPARISON: [facility], CT, CT SINUS SCREEN WO CON, 04/20/2023, 15:53. FINDINGS: Image quality: Excellent. Maxillary Sinuses: No bony remodeling or destruction. Sinuses are clear. Ethmoid Air Cells: No bony remodeling or destruction. Sinuses are clear. Sphenoid Sinuses: No bony remodeling or destruction. Sinuses are clear. Frontal Sinuses: No bony remodeling or destruction. Sinuses are clear. Ostiomeatal Complexes: The ostiomeatal complexes are patent, yet they are constitutionally narrowed, with bilateral Morro cells. Miscellaneous: Visualized intra-orbital contents are normal. There are small bilateral terrance bullosa. There is mild S shaped nasal septal deviation. IMPRESSION: No significant active paranasal sinus disease can be seen. The ostiomeatal complexes are patent, yet they are constitutionally narrowed, with bilateral Morro cells. Dictated by: Nikhil Cr M.D. on 02/15/2025 at 15:22 Approved by: Nikhil Cr M.D. on 02/15/2025 at 15:23
== END ==
LOC: CT 15:42
PROVIDERS: Family Provider Physician Assistant Medical; PCP Physician Assistant Medical; Referring Provider Physician Assistant Medical; Visit Provider Physician Assistant Medical
DX: J32.8 Other chronic sinusitis (principal); J31.0 Chronic rhinitis; J34.2 Deviated nasal septum
CPT/HCPCS: 70486